=== PATIENT | female | born 1955 | race Caucasian/White ===

== ENCOUNTER → 2017-11-27 | Outpatient (CLI) | payer OTHER ==
[2017-11-17 11:00] VITALS: BP 116/57
[~2017-11-27] MED LIST: AMOX1TAB61 PO; APIX5TAB PO; ASCO500T3 PO; ASPI325T11 PO; ERTA1VIA IJ; FERR325T14 PO; LACT1CAP21 PO; LINE600T PO
--- NOTE | 2017-11-27 13:38 | KCIC ---
Examination: Ultrasound left lower extremity venous duplex HISTORY: History of follow-up greater saphenous vein thrombosis COMPARISON: 11/15/2017 Technique: Grayscale, color Doppler 2-D, spectral waveforms analysis of the left lower extremity venous system were performed. FINDINGS: Echogenicity identified in the greater saphenous vein likely known thrombosis. The thrombosis extends into the common femoral vein. The visualized superficial femoral vein, popliteal vein, calf veins are patent IMPRESSION: Thrombosis of the greater saphenous vein now extends into the common femoral vein which is a deep vein (deep venous thrombosis in the common femoral vein extending from the superficial greater saphenous vein). was informed at time of dictation. Electronically signed by: Jeff Leary MD (11/27/2017 1:34 PM) [id number]
== END | disposition home or self-care (01) ==
LOC: KCIC US 12:34
PROVIDERS: ATTEND Internal Medicine
DX: I82.412 Acute embolism and thrombosis of left femoral vein (principal)
CPT/HCPCS: 93971

== ENCOUNTER → 2017-12-25 | Outpatient (CLI) | payer OTHER ==
[2017-11-29 11:00] VITALS: BP 102/39
--- NOTE | 2017-12-25 12:48 | KCIC ---
Left lower extremity venous duplex study 12/25/2017 Clinical History: Lower extremity pain COMPARISON STUDY: Lower extremity venous duplex ultrasound November 15, 2017. Technique: Using a combination of real time ultrasound imaging and color-flow and pulse Doppler imaging techniques, including spectral analysis, graded compression and augmentation, duplex evaluation of the deep venous system of the left lower extremity was performed. Multiple images were obtained. Findings: There is no sonographic evidence of deep venous thrombosis involving the visualized deep venous structures of the left lower extremity. Previously seen clot in the left great saphenous vein has resolved in the interim. Impression: No evidence of deep venous thrombosis involving the left lower extremity. Electronically signed by: Kyle Vicente MD (12/25/2017 12:45 PM) [id number]
== END | disposition home or self-care (01) ==
LOC: KCIC US 10:52
PROVIDERS: ATTEND Surgery
DX: I82.492 Acute embolism and thrombosis of other specified deep vein of left lower extremity (principal)
CPT/HCPCS: 93971

== ENCOUNTER → 2017-12-28 | Outpatient (CLI) | payer OTHER ==
[2017-11-29 11:00] VITALS: BP 102/39
[~2017-12-28] MED LIST changes: +DOCU-109 PO; +OXYC1TAB7 PO
[2017-12-28 15:13] LABS: BASO % 1 % (0-3); EOS # 0.2 x10^3/uL (0.0-0.7); EOS % 2 % (0-3); HEMOGLOBIN 9.3 g/dL (12.0-15.5); LYMPH # 1.6 x10^3/uL (1.0-4.8); LYMPH % 22 % (24-48); MEAN CORPUSCULAR HEMOGLOBIN 25 pg (25-35); MEAN CORPUSCULAR HGB CONC 32 g/dL (31-37); MEAN CORPUSCULAR VOLUME 78 fL (79-100); MONO # 0.5 x10^3/uL (0.0-1.1); MONO % 7 % (0-9); NEUT # 4.8 x10^3uL (1.8-7.7); NEUT % 68 % (31-73); PLATELET COUNT 328 x10^3/uL (140-400); RED BLOOD COUNT 3.71 x10^6/uL (3.50-5.40)
[2017-12-28 15:23] LABS: PROTHROMBIN TIME PATIENT 14.6 SEC (11.7-14.0)
[2017-12-28 15:48] LABS: ALBUMIN 3.3 g/dL (3.4-5.0); CALCIUM 9.8 mg/dL (8.5-10.1); CREATININE 0.7 mg/dL (0.6-1.0); DIRECT BILIRUBIN 0.1 mg/dL (0.0-0.2); GFR 85.1; POTASSIUM 4.3 mmol/L (3.5-5.1); TOTAL BILIRUBIN 0.3 mg/dL (0.2-1.0); TOTAL PROTEIN 7.5 g/dL (6.4-8.2)
[2017-12-28 16:13] LABS: ANISOCYTOSIS MOD; BURR CELLS OCC; MICROCYTOSIS SLIGHT; POIKILOCYTOSIS SLIGHT
[2017-12-28 16:14] LABS: OVALOCYTES FEW
[2017-12-28 16:15] LABS: PLT ESTIMATE ADEQUATE (ADEQUATE)
== END | disposition home or self-care (01) ==
LOC: SURGPAT 14:27
PROVIDERS: ATTEND Surgery
DX: Z01.818 Encounter for other preprocedural examination (principal); K57.92 Diverticulitis of intestine, part unspecified, without perforation or abscess without bleeding; R94.5 Abnormal results of liver function studies
CPT/HCPCS: 36415; 80048; 80076; 85025; 85610; 85730

== ENCOUNTER 2018-01-04 06:01 | Inpatient (IN) | payer OTHER ==
[2018-01-04] VITALS (9 sets, daily range): BP systolic 93–135; BP diastolic 42–72
[~2018-01-04] VITALS: Ht 167.6 cm; Wt 82.6 kg
[~2018-01-04 06:01] MED LIST changes: -DOCU-109 PO; +IOHEXOL 300 MG/ML 100ML VIAL. ONE; +LIDOCAINE 2% JELLY 6ML IN APPLICATOR. ONE; -OXYC1TAB7 PO
[2018-01-04] MEDS ORDERED: ONDANSETRON PF 4 MG/2 ML VIAL. ONE (06:56)
[2018-01-04] MEDS ORDERED: DEXAMETHASONE SOD PHOS 20 MG/5 ML VIAL. ONE (06:56)
[2018-01-04] MEDS ORDERED: LIDOCAINE 2% PF Vial for OR 5 ML VIAL. ONE (06:56)
[2018-01-04] MEDS ORDERED: PROPOFOL 20 ML IV ONE (06:56)
[2018-01-04] MEDS ORDERED: PHENYLEPHRINE in 0.9% NACL PF 1 MG/10 ML SYRINGE. IV ONE (06:56)
[2018-01-04] MEDS ORDERED: SUCCINYLCHOLINE 200 MG/10 ML VIAL. ONE (06:57)
[2018-01-04] MEDS ORDERED: ROCURONIUM 100 MG/10 ML VIAL. ONE (06:57)
[2018-01-04] MEDS ORDERED: GLYCOPYRROLATE 1 MG/5 ML VIAL. ONE ×2 (06:57)
[2018-01-04] MEDS ORDERED: fentaNYL PF VIAL 100 MCG/2 ML VIAL ONE ×3 (06:58→11:09)
[2018-01-04] MEDS ORDERED: MIDAZOLAM HCL/PF 2 MG/2 ML VIAL. ONE (06:58)
[2018-01-04] MEDS ORDERED: fentaNYL PF VIAL 100 MCG/2 ML VIAL IV PRN (07:00)
[2018-01-04] MEDS ORDERED: MORPHINE SULFATE 2 MG/ML VIAL. IV PRN (07:00)
[2018-01-04] MEDS ORDERED: ONDANSETRON PF 4 MG/2 ML VIAL. IV PRN ×2 (07:00→11:15)
[2018-01-04] MEDS ORDERED: PROCHLORPERAZINE 10 MG/2 ML VIAL. IV PRN (07:00)
[2018-01-04] MEDS ORDERED: IV RINGERS,LACTATED 1000ML 1,000 ML IV SCH (07:00)
[2018-01-04] MEDS ORDERED: HYDROmorphone 2 MG/ML VIAL IV PRN (07:00)
[2018-01-04] MEDS ORDERED: LIDOCAINE 1% PF 2 ML VIAL. ID PRN (07:00)
[2018-01-04] MEDS ORDERED: NEOSTIGMINE METHYLSULFATE 5 MG/5 ML SYRINGE. ONE (07:01)
[2018-01-04] MEDS ORDERED: NEOSTIGMINE 10 MG/10 ML VIAL. ONE (07:01)
[2018-01-04] MEDS ORDERED: ePHEDrine PF IN SALINE 50 MG/5 ML DISP.SYRIN IV ONE (07:58)
--- NOTE | 2018-01-04 08:05 | PDOC4 ---
OPERATIVE NOTE Date: Date: Jan 04, 2018 Pre-Op Diagnosis: diverticulitis Post-Op Diagnosis: diverticulitis, bladder tumor Procedure Performed: cystoscopy, left ureteral catheterization, bladder tumor biopsy / fulguration Surgeon: Abdirashid Coffey MD Anesthesia Type: general Blood Loss: 0 Specimans Obtained: bladder tumor, 3 mm , left trigone. Findings: 3 mm left trigone bladder tumor Complications: none Operative Note: see dictation ABDIRASHID COFFEY MD Jan 04, 2018 08:05
[2018-01-04] MEDS ORDERED: SEVOFLURANE > 120 MINUTES. IH ONE (08:19)
[2018-01-04] MEDS ORDERED: MORPHINE SULFATE 10 MG/ML VIAL. ONE (08:35)
--- NOTE | 2018-01-04 09:31 | OP ---
DATE OF SURGERY: 01/04/2018 SURGEON: Mike Coffey MD HOT BRAIDER: None. PREOPERATIVE DIAGNOSIS: Diverticulitis. POSTOPERATIVE DIAGNOSES: Diverticulitis and bladder tumor. ANESTHESIA TYPE: General. PROCEDURE PERFORMED: Cystoscopy with left ureteral catheterization and bladder tumor biopsy with fulguration. INDICATIONS: This is a 62-year-old female with diverticulitis. We were asked to place the left ureteral stent prior to sigmoid resection. Informed consent was obtained. DESCRIPTION OF PROCEDURE: The patient was taken to the operating room. General anesthesia was induced. She was placed in dorsal lithotomy position and sterilely prepped and draped. Timeout was performed. A rigid cystoscope was advanced through the urethra into the bladder. The left ureteral orifice was cannulated with a guidewire and advanced up into the renal pelvis without difficulty. A ureteral catheter was advanced over the wire to the 25 cm erwin without resistance. The wire was removed. A 3 mm tumor was noted on the left trigone. This was biopsied with a cold cup biopsy device and then fulgurated. The remainder of the bladder appeared unremarkable. A Odell catheter was then placed and the ureteral catheter was secured to the catheter. At this point, I left the room and Dr. Perea performed this portion of the surgery. BLOOD LOSS: None. COMPLICATIONS: None. SPECIMEN: Left trigone bladder tumor. MIKE COFFEY MD DR: CLIFFORD/ru JOB#: [id number] / [id number]
[2018-01-04] MEDS ORDERED: 0.9 % SODIUM CHLORIDE 10 ML DISP.SYRIN. IV PRN (11:15)
[2018-01-04] MEDS: fentaNYL PF VIAL 100 MCG/2 ML VIAL IV PRN ×2 (11:22→11:32)
--- NOTE | 2018-01-04 11:23 | PDOC ---
BRIEF OPERATIVE NOTE Date: Jan 04, 2018 Pre-Op Diagnosis colon mass Post-Op Diagnosis same 2/[address] involvement and liver mets Procedure Performed rigid proctoscopy left colon resection with primary anastomosis mobilization of splenic flexure Surgeon Eliazar Loading Unit Operator Seating Emelina BAILEY Anesthesia Type: General Blood Loss 50cc IV Fluid 2000cc Urine Output [address] descending colon Findings pelvic organs atrophic consistent with age large mass, mid descending colon palpable LNs Complications none COLEEN ALVES MD Jan 04, 2018 11:23
[2018-01-04] MEDS ORDERED: PROCHLORPERAZINE 10 MG/2 ML VIAL. ONE (11:24)
[2018-01-04] MEDS: POTASSIUM CL 20MEQ-0.45% NACL 1,000 ML IV SCH ×2 (12:00→21:08)
--- NOTE | 2018-01-04 12:39 | RAD ---
Portable abdomen, 01/04/2018: HISTORY: Postop evaluation The abdominal gas pattern is unremarkable. The lower pelvis was not completely included on this image. There is no evidence of a retained surgical instrument, needle or radiopaque sponge on this exam. Electronically signed by: Fernando Christianson MD (01/04/2018 12:36 PM) [facility]
[2018-01-04] MEDS: MORPHINE SULFATE/PF 30 ML IV PRN (13:48)
[2018-01-04] MEDS: ENOXAPARIN 40 MG/0.4 ML SYRINGE. SQ SCH (13:50)
[2018-01-05] VITALS (7 sets, daily range): BP systolic 94–124; BP diastolic 36–72
--- NOTE | 2018-01-05 03:58 | CONS ---
DATE OF CONSULTATION: 01/04/2018 REASON FOR CONSULTATION: Medical management. HISTORY OF PRESENT ILLNESS: The patient is a 62-year-old female patient who underwent left colon resection with primary anastomosis and mobilization of the splenic flexure. 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 She underwent also cystoscopy with left ureteral catheterization and bladder tumor biopsy with fulguration and I have seen her for medical management. When I saw her, she just came out from the operation. PAST MEDICAL HISTORY: Significant for varicose veins. She has severe microcytic hypochromic anemia, diverticulitis. However, she has had CT scan that suggested there might be some colonic tumor with liver metastasis and second CT scan showed that the hepatic nodules might have enlarged in size. She has also diverticulitis with pericolonic air bubbles and diverticulitis. She was treated with prolonged course of antibiotics, both IV and orally. She did receive IV Venofer for severe iron deficiency anemia. PAST SURGICAL HISTORY: Unremarkable except for recent colon resection with end-to-end anastomosis and a cystoscopy and left ureteral stent deployment. ALLERGIES: She has no known drug allergies. MEDICATIONS: She is on ferrous sulfate 325 mg p.o. b.i.d., apixaban 5 mg twice a day and Lactobacillus rhamnosus twice a day, ascorbic acid 500 mg twice a day and she had superficial thrombophlebitis as well as deep vein thrombosis. FAMILY HISTORY: She has 1 brother who has nonalcoholic steatohepatitis. One younger brother still alive and seemingly healthy. Her father at the age of 73 because of myocardial infarction and congestive heart failure. Her mother is still alive at age of 87, has thyroid disease and underwent hysterectomy. SOCIAL HISTORY: She is , has 2 daughters. She is an ex-smoker, quit smoking about 2007. She drinks alcohol occasionally. 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 REVIEW OF SYSTEMS: The patient complained of abdominal pain, some nausea, but no vomiting. OBJECTIVE: GENERAL: When I examined her today, she looked pale, but no jaundice, cyanosis or thyromegaly. No jugular venous distention. No limb edema. VITAL SIGNS: Her heart rate was 76, blood pressure 107/48, temperature was 97.8, respiratory rate was 12 and oxygen saturation was 97% on 4 liters of oxygen. HEAD, EYES, NOSE AND THROAT: Showed normocephalic, atraumatic. NECK: Supple. HEART: Showed normal first and second heart sounds with no gallop, rub or murmur. CHEST: Clear to auscultation. No crepitation or rhonchi. ABDOMEN: Distended, soft, nontender. She has diffuse tenderness. Bowel sounds are sluggish. NEUROLOGIC: She is awake, alert, responding appropriately. Cranial nerves intact. EXTREMITIES: She moves extremities without difficulty. She has an indwelling Odell catheter. LABORATORY DATA: Showed a serum sodium 139, potassium 4.3, chloride 102, bicarbonate 28, anion gap of 9, BUN 13, creatinine 0.7, estimated GFR was 85 mL per minute. Her glucose was 92, calcium was 9.8, and magnesium was 2.1. Her total bilirubin 7.5, albumin 3.3. Total bilirubin, AST, ALT, alkaline phosphatase were slightly elevated. Her most recent white cell count was 7000, hemoglobin 9.3, hematocrit 29, MCV 78 and platelet count of 328,000. Her prothrombin time was 14.6, INR 1.2, APTT was 34. IMPRESSION AND PLAN: In summary, this is a 62-year-old female patient who was admitted with chronic diverticulitis and possible colonic tumor and possible liver metastases for which she underwent colonic resection with end-to-end anastomosis. She was found to have a carcinoma with lymph node involvement as well as liver metastases. She underwent a rigid proctoscopy and left colon resection with primary anastomosis and mobilization of the splenic flexure. She underwent cystoscopy with left ureteral catheterization and bladder tumor biopsy and fulguration. She is now n.p.o. on IV fluid. She is currently on D5 normal saline at 100 mm per hour and ondansetron 4 mg for nausea and vomiting. She is on hydromorphone, the patient's controlled analgesia. I will repeat all her lab work and will follow her closely. We will obviously at one point in time once the pathology report becomes available, the Oncology team to assist with her management. SINCERE PANTOJA MD DR: CLYDE/ru JOB#: [id number] / [id number]
[2018-01-05 04:36] LABS: HEMATOCRIT 26.3 % (36.0-47.0); HEMOGLOBIN 8.5 g/dL (12.0-15.5); RED BLOOD COUNT 3.33 x10^6/uL (3.50-5.40); RED CELL DISTRIBUTION WIDTH 29.1 % (11.5-14.5); WHITE BLOOD COUNT 8.8 x10^3/uL (4.0-11.0)
[2018-01-05 05:02] LABS: ALBUMIN 2.5 g/dL (3.4-5.0); ALBUMIN/GLOBULIN RATIO 0.7 (1.0-1.7); CALCIUM 8.4 mg/dL (8.5-10.1); CREATININE 0.7 mg/dL (0.6-1.0); GFR 85.1; POTASSIUM 4.8 mmol/L (3.5-5.1); TOTAL BILIRUBIN 0.3 mg/dL (0.2-1.0); TOTAL PROTEIN 6.3 g/dL (6.4-8.2)
[2018-01-05] MEDS: POTASSIUM CL 20MEQ-0.45% NACL 1,000 ML IV SCH ×2 (08:53→18:04)
--- NOTE | 2018-01-05 10:06 | PDOC ---
JING ENGEL [employer]EM[employer] 01/05/18 1006: SUBJECTIVE Subjective Pt doing well, no CVA/back pain. Surgical abd pain well controlled. Hasn't gotten up and walked yet. Mendes catheter not bothering her. OBJECTIVE Objective Physical Exam: General appearance: Alert and Oriented Head: Normocephalic, without obvious abnormality Eyes: conjunctivae/corneas clear. PERRL, EOM's intact. Fundi benign Back: no CVA pain Lungs: regular respirations, non labored breathing. Abdomen: soft, non-tender. No masses, no organomegaly Pelvic: mendes catheter in place draining clear yellow urine, device in good working order. Extremities: extremities normal, atraumatic, no cyanosis or edema Vital Signs Vital Signs Date Time Temp Pulse Resp B/P (MAP) Pulse Ox O2 Delivery O2 Flow Rate FiO2 01/05/18 07:55 Nasal Cannula 2.0 01/05/18 07:00 97.9 96 18 103/43 (63) 95 Nasal Cannula 3.5 97.9 01/05/18 03:00 97.7 76 18 124/72 (89) 96 Nasal Cannula 3.5 97.7 01/04/18 23:00 97.9 73 18 135/72 (93) 97 Nasal Cannula 3.5 97.9 01/04/18 20:00 Nasal Cannula 2.0 01/04/18 19:00 98.1 62 18 102/46 (64) 97 Nasal Cannula 3.5 98.1 01/04/18 14:30 97.5 68 18 93/51 (65) 98 Nasal Cannula 3.5 97.5 01/04/18 14:30 97 Nasal Cannula 3.0 01/04/18 14:00 97.5 66 18 98/47 (64) 98 Nasal Cannula 3.5 97.5 01/04/18 13:48 14 Nasal Cannula 3.0 01/04/18 13:30 97.5 63 18 100/51 (67) 98 Nasal Cannula 3.5 97.5 01/04/18 13:15 97.5 67 18 99/50 (66) 99 Nasal Cannula 3.5 97.5 01/04/18 13:00 97.5 77 18 96/44 (61) 99 Nasal Cannula 3.5 97.5 01/04/18 13:00 Mask 3.0 01/04/18 12:45 97.5 81 18 100/46 (64) 97 Nasal Cannula 3.5 97.5 01/04/18 12:22 97.5 79 18 98/42 (60) 97 Nasal Cannula 3.5 97.5 01/04/18 12:03 97.8 76 12 107/48 97 Nasal Cannula 4 97.8 01/04/18 11:48 97.8 76 12 104/43 98 Nasal Cannula 4 97.8 01/04/18 11:33 97.8 71 12 105/41 97 Nasal Cannula 4 97.8 01/04/18 11:32 12 97 Room Air 01/04/18 11:22 14 96 Room Air 01/04/18 11:18 97.8 88 12 117/45 96 Nasal Cannula 4 97.8 01/04/18 11:03 88 12 121/49 96 Nasal Cannula 2 01/04/18 10:48 Mask 10 01/04/18 10:48 97.8 88 14 121/48 100 Simple Mask 10 97.8 I & O Intake and Output 01/05/18 07:00 Intake Total 2350 ml Output Total 2175 ml Balance 175 ml Intake Oral 0 ml IV Total 2350 ml Output Urine Total 2125 ml Estimated Blood Loss 50 ml PHYSICAL EXAM Physical Exam General appearance: Alert and Oriented Head: Normocephalic, without obvious abnormality Eyes: conjunctivae/corneas clear. PERRL, EOM's intact. Fundi benign Back: no CVA pain Lungs: regular respirations, non labored breathing. Abdomen: soft, non-tender. No masses, no organomegaly Pelvic: mendes catheter in place draining clear yellow urine, device in good working order. Extremities: extremities normal, atraumatic, no cyanosis or edema ASSESSMENT/PLAN Assessment/Plan Discussed findings with patient-bladder tumor that was fulgrated by Dr. Coffey of [facility]. Pt given a copy of op report. A follow up appointment has been arranged for her to see Dr. Coffey on at 0930 am. Appointment card and new patient paperwork given to patient. All questions answered. Orders entered for nursing: Nursing staff may remove mendes catheter for voiding trial later today after patient has had her first walk and tolerated this well. Please note that indwelling stent will come out with mendes catheter removal. Please let Urology know if it does not. Encourage patient to void every hour and hour and a half thereafter. Bladder scan 4-6 hours after mendes catheter/ stent removal. If PVR greater than 350, please replace mendes catheter. Will follow peripherally over the weekend, but please call with questions or change in patient condition. COMMENT Lab Laboratory Tests Test 01/05/18 04:00 White Blood Count 8.8 x10^3/uL (4.0-11.0) Red Blood Count 3.33 x10^6/uL (3.50-5.40) Hemoglobin 8.5 g/dL (12.0-15.5) Hematocrit 26.3 % (36.0-47.0) Mean Corpuscular Volume 79 fL (79-100) Mean Corpuscular Hemoglobin 26 pg (25-35) Mean Corpuscular Hemoglobin Concent 32 g/dL (31-37) Red Cell Distribution Width 29.1 % (11.5-14.5) Platelet Count 335 x10^3/uL (140-400) Sodium Level 141 mmol/L (136-145) Potassium Level 4.8 mmol/L (3.5-5.1) Chloride Level 105 mmol/L (98-107) Carbon Dioxide Level 25 mmol/L (21-32) Anion Gap 11 (6-14) Blood Urea Nitrogen 10 mg/dL (7-20) Creatinine 0.7 mg/dL (0.6-1.0) Estimated GFR (Cockcroft-Gault) 85.1 BUN/Creatinine Ratio 14 (6-20) Glucose Level 107 mg/dL (70-99) Calcium Level 8.4 mg/dL (8.5-10.1) Total Bilirubin 0.3 mg/dL (0.2-1.0) Aspartate Amino Transf (AST/SGOT) 17 U/L (15-37) Alanine Aminotransferase (ALT/SGPT) 28 U/L (14-59) Alkaline Phosphatase 121 U/L (46-116) Total Protein 6.3 g/dL (6.4-8.2) Albumin 2.5 g/dL (3.4-5.0) Albumin/Globulin Ratio 0.7 (1.0-1.7) ABDIRASHID COFFEY MD 01/07/188: ASSESSMENT/PLAN Assessment/Plan Agree with assessment and plan. TORO,JING Reyes APRN Jan 05, 2018 10:06 ABDIRASHID COFFEY MD Jan 07, 2018 19:38
--- NOTE | 2018-01-05 14:33 | PDOC ---
SURGICAL PROGRESS NOTE Subjective POD 1 colon resection daughter at bedside Vital Signs Vital Signs Date Time Temp Pulse Resp B/P (MAP) Pulse Ox O2 Delivery O2 Flow Rate FiO2 01/05/18 11:05 100/52 (68) 01/05/18 11:00 97.9 80 16 97 Nasal Cannula 3.5 97.9 I&O Intake and Output 01/05/18 07:00 Intake Total 2350 ml Output Total 2175 ml Balance 175 ml Intake Oral 0 ml IV Total 2350 ml Output Urine Total 2125 ml Estimated Blood Loss 50 ml PATIENT HAS A MENDES: Yes General: Alert, Oriented X3, Cooperative, No acute distress Abdomen: Soft, Other (dressing intact) Labs Laboratory Tests Test 01/05/18 04:00 White Blood Count 8.8 x10^3/uL (4.0-11.0) Red Blood Count 3.33 x10^6/uL (3.50-5.40) Hemoglobin 8.5 g/dL (12.0-15.5) Hematocrit 26.3 % (36.0-47.0) Mean Corpuscular Volume 79 fL (79-100) Mean Corpuscular Hemoglobin 26 pg (25-35) Mean Corpuscular Hemoglobin Concent 32 g/dL (31-37) Red Cell Distribution Width 29.1 % (11.5-14.5) Platelet Count 335 x10^3/uL (140-400) Sodium Level 141 mmol/L (136-145) Potassium Level 4.8 mmol/L (3.5-5.1) Chloride Level 105 mmol/L (98-107) Carbon Dioxide Level 25 mmol/L (21-32) Anion Gap 11 (6-14) Blood Urea Nitrogen 10 mg/dL (7-20) Creatinine 0.7 mg/dL (0.6-1.0) Estimated GFR (Cockcroft-Gault) 85.1 BUN/Creatinine Ratio 14 (6-20) Glucose Level 107 mg/dL (70-99) Calcium Level 8.4 mg/dL (8.5-10.1) Total Bilirubin 0.3 mg/dL (0.2-1.0) Aspartate Amino Transf (AST/SGOT) 17 U/L (15-37) Alanine Aminotransferase (ALT/SGPT) 28 U/L (14-59) Alkaline Phosphatase 121 U/L (46-116) Total Protein 6.3 g/dL (6.4-8.2) Albumin 2.5 g/dL (3.4-5.0) Albumin/Globulin Ratio 0.7 (1.0-1.7) Laboratory Tests Test 01/05/18 04:00 White Blood Count 8.8 x10^3/uL (4.0-11.0) Red Blood Count 3.33 x10^6/uL (3.50-5.40) Hemoglobin 8.5 g/dL (12.0-15.5) Hematocrit 26.3 % (36.0-47.0) Mean Corpuscular Volume 79 fL (79-100) Mean Corpuscular Hemoglobin 26 pg (25-35) Mean Corpuscular Hemoglobin Concent 32 g/dL (31-37) Red Cell Distribution Width 29.1 % (11.5-14.5) Platelet Count 335 x10^3/uL (140-400) Sodium Level 141 mmol/L (136-145) Potassium Level 4.8 mmol/L (3.5-5.1) Chloride Level 105 mmol/L (98-107) Carbon Dioxide Level 25 mmol/L (21-32) Anion Gap 11 (6-14) Blood Urea Nitrogen 10 mg/dL (7-20) Creatinine 0.7 mg/dL (0.6-1.0) Estimated GFR (Cockcroft-Gault) 85.1 BUN/Creatinine Ratio 14 (6-20) Glucose Level 107 mg/dL (70-99) Calcium Level 8.4 mg/dL (8.5-10.1) Total Bilirubin 0.3 mg/dL (0.2-1.0) Aspartate Amino Transf (AST/SGOT) 17 U/L (15-37) Alanine Aminotransferase (ALT/SGPT) 28 U/L (14-59) Alkaline Phosphatase 121 U/L (46-116) Total Protein 6.3 g/dL (6.4-8.2) Albumin 2.5 g/dL (3.4-5.0) Albumin/Globulin Ratio 0.7 (1.0-1.7) Assessment/Plan POD 1 colon resection start clears ambulate d/c mendes in AM Dr Fung to follow over the weekend d/w Day and her daughter COLEEN ALVES MD Jan 05, 2018 14:33
--- NOTE | 2018-01-05 18:08 | OP ---
DATE OF SURGERY: 01/04/2018 PREOPERATIVE DIAGNOSIS: Colon mass. 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 PROCEDURE: 1. Rigid proctoscopy. 2. Left colon resection with primary anastomosis. 3. Mobilization of the splenic flexure. SURGEON: Gerald Alves MD PRODUCTION CONTROL PEGBOARD CLERK: LEO Kee. ANESTHESIA: General endotracheal. ESTIMATED BLOOD LOSS: 50 mL. IV FLUID: 2000 mL. URINE OUTPUT: 145 mL. INDICATIONS: The patient is a 62-year-old [employer] employee with a known colon mass here for resection. OPERATIVE FINDINGS: The liver had palpable nodules in bilateral lobes. The stomach was unremarkable with an OG tube in place. Small bowel was run from ligament of Treitz to ileocecal valve without abnormality. The ascending and transverse colon were unremarkable. In the proximal descending colon was a large mass. The sigmoid and rectum were unremarkable. Pelvic organs atrophic consistent with the patient's age. Small bowel run from ligament of Treitz to ileocecal valve without abnormality. DESCRIPTION OF PROCEDURE: The patient brought to the operating suite, given a general endotracheal anesthetic, underwent cystoscopy with bladder biopsy and placement of a left ureteral stent by Dr. Carreon who will dictate. Rigid proctoscopy was then carried out to 22 cm from the anal verge without evidence of pathology. The abdomen was prepped and draped in usual sterile fashion. A midline incision starting above the umbilicus extending inferiorly was made through the skin and subcutaneous tissue, midline opened and extended with cautery taking care to avoid injury to abdominal contents. Abdomen explored with results as noted above. With the Omni self-retaining retractor for exposure, we set about mobilizing the splenic flexure by dividing the gastrocolic omentum and reflecting the splenic flexure down away from the spleen, avoiding injury to the spleen. The bowel distal to the process was similarly mobilized to the midline by taking down the white line of Toldt. We then mobilized the mass off of the lateral peritoneum with careful blunt and cautery dissection until we had mobilized in its entirety. A periaortic lymph node concerning for metastasis was harvested and sent for frozen section. The proximal colon was divided with a FRACISCO stapler and the mesocolon was serially clamped, divided and ligated to a point distal to the process, which was similarly divided allowing removal of the specimen. Intraoperative report from pathology showed metastatic cancer to the periaortic node and as such, I opted to not try and biopsy the liver metastases. An end-to-end anastomosis was created without tension placing a posterior row of interrupted 3-0 Vicryl sutures. Bowel occluded proximally and distally. Staple lines excised. Mucosal anastomosis created with a running locked 3-0 chromic first posteriorly, then anteriorly. Clamps removed. Anastomosis completed with an anterior row of 3-0 Vicryl sutures. There was competency and patency of the anastomosis at completion. Gloves were changed, abdomen irrigated with sterile water and checked for adequate hemostasis. When present and a correct sponge count was obtained, the bowel was occluded proximally to the anastomosis and rigid scope placed and the bowel insufflated while submerged. No evidence of air leak was seen. Bowel decompressed. The scope removed. The incision closed in a single layer using looped 0 PDS in running fashion, tied in the middle. Skin closed with a subcuticular 4-0 Monocryl. Steri-Strips and sterile dressing applied. Postop foreign body film was negative for unexplained foreign body. The patient awakened from her anesthetic and taken to the recovery room in satisfactory condition. GERALD ALVES MD DR: MAGDIEL/ru JOB#: [id number] / [id number] SINCERE Fairchild MD
[2018-01-05] MEDS: MORPHINE SULFATE/PF 30 ML IV PRN (18:16)
--- NOTE | 2018-01-05 22:42 | PN ---
DATE: 01/05/2018 SUBJECTIVE: The patient is resting slightly propped up in bed, no apparent distress, awake, alert. On questioning her, she denied any complaints in particular any nausea or vomiting. Her pain is well controlled, has not had any bowel movement, has not passed any gas. OBJECTIVE: GENERAL: When I examined her, she looked well and was clearly in no apparent respiratory distress. She is slightly pale, but no jaundice, cyanosis, or thyromegaly. No jugular venous distension. No limb edema. VITAL SIGNS: Her heart rate was 96, blood pressure was 103/43, temperature was 97.9, respiratory rate was 18 and oxygen saturation was 95%. She is on 3-1/2 liters of oxygen. HEAD, EYES, EARS, NOSE AND THROAT: Showed normocephalic, atraumatic. NECK: Supple. HEART: Showed normal first and second heart sounds with no gallop, rub or murmur. CHEST: Clear to auscultation. No crepitation or rhonchi. ABDOMEN: Distended, soft. Bowel sounds are sluggish. NEUROLOGIC: She is awake, alert, responding appropriately. Cranial nerves intact. She moves extremities without difficulty. Her intake was 2350, output was 2175. LABORATORY DATA: Her lab work this morning showed a white cell count of 8800, hemoglobin 8.5, hematocrit 26.5, MCV 79 and platelet count of 335,000. Her serum sodium was 141, potassium 4.8, chloride 105, bicarbonate 25, anion gap of 11, BUN 10, creatinine 0.7, estimated GFR was 85 mL per minute. Her glucose 107, calcium was 8.4. Total bilirubin, AST, ALT were normal. Alkaline phosphatase slightly elevated. Total protein was 6.3, albumin 2.5. ASSESSMENT: This is a 62-year-old female patient, who was admitted with chronic diverticulitis and possible colonic tumor, possible liver metastasis for which she underwent colonic resection with end-to-end anastomosis. She was found to have carcinoma with lymph node involvement as well as liver metastases. She underwent rigid proctoscopy and left colon resection with primary anastomosis and mobilization of the splenic flexure. She also underwent cystoscopy with left ureteral catheterization and bladder tumor biopsy and fulguration. PLAN: To continue with IV fluid, continue with pain management and antiemetics. Await the evaluation by the surgeon to see whether she can advance her diet. She also will need an Oncology consult as well as Physical and Occupational Therapy. SINCERE PANTOJA MD DR: CLYDE/ru JOB#: [id number] / [id number]
[2018-01-06] MEDS: POTASSIUM CL 20MEQ-0.45% NACL 1,000 ML IV SCH ×3 (03:20→23:39)
[2018-01-06 03:43] VITALS: BP 147/64
[2018-01-06 07:00] VITALS: BP 110/53
--- NOTE | 2018-01-06 09:18 | PDOC ---
SURGICAL PROGRESS NOTE Subjective Patient doing well complains of pain only when moving no nausea or vomiting Vital Signs Vital Signs Date Time Temp Pulse Resp B/P (MAP) Pulse Ox O2 Delivery O2 Flow Rate FiO2 01/06/18 07:00 99.9 104 18 110/53 (72) 91 Room Air 99.9 01/06/18 03:43 2.0 I&O Intake and Output 01/06/18 07:00 Intake Total 5031 ml Output Total 1400 ml Balance 3631 ml Intake Oral 1080 ml IV Total 3951 ml Output Urine Total 1400 ml PATIENT HAS A YEH: Yes General: Alert, Oriented X3, Cooperative, mild distress Abdomen: Normal bowel sounds, Soft, Other (mild incisional tenderness wound is clean dry and intact) Labs Laboratory Tests Test 01/05/18 04:00 White Blood Count 8.8 x10^3/uL (4.0-11.0) Red Blood Count 3.33 x10^6/uL (3.50-5.40) Hemoglobin 8.5 g/dL (12.0-15.5) Hematocrit 26.3 % (36.0-47.0) Mean Corpuscular Volume 79 fL (79-100) Mean Corpuscular Hemoglobin 26 pg (25-35) Mean Corpuscular Hemoglobin Concent 32 g/dL (31-37) Red Cell Distribution Width 29.1 % (11.5-14.5) Platelet Count 335 x10^3/uL (140-400) Sodium Level 141 mmol/L (136-145) Potassium Level 4.8 mmol/L (3.5-5.1) Chloride Level 105 mmol/L (98-107) Carbon Dioxide Level 25 mmol/L (21-32) Anion Gap 11 (6-14) Blood Urea Nitrogen 10 mg/dL (7-20) Creatinine 0.7 mg/dL (0.6-1.0) Estimated GFR (Cockcroft-Gault) 85.1 BUN/Creatinine Ratio 14 (6-20) Glucose Level 107 mg/dL (70-99) Calcium Level 8.4 mg/dL (8.5-10.1) Total Bilirubin 0.3 mg/dL (0.2-1.0) Aspartate Amino Transf (AST/SGOT) 17 U/L (15-37) Alanine Aminotransferase (ALT/SGPT) 28 U/L (14-59) Alkaline Phosphatase 121 U/L (46-116) Total Protein 6.3 g/dL (6.4-8.2) Albumin 2.5 g/dL (3.4-5.0) Albumin/Globulin Ratio 0.7 (1.0-1.7) Assessment/Plan Status post colon resection postoperative day 2 doing quite well encourage activity Continue on clear liquids continue Awaiting return of bowel function JORDIN YU MD Jan 06, 2018 09:18
[2018-01-06] MEDS: ENOXAPARIN 40 MG/0.4 ML SYRINGE. SQ SCH (10:44)
--- NOTE | 2018-01-06 10:54 | PDOC2 ---
CONSULT Date of Consult Date of Consult DATE: 01/06/18 TIME: 10:44 Reason for consultation: Colon cancer Consult: Hematology oncology, Dr. 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 Regarding the anemia, she tells me it's been chronically ongoing for at least a year, mod-sev with hemoglobin of 8 earlier in June down to 7.2, improved with IV iron, associated with some mild dyspnea, and likely worsened due to colon cancer, final path is not available yet though I believe preliminary report of distant lymph nodes intraoperatively were positive for malignancy. She also has a history of varicose veins, and recent left lower extremity ultrasound was negative for DVT on a December and she is currently on Lovenox. 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[employer], one daughter is Eunice with her today Family history: No cancers, heart disease and nonalcoholic steatohepatitis Review of systems: A little headache recently, hoarse voice after extubation improved with ice chips, weight loss of about 15 pounds, abdominal pain prior to surgical resection, varicose veins with redness and warmth in pain prior to treatment of DVT, otherwise 10 point review of systems is negative Physical exam: Vitals reviewed Gen.: Well-nourished and well-developed in no acute distress HEENT: mucous membranes moist, head normocephalic atraumatic Neck: Supple, no lymphadenopathy Lymph nodes: No palpable lymphadenopathy neck or axilla Lungs: Breathing comfortably on room air, no evidence of respiratory distress Heart: Regular rate and rhythm Abdomen: Soft, TTP, nondistended Extremities: No cyanosis or edema, varicose veins bilat Skin: No obvious rashes or skin breakdown Neuro: Alert and oriented 3 Psych: Pleasant mood and affect Lab reviewed: White count 8.8, hemoglobin 8.5, platelets 335, MCV of 79, creatinine 0.7, alkaline phosphatase 121 otherwise hepatic without elevation Rads reviewed: Left lower extremity ultrasound 25 December 2017 with no DVT Case discussed with: Patient and her daughter, records reviewed in [facility], including labs and radiology, please see note for summary details. Assessment and Plan: She is a 62-year-old female with clinical stage IV colon cancer, final path pending, will be a candidate for chemotherapy, also with recent DVT though no evidence on 25 December 2017 ultrasound which is reassuring. Recent DVT: She is currently on Lovenox prophylaxis Colon cancer clinically stage IV: await final path, will likely get CT chest, she does not want that right at the moment, and order CEA, and will likely need a port prior to beginning palliative chemotherapy Weight loss: Requesting nutrition consultation, we can place this for her Disposition: Per others, we will follow-up after discharge for further recommendations if she is discharged over the weekend, though will see her Monday if still here Thank you kindly for this consultation, and please do not hesitate to call with any further questions. Past Medical History Cardiovascular: Other Pulmonary: No pertinent hx CENTRAL NERVOUS SYSTEM: Other GI: Diverticulosis, GI bleed, Hemorrhoids Heme/Onc: Anemia NOS Hepatobiliary: No pertinent hx Psych: No pertinent hx Musculoskeletal: No pain Rheumatologic: No pertinent hx Infectious disease: No pertinent hx Renal/: No pertinent hx Endocrine: No pertinent hx Past Surgical History Past Surgical History: No pertinent history Family History Family History: Alzheimer's Disease, Heart Disease Social History ALCOHOL: occassional Drugs: None Lives: Alone Current Medications Current Medications Current Medications Ondansetron HCl (Zofran) 4 mg PRN Q6HRS PRN IV NAUSEA/VOMITING; Start at 07:00; Stop 01/04/18 at 23:00; Status DC Fentanyl Citrate (Fentanyl 2ml Vial) 25 mcg PRN Q5MIN PRN IV MILD PAIN; Start 01/04/18 at 07:00; Stop 01/04/18 at 23:00; Status DC Fentanyl Citrate (Fentanyl 2ml Vial) 50 mcg PRN Q5MIN PRN IV MODERATE TO SEVERE PAIN Last administered on 01/04/18at 11:32; Start 01/04/18 at 07:00; Stop 01/04/18 at 23:00; Status DC Morphine Sulfate (Morphine Sulfate) 1 mg PRN Q10MIN PRN IV SEVERE PAIN; Start 01/04/18 at 07:00; Stop 01/04/18 at 23:00; Status DC Ringer's Solution 1,000 ml @ 30 mls/hr Q24H IV Last administered on at 06:55; Start 01/04/18 at 07:00; Stop 01/04/18 at 18:59; Status DC Lidocaine HCl (Xylocaine-Mpf 1% 2ml Vial) 2 ml PRN 1X PRN ID IV START; Start 01/04/18 at 07:00; Stop 01/04/18 at 23:00; Status DC Hydromorphone HCl (Dilaudid) 0.5 mg PRN Q10MIN PRN IV SEV PAIN, Second choice; Start 01/04/18 at 07:00; Stop 01/04/18 at 23:00; Status DC Prochlorperazine Edisylate (Compazine) 5 mg PACU PRN PRN IV NAUSEA, MRX1 Last administered on 01/04/18at 11:33; Start 01/04/18 at 07:00; Stop 01/04/18 at 23 :00; Status DC Cefoxitin Sodium 50 ml @ 100 mls/hr 1X ONCE IV Last administered on at 07:35; Start 01/04/18 at 06:00; Stop 01/04/18 at 06:29; Status DC Propofol 20 ml @ As Directed STK-MED ONCE IV ; Start 01/04/18 at 06:56; Stop 01/04/18 at 06:57; Status DC Dexamethasone Sodium Phosphate (Decadron) 20 mg STK-MED ONCE .ROUTE ; Start at 06:56; Stop 10/18/18 at 06:57; Status DC Ondansetron HCl (Zofran) 4 mg STK-MED ONCE .ROUTE ; Start 01/04/18 at 06:56; Stop 01/04/18 at 06:57; Status DC Lidocaine HCl (Lidocaine Pf 2% Vial) 5 ml STK-MED ONCE .ROUTE ; Start 01/04/18 at 06:56; Stop 01/04/18 at 06:57; Status DC Phenylephrine HCl (PHENYLEPHRINE in 0.9% NACL PF) 1 mg STK-MED ONCE IV ; Start 01/04/18 at 06:56; Stop 01/04/18 at 06:57; Status DC Glycopyrrolate (Robinul) 1 mg STK-MED ONCE .ROUTE ; Start 01/04/18 at 06:57; Stop 01/04/18 at 06:58; Status DC Glycopyrrolate (Robinul) 1 mg STK-MED ONCE .ROUTE ; Start 01/04/18 at 06:57; Stop 01/04/18 at 06:58; Status DC Rocuronium [place] (Zemuron) 100 mg STK-MED ONCE .ROUTE ; Start 01/04/18 at 06: 57; Stop 01/04/18 at 06:58; Status DC Succinylcholine Chloride (Anectine) 200 mg STK-MED ONCE .ROUTE ; Start at 06:57; Stop 01/04/18 at 06:58; Status DC Fentanyl Citrate (Fentanyl 2ml Vial) 100 mcg STK-MED ONCE .ROUTE ; Start at 06:58; Stop 01/04/18 at 06:59; Status DC Midazolam HCl (Versed) 2 mg STK-MED ONCE .ROUTE ; Start 01/04/18 at 06:58; Stop 01/04/18 at 06:59; Status DC Iohexol (Omnipaque 300 Mg/ml) 100 ml STK-MED ONCE .ROUTE ; Start 01/04/18 at 06 :00; Stop 01/04/18 at 07:01; Status DC Lidocaine HCl (Glydo (Lidocaine) Jelly) 6 malorie STK-MED ONCE .ROUTE ; Start 01/04 at 06:00; Stop 01/04/18 at 07:01; Status DC Neostigmine Methylsulfate (Bloxiverz) 10 mg STK-MED ONCE .ROUTE ; Start at 07:01; Stop 01/04/18 at 07:02; Status DC Neostigmine Methylsulfate (Neostigmine Methylsulfate) 5 mg STK-MED ONCE .ROUTE ; Start 01/04/18 at 07:01; Stop 01/04/18 at 07:02; Status DC Fentanyl Citrate (Fentanyl 2ml Vial) 100 mcg STK-MED ONCE .ROUTE ; Start at 07:45; Stop 01/04/18 at 07:46; Status DC Ephedrine Sulfate (ePHEDrine PF IN SALINE SYRINGE) 50 mg STK-MED ONCE IV ; Start 01/04/18 at 07:58; Stop 01/04/18 at 07:59; Status DC Sevoflurane (Ultane) 90 ml STK-MED ONCE IH ; Start 01/04/18 at 08:19; Stop at 08:20; Status DC Morphine Sulfate (Morphine Sulfate) 10 mg STK-MED ONCE .ROUTE ; Start 01/04/18 at 08:35; Stop 01/04/18 at 08:36; Status DC Cefoxitin Sodium 100 ml @ As Directed STK-MED ONCE IV ; Start 01/04/18 at 08: 33; Stop 01/04/18 at 09:34; Status DC Fentanyl Citrate (Fentanyl 2ml Vial) 100 mcg STK-MED ONCE .ROUTE ; Start at 11:09; Stop 01/04/18 at 11:10; Status DC Enoxaparin Sodium (Lovenox 40mg Syringe) 40 mg DAILY SQ Last administered on at 10:44; Start 01/05/18 at 09:00 Sodium Chloride (Normal Saline Flush) 3 ml QSHIFT PRN IV AFTER MEDS AND BLOOD DRAWS; Start 01/04/18 at 11:15 Potassium Chloride/Sodium Chloride 1,000 ml @ 100 mls/hr Q10H IV Last administered on 01/06/18at 03:20; Start 01/04/18 at 12:00 Hydromorphone HCl 30 ml @ 0 mls/hr CONT PRN PRN IV PER PROTOCOL; Start at 11:15; Status UNV Ondansetron HCl (Zofran) 4 mg PRN Q6HRS PRN IV IESHA, 1ST CHOICE; Start 01/04 at 11:15 Prochlorperazine Edisylate (Compazine) 10 mg STK-MED ONCE .ROUTE ; Start at 11:24; Stop 01/04/18 at 11:25; Status DC Morphine Sulfate 30 ml @ 0 mls/hr CONT PRN PRN IV PER PROTOCOL Last administered on 01/05/18at 18:16; Start 01/04/18 at 12:30 Active Scripts Active Ascorbic Acid 500 Mg Tablet 500 Mg PO BID 30 Days Ferrous Sulfate 325 Mg Tablet 1 Tab PO BID 30 Days Reported Eliquis (Apixaban) 5 Mg Tablet 5 Mg PO BID 60 Days Culturelle (Lactobacillus Rhamnosus Gg) 1 Each Capsule 1 Each PO BID Allergies Allergies: Coded Allergies: No Known Drug Allergies (Unverified , 11/14/17) Vitals VITALS Vital Signs Date Time Temp Pulse Resp B/P (MAP) Pulse Ox O2 Delivery O2 Flow Rate FiO2 01/06/18 08:30 Room Air 01/06/18 07:00 99.9 104 18 110/53 (72) 91 99.9 01/06/18 03:43 2.0 Labs Labs Laboratory Tests Test 01/05/18 04:00 White Blood Count 8.8 x10^3/uL (4.0-11.0) Red Blood Count 3.33 x10^6/uL (3.50-5.40) Hemoglobin 8.5 g/dL (12.0-15.5) Hematocrit 26.3 % (36.0-47.0) Mean Corpuscular Volume 79 fL (79-100) Mean Corpuscular Hemoglobin 26 pg (25-35) Mean Corpuscular Hemoglobin Concent 32 g/dL (31-37) Red Cell Distribution Width 29.1 % (11.5-14.5) Platelet Count 335 x10^3/uL (140-400) Sodium Level 141 mmol/L (136-145) Potassium Level 4.8 mmol/L (3.5-5.1) Chloride Level 105 mmol/L (98-107) Carbon Dioxide Level 25 mmol/L (21-32) Anion Gap 11 (6-14) Blood Urea Nitrogen 10 mg/dL (7-20) Creatinine 0.7 mg/dL (0.6-1.0) Estimated GFR (Cockcroft-Gault) 85.1 BUN/Creatinine Ratio 14 (6-20) Glucose Level 107 mg/dL (70-99) Calcium Level 8.4 mg/dL (8.5-10.1) Total Bilirubin 0.3 mg/dL (0.2-1.0) Aspartate Amino Transf (AST/SGOT) 17 U/L (15-37) Alanine Aminotransferase (ALT/SGPT) 28 U/L (14-59) Alkaline Phosphatase 121 U/L (46-116) Total Protein 6.3 g/dL (6.4-8.2) Albumin 2.5 g/dL (3.4-5.0) Albumin/Globulin Ratio 0.7 (1.0-1.7) MAYRA INTERIANO MD Jan 06, 2018 10:54
[2018-01-06 11:00] VITALS: BP 114/55
[2018-01-06 15:00] VITALS: BP 123/52
[2018-01-06] MEDS: PIPERACILLIN/TAZOBACTAM 3.375 GM in IV NORMAL SALINE 50ML 50 ML IV SCH ×2 (16:42→23:39)
[2018-01-06 19:00] VITALS: BP 123/55
[2018-01-06] MEDS: MORPHINE SULFATE/PF 30 ML IV PRN (20:11)
[2018-01-06 23:00] VITALS: BP 127/42
--- NOTE | 2018-01-06 23:03 | PN ---
DATE: SUBJECTIVE: The patient is sitting in her chair comfortably in no apparent distress. Her Odell catheter was removed. Unfortunately, the ureteral stent was attained, supposed to come with a Odell catheter for some reason, the patient denied any nausea or vomiting. She has not had any bowel movement or passed gas, but bowel sounds are active. She has been up and about. Her pain is much better controlled. PHYSICAL EXAMINATION: GENERAL: When I examined her this morning, she looked well and was clearly in no apparent respiratory distress. Slightly pale. No jaundice, cyanosis or thyromegaly. No jugular venous distension. No limb edema. VITAL SIGNS: Her heart rate was 104, blood pressure 110/53, temperature was 99.9, respiratory rate was 18 and oxygen saturation was 91%. HEAD, EYES, EARS, NOSE AND THROAT: Showed normocephalic, atraumatic. NECK: Supple. HEART: Showed normal first and second sounds. No gallop, rub or murmur. CHEST: Clear to auscultation. No crepitation or rhonchi. ABDOMEN: Slightly distended, soft, nontender. No guarding or rigidity. No organomegaly. Hernial orifice intact. Bowel sounds normal. NEUROLOGIC: She is awake, alert, responding appropriately. All cranial nerves intact. She moves extremities without difficulty. She ambulates without assistance or assistive devices. Her intake over the last 24 hours was 2350, output was 2175. LABORATORY DATA: As of yesterday, her white cell count was 8800, hemoglobin 8.5, hematocrit 26, MCV 79, and platelet count 235,000. Her chemistry showed a serum sodium 141, potassium 4.8, chloride 105, bicarbonate 25, anion gap of 11, BUN 10, creatinine 0.7, estimated GFR was 85 mL per minute. Her glucose was 107, calcium was 8.4. Total bilirubin, AST, and ALT are normal. Alkaline phosphatase slightly elevated. Total protein was 6.3, albumin 2.5. ASSESSMENT: Status post colon resection with end-to-end anastomosis. 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 She underwent rigid proctoscopy and left colon resection and mobilization of splenic flexure. She also underwent cystoscopy and left ureteral catheterization and bladder tumor biopsy and fulguration. The plan is to continue the IV fluid, continue with pain management, as well as antiemetics. She continues to have clear liquid. We will obviously continue with physical and occupational therapy and repeat all her labs tomorrow and if she spiked her temperature more than 101, we will david culture her and start her empirically on antibiotics. SINCERE PANTOAJ MD DR: CLYDE/ru JOB#: [id number] / [id number]
[2018-01-07 03:00] VITALS: BP 134/67
[2018-01-07 05:32] LABS: HEMATOCRIT 22.8 % (36.0-47.0); HEMOGLOBIN 7.2 g/dL (12.0-15.5); RED BLOOD COUNT 2.89 x10^6/uL (3.50-5.40); RED CELL DISTRIBUTION WIDTH 28.2 % (11.5-14.5)
[2018-01-07 05:56] LABS: ALBUMIN 2.3 g/dL (3.4-5.0); ALBUMIN/GLOBULIN RATIO 0.7 (1.0-1.7); CALCIUM 8.3 mg/dL (8.5-10.1); CREATININE 0.7 mg/dL (0.6-1.0); GFR 85.1; POTASSIUM 3.9 mmol/L (3.5-5.1); TOTAL BILIRUBIN 0.4 mg/dL (0.2-1.0); TOTAL PROTEIN 5.8 g/dL (6.4-8.2)
[2018-01-07] MEDS: PIPERACILLIN/TAZOBACTAM 3.375 GM in IV NORMAL SALINE 50ML 50 ML IV SCH ×3 (06:39→16:50)
[2018-01-07 07:00] VITALS: BP_SYST 102; BP_SYST 119; BP_DIAS 52; BP_DIAS 60
--- NOTE | 2018-01-07 09:36 | PDOC ---
SURGICAL PROGRESS NOTE Subjective Patient doing well tolerating clear liquids has not had a bowel movement yet. Vital Signs Vital Signs Date Time Temp Pulse Resp B/P (MAP) Pulse Ox O2 Delivery O2 Flow Rate FiO2 01/07/18 07:50 Room Air 01/07/18 07:00 99.6 80 18 102/52 (69) 94 99.6 01/07/18 03:00 2.0 I&O Intake and Output 01/07/18 07:00 Intake Total 800 ml Balance 800 ml Intake Oral 800 ml # Voids 2 PATIENT HAS A YEH: No General: Alert, Oriented X3, Cooperative, mild distress Abdomen: Normal bowel sounds, Soft, Other (mild incisional tenderness) Labs Laboratory Tests Test 01/07/18 04:55 White Blood Count 6.0 x10^3/uL (4.0-11.0) Red Blood Count 2.89 x10^6/uL (3.50-5.40) Hemoglobin 7.2 g/dL (12.0-15.5) Hematocrit 22.8 % (36.0-47.0) Mean Corpuscular Volume 79 fL (79-100) Mean Corpuscular Hemoglobin 25 pg (25-35) Mean Corpuscular Hemoglobin Concent 32 g/dL (31-37) Red Cell Distribution Width 28.2 % (11.5-14.5) Platelet Count 228 x10^3/uL (140-400) Sodium Level 140 mmol/L (136-145) Potassium Level 3.9 mmol/L (3.5-5.1) Chloride Level 105 mmol/L (98-107) Carbon Dioxide Level 25 mmol/L (21-32) Anion Gap 10 (6-14) Blood Urea Nitrogen 7 mg/dL (7-20) Creatinine 0.7 mg/dL (0.6-1.0) Estimated GFR (Cockcroft-Gault) 85.1 BUN/Creatinine Ratio 10 (6-20) Glucose Level 78 mg/dL (70-99) Calcium Level 8.3 mg/dL (8.5-10.1) Total Bilirubin 0.4 mg/dL (0.2-1.0) Aspartate Amino Transf (AST/SGOT) 15 U/L (15-37) Alanine Aminotransferase (ALT/SGPT) 22 U/L (14-59) Alkaline Phosphatase 103 U/L (46-116) Total Protein 5.8 g/dL (6.4-8.2) Albumin 2.3 g/dL (3.4-5.0) Albumin/Globulin Ratio 0.7 (1.0-1.7) Laboratory Tests Test 01/07/18 04:55 White Blood Count 6.0 x10^3/uL (4.0-11.0) Red Blood Count 2.89 x10^6/uL (3.50-5.40) Hemoglobin 7.2 g/dL (12.0-15.5) Hematocrit 22.8 % (36.0-47.0) Mean Corpuscular Volume 79 fL (79-100) Mean Corpuscular Hemoglobin 25 pg (25-35) Mean Corpuscular Hemoglobin Concent 32 g/dL (31-37) Red Cell Distribution Width 28.2 % (11.5-14.5) Platelet Count 228 x10^3/uL (140-400) Sodium Level 140 mmol/L (136-145) Potassium Level 3.9 mmol/L (3.5-5.1) Chloride Level 105 mmol/L (98-107) Carbon Dioxide Level 25 mmol/L (21-32) Anion Gap 10 (6-14) Blood Urea Nitrogen 7 mg/dL (7-20) Creatinine 0.7 mg/dL (0.6-1.0) Estimated GFR (Cockcroft-Gault) 85.1 BUN/Creatinine Ratio 10 (6-20) Glucose Level 78 mg/dL (70-99) Calcium Level 8.3 mg/dL (8.5-10.1) Total Bilirubin 0.4 mg/dL (0.2-1.0) Aspartate Amino Transf (AST/SGOT) 15 U/L (15-37) Alanine Aminotransferase (ALT/SGPT) 22 U/L (14-59) Alkaline Phosphatase 103 U/L (46-116) Total Protein 5.8 g/dL (6.4-8.2) Albumin 2.3 g/dL (3.4-5.0) Albumin/Globulin Ratio 0.7 (1.0-1.7) Assessment/Plan Status post colon resection awaiting bowel function return Ureteral stent still in place urology is been consult for removal Continue supportive care JORDIN YU MD Jan 07, 2018 09:36
[2018-01-07] MEDS: ENOXAPARIN 40 MG/0.4 ML SYRINGE. SQ SCH (09:53)
[2018-01-07] MEDS: POTASSIUM CL 20MEQ-0.45% NACL 1,000 ML IV SCH ×2 (09:54→21:23)
[2018-01-07] MEDS ORDERED: IRON SUCROSE COMPLEX 200 MG in IV NORMAL SALINE 100ML 100 ML IV ONE (10:00)
[2018-01-07 11:00] VITALS: BP 133/68
[2018-01-07 15:00] VITALS: BP 130/64
[2018-01-07 19:00] VITALS: BP 110/43
--- NOTE | 2018-01-07 20:00 | PN ---
DATE: 01/07/2018 SUBJECTIVE: The patient is resting slightly propped up in bed, in no apparent distress, awake, alert, apparently passed some gas, but has not had any bowel movement yet. Her pain is well controlled and stated that she slept very well overnight. PHYSICAL EXAMINATION: GENERAL: When I examined her, she looked pale. No jaundice, cyanosis, or thyromegaly. No jugular venous distension. No limb edema. VITAL SIGNS: Her heart rate was 80, blood pressure was 119/60, temperature was 98.2, respiratory rate was 18 and oxygen saturation was 94%. HEAD, EYES, EARS, NOSE AND THROAT: Showed normocephalic, atraumatic. NECK: Supple. HEART: Showed normal first and second heart sounds. No gallop, rub or murmur. CHEST: Clear to auscultation. No crepitation or rhonchi. ABDOMEN: Distended, soft, nontender. No guarding or rigidity. No organomegaly. NEUROLOGIC: She is awake, alert, responding appropriately. All cranial nerves intact. She moves extremities without difficulty. She ambulates without assistance or assistive devices. Her intake over the last 24 hours was 5000, output was 1400. LABORATORY DATA: This morning showed a serum sodium 140, potassium 3.9, chloride 105, bicarbonate 25, anion gap of 10, BUN 7, creatinine was 0.7, estimated GFR was 85 mL per minute. Her glucose was 78. Calcium was 8.3. Total bilirubin, AST, ALT, alkaline phosphatase were normal. Total protein was 5.8, albumin 2.3. White cell count was 6000, hemoglobin 7.2, hematocrit 22.8, MCV 79 and platelet count 228,000. ASSESSMENT: 1. Status post colon resection with end-to-end anastomosis for colon mass, possible that is malignant metastatic disease to the liver and lymph nodes. The patient underwent rigid sigmoidoscopy and resection, mobilization of splenic flexure. She also underwent cystoscopy and left ureteral catheterization, bladder tumor biopsy and fulguration. The ureteral stent did not come out with the Odell catheter when it was removed. 2. Anemia with hemoglobin and hematocrit that dropped down to 7.2 and 22.8 from 8.5 and 26. Somewhat is probably hemodilution; however, she has microcytic anemia and she is known to have iron deficiency before. PLAN: My plan is to continue to start her on Venofer IV and monitor her labs closely. She apparently was seen by Dr. Interiano and obviously she will require Port-A-Cath for chemotherapy. SINCERE PANTOJA MD DR: CLYDE/ru JOB#: [id number] / [id number]
[2018-01-07] MEDS: LACTOBACILLUS RHAMNOSUS GG 1 CAPSULE. PO SCH (21:22)
[2018-01-07 23:00] VITALS: BP 137/66
[2018-01-08] MEDS: PIPERACILLIN/TAZOBACTAM 3.375 GM in IV NORMAL SALINE 50ML 50 ML IV SCH ×4 (01:07→18:23)
[2018-01-08 03:00] VITALS: BP 108/38
[2018-01-08] MEDS: POTASSIUM CL 20MEQ-0.45% NACL 1,000 ML IV SCH ×2 (05:31→20:21)
[2018-01-08 07:00] VITALS: BP 121/63
[2018-01-08 07:45] LABS: HEMATOCRIT 22.9 % (36.0-47.0); HEMOGLOBIN 7.5 g/dL (12.0-15.5); RED BLOOD COUNT 2.93 x10^6/uL (3.50-5.40); RED CELL DISTRIBUTION WIDTH 27.9 % (11.5-14.5); WHITE BLOOD COUNT 4.7 x10^3/uL (4.0-11.0)
[2018-01-08] MEDS: MORPHINE SULFATE/PF 30 ML IV PRN (08:47)
--- NOTE | 2018-01-08 08:50 | PDOC ---
SUBJECTIVE Subjective S: Feeling better, passing gas, still has not had a bowel movement, on liquids O: Physical exam: Gen.: Well-nourished and well-developed, Getting ready for the morning Lungs: Breathing comfortably with no evidence of respiratory distress Psychiatric: Pleasant mood and affect Labs: CEA pending hemoglobin 7.2 Assessment and Plan: She is a 62-year-old female with clinical stage IV colon cancer, final path pending, will be a candidate for chemotherapy, also with recent DVT though no evidence on 25 December 2017 ultrasound which is reassuring and bladder tumor with stent. Bladder tumor: Path pending, stent in place, urology is following Anemia: 7.2, hemoglobin with MCV of 79, iron deficient anemia, ferritin and iron panel ordered for new baseline, getting IV iron sucrose, can give further IV iron as needed upon discharge Recent DVT: She is currently on Lovenox prophylaxis Colon cancer clinically stage IV: await final path, will likely get CT chest at [facility] after dc, CEA pending, and will need a port, likely at [facility], prior to beginning palliative chemotherapy Weight loss: Requested nutrition consultation on Sat Disposition: Per others, Dr Anthony will follow her from here on out as she has a rapport with him as he took care of her with cancer 4 years ago Thank you kindly for this consultation, and please do not hesitate to call with any further questions. OBJECTIVE Vital Signs Vital Signs Date Time Temp Pulse Resp B/P (MAP) Pulse Ox O2 Delivery O2 Flow Rate FiO2 01/08/18 07:00 98.0 85 18 121/63 (82) 97 Room Air 98.0 01/08/18 03:00 98.2 87 18 108/38 (61) 95 Room Air 98.2 01/07/18 23:00 98.2 86 18 137/66 (89) 95 Room Air 98.2 01/07/18 20:00 Room Air 01/07/18 19:00 98.5 97 18 110/43 (65) 95 Room Air 98.5 01/07/18 15:00 98.2 77 18 130/64 (86) 99 Room Air 98.2 01/07/18 11:00 98.1 76 18 133/68 (89) 97 98.1 I & O Intake and Output 01/08/18 07:00 Intake Total 250 ml Balance 250 ml Intake Oral 250 ml # Voids 7 COMMENT Lab Laboratory Tests Test 01/08/18 06:35 White Blood Count 4.7 x10^3/uL (4.0-11.0) Red Blood Count 2.93 x10^6/uL (3.50-5.40) Hemoglobin 7.5 g/dL (12.0-15.5) Hematocrit 22.9 % (36.0-47.0) Mean Corpuscular Volume 78 fL (79-100) Mean Corpuscular Hemoglobin 26 pg (25-35) Mean Corpuscular Hemoglobin Concent 33 g/dL (31-37) Red Cell Distribution Width 27.9 % (11.5-14.5) Platelet Count 220 x10^3/uL (140-400) MAYRA TORRES MD Jan 08, 2018 08:50
--- NOTE | 2018-01-08 08:57 | PDOC ---
ROGER PATINO FORM PRESS OPERATOR 01/08/18 0857: SURGICAL PROGRESS NOTE Subjective tolerating clears no n/v + flatus pain managed Vital Signs Vital Signs Date Time Temp Pulse Resp B/P (MAP) Pulse Ox O2 Delivery O2 Flow Rate FiO2 01/08/18 08:47 97 Room Air 2.0 01/08/18 07:00 98.0 85 18 121/63 (82) 98.0 I&O Intake and Output 01/08/18 07:00 Intake Total 250 ml Balance 250 ml Intake Oral 250 ml # Voids 7 General: Alert, Oriented X3, Cooperative, No acute distress Abdomen: Soft, Other (incision c/d/i, no erythema ) Labs Laboratory Tests Test 01/07/18 04:55 01/08/18 06:35 White Blood Count 6.0 x10^3/uL (4.0-11.0) 4.7 x10^3/uL (4.0-11.0) Red Blood Count 2.89 x10^6/uL (3.50-5.40) 2.93 x10^6/uL (3.50-5.40) Hemoglobin 7.2 g/dL (12.0-15.5) 7.5 g/dL (12.0-15.5) Hematocrit 22.8 % (36.0-47.0) 22.9 % (36.0-47.0) Mean Corpuscular Volume 79 fL (79-100) 78 fL (79-100) Mean Corpuscular Hemoglobin 25 pg (25-35) 26 pg (25-35) Mean Corpuscular Hemoglobin Concent 32 g/dL (31-37) 33 g/dL (31-37) Red Cell Distribution Width 28.2 % (11.5-14.5) 27.9 % (11.5-14.5) Platelet Count 228 x10^3/uL (140-400) 220 x10^3/uL (140-400) Sodium Level 140 mmol/L (136-145) Potassium Level 3.9 mmol/L (3.5-5.1) Chloride Level 105 mmol/L (98-107) Carbon Dioxide Level 25 mmol/L (21-32) Anion Gap 10 (6-14) Blood Urea Nitrogen 7 mg/dL (7-20) Creatinine 0.7 mg/dL (0.6-1.0) Estimated GFR (Cockcroft-Gault) 85.1 BUN/Creatinine Ratio 10 (6-20) Glucose Level 78 mg/dL (70-99) Calcium Level 8.3 mg/dL (8.5-10.1) Total Bilirubin 0.4 mg/dL (0.2-1.0) Aspartate Amino Transf (AST/SGOT) 15 U/L (15-37) Alanine Aminotransferase (ALT/SGPT) 22 U/L (14-59) Alkaline Phosphatase 103 U/L (46-116) Total Protein 5.8 g/dL (6.4-8.2) Albumin 2.3 g/dL (3.4-5.0) Albumin/Globulin Ratio 0.7 (1.0-1.7) Laboratory Tests Test 01/08/18 06:35 White Blood Count 4.7 x10^3/uL (4.0-11.0) Red Blood Count 2.93 x10^6/uL (3.50-5.40) Hemoglobin 7.5 g/dL (12.0-15.5) Hematocrit 22.9 % (36.0-47.0) Mean Corpuscular Volume 78 fL (79-100) Mean Corpuscular Hemoglobin 26 pg (25-35) Mean Corpuscular Hemoglobin Concent 33 g/dL (31-37) Red Cell Distribution Width 27.9 % (11.5-14.5) Platelet Count 220 x10^3/uL (140-400) Assessment/Plan s/p left colon resection advance diet dc repairer evaporator, decrease fluids ? stent in place--urology fu pending COLEEN ALVES MD 01/08/18 1428: SURGICAL PROGRESS NOTE Assessment/Plan LATE ENTRY PT SEEN THIS AM daughter at bedside Day is taking full liquids, passing gas, incision c/d the left sided ureteral catheter was removed post op in the OR prior to the post op film that confirmed its absence advance diet as tolerated home soon ROGER PATINO APRN Jan 08, 2018 08:57 COLEEN ALVES MD Jan 08, 2018 14:28
--- NOTE | 2018-01-08 09:23 | PDOC ---
JING ENGEL COLLAR TRIMMER 01/08/18 0923: SUBJECTIVE Subjective Pt did well on Monday was finally able to void. No dysuria or problems since Monday afternoon. Ureteral stent did not come out when the mendes was pulled per nursing staff and patient but Dr. Perea relates that he pulled the stent after he finished his portion of the surgery. OBJECTIVE Objective Physical Exam: General appearance: Alert and Oriented Head: Normocephalic, without obvious abnormality Eyes: conjunctivae/corneas clear. PERRL, EOM's intact. Fundi benign Lungs: regular respirations, non labored breathing. Vital Signs Vital Signs Date Time Temp Pulse Resp B/P (MAP) Pulse Ox O2 Delivery O2 Flow Rate FiO2 01/08/18 08:47 97 Room Air 2.0 01/08/18 07:00 98.0 85 18 121/63 (82) 97 Room Air 98.0 01/08/18 03:00 98.2 87 18 108/38 (61) 95 Room Air 98.2 01/07/18 23:00 98.2 86 18 137/66 (89) 95 Room Air 98.2 01/07/18 20:00 Room Air 01/07/18 19:00 98.5 97 18 110/43 (65) 95 Room Air 98.5 01/07/18 15:00 98.2 77 18 130/64 (86) 99 Room Air 98.2 01/07/18 11:00 98.1 76 18 133/68 (89) 97 98.1 I & O Intake and Output 01/08/18 07:00 Intake Total 250 ml Balance 250 ml Intake Oral 250 ml # Voids 7 PHYSICAL EXAM Physical Exam Physical Exam: General appearance: Alert and Oriented Head: Normocephalic, without obvious abnormality Eyes: conjunctivae/corneas clear. PERRL, EOM's intact. Fundi benign Lungs: regular respirations, non labored breathing. 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 Coffey of [facility]. Pt given a copy of op report. A follow up appointment has been arranged for her to see Dr. Coffey on at 1130 am We have to change the time from 0930 to 1130. Appointment card and new patient paperwork given to patient. All questions answered. Dr. Eliazar relates that he had actually removed the stent after he finished his piece of the procedure. Post op KUB shows no stent. Pt was able to finally urinate on Monday and has been voiding well since then. Will follow peripherally until discharge, but please call with questions or change in patient condition. COMMENT Lab Laboratory Tests Test 01/08/18 06:35 White Blood Count 4.7 x10^3/uL (4.0-11.0) Red Blood Count 2.93 x10^6/uL (3.50-5.40) Hemoglobin 7.5 g/dL (12.0-15.5) Hematocrit 22.9 % (36.0-47.0) Mean Corpuscular Volume 78 fL (79-100) Mean Corpuscular Hemoglobin 26 pg (25-35) Mean Corpuscular Hemoglobin Concent 33 g/dL (31-37) Red Cell Distribution Width 27.9 % (11.5-14.5) Platelet Count 220 x10^3/uL (140-400) ABDIRASHID COFFEY MD 01/11/18 1847: ASSESSMENT/PLAN Assessment/Plan Agree with assessment and plan. JING ENGEL APRN Jan 08, 2018 09:23 ABDIRASHID COFFEY MD Jan 11, 2018 18:47
[2018-01-08] MEDS: oxyCODONE/APAP 5/325 1 TAB TABLET PO PRN ×2 (09:52→18:24)
[2018-01-08] MEDS: LACTOBACILLUS RHAMNOSUS GG 1 CAPSULE. PO SCH ×2 (09:52→20:20)
[2018-01-08] MEDS: ENOXAPARIN 40 MG/0.4 ML SYRINGE. SQ SCH (09:53)
[2018-01-08 11:00] VITALS: BP 119/49
--- NOTE | 2018-01-08 13:16 | PN ---
DATE: 01/08/2018 SUBJECTIVE: The patient is sitting in her chair comfortably, in no apparent distress. She denied any nausea or vomiting. Denied any abdominal pain. She has not used her morphine today. She was seen by Dr. Anthony today in consultation. Her lab work this morning showed her hemoglobin was 7.5, hematocrit 22.9 with normal white cell count and platelets. She was seen by the surgical team and her diet was advanced to full liquid diet. PHYSICAL EXAMINATION: GENERAL: When I examined her this morning, she looked pale. No jaundice, cyanosis or thyromegaly. No jugular venous distention. No lower limb edema. VITAL SIGNS: Her heart rate was 85, blood pressure was 121/63, temperature was 98, respiratory rate was 18 and oxygen saturation was 97% on 2 liters of oxygen. HEENT: Examination of the head, eyes, ears, nose and throat showed normocephalic, atraumatic. NECK: Supple. HEART: Showed normal first and second heart sounds, with no gallop, rub or murmur. CHEST: Clear to auscultation. No crepitation or rhonchi. ABDOMEN: Distended, soft and nontender. NEUROLOGIC: She is awake, alert, responding appropriately. All cranial nerves intact. She moves extremities without difficulty. She ambulates without assistance or assistive devices. Her intake was 800, no output was recorded. LABORATORY DATA: Her lab work showed a white cell count 4700, hemoglobin 7.5, hematocrit 22.9, MCV 78 and platelet count of 220,000. Her chemistry showed a BUN of 7, creatinine 0.7. ASSESSMENT AND PLAN: Status post colon resection. Bowel sounds improving. Her diet was advanced to full liquid diet. Ureteral stent still in place, awaiting Urology consult to remove it. PLAN: Continue with the IV fluid, continue with nutritional support, pain management and antiemetic. SINCERE PANTOJA MD DR: CLYDE/ru JOB#: [id number] / [id number]
[2018-01-08 15:00] VITALS: BP 112/60
[2018-01-08 19:00] VITALS: BP 136/81
[2018-01-08 23:00] VITALS: BP 135/66
[2018-01-09] MEDS: PIPERACILLIN/TAZOBACTAM 3.375 GM in IV NORMAL SALINE 50ML 50 ML IV SCH ×3 (00:39→13:08)
[2018-01-09 03:00] VITALS: BP 134/75
[2018-01-09 07:00] VITALS: BP 120/69
[2018-01-09] MEDS ORDERED: IRON SUCROSE COMPLEX 500 MG in IV NORMAL SALINE 250ML 250 ML IV ONE (09:00)
[2018-01-09] MEDS: LACTOBACILLUS RHAMNOSUS GG 1 CAPSULE. PO SCH (09:37)
[2018-01-09] MEDS: ENOXAPARIN 40 MG/0.4 ML SYRINGE. SQ SCH (09:39)
--- NOTE | 2018-01-09 10:13 | PDOC ---
ROGER PATINO Amy DOOR PERSON 01/09/18 1013: SURGICAL PROGRESS NOTE Subjective tolerating diet ambulating pain managed + flatus, no stool Vital Signs Vital Signs Date Time Temp Pulse Resp B/P (MAP) Pulse Ox O2 Delivery O2 Flow Rate FiO2 01/09/18 08:30 Room Air 01/09/18 07:00 99.1 82 18 120/69 (86) 96 99.1 01/08/18 20:00 2.0 I&O Intake and Output 01/09/18 07:00 Intake Total 800 ml Balance 800 ml Intake Oral 800 ml # Voids 8 General: Alert, Oriented X3, Cooperative, No acute distress Abdomen: Soft, Other (ND, incision c/d/i, no erythema ) Labs Laboratory Tests Test 01/08/18 06:35 White Blood Count 4.7 x10^3/uL (4.0-11.0) Red Blood Count 2.93 x10^6/uL (3.50-5.40) Hemoglobin 7.5 g/dL (12.0-15.5) Hematocrit 22.9 % (36.0-47.0) Mean Corpuscular Volume 78 fL (79-100) Mean Corpuscular Hemoglobin 26 pg (25-35) Mean Corpuscular Hemoglobin Concent 33 g/dL (31-37) Red Cell Distribution Width 27.9 % (11.5-14.5) Platelet Count 220 x10^3/uL (140-400) Reticulocyte Count (auto) 2.2 % (0.5-2.5) Iron Level 11 ug/dL (50-170) Total Iron Binding Capacity 161 ug/dL (250-450) Iron Saturation 7 % (15-34) Ferritin 167 ng/mL (8-252) Vitamin B12 Level 852 pg/mL (247-911) Assessment/Plan s/p resection dc home, FU 1 week COLEEN ALVES MD 01/09/18 1454: SURGICAL PROGRESS NOTE Assessment/Plan pt seen a little drowsy after po xanax home today f/u next week CAREYROGER Reyes APRN Jan 09, 2018 10:13 COLEEN ALVES MD Jan 09, 2018 14:54
--- NOTE | 2018-01-09 10:15 | DISCH ---
DISCHARGE INSTRUCTIONS Condition on Discharge Condition on Discharge: Stable Activity After Discharge Activity Instructions for Disc: Activity as tolerated Driving Instructions after Dis: Do not drive today Diet after Discharge Diet after Discharge: Regular Wound Incision Care Wound/Incision Care: May get incision wet, No wound care needed Other wound/incision instructi: ok to shower Contacting the after DC Call your doctor for: Concerns you may have Follow-Up Follow up with: Dr Perea 1 week, call to schedule [phone] ROGER PATINO APRN Jan 09, 2018 10:15
[2018-01-09] MEDS ORDERED: OXYC1TAB7 PO (10:17)
[2018-01-09] MEDS ORDERED: DOCU-109 PO (10:17)
--- NOTE | 2018-01-09 10:21 | PDOC3 ---
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 Brief Hospital Course Allergies Allergies Coded Allergies Type Severity Reaction Last Updated Verified No Known Drug Allergies 11/14/17 No Vital Signs Vital Signs Date Time Temp Pulse Resp B/P (MAP) Pulse Ox O2 Delivery O2 Flow Rate FiO2 01/09/18 08:30 Room Air 01/09/18 07:00 99.1 82 18 120/69 (86) 96 99.1 01/08/18 20:00 2.0 Lab Results Laboratory Tests Test 01/08/18 06:35 White Blood Count 4.7 x10^3/uL (4.0-11.0) Red Blood Count 2.93 x10^6/uL (3.50-5.40) Hemoglobin 7.5 g/dL (12.0-15.5) Hematocrit 22.9 % (36.0-47.0) Mean Corpuscular Volume 78 fL (79-100) Mean Corpuscular Hemoglobin 26 pg (25-35) Mean Corpuscular Hemoglobin Concent 33 g/dL (31-37) Red Cell Distribution Width 27.9 % (11.5-14.5) Platelet Count 220 x10^3/uL (140-400) Reticulocyte Count (auto) 2.2 % (0.5-2.5) Iron Level 11 ug/dL (50-170) Total Iron Binding Capacity 161 ug/dL (250-450) Iron Saturation 7 % (15-34) Ferritin 167 ng/mL (8-252) Vitamin B12 Level 852 pg/mL (247-911) Brief Hospital Course Ms. New is a 62 old female who presented with colon cancer. She underwent 1. Rigid proctoscopy.2. Left colon resection with primary anastomosis.3. Mobilization of the splenic flexure. Postoperatively tolerating diet and bowel function slowly returned. She is urinating well and having some bowel function at discharge Discharge Information Condition at Discharge: Stable Follow Up: Weeks (1) Disposition/Orders: D/C to Home Scheduled Apixaban (Eliquis) 5 Mg Tablet, 5 MG PO BID for 60 Days, #120 (Reported) Entered as Reported by: JEWEL MATIAS on 11/29/17 1227 Last Taken: Unknown Dose on 01/02/18 Last Action: HELD on 01/04/18 1116 by COLEEN ALVES Ascorbic Acid (Ascorbic Acid) 500 Mg Tablet, 500 MG PO BID for 30 Days, #60 Ref 5 Prescribed by: SCARLETT POST on 11/17/17 0942 Last Taken: Unknown Dose on 12/29/17 Last Action: HELD on 01/04/18 1116 by COLEEN ALVES Docusate Sodium (Colace) 100 Mg Capsule, 1 CAP PO BID, #60 Ref 2 Prescribed by: Roger Batista on 01/09/18 1017 Ferrous Sulfate (Ferrous Sulfate) 325 Mg Tablet, 1 TAB PO BID for 30 Days, #60 Ref 5 Prescribed by: SCARLETT POST on 11/17/1742 Last Taken: Unknown Dose on 12/29/17 Last Action: HELD on 01/04/18 1116 by COLEEN ALVES Lactobacillus Rhamnosus Gg (Culturelle) 1 Each Capsule, 1 EACH PO BID, (Reported ) Entered as Reported by: ADRIANA STOCKTON RN on 11/27/17 194 Last Taken: Unknown Dose on 12/29/17 Last Action: HELD on 01/04/18 111 by COLEEN ALVES Scheduled PRN Oxycodone Hcl/Acetaminophen (Oxycodone-Acetaminophen 5-325) 1 Each Tablet, 2 TAB PO PRN Q4HRS PRN for PAIN, #30 Ref 0 Prescribed by: Roger Batista on 01/09/18 Dann7 ROGER BATISTA APRN Jan 09, 2018 10:20
--- NOTE | 2018-01-09 10:43 | PN ---
DATE: 01/09/2018 SUBJECTIVE: The patient is sitting at the edge of the bed, eating her breakfast comfortably, in no apparent distress. She does have some discomfort, but denied any nausea or vomiting. She has fever blisters in her mouth. She apparently has not slept last night and also complained of anxiety and depression. OBJECTIVE: GENERAL: When I examined her this morning, however, she looked well and was clearly in no apparent respiratory distress, pale. No jaundice, cyanosis, or thyromegaly. No jugular venous distension. No lower limb edema. VITAL SIGNS: Her heart rate was 82, blood pressure was 120/69, temperature was 99.1, respiratory rate was 18 and oxygen saturation was 96%. HEAD, EYES, EARS, NOSE AND THROAT: Shows normocephalic, atraumatic. NECK: Supple. HEART: Showed normal first and second sounds. No gallop, rub or murmur. CHEST: Clear to auscultation. No crepitation or rhonchi. ABDOMEN: Distended, soft with midline surgical incisions healing nicely. NEUROLOGIC: She is awake, alert, responding appropriately. All cranial nerves intact. She moves extremities without difficulty. She ambulates without assistance or assistive devices. LABORATORY DATA: Her lab work this morning showed that her serum iron is extremely low at 11, TIBC 161. Serum iron saturation was 7 and serum ferritin was 167. Her carcinoembryonic antigen was only 1.6. Vitamin B12 was 852. Her serum sodium 140, potassium 3.9, chloride 105, bicarbonate 25, anion gap of 10, BUN 7, creatinine 0.7, estimated GFR was 85 mL per minute. Her glucose was 78 and calcium was 8.3. Her white cell count was 4700, hemoglobin 7.5, hematocrit 23, MCV 78 and platelet count . ASSESSMENT AND PLAN: She is status post colon resection. Bowel sounds are normal. She is now back on a regular diet. Apparently, the stent was removed and she also found to have tumor in her bladder that was removed and biopsied. She has an appointment to see Dr. Garcia at [facility]. Given that she has low carcinoembryonic antigen, I encouraged her to pursue the idea of resecting the liver metastases at [facility]. I gave her a prescription for temazepam for insomnia, Ativan for anxiety and Percocet for pain. She obviously can contact me at any time if she needs any refills for all of these. SINCERE PANTOJA MD DR: CLYDE/ru JOB#: [id number] / [id number]
[2018-01-09 11:00] VITALS: BP 105/64
[2018-01-09] MEDS ORDERED: ALPRAZolam 0.5 MG TABLET PO ONE (12:30)
--- NOTE | 2018-01-09 13:23 | CONS ---
DATE OF CONSULTATION: 01/09/2018 REQUESTING PHYSICIAN: Dr. Mann. REASON FOR CONSULTATION: Colon cancer with liver metastasis. Second opinion consult. HISTORY OF PRESENT ILLNESS: The patient is a 62-year-old female who was noted to have anemia, abdominal pain for which she underwent further workup with a CT scan of the abdomen on 11/13/2017. This revealed thickened segment of descending colon with surrounding pericolonic inflammatory change and enlarged lymph nodes in the pericolonic fat. This could represent infectious or inflammatory colitis. Small fluid and gas collection adjacent to the inflamed sigmoid colon was noted. Borderline enlarged retroperitoneal lymph nodes are nonspecific. She was then admitted to [facility] in 11/2017 for management of diverticulitis with microperforation and iron deficiency anemia and DVT of the left lower extremity. She was given IV antibiotics. She underwent a CT scan of the abdomen and pelvis on 11/26/2017 which revealed ongoing wall thickening involving the descending colon, focal colitis or diverticulitis is possible. Multiple mesenteric lymph nodes were noted, 4 small nonspecific low density liver lesions were noted measuring up to 2.1 cm. Another lesion was 1.7 and 2 other lesions were subcentimeter. There were 2 lesions in the left hepatic lobe and 2 in the right hepatic lobe. A followup CT scan of the abdomen and pelvis on 12/17/2017 revealed thickening of the descending colon, multiple pericolonic lymph nodes, retroperitoneal lymph nodes slightly increased. Hepatic steatosis also noted. 1.6 cm hypodensity identified in the right lobe of the liver. 1.9 cm hypodensity identified in the left lobe of the liver, a round hypodensity measuring 1.6 cm in the inferior aspect of the right lobe of the liver. Liver lesions have increased in size compared to the prior exam and hence suspicious for metastasis. PET scan was recommended. She was also diagnosed with left superficial vein thrombosis involving the greater saphenous vein from the popliteal to the distal thigh on 11/15/2017. Followup venous Doppler on 11/27/2017 revealed thrombosis of the greater saphenous vein, now extending into the common femoral vein which is a deep vein. She was started on Lovenox and then switched to Eliquis. Followup venous Doppler on 12/25/2017 reveals complete resolution of the DVT. The superficial vein thrombus in the left great saphenous vein is also resolved. She was evaluated by Dr. Gerald Perea and the patient underwent rigid proctoscopy and left colon resection with primary anastomosis and mobilization of the splenic flexure. Liver had palpable nodules in both the lobes. Large mass was noted in the proximal descending colon. Sigmoid and rectum were unremarkable. Liver lesions were not biopsied. Pathology from the colon surgery is pending. PAST MEDICAL HISTORY: Varicose veins, microcytic hypochromic anemia, diverticulitis, superficial vein thrombosis and DVT of the left lower extremity diagnosed in 11/2017 with resolution in 12/2017. History of arthritis, gout. SOCIAL HISTORY: She quit smoking in 2007. She is and she has 2 daughters. She drinks alcohol occasionally. 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 FAMILY HISTORY: One brother had nonalcoholic steatohepatitis. Father of myocardial infarction and congestive heart failure. Mother has thyroid disease. REVIEW OF SYSTEMS: A 12-point review of system was performed. Pertinent positives are mentioned in the history of present illness. Rest of the system review is negative. PHYSICAL EXAMINATION: GENERAL APPEARANCE: The patient is a 62-year-old female who is in no acute cardiorespiratory distress. VITAL SIGNS: Blood pressure 120/69, temperature 99.1. HEENT: Head atraumatic, normocephalic. Eyes: No icterus. NECK: Supple. CHEST: Bilaterally symmetrical. No crepitations or rhonchi heard. HEART: S1, S2 normal. ABDOMEN: Soft, postoperative dressing in place. EXTREMITIES: No edema. CENTRAL NERVOUS SYSTEM: No focal neurological deficits. LYMPHATICS: No lymphadenopathy. SKIN: No rashes. PSYCHOLOGIC: Mood and affect are appropriate. MUSCULOSKELETAL: No joint effusions. LABORATORY DATA: WBC 4.7, hemoglobin 7.5, MCV 78, platelet count 220. Reticulocyte count 2.2. Creatinine 0.7, calcium 8.3. Iron 11, TIBC 161, iron saturation 7 and ferritin 167 with B12 852 on 01/08/2018. CEA level on 01/06/2018 is 1.6. Review of the prior records indicates that her hemoglobin was as low as 6.9 on 11/16/2017. RADIOLOGICAL STUDIES: As per HPI. IMPRESSION AND PLAN: 1. Stage 4 colon cancer involving the descending colon, status post left colon resection with primary anastomosis on 01/04/[address] Gerald Perea. Multiple liver nodules were noted at the time of surgery. Biopsies were not done. Pathology results are pending. CT scan of the abdomen and pelvis on 12/17/2017 revealed 1.6 cm hypodensity in the right lobe of the liver and 1.9 cm hypodensity in the left lobe of the liver and another round 1.6 cm hypodensity in the right lobe of the liver concerning for metastatic disease. There was evidence of multiple pericolic lymph nodes and retroperitoneal lymph nodes, concerning for metastatic disease. I will await the final pathology results. I explained to the patient that clinically this is consistent with stage 4 malignancy. I would recommend palliative chemotherapy with FOLFOX and Avastin. I would also consult Hepatobiliary Surgery for consideration of resection of the metastatic disease in the liver. However, I will obtain a PET scan for staging in about 2-3 weeks. 2. Deep venous thrombosis of the left lower extremity diagnosed on 11/27/2017 treated with Lovenox, followed by Eliquis with resolution noted on 12/25/2017. I have recommended to continue Eliquis. 3. Bladder tumor fulgurated by Dr. Garcia. I will pathology regarding this. 4. Anemia, microcytic, hypochromic. Iron saturation is only 7%. Plan Venofer 500 mg IV on 01/09/2018. LACHO MONDRAGON MD DR: SEDA/nts JOB#: [id number] / [id number] MTDD
[2018-01-09] MEDS: oxyCODONE/APAP 5/325 1 TAB TABLET PO PRN (16:27)
--- NOTE | 2018-01-10 18:06 | PATHOLOGY ---
[facility] Accession Number: [id number] . 01 Material submitted: . PART A: RUSSELL AORTIC LYMPH NODE - FS PART B: SPLENIC FLEXURE, PROXIMAL DESCENDING COLON - SUTURE PROXIMAL END PART C: BLADDER TUMOR BIOPSY . 01 Clinical history: . Colon cancer . 02 Diagnosis: A. Lymph node, periaortic lymph node excision: - METASTATIC ADENOCARCINOMA. . B. Segment of colon with attached mesocolon and fibromembranous tissue, splenic flexure and proximal descending colon segmental resection: - INVASIVE COLORECTAL ADENOCARCINOMA, MODERATELY TO POORLY DIFFERENTIATED, FORMING A LARGE CIRCUMFERENTIAL OBSTRUCTING AND ULCERATED TUMOR MASS OF THE PROXIMAL DESCENDING COLON MEASURING UP TO 9.0 CM IN GREATEST DIMENSION, WITH TUMOR INVASION THROUGH MUSCULARIS PROPRIA INTO SUBSEROSA AND MESOCOLON, WITH PERICOLIC ABSCESSES AND PERICOLIC SCARRING WITH FOCAL ADHESION TO PARIETAL PERITONEUM AND TO PROXIMAL SPLENIC FLEXURE. - METASTATIC ADENOCARCINOMA INVOLVING 10 OF 10 MESOCOLIC LYMPH NODES. - TUMOR IMPLANTS OF MESOCOLON. - LYMPHOVASCULAR TUMOR INVASION AND FOCAL LARGE VESSEL TUMOR INVASION OF MESOCOLON. - FOCAL PERINEURAL TUMOR INVASION IDENTIFIED. - Proximal and distal margins of resection negative for tumor. . C. Bladder tumor biopsy: - NONINVASIVE, PAPILLARY UROTHELIAL CARCINOMA, LOW GRADE (JPM:skyler; 01/08/2018) . CAP PROTOCOL FOR COLON AND RECTUM RESECTION . Procedure ___ Other: Splenic flexure and proximal descending colon resection . Tumor Site ___ Left (descending) colon . Tumor Size Greatest dimension: 9.0 cm . Macroscopic Tumor Perforation ___ Not identified . Histologic Type ___ Adenocarcinoma . Histologic Grade ___ Other: Moderately to focally poorly differentiated . Tumor Extension ___ Tumor invades through the muscularis propria into pericolorectal tissue . Margins ___ All margins are uninvolved by invasive carcinoma, high-grade dysplasia, intramucosal adenocarcinoma, and adenoma Margins examined: Proximal, distal, radial or mesenteric + Specify closest margin: Mesenteric . Distal Margin ___ Uninvolved by invasive carcinoma + Distance of tumor from margin: 6 cm . Treatment Effect ___ No known presurgical therapy . Lymphovascular Invasion ___ Present + ___ Small vessel lymphovascular invasion + ___ Large vessel (venous) invasion + ___ Extramural . Perineural Invasion ___ Present . Type of Polyp in Which Invasive Carcinoma Arose + ___ None identified . Tumor Deposits ___ Present . Regional Lymph Nodes Number of Lymph Nodes Involved: 10 Number of Lymph Nodes Examined: 10 . . Pathologic Stage Classification (pTNM, AJCC 8th Edition) . Primary Tumor (pT) ___ pT3: Tumor invades through the muscularis propria into pericolorectal tissues . Regional Lymph Nodes (pN) ___ pN2b: Seven or more regional lymph nodes are positive . Distant Metastasis (pM) ___ pM1b: Metastasis to two or more sites or organs is identified without peritoneal metastasis . + Additional Pathologic Findings + ___ None identified (JPM/db; 01/10/2018) QMS/01/10/2018 . 02 Comment: Specimens A and C are also examined by Dr. Castanon and Dr. Schulz, who concur with the diagnoses. (JPM:skyler; 01/09/2018) . 02 Electronically signed: . Miquel Mendez MD, Pathologist NPI- [id number] . 01 Gross description: . A. The specimen is received fresh for intraoperative consultation and is designated "periaortic lymph node". This consists of a nodule of slightly firm zamarripa tissue measuring up to 2.1 x 1.6 x 1.3 cm. Sectioning reveals a zamarripa cut surface with focal pale chalky areas of apparent necrosis. A airline security representative portion of the lymph node is submitted for frozen section as FSA1. The tissue remaining from frozen section is submitted for permanent sections as A1. The remainder of the node is submitted for microscopy as A2 and A3. . B. The specimen is received fresh and is designated, "splenic flexure proximal descending colon - suture proximal end". This consists of a curved, U-shaped segment of colon with attached mesocolon. The segment measures approximately 34 cm in length. The segment is stapled closed at both ends. There is a suture attached to one of the stapled ends. This denotes the proximal end. There is a huge palpable mass within the distal segment of the colon. There is an irregular segment of focally roughened membranous tissue densely adherent to the anterior aspect of the mass which measures up to 7.5 x 4.3 cm. This area is inked with blue ink. The posterior surface of the mass is puckered and indurated. This is inked with black ink. The serosal surface is reddish brown and erythematous. The segment is opened along the antimesocolic aspect. Arising approximately 6.0 cm from the distal margin of resection, there is an irregular, circumferential, obstructing and centrally ulcerated pink-zamarripa tumor mass. The mass measures approximately 9.0 cm in length. The distal 2.5 cm of the mass appears to undermine the mucosa. The tumor grossly invades the subserosa and mesocolon. (JPM:skyler; 01/05/2018) . After adequate fixation in formalin admixed with a lymph node enhancement solution, sectioning reveals the mass to grossly extend through the muscularis propria into the underlying soft tissue, displaying a maximum depth of invasion of 3.1 cm, which grossly abuts the black inked puckered area, is 0.3 cm from the blue inked membranous tissue, and grossly abuts the serosal surface (inked red). Further sectioning reveals necrosis present within the underlying soft tissue, which is adjacent to the opposite (proximal) aspect of colon. The remainder of the colonic mucosa is pale zamarripa with normal to edematous-appearing mucosal folds. No additional nodules or lesions are noted grossly. Dissection and palpation of the attached pericolic fat reveals 13 readily identifiable lymph nodes ranging in size from 0.4 to 0.9 cm. The specimen is submitted representatively as follows: . B1 proximal margin, en face B2 distal margin, en face B3 airline security representative section of gross extension of the mass to show relationship with puckered area (black ink) B4 airline security representative section of mass to show relationship with membranous tissue (blue ink) B5 airline security representative section of mass to show relationship with serosal surface (red ink) B6-B9 additional airline security representative sections of mass B10 airline security representative section of necrosis within the underlying soft tissue with adjacent (proximal aspect) colon B11 airline security representative sections of uninvolved mucosa B12-B13 intact lymph nodes B14-B16 one bisected lymph node in each cassette B17-B18 one trisected lymph node in each cassette B19-B20 one quadrisected lymph node. (CAA; 01/05/2018) . C. The specimen is received in formalin, labeled "Day New, bladder tumor biopsy", is an irregular fragment of nolasco tissue measuring 0.4 x 0.1 x 0.1 cm, entirely submitted in C1. (SWS; 01/04/2018) . . INTRAOPERATIVE CONSULTATION WITH FROZEN SECTION (Miquel Mendez M.D.) . FSA1. Periaortic lymph node: - Metastatic adenocarcinoma. . The results are reported to Dr. Perea in the operating room. . . INTRAOPERATIVE CONSULTATION WITH GROSS IMPRESSION (Miquel Mendez M.D.) . B. Splenic flexure and proximal descending colon with attached mesocolon, resection: - Large circumferential obstructing ulcerated carcinoma of colon with tumor invasion through muscular wall into subserosa and mesocolon. - Proximal and distal margins of resection negative for tumor. . . Frozen section and gross impression performed at [facility], [address] [place] [id number]. [facility] . 02 Pathologist provided ICD-10: C77.2, C19, N32.89 . 02 CPT . 659360, 035793, 902981, [id number], [id number] Specimen Comment: A courtesy copy of this report has been sent to Specimen Comment: [phone], , . Specimen Comment: Report sent to ,DR COFFEY / DR LEBRON Specimen Comment: A duplicate report has been generated due to demographic updates. Performed at: [facility] [address], [place], [place] [id number] MD Ignacio Heck MD Phone: [phone] Performed at: [address] [id number] MD Miquel Mendez MD Phone: [phone]
== END 2018-01-09 16:33 | disposition home or self-care (01) | DRG 330 ==
LOC: OPSVCIP 06:01 → 4 NORTH 11:55
PROVIDERS: ADMIT Surgery; ATTEND Surgery
PROC: 0T5B8ZZ Destruction of Bladder, Via Natural or Artificial Opening Endoscopic (ICD-10-PCS; principal; 2018-01-04 07:30)
PROC: 0TBB8ZX Excision of Bladder, Via Natural or Artificial Opening Endoscopic, Diagnostic (ICD-10-PCS; 2018-01-04 07:30)
PROC: 0DJD8ZZ Inspection of Lower Intestinal Tract, Via Natural or Artificial Opening Endoscopic (ICD-10-PCS; 2018-01-05)
PROC: 0DTG0ZZ Resection of Left Large Intestine, Open Approach (ICD-10-PCS; 2018-01-05)
PROC: 07BD0ZX Excision of Aortic Lymphatic, Open Approach, Diagnostic (ICD-10-PCS; 2018-01-05)
PROC: 0T778DZ Dilation of Left Ureter with Intraluminal Device, Via Natural or Artificial Opening Endoscopic (ICD-10-PCS; 2018-01-05)
DX: C18.9 Malignant neoplasm of colon, unspecified (principal); K57.92 Diverticulitis of intestine, part unspecified, without perforation or abscess without bleeding; C78.7 Secondary malignant neoplasm of liver and intrahepatic bile duct; C77.9 Secondary and unspecified malignant neoplasm of lymph node, unspecified; K57.90 Diverticulosis of intestine, part unspecified, without perforation or abscess without bleeding; M10.9 Gout, unspecified; M19.90 Unspecified osteoarthritis, unspecified site; B00.1 Herpesviral vesicular dermatitis; D50.9 Iron deficiency anemia, unspecified; K76.0 Fatty (change of) liver, not elsewhere classified; D49.4 Neoplasm of unspecified behavior of bladder; F41.9 Anxiety disorder, unspecified; G47.00 Insomnia, unspecified; Z82.0 Family history of epilepsy and other diseases of the nervous system; Z79.01 Long term (current) use of anticoagulants; Z82.49 Family history of ischemic heart disease and other diseases of the circulatory system; Z86.718 Personal history of other venous thrombosis and embolism; Z86.72 Personal history of thrombophlebitis; Z79.899 Other long term (current) drug therapy; Z85.038 Personal history of other malignant neoplasm of large intestine; Z87.891 Personal history of nicotine dependence; Z90.710 Acquired absence of both cervix and uterus; Z84.89 Family history of other specified conditions
CPT/HCPCS: 36415; 74018; 80053; 82378; 82607; 82728; 83540; 83550; 85027; 85045; 86850; 86900; 86901; 87040; 88305; 88309; 88331; C1769; J0330; J0694; J0780; J1100; J1650; J1756; J2001; J2250; J2270; J2370; J2405; J2543; J2704; J2710; J3010; J3490; J7050; J7120; Q9967; A4461; J7030

== ENCOUNTER → 2018-01-18 | Outpatient (CLI) | payer OTHER ==
[2018-01-09 11:00] VITALS: BP 105/64
[~2018-01-18] MED LIST changes: +DOCU-109 PO; -IOHEXOL 300 MG/ML 100ML VIAL. ONE; -LIDOCAINE 2% JELLY 6ML IN APPLICATOR. ONE; +OXYC1TAB7 PO
--- NOTE | 2018-01-18 14:49 | RAD ---
FDG tumor localization scan, PET/CT, 01/18/2018: History: Staging colon cancer Following IV injection of 14.6 mCi of 18 F-FDG, imaging was performed from the skull base to the proximal thighs. The noncontrast CT component was performed for attenuation correction and anatomic localization purposes rather than for primary diagnosis. The patient's blood glucose level at the time of injection was 102 MG/DL. Physiologic activity is seen in the neck. No hypermetabolic neck mass is evident. Single small bilateral axillary lymph nodes demonstrate only low-level FDG uptake. No abnormal pulmonary FDG uptake is seen. There is borderline increased activity in both roselia. There is a 15 mm hypermetabolic nodule along the right side of the distal esophagus near the diaphragmatic hiatus. Just inferior to this level there is a 13 mm hypermetabolic right retrocrural lymph node. Smaller hypermetabolic left retrocrural nodes are seen with extension into the left lower thoracic perivertebral fat posteriorly. There are at least 5 hypermetabolic lesions in the liver. These are not clearly defined on the noncontrast CT component. One of the larger lesions lies inferiorly in the right middle lobe and demonstrates a maximum SUV of 25. There is hypermetabolic periaortic, mesenteric, celiac and portacaval adenopathy. These include a 2.3 cm left para-aortic lymph node, a perigastric left node of similar size and a 2.0 x 1.4 cm portacaval lymph node. The maximum SUV in these nodes is approximately 30. Normal GI tract and urinary tract activity is seen. There is mild increased activity related to a surgical wound at the midline compatible with postoperative inflammation. No hypermetabolic bony lesion is identified. IMPRESSION: 1. Extensive hypermetabolic abdominal adenopathy and liver lesions as described above, compatible with metastatic disease. 2. Mild hypermetabolic retrocrural and posterior mediastinal adenopathy.
== END | disposition home or self-care (01) ==
LOC: PETSC 11:56
PROVIDERS: ATTEND Internal Medicine Hematology & Oncology
DX: C18.9 Malignant neoplasm of colon, unspecified (principal); K76.89 Other specified diseases of liver; R59.0 Localized enlarged lymph nodes
CPT/HCPCS: 78815; A9552

== ENCOUNTER 2018-02-23 06:52 | Outpatient (CLI) | payer OTHER ==
[2018-02-23] VITALS (7 sets, daily range): BP systolic 91–119; BP diastolic 47–60
[~2018-02-23] VITALS: Ht 165.1 cm; Wt 77.1 kg
[2018-02-23 07:32] LABS: BASO % 0 % (0-3); EOS # 0.2 x10^3/uL (0.0-0.7); EOS % 3 % (0-3); HEMATOCRIT 37.7 % (36.0-47.0); HEMOGLOBIN 12.5 g/dL (12.0-15.5); LYMPH # 1.1 x10^3/uL (1.0-4.8); LYMPH % 20 % (24-48); MEAN CORPUSCULAR HEMOGLOBIN 28 pg (25-35); MEAN CORPUSCULAR HGB CONC 33 g/dL (31-37); MEAN CORPUSCULAR VOLUME 84 fL (79-100); MONO # 0.3 x10^3/uL (0.0-1.1); MONO % 6 % (0-9); NEUT # 3.8 x10^3uL (1.8-7.7); NEUT % 70 % (31-73); PLATELET COUNT 257 x10^3/uL (140-400); RED BLOOD COUNT 4.47 x10^6/uL (3.50-5.40); RED CELL DISTRIBUTION WIDTH 18.1 % (11.5-14.5); WHITE BLOOD COUNT 5.4 x10^3/uL (4.0-11.0)
[2018-02-23 07:44] LABS: PROTHROMBIN TIME PATIENT 13.5 SEC (11.7-14.0)
[2018-02-23] MEDS ORDERED: ACYC400T PO (07:45)
[2018-02-23] MEDS ORDERED: LACT1CAP21 PO (07:45)
[2018-02-23] MEDS ORDERED: TEMA15CA PO (07:45)
[2018-02-23] MEDS ORDERED: ESCITALOPRAM OX10 MG PO (07:45)
[2018-02-23] MEDS ORDERED: fentaNYL PF VIAL 100 MCG/2 ML VIAL ONE (08:21)
[2018-02-23] MEDS ORDERED: MIDAZOLAM HCL/PF 2 MG/2 ML VIAL. ONE ×2 (08:21→09:00)
[2018-02-23] MEDS ORDERED: LIDOCAINE 1%/EPI 1:100,000 20 ML VIAL. ONE (08:44)
[2018-02-23 09:30] LABS: ALBUMIN 3.1 g/dL (3.4-5.0); ALBUMIN/GLOBULIN RATIO 0.8 (1.0-1.7); CALCIUM 8.9 mg/dL (8.5-10.1); CREATININE 0.7 mg/dL (0.6-1.0); GFR 85.1; POTASSIUM 3.8 mmol/L (3.5-5.1); TOTAL BILIRUBIN 0.2 mg/dL (0.2-1.0); TOTAL PROTEIN 7.1 g/dL (6.4-8.2)
[2018-02-23] MEDS ORDERED: LIDOCAINE 2%/EPI 1:100,000 20 ML VIAL. IJ ONE (09:30)
[2018-02-23] MEDS ORDERED: fentaNYL PF VIAL 100 MCG/2 ML VIAL IV ONE (09:30)
[2018-02-23] MEDS ORDERED: LIDOCAINE 1%/EPI 1:100,000 20 ML VIAL. IJ ONE (09:30)
[2018-02-23] MEDS ORDERED: MIDAZOLAM HCL/PF 2 MG/2 ML VIAL. IV ONE (09:30)
--- NOTE | 2018-02-23 09:49 | RAD ---
Procedure: Ultrasound and fluoroscopically guided placement of right internal jugular power port.. 02/23/2018 9:44 AM Clinical Indication: CANCER TREATMENT Sedation: Conscious sedation was administered for 30 minutes. The patient was monitored by a qualified independent observer throughout the time of sedation. Please refer to the medical record for exact doses of medications utilized to achieve moderate sedation. Fluoroscopy time: 2.5 minutes Dose area product: 4 Gycm2 Consent: The procedure was explained in its entirety to the patient or the patients designated artist representative by a member of the treatment team, including a discussion of the risks, benefits and commonly accepted alternatives to the procedure, as well as the expected consequences of no therapy whatsoever. Discussion of the risks included, but was not limited to, those that are most frequent and those that are rare but possibly severe or life-threatening, as well as the possibility of unforeseen complications. Technique and Findings: All elements of maximal sterile barrier technique including the use of a cap, mask, sterile gown, sterile gloves, large sterile sheet, appropriate hand hygiene, and 2% chlorhexidine for cutaneous antisepsis (or acceptable alternative antiseptic per current guidelines) were followed for this procedure. Following informed consent, and a timeout procedure, the patient was prepped and draped in the usual sterile fashion. Ultrasound interrogation of the right neck revealed patency and compressibility of the right internal jugular vein. A 21-gauge micropuncture was then used to gain access to this vein under ultrasound guidance. A hard copy ultrasound image was recorded. The needle was exchanged over a wire for a sheath. A 1 inch incision was made several centimeters inferior to the venotomy site. A catheter was tunneled from this site dermatotomy site in the neck. Catheter was advanced through peel-away sheath such that its tip was in the proximal right atrium with the patient supine. The catheter was trimmed to length and connected to the port reservoir. The port was found to flush and aspirate normally. The wound was closed in layers using 4-0 Vicryl suture. Sterile dressings were applied. Impression: Successful ultrasound and fluoroscopically guided placement of a right internal jugular PowerPort
== END 2018-02-23 11:00 | disposition home or self-care (01) ==
LOC: INTRAD 06:52
DX: C18.9 Malignant neoplasm of colon, unspecified (principal); C78.7 Secondary malignant neoplasm of liver and intrahepatic bile duct; F41.9 Anxiety disorder, unspecified; Z79.01 Long term (current) use of anticoagulants; Z79.899 Other long term (current) drug therapy; Z87.891 Personal history of nicotine dependence; D50.9 Iron deficiency anemia, unspecified; Z86.718 Personal history of other venous thrombosis and embolism
CPT/HCPCS: 36415; 36561; 76937; 77001; 80053; 85025; 85610; 99152; 99153; C1788; C1892; J0690; J2250; J3010; J3490; C1751

== ENCOUNTER → 2018-03-21 | Outpatient (CLI) | payer OTHER ==
[2018-03-19 13:27] VITALS: BP 117/61
[~2018-03-21] MED LIST changes: +ACYC400T PO; +ESCITALOPRAM OX10 MG PO; +HEPARIN PF 500 UNIT/5 ML DISP.SYRIN. IV ONE; +OXYC5CAP PO; +TEMA15CA PO
== END | disposition home or self-care (01) ==
LOC: OPS 15:45
DX: Z45.2 Encounter for adjustment and management of vascular access device (principal); I48.0 Paroxysmal atrial fibrillation; I51.7 Cardiomegaly; M10.9 Gout, unspecified; M19.90 Unspecified osteoarthritis, unspecified site; F41.9 Anxiety disorder, unspecified; E44.0 Moderate protein-calorie malnutrition; Z79.01 Long term (current) use of anticoagulants; Z87.891 Personal history of nicotine dependence; Z85.05 Personal history of malignant neoplasm of liver; Z86.718 Personal history of other venous thrombosis and embolism; Z85.038 Personal history of other malignant neoplasm of large intestine; Z90.710 Acquired absence of both cervix and uterus; Z86.72 Personal history of thrombophlebitis; Z68.30 Body mass index [BMI] 30.0-30.9, adult
CPT/HCPCS: 96523

== ENCOUNTER 2018-12-22 06:05 | Inpatient (IN) | payer OTHER ==
[~2018-12-22] VITALS: Ht 167.6 cm; Wt 65.8 kg
[~2018-12-22 06:05] MED LIST changes: +ALPH600C5 PO; +GABA300C18 PO; -HEPARIN PF 500 UNIT/5 ML DISP.SYRIN. IV ONE; -LINE600T PO; +LINE600T12 PO; +LOPE-101 PO; +ZOLP5TAB PO
[2018-12-22] MEDS: IV NORMAL SALINE 1000ML BAG 1,000 ML IV SCH ×3 (09:55→23:55)
[2018-12-22] MEDS ORDERED: MORPHINE SULFATE 10 MG/ML VIAL. IV ONE (10:00)
[2018-12-22] MEDS ORDERED: NALOXONE 0.4 MG/ML VIAL. IV PRN (10:00)
[2018-12-22 10:13] LABS: PROTHROMBIN TIME PATIENT 17.3 SEC (11.7-14.0)
--- NOTE | 2018-12-22 11:09 | PDOC1 ---
History and Physical Date of Admission Date of Admission DATE: 12/22/18 TIME: 11:07 Identification/Chief Complaint Chief Complaint DIRECT ADMIT FROM [facility] WITH SUSPECTED acute cholecystitis, surgery consulted, ct's reviewed, NPO Past Medical History Past Medical History PAST MEDICAL HISTORY: Metastatic colon cancer, currently undergoing chemotherapy. diverticulitis.anemia. PAST SURGICAL HISTORY: colon resection with primary 01/04/2018. Port-A-Cath . ALLERGIES: No known drug allergies. CURRENT MEDICATIONS: reviewed. FAMILY HISTORY: Brother // nonalcoholic hepatitis. Father myocardial infarction and CHF. Mother //alive at the age 87. 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 Quit tobacco in 2007. no etoh Cardiovascular: Other Pulmonary: Pneumonia CENTRAL NERVOUS SYSTEM: Periperal neuropathy GI: GERD, Other Heme/Onc: Anemia NOS, Cancer, Other Hepatobiliary: No pertinent hx Psych: Anxiety Musculoskeletal: Osteoarthritis Rheumatologic: No pertinent hx Infectious disease: No pertinent hx Renal/: No pertinent hx Endocrine: No pertinent hx Past Surgical History Past Surgical History: Colon Resection, Other Family History Family History: Heart Disease Social History Smoke: No ALCOHOL: occassional Drugs: None Current Medications Current Medications Current Medications Morphine Sulfate (Morphine Sulfate) 5 mg 1X ONCE IV Last administered on 12/22/18at 10:00; Start 12/22/18 at 10:00; Stop 12/22/18 at 10:03; Status DC Naloxone HCl (Narcan) 0.4 mg PRN Q2MIN PRN IV SEE INSTRUCTIONS; Start 12/22/18 at 10:00 Sodium Chloride 1,000 ml @ 25 mls/hr Q24H IV ; Start 12/22/18 at 09:55 Hydromorphone HCl 30 ml @ 0 mls/hr CONT PRN PRN IV PER PROTOCOL; Start 12/22/18 at 10:00 Active Scripts Active Ascorbic Acid 500 Mg Tablet 500 Mg PO BID 30 Days Ferrous Sulfate 325 Mg Tablet 1 Tab PO BID 30 Days Reported Imodium A-D (Loperamide HCl) 2 Mg Capsule 2 Mg PO PRN Q4HRS PRN Alpha Lipoic Acid 600 Mg Capsule 600 Mg PO BID Ambien (Zolpidem Tartrate) 5 Mg Tablet 5 Mg PO PRN QHS PRN Gabapentin (Gabapentin) 300 Mg Capsule 300 Mg PO BID Escitalopram Oxalate 10 Mg Tablet 1 Tab PO DAILY Acyclovir 400 Mg Tablet 1 Tab PO BID Temazepam 15 Mg Capsule 1 Cap PO QHS Eliquis (Apixaban) 5 Mg Tablet 5 Mg PO BID 60 Days Culturelle (Lactobacillus Rhamnosus Gg) 1 Each Capsule 1 Each PO BID Allergies Allergies: Coded Allergies: No Known Drug Allergies (Unverified , 10/15/18) ROS Review of System 14 pt ros otherwise neg General: YES: Fatigue PSYCHOLOGICAL ROS: No: Anxiety, Behavioral Disorder, Concentration difficultie, Decreased libido, Depression, Disorientation, Hallucinations, Hostility, Irritablity, Memory difficulties, Mood Swings, Obsessive thoughts, Physical abuse, Sexual abuse, Sleep disturbances, Suicidal ideation, Other ALLERGY AND IMMUNOLOGY: No: Hives, Insect Bite Sensitivity, Itchy/Watery Eyes, Nasal Congestion, Post Nasal Drip, Seasonal Allergies, Other Hematological and Lymphatic: No: Bleeding Problems, Blood Clots, Blood Transfusions, Brusing, Night Sweats, Pallor, Swollen Lymph Nodes, Other ENDOCRINE: No: Breast Changes, Galactorrhea, Hair Pattern Changes, Hot Flashes, Malaise/lethargy, Mood Swings, Palpitations, Polydipsia/polyuria, Skin Changes, Temperature Intolerance, Unexpected Weight Changes, Other Cardiovascular: No Chest Pain, No Palpitations, No Orthopnea, No Paroxysmal Noc. Dyspnea, No Edema, No Lt Headedness, No Other Gastrointestinal: Yes Abdominal Pain Musculoskeletal: Yes Joint Stiffness Neurological: No Behavorial Changes, No Bowel/Bladder ControlChng, No Confusi on, No Dizziness, No Gait Disturbance, No Headaches, No Impaired Coord/balance, No Memory Loss, No Numbness/Tingling, No Seizures, No Speech Problems, No Tremors, No Visual Changes, No Weakness, No Other Physical Exam Physical Exam HEENT: Pupils equal, Oral cavity clear - NECK: Supple, LUNGS: Clear anteriorly, HEART: S1, S2 regular. ABDOMEN: OBESE : Odell in place EXTREMITIES: No edema, cyanosis. SKIN: Warm to touch NEUROLOGIC: Alert, Port-a -cath clean General: Alert, Oriented X3, Cooperative, mild distress HEENT: Atraumatic, EOMI Breasts: Not examined Abdomen: Normal bowel sounds Rectal Exam: not examined PELVIC: Examination not indicated Extremities: No cyanosis Neuro: Normal speech, Sensation intact, Cranial nerves 3-12 NL Psych/Mental Status: Mental status NL Vitals Vitals Vital Signs Date Time Temp Pulse Resp B/P (MAP) Pulse Ox O2 Delivery O2 Flow Rate FiO2 12/22/18 10:00 20 Room Air Labs Labs Laboratory Tests Test 12/22/18 09:50 Prothrombin Time 17.3 SEC (11.7-14.0) Prothromb Time International Ratio 1.4 (0.8-1.1) Laboratory Tests Test 12/22/18 09:50 Prothrombin Time 17.3 SEC (11.7-14.0) Prothromb Time International Ratio 1.4 (0.8-1.1) VTE Prophylaxis Ordered VTE Prophylaxis Devices: Yes VTE Pharmacological Prophylaxi: Yes Assessment/Plan Assessment/Plan impression acute cholecystitis INTRACTABLE PAIN hx respiratory failure, multifactorial. recent Abnormal CT scan of the chest and chest x-ray revealing bilateral pulmonary infiltrate, pneumonia. immunocompromised Metastatic colon cancer. Severe protein-calorie malnutrition. Marked debility Interval increased hepatic metastatic involvement since previous PET/CT exam of 01/18/2018. Left adrenal gland is enlarged interval with metastatic involvement of concern. Upper abdominal lymphadenopathy L4-5 pars interarticularis fractures with grade 1 anterolisthesis of L5 over S1. plan surgery consult gi consult NPO TRANSFER FROM [facility], DIRECT ADMIT IV FLUID SUPPORT IV PAIN CONTROL, CONTRACT SPECIALIST oncology consult dvt prophylaxis cbc, comp now MRCP; ID CONSULT 77 min pt exam, chart review, > 50% of time spent with exam, chart review, pt care coordination JORDIN POWELL MD Dec 22, 2018 11:09
[2018-12-22] MEDS ORDERED: 0.9 % SODIUM CHLORIDE 10 ML DISP.SYRIN. IV PRN (11:30)
[2018-12-22] MEDS ORDERED: cloNIDine HCL 0.1 MG TABLET PO PRN (11:30)
[2018-12-22] MEDS ORDERED: ACETAMINOPHEN 650 MG SUPP.RECT. PR PRN (11:30)
--- NOTE | 2018-12-22 11:38 | PDOC2 ---
GI CONSULT Reason For Consult: Abdominal pain/jaundice/elevated LFT's HPI: HPI: 63 y/o female known to me. Has h/o widely metastatic colon cancer of the splenic flexure; metastatic disease at time of diagnosis. Did undergo resection and on palliative chemoRX. I saw her at [facility] after her admission for atypical pneumonia and at that time having epigastric/LUQ discomfort. Imaging then not suggestive of biliary problems. Did partially respond to empiric PPI therapy. Ultimately went home where pain pattern became more epigastric to RUQ and increasing. became noticeably jaundiced. Briefly hospitalized at [facility] before transfer here. Had increased AP to 963 (baseline elevated due to mets), modestly increased transaminases, but bilirubin of 9.6 (previously normal). Sonogram at [facility] with distended GB w/o stones (sludge mentioned), but dilated CBD and intrahepatic radicals. Had some nausea w/o emesis. Has not been febrile. Plans to consider percutaneous cholecystostomy noted. No typical heartburn or dysphagia in the past. No PUD, primary liver or pancreatic history. No tobacco. Occasional alcohol use. Post-resection had loose stools. With escalating narcotic use, more constipated now. No overt bleeding. Has not had prior endoscopy. PMH: PMH: DVT, OA, chemo-related peripheral neuropathy, COPD. S/P colectomy, portacath. FH: Family History: Other Social History: Smoke: No ALCOHOL: occassional Drugs: None ROS: GEN: Denies fevers, chills, sweats HEENT: Denies blurred vision, sore throat CV: Denies chest pain RESP: Denies shortness of air, cough GI: Per HPI : Denies hematuria, dysuria ENDO: Denies weight changes NEURO: Denies confusion, dizziness MSK: Denies weakness, joint pain/swelling SKIN: Denies pruritus Vitals: Vitals: Vital Signs Date Time Temp Pulse Resp B/P (MAP) Pulse Ox O2 Delivery O2 Flow Rate FiO2 12/22/18 10:00 20 Room Air Labs: Labs: Laboratory Tests Test 12/22/18 09:50 Prothrombin Time 17.3 SEC (11.7-14.0) Prothromb Time International Ratio 1.4 (0.8-1.1) Consistent with obstructive jaundice at [facility]. Allergies: Coded Allergies: No Known Drug Allergies (Unverified , 7/29/19) Medications: Current Medications Medications (Trade) Dose Ordered Sig/Chrissy Route PRN Reason Start Time Stop Time Status Last Admin Dose Admin Morphine Sulfate (Morphine Sulfate) 5 mg 1X ONCE IV 12/22/18 10:00 12/22/18 10:03 DC 12/22/18 10:00 PE: GEN: NAD, uncomfortable HEENT: Atraumatic, PERRLA LUNGS: CTAB, Port-a-cath right infraclavicular area HEART: RRR, no murmurs ABD: NABS, S/ND/tender near RUQ, no masses EXTREMITY: No edema SKIN: No rashes, Jaundiced. NEURO/PSYCH: A & O 3 A/P: A/P: IMP: Obstructive jaundice. Never stones on imaging, so unlikely calculous disease. Imaging at [facility] not diagnostic, but suggestive. Portal adenopathy/compression possible. Intraductal tumor embolus? Metastatic colon cancer, on palliative chemoRx. REC: Will order MRCP; if has cholecystostomy and can visualize biliary tree at that, can cancel. Continue other as now. ZABRINA PERLA MD Dec 22, 2018 11:38
[2018-12-22] MEDS: IPRATRPIUM/ALBUTEROL 0.5/2.5MG 3 ML NEBU. NEB SCH ×4 (11:55→23:46)
[2018-12-22] MEDS ORDERED: HYDROmorphone STANDARD PCA 12 MG/30 ML SYRINGE. IV ONE (12:00)
[2018-12-22 12:11] LABS: BASO % 0 % (0-3); EOS % 0 % (0-3); HEMATOCRIT 34.3 % (36.0-47.0); HEMOGLOBIN 11.5 g/dL (12.0-15.5); LYMPH # 0.5 x10^3/uL (1.0-4.8); LYMPH % 9 % (24-48); MEAN CORPUSCULAR HEMOGLOBIN 32 pg (25-35); MEAN CORPUSCULAR HGB CONC 34 g/dL (31-37); MEAN CORPUSCULAR VOLUME 96 fL (79-100); MONO # 0.4 x10^3/uL (0.0-1.1); MONO % 7 % (0-9); NEUT # 5.1 x10^3/uL (1.8-7.7); NEUT % 84 % (31-73); PLATELET COUNT 215 x10^3/uL (140-400); RED BLOOD COUNT 3.56 x10^6/uL (3.50-5.40); RED CELL DISTRIBUTION WIDTH 17.3 % (11.5-14.5); WHITE BLOOD COUNT 6.1 x10^3/uL (4.0-11.0)
--- NOTE | 2018-12-22 12:19 | PDOC2 ---
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 Last fall she had a left colon resection for locally advanced carcinoma. She has liver and adrenal mets. She has been receiving chemoRx. The RUQ pain is fairly recent. Past Medical History Cardiovascular: Other Pulmonary: Pneumonia CENTRAL NERVOUS SYSTEM: Periperal neuropathy GI: GERD, Other Heme/Onc: Anemia NOS, Cancer, Other Hepatobiliary: No pertinent hx Psych: Anxiety Musculoskeletal: Osteoarthritis Rheumatologic: No pertinent hx Infectious disease: No pertinent hx Renal/: No pertinent hx Endocrine: No pertinent hx Past Surgical History Past Surgical History: Colon Resection, Other Family History Family History: Heart Disease Social History No ALCOHOL: occassional Drugs: None Lives: with Family Current Medications Current Medications Current Medications Morphine Sulfate (Morphine Sulfate) 5 mg 1X ONCE IV Last administered on 12/22/18at 10:00; Start 12/22/18 at 10:00; Stop 12/22/18 at 10:03; Status DC Naloxone HCl (Narcan) 0.4 mg PRN Q2MIN PRN IV SEE INSTRUCTIONS; Start 12/22/18 at 10:00 Sodium Chloride 1,000 ml @ 25 mls/hr Q24H IV ; Start 12/22/18 at 09:55 Hydromorphone HCl 30 ml @ 0 mls/hr CONT PRN PRN IV PER PROTOCOL; Start 12/22/18 at 10:00 Sodium Chloride (Normal Saline Flush) 3 ml QSHIFT PRN IV AFTER MEDS AND BLOOD D RAWS; Start 12/22/18 at 11:30 Sodium Chloride 1,000 ml @ 100 mls/hr Q10H IV ; Start 12/22/18 at 13:00 Ondansetron HCl (Zofran) 4 mg PRN Q4HRS PRN IVP NAUSEA/VOMITING; Start 12/22/18 at 11:30 Acetaminophen (Tylenol Supp) 650 mg PRN Q4HRS PRN [place] TEMP OVER 100.4F OR MILD PAIN; Start 12/22/18 at 11:30 Clonidine HCl (Catapres) 0.1 mg PRN Q6HRS PRN PO SBP>160 OR DBP>90; Start 12/22/18 at 11:30 Albuterol/ Ipratropium (Duoneb) 3 ml Q4H NEB Last administered on 12/22/18at 11:55; Start 12/22/18 at 12:00 Lorazepam (Ativan) 0.5 mg PRN Q4HRS PRN PO ANXIETY / AGITATION; Start 12/22/18 at 11:30 Enoxaparin Sodium (Lovenox 40mg Syringe) 40 mg DAILY SQ ; Start 12/23/18 at 09:00 Piperacillin Sod/ Tazobactam Sod 3.375 gm/Sodium Chloride 50 ml @ 100 mls/hr Q6HRS IV ; Start 12/22/18 at 12:00 Ascorbic Acid (Vitamin C) 500 mg BID PO ; Start 12/22/18 at 21:00 Ferrous Sulfate (Feosol) 325 mg BIDWMEALS PO ; Start 12/22/18 at 17:00 Gabapentin (Neurontin) 300 mg BID PO ; Start 12/22/18 at 21:00 Acyclovir (Zovirax) 400 mg BID PO ; Start 12/22/18 at 21:00 Non-Formulary Medication (Alpha Lipoic Acid ) 600 mg BID PO ; Start 12/22/18 at 21:00; Status UNV Citalopram Hydrobromide (CeleXA) 20 mg DAILY PO ; Start 12/23/18 at 09:00 Non-Formulary Medication (Lactobacillus Rhamnosus Gg (Culturelle)) 1 each BID PO ; Start 12/22/18 at 21:00; Status UNV Active Scripts Active Ascorbic Acid 500 Mg Tablet 500 Mg PO BID 30 Days Ferrous Sulfate 325 Mg Tablet 1 Tab PO BID 30 Days Reported Imodium A-D (Loperamide HCl) 2 Mg Capsule 2 Mg PO PRN Q4HRS PRN Alpha Lipoic Acid 600 Mg Capsule 600 Mg PO BID Ambien (Zolpidem Tartrate) 5 Mg Tablet 5 Mg PO PRN QHS PRN Gabapentin (Gabapentin) 300 Mg Capsule 300 Mg PO BID Escitalopram Oxalate 10 Mg Tablet 1 Tab PO DAILY Acyclovir 400 Mg Tablet 1 Tab PO BID Temazepam 15 Mg Capsule 1 Cap PO QHS Eliquis (Apixaban) 5 Mg Tablet 5 Mg PO BID 60 Days Culturelle (Lactobacillus Rhamnosus Gg) 1 Each Capsule 1 Each PO BID Allergies Allergies: Coded Allergies: No Known Drug Allergies (Unverified , 10/15/18) ROS Gastrointestinal: Yes Abdominal Pain Skin: Yes Other (jaundice) Physical Exam General: Alert, Cooperative, mild distress (2/2 abdominal pain) HEENT: Atraumatic Lungs: Normal air movement Heart: Regular rate Abdomen: Soft, Other (TTP RUQ) Extremities: No clubbing Skin: Other (warm, dry) Psych/Mental Status: Mood NL Vitals VITALS Vital Signs Date Time Temp Pulse Resp B/P (MAP) Pulse Ox O2 Delivery O2 Flow Rate FiO2 12/22/18 11:55 94 Room Air 12/22/18 10:00 20 Labs Labs Laboratory Tests Test 12/22/18 09:50 Prothrombin Time 17.3 SEC (11.7-14.0) Prothromb Time International Ratio 1.4 (0.8-1.1) Laboratory Tests Test 12/22/18 09:50 Prothrombin Time 17.3 SEC (11.7-14.0) Prothromb Time International Ratio 1.4 (0.8-1.1) Images Images recent US and CT scans are reviewed RUQ pain cholecystitis liver metastases chemoRx MRCP ordered by GI d/w IR await MRCP findings no acute surgical recs will follow with you rosaura/w Day and her daughter who is at the bedside COLEEN ALVES MD Dec 22, 2018 12:19
[2018-12-22 12:23] LABS: ALBUMIN/GLOBULIN RATIO 0.7 (1.0-1.7); CALCIUM 8.6 mg/dL (8.5-10.1); CREATININE 0.4 mg/dL (0.6-1.0); GFR 161.7; POTASSIUM 3.4 mmol/L (3.5-5.1)
[2018-12-22] MEDS: HYDROmorphone 12mg/30ml PCA 30 ML IV PRN (13:15)
[2018-12-22] MEDS: PIPERACILLIN/TAZOBACTAM 3.375 GM in IV NORMAL SALINE 50ML 50 ML IV SCH ×3 (13:25→23:52)
--- NOTE | 2018-12-22 14:59 | RAD ---
MRI of the abdomen to include a MRCP without contrast 12/22/2018 CLINICAL HISTORY: Metastatic colon cancer with obstructive jaundice. TECHNIQUE: Unenhanced T2-weighted and fat saturated T2-weighted axial and coronal, in and out of phase T1-weighted axial and diffusion-weighted axial images of the abdomen were obtained. Fat-saturated thin section T2-weighted coronal images of the abdomen were obtained. Multiplanar 3-D MIP reconstructed images of the biliary system were obtained for an MRCP. FINDINGS: Comparison is made to the patient's CT scan of the abdomen dated 12/14/2018. Additional comparison is made to patient's ultrasound of the right upper quadrant abdomen dated 12/21/2018. Multiple mass lesions are seen throughout the liver consistent with metastasis. These measure 2.6 to 8.3 cm in size. The spleen, right adrenal gland and kidneys are within normal limits. A 3.9 cm mass is seen involving the left adrenal gland consistent with a metastasis. The main pancreatic duct is dilated. This finding is unchanged. No focal abnormality of the pancreas is seen. The abdominal aorta tapers normally. A very amount of ascites is seen within the abdomen. MRCP images demonstrate the gallbladder to be distended with sludge. Intrahepatic biliary ductal dilatation is seen. The distal common hepatic duct and common bile duct are [id number] and appear to be extrinsically compressed by the enlarged lymph nodes within the allen hepatis which are better visualized on the patient's recent CT scan. No filling defect is definitely seen. Multiple focal strictures are seen scattered throughout the visualized intra and extrahepatic bile ducts suggestive of a cholangitis. IMPRESSION: 1. Multiple hepatic metastasis. 2. Sludge-filled gallbladder. 3. Multiple focal strictures are seen throughout the visualized intra and extrahepatic ducts suggest of a cholangitis. 4. The distal common hepatic duct and common bile duct are not well-visualized and appear to be extrinsically compressed by the enlarged lymph nodes within the allen hepatis. Electronically signed by: Lex Alicea MD (12/22/2018 2:56 PM) [facility]
[2018-12-22] MEDS: FERROUS SULFATE 325 MG TABLET. PO SCH (17:00)
--- NOTE | 2018-12-22 18:06 | PDOC ---
Provider Note Provider Note SURG spent time at the bedside with Day and her two daughters answered questions discussed options these are limited given the extent of liver mets and portal LN considering ERCP with stent (if possible) I d/w Dr Tanner (GI) and Dr Hill (IR) earlier today I explained to Day I don't know cholecystectomy would improve her sx continue W[employer] for pain control no new surg recs COLEEN ALVES MD Dec 22, 2018 18:06
[2018-12-22 19:15] VITALS: BP 114/58
[2018-12-22] MEDS: ONDANSETRON PF 4 MG/2 ML VIAL. IVP PRN (19:32)
[2018-12-22] MEDS: ASCORBIC ACID 500 MG TABLET PO SCH (21:00)
[2018-12-22] MEDS ORDERED: LACTOBACILLUS RHAMNOSUS GG PO SCH (21:00)
[2018-12-22] MEDS ORDERED: NON FORMULARY ITEM (Alpha Lipoic Acid 600 MG) PO SCH (21:00)
[2018-12-22] MEDS: ACYCLOVIR 200 MG CAPSULE. PO SCH (21:00)
[2018-12-22] MEDS: GABAPENTIN 300 MG CAPSULE. PO SCH (21:00)
[2018-12-22 23:05] VITALS: BP 105/52
[2018-12-23 03:21] VITALS: BP 133/60
[2018-12-23] MEDS: ONDANSETRON PF 4 MG/2 ML VIAL. IVP PRN (03:36)
[2018-12-23] MEDS: IPRATRPIUM/ALBUTEROL 0.5/2.5MG 3 ML NEBU. NEB SCH ×6 (04:00→23:36)
[2018-12-23] MEDS: PIPERACILLIN/TAZOBACTAM 3.375 GM in IV NORMAL SALINE 50ML 50 ML IV SCH ×3 (05:00→17:15)
[2018-12-23 05:42] LABS: ALBUMIN 1.8 g/dL (3.4-5.0); CALCIUM 8.6 mg/dL (8.5-10.1); CREATININE 0.4 mg/dL (0.6-1.0); DIRECT BILIRUBIN 9.2 mg/dL (0.0-0.2); GFR 161.7; TOTAL BILIRUBIN 10.5 mg/dL (0.2-1.0); TOTAL PROTEIN 5.2 g/dL (6.4-8.2)
[2018-12-23 05:47] LABS: POTASSIUM 2.8 mmol/L (3.5-5.1)
[2018-12-23 05:49] LABS: BASO % 0 % (0-3); EOS % 0 % (0-3); HEMATOCRIT 31.6 % (36.0-47.0); HEMOGLOBIN 10.9 g/dL (12.0-15.5); LYMPH # 0.6 x10^3/uL (1.0-4.8); LYMPH % 11 % (24-48); MEAN CORPUSCULAR HEMOGLOBIN 33 pg (25-35); MEAN CORPUSCULAR HGB CONC 34 g/dL (31-37); MEAN CORPUSCULAR VOLUME 96 fL (79-100); MONO # 0.4 x10^3/uL (0.0-1.1); MONO % 8 % (0-9); NEUT # 4.6 x10^3/uL (1.8-7.7); NEUT % 81 % (31-73); PLATELET COUNT 214 x10^3/uL (140-400); RED BLOOD COUNT 3.31 x10^6/uL (3.50-5.40); RED CELL DISTRIBUTION WIDTH 17.5 % (11.5-14.5); WHITE BLOOD COUNT 5.7 x10^3/uL (4.0-11.0)
[2018-12-23 05:51] LABS: PROTHROMBIN TIME PATIENT 16.2 SEC (11.7-14.0)
[2018-12-23] MEDS: POTASSIUM CHLORIDE 10MEQ 100 ML IV SCH ×3 (06:31→08:15)
[2018-12-23 07:00] VITALS: BP 131/60
[2018-12-23] MEDS: IV NORMAL SALINE 1000ML BAG 1,000 ML IV SCH ×3 (09:00→15:55)
[2018-12-23] MEDS: CITALOPRAM 20 MG TABLET. PO SCH (09:00)
[2018-12-23] MEDS ORDERED: ENOXAPARIN 40 MG/0.4 ML SYRINGE. SQ SCH (09:00)
--- NOTE | 2018-12-23 09:16 | PDOC ---
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 H/o Pneumocystis jiroveci pneumonia. H/o Clostridium difficile. Obstructive jaundice secondary to biliary compression by metastatic lymphadenopathy - npo after midnight for ERCP/stent with GI on 12/24/18 History of Present Illness History of Present Illness Ms New is a 63-year-old female with metastatic colon cancer, currently on palliative chemotherapy admitted from [facility] Emergency Department with severe abdominal pain, nausea and elevated liver function tests. She was recently at [facility] after pneumocystis jiroveci and at that time having epigastric/LUQ discomfort. Imaging then not suggestive of biliary problems. Did partially respond to empiric PPI therapy. Ultimately went home where pain pattern became more epigastric to RUQ and increasing. became noticeably jaundiced. Briefly hospitalized at [facility] before transfer here. Had increased AP to 963 (baseline elevated due to mets), modestly increased transaminases, but bilirubin of 9.6 (previously normal). Sonogram at [facility] with distended GB w/o stones (sludge mentioned), but dilated CBD and intrahepatic radicals. Had some nausea w/o emesis. Has not been febrile. Abdominal ultrasound showed sludge-filled gallbladder and gallbladder wall thickening. She underwent a MRCP revealing multiple focal strictures throughout the visualized intra- and extrahepatic ducts suggestive of a cholangitis; and distal common hepatic duct and common bile duct not well visualized and appeared to be extrinsically compressed by enlarged lymph nodes within the allen hepatis; and multiple hepatic metastasis. Seen by general surgery and GI. No plans for surgery. She is planning on ERCP likely 12/24/18. On Zosyn for ascending cholangitis. She has not had a BM for 4 days. Has some pain. Family bedside. Denies cough, shortness of air or chest discomfort. Vitals Vitals Vital Signs Date Time Temp Pulse Resp B/P (MAP) Pulse Ox O2 Delivery O2 Flow Rate FiO2 12/23/18 08:13 Room Air 12/23/18 07:23 94 1.0 12/23/18 07:00 98.6 94 18 131/60 (83) 98.6 Physical Exam General: Alert, Cooperative, mild distress (2/2 abdominal pain) Heart: Regular rate Lungs: Clear, Other Abdomen: Soft, Other (TTP RUQ) Extremities: No clubbing Skin: Other (warm, dry) Labs LABS Laboratory Tests Test 12/22/18 09:50 12/23/18 05:20 White Blood Count 6.1 x10^3/uL (4.0-11.0) 5.7 x10^3/uL (4.0-11.0) Red Blood Count 3.56 x10^6/uL (3.50-5.40) 3.31 x10^6/uL (3.50-5.40) Hemoglobin 11.5 g/dL (12.0-15.5) 10.9 g/dL (12.0-15.5) Hematocrit 34.3 % (36.0-47.0) 31.6 % (36.0-47.0) Mean Corpuscular Volume 96 fL (79-100) 96 fL (79-100) Mean Corpuscular Hemoglobin 32 pg (25-35) 33 pg (25-35) Mean Corpuscular Hemoglobin Concent 34 g/dL (31-37) 34 g/dL (31-37) Red Cell Distribution Width 17.3 % (11.5-14.5) 17.5 % (11.5-14.5) Platelet Count 215 x10^3/uL (140-400) 214 x10^3/uL (140-400) Neutrophils (%) (Auto) 84 % (31-73) 81 % (31-73) Lymphocytes (%) (Auto) 9 % (24-48) 11 % (24-48) Monocytes (%) (Auto) 7 % (0-9) 8 % (0-9) Eosinophils (%) (Auto) 0 % (0-3) 0 % (0-3) Basophils (%) (Auto) 0 % (0-3) 0 % (0-3) Neutrophils # (Auto) 5.1 x10^3/uL (1.8-7.7) 4.6 x10^3/uL (1.8-7.7) Lymphocytes # (Auto) 0.5 x10^3/uL (1.0-4.8) 0.6 x10^3/uL (1.0-4.8) Monocytes # (Auto) 0.4 x10^3/uL (0.0-1.1) 0.4 x10^3/uL (0.0-1.1) Eosinophils # (Auto) 0.0 x10^3/uL (0.0-0.7) 0.0 x10^3/uL (0.0-0.7) Basophils # (Auto) 0.0 x10^3/uL (0.0-0.2) 0.0 x10^3/uL (0.0-0.2) Prothrombin Time 17.3 SEC (11.7-14.0) 16.2 SEC (11.7-14.0) Prothromb Time International Ratio 1.4 (0.8-1.1) 1.3 (0.8-1.1) Sodium Level 137 mmol/L (136-145) 139 mmol/L (136-145) Potassium Level 3.4 mmol/L (3.5-5.1) 2.8 mmol/L (3.5-5.1) Chloride Level 99 mmol/L (98-107) 102 mmol/L (98-107) Carbon Dioxide Level 29 mmol/L (21-32) 29 mmol/L (21-32) Anion Gap 9 (6-14) 8 (6-14) Blood Urea Nitrogen 4 mg/dL (7-20) 4 mg/dL (7-20) Creatinine 0.4 mg/dL (0.6-1.0) 0.4 mg/dL (0.6-1.0) Estimated GFR (Cockcroft-Gault) 161.7 161.7 BUN/Creatinine Ratio 10 (6-20) Glucose Level 107 mg/dL (70-99) 84 mg/dL (70-99) Calcium Level 8.6 mg/dL (8.5-10.1) 8.6 mg/dL (8.5-10.1) Total Bilirubin 10.0 mg/dL (0.2-1.0) 10.5 mg/dL (0.2-1.0) Aspartate Amino Transf (AST/SGOT) 141 U/L (15-37) 135 U/L (15-37) Alanine Aminotransferase (ALT/SGPT) 206 U/L (14-59) 181 U/L (14-59) Alkaline Phosphatase 1033 U/L (46-116) 919 U/L (46-116) Total Protein 5.0 g/dL (6.4-8.2) 5.2 g/dL (6.4-8.2) Albumin 2.0 g/dL (3.4-5.0) 1.8 g/dL (3.4-5.0) Albumin/Globulin Ratio 0.7 (1.0-1.7) Direct Bilirubin 9.2 mg/dL (0.0-0.2) Comment Review of Relevant I have reviewed the following items erwin (where applicable) has been applied. Labs Laboratory Tests Test 12/22/18 09:50 12/23/18 05:20 White Blood Count 6.1 x10^3/uL (4.0-11.0) 5.7 x10^3/uL (4.0-11.0) Red Blood Count 3.56 x10^6/uL (3.50-5.40) 3.31 x10^6/uL (3.50-5.40) Hemoglobin 11.5 g/dL (12.0-15.5) 10.9 g/dL (12.0-15.5) Hematocrit 34.3 % (36.0-47.0) 31.6 % (36.0-47.0) Mean Corpuscular Volume 96 fL (79-100) 96 fL (79-100) Mean Corpuscular Hemoglobin 32 pg (25-35) 33 pg (25-35) Mean Corpuscular Hemoglobin Concent 34 g/dL (31-37) 34 g/dL (31-37) Red Cell Distribution Width 17.3 % (11.5-14.5) 17.5 % (11.5-14.5) Platelet Count 215 x10^3/uL (140-400) 214 x10^3/uL (140-400) Neutrophils (%) (Auto) 84 % (31-73) 81 % (31-73) Lymphocytes (%) (Auto) 9 % (24-48) 11 % (24-48) Monocytes (%) (Auto) 7 % (0-9) 8 % (0-9) Eosinophils (%) (Auto) 0 % (0-3) 0 % (0-3) Basophils (%) (Auto) 0 % (0-3) 0 % (0-3) Neutrophils # (Auto) 5.1 x10^3/uL (1.8-7.7) 4.6 x10^3/uL (1.8-7.7) Lymphocytes # (Auto) 0.5 x10^3/uL (1.0-4.8) 0.6 x10^3/uL (1.0-4.8) Monocytes # (Auto) 0.4 x10^3/uL (0.0-1.1) 0.4 x10^3/uL (0.0-1.1) Eosinophils # (Auto) 0.0 x10^3/uL (0.0-0.7) 0.0 x10^3/uL (0.0-0.7) Basophils # (Auto) 0.0 x10^3/uL (0.0-0.2) 0.0 x10^3/uL (0.0-0.2) Prothrombin Time 17.3 SEC (11.7-14.0) 16.2 SEC (11.7-14.0) Prothromb Time International Ratio 1.4 (0.8-1.1) 1.3 (0.8-1.1) Sodium Level 137 mmol/L (136-145) 139 mmol/L (136-145) Potassium Level 3.4 mmol/L (3.5-5.1) 2.8 mmol/L (3.5-5.1) Chloride Level 99 mmol/L (98-107) 102 mmol/L (98-107) Carbon Dioxide Level 29 mmol/L (21-32) 29 mmol/L (21-32) Anion Gap 9 (6-14) 8 (6-14) Blood Urea Nitrogen 4 mg/dL (7-20) 4 mg/dL (7-20) Creatinine 0.4 mg/dL (0.6-1.0) 0.4 mg/dL (0.6-1.0) Estimated GFR (Cockcroft-Gault) 161.7 161.7 BUN/Creatinine Ratio 10 (6-20) Glucose Level 107 mg/dL (70-99) 84 mg/dL (70-99) Calcium Level 8.6 mg/dL (8.5-10.1) 8.6 mg/dL (8.5-10.1) Total Bilirubin 10.0 mg/dL (0.2-1.0) 10.5 mg/dL (0.2-1.0) Aspartate Amino Transf (AST/SGOT) 141 U/L (15-37) 135 U/L (15-37) Alanine Aminotransferase (ALT/SGPT) 206 U/L (14-59) 181 U/L (14-59) Alkaline Phosphatase 1033 U/L (46-116) 919 U/L (46-116) Total Protein 5.0 g/dL (6.4-8.2) 5.2 g/dL (6.4-8.2) Albumin 2.0 g/dL (3.4-5.0) 1.8 g/dL (3.4-5.0) Albumin/Globulin Ratio 0.7 (1.0-1.7) Direct Bilirubin 9.2 mg/dL (0.0-0.2) Laboratory Tests Test 12/22/18 09:50 12/23/18 05:20 White Blood Count 6.1 x10^3/uL (4.0-11.0) 5.7 x10^3/uL (4.0-11.0) Red Blood Count 3.56 x10^6/uL (3.50-5.40) 3.31 x10^6/uL (3.50-5.40) Hemoglobin 11.5 g/dL (12.0-15.5) 10.9 g/dL (12.0-15.5) Hematocrit 34.3 % (36.0-47.0) 31.6 % (36.0-47.0) Mean Corpuscular Volume 96 fL (79-100) 96 fL (79-100) Mean Corpuscular Hemoglobin 32 pg (25-35) 33 pg (25-35) Mean Corpuscular Hemoglobin Concent 34 g/dL (31-37) 34 g/dL (31-37) Red Cell Distribution Width 17.3 % (11.5-14.5) 17.5 % (11.5-14.5) Platelet Count 215 x10^3/uL (140-400) 214 x10^3/uL (140-400) Neutrophils (%) (Auto) 84 % (31-73) 81 % (31-73) Lymphocytes (%) (Auto) 9 % (24-48) 11 % (24-48) Monocytes (%) (Auto) 7 % (0-9) 8 % (0-9) Eosinophils (%) (Auto) 0 % (0-3) 0 % (0-3) Basophils (%) (Auto) 0 % (0-3) 0 % (0-3) Neutrophils # (Auto) 5.1 x10^3/uL (1.8-7.7) 4.6 x10^3/uL (1.8-7.7) Lymphocytes # (Auto) 0.5 x10^3/uL (1.0-4.8) 0.6 x10^3/uL (1.0-4.8) Monocytes # (Auto) 0.4 x10^3/uL (0.0-1.1) 0.4 x10^3/uL (0.0-1.1) Eosinophils # (Auto) 0.0 x10^3/uL (0.0-0.7) 0.0 x10^3/uL (0.0-0.7) Basophils # (Auto) 0.0 x10^3/uL (0.0-0.2) 0.0 x10^3/uL (0.0-0.2) Prothrombin Time 17.3 SEC (11.7-14.0) 16.2 SEC (11.7-14.0) Prothromb Time International Ratio 1.4 (0.8-1.1) 1.3 (0.8-1.1) Sodium Level 137 mmol/L (136-145) 139 mmol/L (136-145) Potassium Level 3.4 mmol/L (3.5-5.1) 2.8 mmol/L (3.5-5.1) Chloride Level 99 mmol/L (98-107) 102 mmol/L (98-107) Carbon Dioxide Level 29 mmol/L (21-32) 29 mmol/L (21-32) Anion Gap 9 (6-14) 8 (6-14) Blood Urea Nitrogen 4 mg/dL (7-20) 4 mg/dL (7-20) Creatinine 0.4 mg/dL (0.6-1.0) 0.4 mg/dL (0.6-1.0) Estimated GFR (Cockcroft-Gault) 161.7 161.7 BUN/Creatinine Ratio 10 (6-20) Glucose Level 107 mg/dL (70-99) 84 mg/dL (70-99) Calcium Level 8.6 mg/dL (8.5-10.1) 8.6 mg/dL (8.5-10.1) Total Bilirubin 10.0 mg/dL (0.2-1.0) 10.5 mg/dL (0.2-1.0) Aspartate Amino Transf (AST/SGOT) 141 U/L (15-37) 135 U/L (15-37) Alanine Aminotransferase (ALT/SGPT) 206 U/L (14-59) 181 U/L (14-59) Alkaline Phosphatase 1033 U/L (46-116) 919 U/L (46-116) Total Protein 5.0 g/dL (6.4-8.2) 5.2 g/dL (6.4-8.2) Albumin 2.0 g/dL (3.4-5.0) 1.8 g/dL (3.4-5.0) Albumin/Globulin Ratio 0.7 (1.0-1.7) Direct Bilirubin 9.2 mg/dL (0.0-0.2) Medications Current Medications Morphine Sulfate (Morphine Sulfate) 5 mg 1X ONCE IV Last administered on 12/22/18at 10:00; Start 12/22/18 at 10:00; Stop 12/22/18 at 10:03; Status DC Naloxone HCl (Narcan) 0.4 mg PRN Q2MIN PRN IV SEE INSTRUCTIONS; Start 12/22/18 at 10:00 Sodium Chloride 1,000 ml @ 25 mls/hr Q24H IV Last administered on 12/22/18at 09:55; Start 12/22/18 at 09:55 Hydromorphone HCl 30 ml @ 0 mls/hr CONT PRN PRN IV PER PROTOCOL Last adm inistered on 12/22/18at 13:15; Start 12/22/18 at 10:00 Sodium Chloride (Normal Saline Flush) 3 ml QSHIFT PRN IV AFTER MEDS AND BLOOD DRAWS; Start 12/22/18 at 11:30 Sodium Chloride 1,000 ml @ 100 mls/hr Q10H IV Last administered on 12/22/18at 23:55; Start 12/22/18 at 13:00 Ondansetron HCl (Zofran) 4 mg PRN Q4HRS PRN IVP NAUSEA/VOMITING Last administered on 12/23/18at 03:36; Start 12/22/18 at 11:30 Acetaminophen (Tylenol Supp) 650 mg PRN Q4HRS PRN [place] TEMP OVER 100.4F OR MILD PAIN Last administered on 12/23/18at 03:47; Start 12/22/18 at 11:30 Clonidine HCl (Catapres) 0.1 mg PRN Q6HRS PRN PO SBP>160 OR DBP>90; Start 12/22/18 at 11:30 Albuterol/ Ipratropium (Duoneb) 3 ml Q4H NEB Last administered on 12/23/18at 07:22; Start 12/22/18 at 12:00 Lorazepam (Ativan) 0.5 mg PRN Q4HRS PRN PO ANXIETY / AGITATION; Start 12/22/18 at 11:30 Enoxaparin Sodium (Lovenox 40mg Syringe) 40 mg DAILY SQ ; Start 12/23/18 at 09:00; Stop 12/22/18 at 16:29; Status DC Piperacillin Sod/ Tazobactam Sod 3.375 gm/Sodium Chloride 50 ml @ 100 mls/hr Q6HRS IV Last administered on 12/23/18at 05:00; Start 12/22/18 at 12:00 Ascorbic Acid (Vitamin C) 500 mg BID PO ; Start 12/22/18 at 21:00 Ferrous Sulfate (Feosol) 325 mg BIDWMEALS PO ; Start 12/22/18 at 17:00 Gabapentin (Neurontin) 300 mg BID PO ; Start 12/22/18 at 21:00 Acyclovir (Zovirax) 400 mg BID PO ; Start 12/22/18 at 21:00 Non-Formulary Medication (Alpha Lipoic Acid ) 600 mg BID PO ; Start 12/22/18 at 21:00; Status UNV Citalopram Hydrobromide (CeleXA) 20 mg DAILY PO ; Start 12/23/18 at 09:00 Non-Formulary Medication (Lactobacillus Rhamnosus Gg (Culturelle)) 1 each BID PO ; Start 12/22/18 at 21:00; Status UNV Potassium Chloride/Water 100 ml @ 100 mls/hr Q1H IV Last administered on 12/23/18at 07:47; Start 12/23/18 at 06:15; Stop 12/23/18 at 09:14; Status DC Active Scripts Active Ascorbic Acid 500 Mg Tablet 500 Mg PO BID 30 Days Ferrous Sulfate 325 Mg Tablet 1 Tab PO BID 30 Days Reported Imodium A-D (Loperamide HCl) 2 Mg Capsule 2 Mg PO PRN Q4HRS PRN Alpha Lipoic Acid 600 Mg Capsule 600 Mg PO BID Ambien (Zolpidem Tartrate) 5 Mg Tablet 5 Mg PO PRN QHS PRN Gabapentin (Gabapentin) 300 Mg Capsule 300 Mg PO BID Escitalopram Oxalate 10 Mg Tablet 1 Tab PO DAILY Acyclovir 400 Mg Tablet 1 Tab PO BID Temazepam 15 Mg Capsule 1 Cap PO QHS Eliquis (Apixaban) 5 Mg Tablet 5 Mg PO BID 60 Days Culturelle (Lactobacillus Rhamnosus Gg) 1 Each Capsule 1 Each PO BID Vitals/I & O Vital Sign - Last 24 Hours 12/22/18 12/22/18 12/22/18 12/22/18 10:00 10:30 11:55 13:15 Resp 20 20 20 Pulse Ox 94 O2 Delivery Room Air Room Air Room Air Room Air 12/22/18 12/22/18 12/22/18 12/22/18 13:45 14:33 15:48 19:15 Temp 99.4 99.4 Pulse 98 Resp 20 B/P (MAP) 114/58 (76) Pulse Ox 94 92 O2 Delivery Room Air Room Air Room Air Room Air 12/22/18 12/22/18 12/22/18 12/22/18 19:49 20:00 23:05 23:48 Temp 99.4 99.4 Pulse 103 Resp 18 B/P (MAP) 105/52 (69) Pulse Ox 94 91 94 O2 Delivery Room Air Room Air Room Air Room Air 12/23/18 12/23/18 12/23/18 12/23/18 03:21 04:08 07:00 07:23 Temp 98.8 98.6 98.8 98.6 Pulse 103 94 Resp 18 18 B/P (MAP) 133/60 (84) 131/60 (83) Pulse Ox 92 94 93 94 O2 Delivery Nasal Cannula Nasal Cannula Nasal Cannula Nasal Cannula O2 Flow Rate 1.0 1.0 1.0 1.0 12/23/18 08:13 O2 Delivery Room Air RADHA WILSON MD Dec 23, 2018 09:16
--- NOTE | 2018-12-23 10:25 | PDOC ---
Infectious Disease Note Vital Sign Vital Signs Vital Signs Date Time Temp Pulse Resp B/P (MAP) Pulse Ox O2 Delivery O2 Flow Rate FiO2 12/23/18 08:13 Room Air 12/23/18 07:23 94 1.0 12/23/18 07:00 98.6 94 18 131/60 (83) 98.6 Labs Lab Laboratory Tests Test 12/23/18 05:20 White Blood Count 5.7 x10^3/uL (4.0-11.0) Red Blood Count 3.31 x10^6/uL (3.50-5.40) Hemoglobin 10.9 g/dL (12.0-15.5) Hematocrit 31.6 % (36.0-47.0) Mean Corpuscular Volume 96 fL (79-100) Mean Corpuscular Hemoglobin 33 pg (25-35) Mean Corpuscular Hemoglobin Concent 34 g/dL (31-37) Red Cell Distribution Width 17.5 % (11.5-14.5) Platelet Count 214 x10^3/uL (140-400) Neutrophils (%) (Auto) 81 % (31-73) Lymphocytes (%) (Auto) 11 % (24-48) Monocytes (%) (Auto) 8 % (0-9) Eosinophils (%) (Auto) 0 % (0-3) Basophils (%) (Auto) 0 % (0-3) Neutrophils # (Auto) 4.6 x10^3/uL (1.8-7.7) Lymphocytes # (Auto) 0.6 x10^3/uL (1.0-4.8) Monocytes # (Auto) 0.4 x10^3/uL (0.0-1.1) Eosinophils # (Auto) 0.0 x10^3/uL (0.0-0.7) Basophils # (Auto) 0.0 x10^3/uL (0.0-0.2) Prothrombin Time 16.2 SEC (11.7-14.0) Prothromb Time International Ratio 1.3 (0.8-1.1) Sodium Level 139 mmol/L (136-145) Potassium Level 2.8 mmol/L (3.5-5.1) Chloride Level 102 mmol/L (98-107) Carbon Dioxide Level 29 mmol/L (21-32) Anion Gap 8 (6-14) Blood Urea Nitrogen 4 mg/dL (7-20) Creatinine 0.4 mg/dL (0.6-1.0) Estimated GFR (Cockcroft-Gault) 161.7 Glucose Level 84 mg/dL (70-99) Calcium Level 8.6 mg/dL (8.5-10.1) Total Bilirubin 10.5 mg/dL (0.2-1.0) Direct Bilirubin 9.2 mg/dL (0.0-0.2) Aspartate Amino Transf (AST/SGOT) 135 U/L (15-37) Alanine Aminotransferase (ALT/SGPT) 181 U/L (14-59) Alkaline Phosphatase 919 U/L (46-116) Total Protein 5.2 g/dL (6.4-8.2) Albumin 1.8 g/dL (3.4-5.0) Objective Assessment Ascending cholangitis Obstructive jaundice Immunosuppression d/t chemotherapy Colon cancer with metastasis Recently h/o treated for PJP, off Bactrim h/o C. diff Plan Plan of Care ERCP under consideration D/w Dr. Perea, no surgical plans Continue Zosyn Monitor labs Pain management per primary Hoping to continue chemo Awaiting oncology input Poor prognosis Thank you [id number] D/w daughters Declined consult with Dr. Raj Amato stent Attending Co-Sign Attending Co-Sign The patient was seen and interviewed as well as examined at the bedside. The chart was reviewed. The case was discussed. Agree with the plan of care. NOY LÓPEZ APRN Dec 23, 2018 10:25 DEMI DUKE MD Dec 23, 2018 14:46
--- NOTE | 2018-12-23 10:52 | CONS ---
DATE OF CONSULTATION: 12/23/2018 REQUESTING PHYSICIAN: Estevan Real MD REASON FOR CONSULTATION: Possible acute ascending cholangitis. HISTORY OF PRESENT ILLNESS: This patient is a 63-year-old female with metastatic colon cancer, currently on palliative chemotherapy. She presented to Emergency Department with severe abdominal pain, nausea and elevated liver function tests. Abdominal ultrasound showed sludge-filled gallbladder and gallbladder wall thickening. She underwent a MRCP revealing multiple focal strictures throughout the visualized intra- and extrahepatic ducts suggestive of a cholangitis; and distal common hepatic duct and common bile duct not well visualized and appeared to be extrinsically compressed by enlarged lymph nodes within the allen hepatis; and multiple hepatic metastasis. She was evaluated by Dr. Perea with no surgical plans recommended. The ERCP with stent placement is under consideration. She is currently on Zosyn. The patient states she is not feeling well. She says her pain initially started a couple of weeks ago and has gradually gotten worse. She has been nauseous without vomiting. She thought maybe she was constipated and had taken several laxatives including magnesium citrate without relief. She denies fevers, chills, sweats or body aches. She has noticed her skin looking yellow and her urine orange in color. She has not had any bowel movement within the last few days. She primarily is wanting her pain to be controlled. She is getting some relief with Dilaudid IMPORT SPECIALIST and a heating pad to abdomen. She was hospitalized in October for acute respiratory failure and pneumonia, possibly PJP for which she completed a treatment with Bactrim. She spent time at [facility] before returning home. Denies cough, shortness of air or chest discomfort. PAST MEDICAL HISTORY: Metastatic colon cancer, on palliative chemotherapy; history of Clostridium difficile; history of acute respiratory failure and pneumonia, possibly PJP, treated with Bactrim; peripheral neuropathy; history of DVT; anemia; osteoarthritis. PAST SURGICAL HISTORY: Port-A-Cath placement, ureter stent placement, colon resection in 2018. SOCIAL HISTORY: The patient lives at home. Nonsmoker. FAMILY HISTORY: Nonalcoholic hepatitis, myocardial infarction and heart disease. ALLERGIES: No known drug allergies. MEDICATIONS: Zosyn, acyclovir, Dilaudid IMPORT SPECIALIST, potassium, Tylenol, vitamin C, citalopram, clonidine, Lovenox, ferrous sulfate, gabapentin, DuoNeb, lorazepam, ondansetron. Previously on vancomycin at [facility]. REVIEW OF SYSTEMS: Per HPI, otherwise all other review of systems are negative. PHYSICAL EXAMINATION: VITAL SIGNS: Temperature is 98.6, blood pressure 131/60, heart rate 94, respiratory rate 18, pulse oximetry 94% on 1 liter oxygen. GENERAL: The patient is slightly propped up in bed and somewhat drowsy, in no apparent distress. HEENT: Pupils equally round and reactive. Sclerae icterus. Oropharynx pink and moist. NECK: Supple. LUNGS: Diminished aeration. Nonlabored. HEART: S1, S2. ABDOMEN: Mildly distended, soft and tender mostly RUQ and epigastric area. EXTREMITIES: No gross edema or cyanosis. SKIN: Warm to touch, jaundice. NEUROLOGIC: Drowsy, but answering questions appropriately and following commands. Right-sided Port-A-Cath without signs of any complications. LABORATORY DATA: Today's WBC 5.7, hemoglobin 10.9, platelets 214,000. Sodium 139, potassium 2.8. Creatinine 0.4, BUN 4, total bilirubin 10.5, AST 135, ALT 181, albumin 1.8. Blood cultures from 12/22 pending. IMAGING: Per HPI. IMPRESSION: 1. Ascending cholangitis. 2. Obstructive jaundice. 3. 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 4. Colon cancer with metastasis. 5. Recently treated for Pneumocystis jiroveci pneumonia. 6. History of Clostridium difficile. PLAN: GI, Dr. Barreto is following. ERCP is under consideration. I discussed with Dr. Perea. There are no surgical plans. I continued the Zosyn. Monitor laboratory values. Pain management per primary. The patient is hoping to continue chemotherapy. Awaiting Oncology input. Supportive care. Prognosis is poor. Thank you, Dr. Real, for asking us to participate in this patient's care. Should you have further questions or concerns, please call. DEMI DUKE MD DR: GREGG/ru JOB#: [id number] / [id number]
[2018-12-23 11:00] VITALS: BP 127/66
[2018-12-23] MEDS: ACYCLOVIR 200 MG CAPSULE. PO SCH ×2 (11:25→21:54)
[2018-12-23] MEDS: FERROUS SULFATE 325 MG TABLET. PO SCH ×2 (11:25→17:15)
[2018-12-23] MEDS: ASCORBIC ACID 500 MG TABLET PO SCH ×2 (11:25→21:54)
[2018-12-23] MEDS: GABAPENTIN 300 MG CAPSULE. PO SCH ×2 (11:26→21:54)
[2018-12-23] MEDS ORDERED: HYDROmorphone STANDARD PCA 12 MG/30 ML SYRINGE. IV ONE (12:20)
--- NOTE | 2018-12-23 12:30 | PDOC ---
SURGICAL PROGRESS NOTE Subjective Saw Day and her daughter earlier this AM she is still considering possible ERCP with attempted stent Vital Signs Vital Signs Date Time Temp Pulse Resp B/P (MAP) Pulse Ox O2 Delivery O2 Flow Rate FiO2 12/23/18 11:37 95 Room Air 12/23/18 11:00 98.6 90 18 127/66 (86) 1.0 98.6 PATIENT HAS A YEH: No General: Alert Psych/Mental Status: Other (tearful at times) Labs Laboratory Tests Test 12/22/18 09:50 12/23/18 05:20 White Blood Count 6.1 x10^3/uL (4.0-11.0) 5.7 x10^3/uL (4.0-11.0) Red Blood Count 3.56 x10^6/uL (3.50-5.40) 3.31 x10^6/uL (3.50-5.40) Hemoglobin 11.5 g/dL (12.0-15.5) 10.9 g/dL (12.0-15.5) Hematocrit 34.3 % (36.0-47.0) 31.6 % (36.0-47.0) Mean Corpuscular Volume 96 fL (79-100) 96 fL (79-100) Mean Corpuscular Hemoglobin 32 pg (25-35) 33 pg (25-35) Mean Corpuscular Hemoglobin Concent 34 g/dL (31-37) 34 g/dL (31-37) Red Cell Distribution Width 17.3 % (11.5-14.5) 17.5 % (11.5-14.5) Platelet Count 215 x10^3/uL (140-400) 214 x10^3/uL (140-400) Neutrophils (%) (Auto) 84 % (31-73) 81 % (31-73) Lymphocytes (%) (Auto) 9 % (24-48) 11 % (24-48) Monocytes (%) (Auto) 7 % (0-9) 8 % (0-9) Eosinophils (%) (Auto) 0 % (0-3) 0 % (0-3) Basophils (%) (Auto) 0 % (0-3) 0 % (0-3) Neutrophils # (Auto) 5.1 x10^3/uL (1.8-7.7) 4.6 x10^3/uL (1.8-7.7) Lymphocytes # (Auto) 0.5 x10^3/uL (1.0-4.8) 0.6 x10^3/uL (1.0-4.8) Monocytes # (Auto) 0.4 x10^3/uL (0.0-1.1) 0.4 x10^3/uL (0.0-1.1) Eosinophils # (Auto) 0.0 x10^3/uL (0.0-0.7) 0.0 x10^3/uL (0.0-0.7) Basophils # (Auto) 0.0 x10^3/uL (0.0-0.2) 0.0 x10^3/uL (0.0-0.2) Prothrombin Time 17.3 SEC (11.7-14.0) 16.2 SEC (11.7-14.0) Prothromb Time International Ratio 1.4 (0.8-1.1) 1.3 (0.8-1.1) Sodium Level 137 mmol/L (136-145) 139 mmol/L (136-145) Potassium Level 3.4 mmol/L (3.5-5.1) 2.8 mmol/L (3.5-5.1) Chloride Level 99 mmol/L (98-107) 102 mmol/L (98-107) Carbon Dioxide Level 29 mmol/L (21-32) 29 mmol/L (21-32) Anion Gap 9 (6-14) 8 (6-14) Blood Urea Nitrogen 4 mg/dL (7-20) 4 mg/dL (7-20) Creatinine 0.4 mg/dL (0.6-1.0) 0.4 mg/dL (0.6-1.0) Estimated GFR (Cockcroft-Gault) 161.7 161.7 BUN/Creatinine Ratio 10 (6-20) Glucose Level 107 mg/dL (70-99) 84 mg/dL (70-99) Calcium Level 8.6 mg/dL (8.5-10.1) 8.6 mg/dL (8.5-10.1) Total Bilirubin 10.0 mg/dL (0.2-1.0) 10.5 mg/dL (0.2-1.0) Aspartate Amino Transf (AST/SGOT) 141 U/L (15-37) 135 U/L (15-37) Alanine Aminotransferase (ALT/SGPT) 206 U/L (14-59) 181 U/L (14-59) Alkaline Phosphatase 1033 U/L (46-116) 919 U/L (46-116) Total Protein 5.0 g/dL (6.4-8.2) 5.2 g/dL (6.4-8.2) Albumin 2.0 g/dL (3.4-5.0) 1.8 g/dL (3.4-5.0) Albumin/Globulin Ratio 0.7 (1.0-1.7) Direct Bilirubin 9.2 mg/dL (0.0-0.2) Laboratory Tests Test 12/23/18 05:20 White Blood Count 5.7 x10^3/uL (4.0-11.0) Red Blood Count 3.31 x10^6/uL (3.50-5.40) Hemoglobin 10.9 g/dL (12.0-15.5) Hematocrit 31.6 % (36.0-47.0) Mean Corpuscular Volume 96 fL (79-100) Mean Corpuscular Hemoglobin 33 pg (25-35) Mean Corpuscular Hemoglobin Concent 34 g/dL (31-37) Red Cell Distribution Width 17.5 % (11.5-14.5) Platelet Count 214 x10^3/uL (140-400) Neutrophils (%) (Auto) 81 % (31-73) Lymphocytes (%) (Auto) 11 % (24-48) Monocytes (%) (Auto) 8 % (0-9) Eosinophils (%) (Auto) 0 % (0-3) Basophils (%) (Auto) 0 % (0-3) Neutrophils # (Auto) 4.6 x10^3/uL (1.8-7.7) Lymphocytes # (Auto) 0.6 x10^3/uL (1.0-4.8) Monocytes # (Auto) 0.4 x10^3/uL (0.0-1.1) Eosinophils # (Auto) 0.0 x10^3/uL (0.0-0.7) Basophils # (Auto) 0.0 x10^3/uL (0.0-0.2) Prothrombin Time 16.2 SEC (11.7-14.0) Prothromb Time International Ratio 1.3 (0.8-1.1) Sodium Level 139 mmol/L (136-145) Potassium Level 2.8 mmol/L (3.5-5.1) Chloride Level 102 mmol/L (98-107) Carbon Dioxide Level 29 mmol/L (21-32) Anion Gap 8 (6-14) Blood Urea Nitrogen 4 mg/dL (7-20) Creatinine 0.4 mg/dL (0.6-1.0) Estimated GFR (Cockcroft-Gault) 161.7 Glucose Level 84 mg/dL (70-99) Calcium Level 8.6 mg/dL (8.5-10.1) Total Bilirubin 10.5 mg/dL (0.2-1.0) Direct Bilirubin 9.2 mg/dL (0.0-0.2) Aspartate Amino Transf (AST/SGOT) 135 U/L (15-37) Alanine Aminotransferase (ALT/SGPT) 181 U/L (14-59) Alkaline Phosphatase 919 U/L (46-116) Total Protein 5.2 g/dL (6.4-8.2) Albumin 1.8 g/dL (3.4-5.0) low K+ Problem List metastatic colon cancer with extensive liver involvement portal LNs biliary obstruction 2/2 to above recent pneumonia with two week stay at LT[facility] await decision of ERCP questions answered no surg recs at present continue supportive care COLEEN ALVES MD Dec 23, 2018 12:30
--- NOTE | 2018-12-23 14:01 | PDOC ---
G I PROGRESS NOTE Subjective About the same. No new complaints. Objective Others' notes reviewed. Physical Exam Jaundiced. Lungs clear. RRR Abdomen tender epig/ruq Review of Relevant I have reviewed the following items erwin (where applicable) has been applied. Labs Laboratory Tests Test 12/22/18 09:50 12/23/18 05:20 White Blood Count 6.1 x10^3/uL (4.0-11.0) 5.7 x10^3/uL (4.0-11.0) Red Blood Count 3.56 x10^6/uL (3.50-5.40) 3.31 x10^6/uL (3.50-5.40) Hemoglobin 11.5 g/dL (12.0-15.5) 10.9 g/dL (12.0-15.5) Hematocrit 34.3 % (36.0-47.0) 31.6 % (36.0-47.0) Mean Corpuscular Volume 96 fL (79-100) 96 fL (79-100) Mean Corpuscular Hemoglobin 32 pg (25-35) 33 pg (25-35) Mean Corpuscular Hemoglobin Concent 34 g/dL (31-37) 34 g/dL (31-37) Red Cell Distribution Width 17.3 % (11.5-14.5) 17.5 % (11.5-14.5) Platelet Count 215 x10^3/uL (140-400) 214 x10^3/uL (140-400) Neutrophils (%) (Auto) 84 % (31-73) 81 % (31-73) Lymphocytes (%) (Auto) 9 % (24-48) 11 % (24-48) Monocytes (%) (Auto) 7 % (0-9) 8 % (0-9) Eosinophils (%) (Auto) 0 % (0-3) 0 % (0-3) Basophils (%) (Auto) 0 % (0-3) 0 % (0-3) Neutrophils # (Auto) 5.1 x10^3/uL (1.8-7.7) 4.6 x10^3/uL (1.8-7.7) Lymphocytes # (Auto) 0.5 x10^3/uL (1.0-4.8) 0.6 x10^3/uL (1.0-4.8) Monocytes # (Auto) 0.4 x10^3/uL (0.0-1.1) 0.4 x10^3/uL (0.0-1.1) Eosinophils # (Auto) 0.0 x10^3/uL (0.0-0.7) 0.0 x10^3/uL (0.0-0.7) Basophils # (Auto) 0.0 x10^3/uL (0.0-0.2) 0.0 x10^3/uL (0.0-0.2) Prothrombin Time 17.3 SEC (11.7-14.0) 16.2 SEC (11.7-14.0) Prothromb Time International Ratio 1.4 (0.8-1.1) 1.3 (0.8-1.1) Sodium Level 137 mmol/L (136-145) 139 mmol/L (136-145) Potassium Level 3.4 mmol/L (3.5-5.1) 2.8 mmol/L (3.5-5.1) Chloride Level 99 mmol/L (98-107) 102 mmol/L (98-107) Carbon Dioxide Level 29 mmol/L (21-32) 29 mmol/L (21-32) Anion Gap 9 (6-14) 8 (6-14) Blood Urea Nitrogen 4 mg/dL (7-20) 4 mg/dL (7-20) Creatinine 0.4 mg/dL (0.6-1.0) 0.4 mg/dL (0.6-1.0) Estimated GFR (Cockcroft-Gault) 161.7 161.7 BUN/Creatinine Ratio 10 (6-20) Glucose Level 107 mg/dL (70-99) 84 mg/dL (70-99) Calcium Level 8.6 mg/dL (8.5-10.1) 8.6 mg/dL (8.5-10.1) Total Bilirubin 10.0 mg/dL (0.2-1.0) 10.5 mg/dL (0.2-1.0) Aspartate Amino Transf (AST/SGOT) 141 U/L (15-37) 135 U/L (15-37) Alanine Aminotransferase (ALT/SGPT) 206 U/L (14-59) 181 U/L (14-59) Alkaline Phosphatase 1033 U/L (46-116) 919 U/L (46-116) Total Protein 5.0 g/dL (6.4-8.2) 5.2 g/dL (6.4-8.2) Albumin 2.0 g/dL (3.4-5.0) 1.8 g/dL (3.4-5.0) Albumin/Globulin Ratio 0.7 (1.0-1.7) Direct Bilirubin 9.2 mg/dL (0.0-0.2) Laboratory Tests Test 12/23/18 05:20 White Blood Count 5.7 x10^3/uL (4.0-11.0) Red Blood Count 3.31 x10^6/uL (3.50-5.40) Hemoglobin 10.9 g/dL (12.0-15.5) Hematocrit 31.6 % (36.0-47.0) Mean Corpuscular Volume 96 fL (79-100) Mean Corpuscular Hemoglobin 33 pg (25-35) Mean Corpuscular Hemoglobin Concent 34 g/dL (31-37) Red Cell Distribution Width 17.5 % (11.5-14.5) Platelet Count 214 x10^3/uL (140-400) Neutrophils (%) (Auto) 81 % (31-73) Lymphocytes (%) (Auto) 11 % (24-48) Monocytes (%) (Auto) 8 % (0-9) Eosinophils (%) (Auto) 0 % (0-3) Basophils (%) (Auto) 0 % (0-3) Neutrophils # (Auto) 4.6 x10^3/uL (1.8-7.7) Lymphocytes # (Auto) 0.6 x10^3/uL (1.0-4.8) Monocytes # (Auto) 0.4 x10^3/uL (0.0-1.1) Eosinophils # (Auto) 0.0 x10^3/uL (0.0-0.7) Basophils # (Auto) 0.0 x10^3/uL (0.0-0.2) Prothrombin Time 16.2 SEC (11.7-14.0) Prothromb Time International Ratio 1.3 (0.8-1.1) Sodium Level 139 mmol/L (136-145) Potassium Level 2.8 mmol/L (3.5-5.1) Chloride Level 102 mmol/L (98-107) Carbon Dioxide Level 29 mmol/L (21-32) Anion Gap 8 (6-14) Blood Urea Nitrogen 4 mg/dL (7-20) Creatinine 0.4 mg/dL (0.6-1.0) Estimated GFR (Cockcroft-Gault) 161.7 Glucose Level 84 mg/dL (70-99) Calcium Level 8.6 mg/dL (8.5-10.1) Total Bilirubin 10.5 mg/dL (0.2-1.0) Direct Bilirubin 9.2 mg/dL (0.0-0.2) Aspartate Amino Transf (AST/SGOT) 135 U/L (15-37) Alanine Aminotransferase (ALT/SGPT) 181 U/L (14-59) Alkaline Phosphatase 919 U/L (46-116) Total Protein 5.2 g/dL (6.4-8.2) Albumin 1.8 g/dL (3.4-5.0) No real change. Vitals/I & O Vital Sign - Last 24 Hours 12/22/18 12/22/18 12/22/18 12/22/18 14:33 15:48 19:15 19:49 Temp 99.4 99.4 Pulse 98 B/P (MAP) 114/58 (76) Pulse Ox 94 92 94 O2 Delivery Room Air Room Air Room Air Room Air 12/22/18 12/22/18 12/22/18 12/23/18 20:00 23:05 23:48 03:21 Temp 99.4 98.8 99.4 98.8 Pulse 103 103 Resp 18 18 B/P (MAP) 105/52 (69) 133/60 (84) Pulse Ox 91 94 92 O2 Delivery Room Air Room Air Room Air Nasal Cannula O2 Flow Rate 1.0 12/23/18 12/23/18 12/23/18 12/23/18 04:08 07:00 07:23 08:13 Temp 98.6 98.6 Pulse 94 Resp 18 B/P (MAP) 131/60 (83) Pulse Ox 94 93 94 O2 Delivery Nasal Cannula Nasal Cannula Nasal Cannula Room Air O2 Flow Rate 1.0 1.0 1.0 12/23/18 12/23/18 11:00 11:37 Temp 98.6 98.6 Pulse 90 Resp 18 B/P (MAP) 127/66 (86) Pulse Ox 93 95 O2 Delivery Nasal Cannula Room Air O2 Flow Rate 1.0 Assessment Obstructive jaundice secondary to biliary compression by metastatic lymphadenopathy. Patient has decided to go ahead with attempted ERCP/stent. Plan of Care Note Will schedule for tomorrow. Either I or Dr. Escobedo will do as both consulted and both have seen. ZABRINA PERLA MD Dec 23, 2018 14:01
[2018-12-23] MEDS: DOCUSATE 100 MG/10 ML SOLUTION. PO SCH ×2 (14:45→21:00)
[2018-12-23] MEDS: POLYETHYLENE GLYCOL 3350 17 GM PACKET. PO SCH (14:45)
[2018-12-23] MEDS ORDERED: BISACODYL 10 MG SUPP.RECT. PR PRN (14:45)
[2018-12-23 14:48] VITALS: BP 129/69
[2018-12-23] MEDS: HYDROmorphone 12mg/30ml PCA 30 ML IV PRN (15:54)
[2018-12-23 19:15] VITALS: BP 109/64
[2018-12-23 23:44] VITALS: BP 129/76
[2018-12-24] VITALS (12 sets, daily range): BP systolic 122–151; BP diastolic 53–77
--- NOTE | 2018-12-24 | NUR ---
Patient's pain not controlled by CONTRACT ADMINISTRATION SPECIALIST at this time, per patient request rescue IV bolus of Dilaudid administered. Patient resting with family at bedside, will continue to monitor.
[2018-12-24] MEDS: PIPERACILLIN/TAZOBACTAM 3.375 GM in IV NORMAL SALINE 50ML 50 ML IV SCH ×4 (00:16→18:44)
[2018-12-24] MEDS: IV NORMAL SALINE 1000ML BAG 1,000 ML IV SCH ×3 (03:03→15:09)
[2018-12-24] MEDS: IPRATRPIUM/ALBUTEROL 0.5/2.5MG 3 ML NEBU. NEB SCH ×6 (03:53→23:41)
[2018-12-24] MEDS: DOCUSATE 100 MG/10 ML SOLUTION. PO SCH ×2 (07:50→20:45)
[2018-12-24] MEDS: FERROUS SULFATE 325 MG TABLET. PO SCH ×2 (07:50→17:00)
[2018-12-24] MEDS: POLYETHYLENE GLYCOL 3350 17 GM PACKET. PO SCH (07:50)
[2018-12-24] MEDS: ASCORBIC ACID 500 MG TABLET PO SCH ×2 (07:50→20:44)
[2018-12-24] MEDS: ACYCLOVIR 200 MG CAPSULE. PO SCH ×2 (08:25→20:44)
[2018-12-24] MEDS: CITALOPRAM 20 MG TABLET. PO SCH (08:25)
[2018-12-24] MEDS: GABAPENTIN 300 MG CAPSULE. PO SCH ×2 (08:25→20:44)
[2018-12-24] MEDS: ONDANSETRON PF 4 MG/2 ML VIAL. IVP PRN ×2 (08:27→16:05)
[2018-12-24] MEDS ORDERED: ACETAMINOPHEN 500 MG TABLET PO PRN (09:00)
--- NOTE | 2018-12-24 09:05 | PDOC ---
ROGER PATINO MOLDING FITTER 12/24/18 0905: SURGICAL PROGRESS NOTE Subjective resting pain more at night some nausea Vital Signs Vital Signs Date Time Temp Pulse Resp B/P (MAP) Pulse Ox O2 Delivery O2 Flow Rate FiO2 12/24/18 07:48 95 Room Air 12/24/18 07:00 98.9 106 18 124/70 (88) 98.9 12/23/18 11:00 1.0 I&O Intake and Output 12/24/18 07:00 # Voids 3 General: Cooperative Abdomen: Soft Skin: Other (jaundice) Labs Laboratory Tests Test 12/22/18 09:50 12/23/18 05:20 White Blood Count 6.1 x10^3/uL (4.0-11.0) 5.7 x10^3/uL (4.0-11.0) Red Blood Count 3.56 x10^6/uL (3.50-5.40) 3.31 x10^6/uL (3.50-5.40) Hemoglobin 11.5 g/dL (12.0-15.5) 10.9 g/dL (12.0-15.5) Hematocrit 34.3 % (36.0-47.0) 31.6 % (36.0-47.0) Mean Corpuscular Volume 96 fL (79-100) 96 fL (79-100) Mean Corpuscular Hemoglobin 32 pg (25-35) 33 pg (25-35) Mean Corpuscular Hemoglobin Concent 34 g/dL (31-37) 34 g/dL (31-37) Red Cell Distribution Width 17.3 % (11.5-14.5) 17.5 % (11.5-14.5) Platelet Count 215 x10^3/uL (140-400) 214 x10^3/uL (140-400) Neutrophils (%) (Auto) 84 % (31-73) 81 % (31-73) Lymphocytes (%) (Auto) 9 % (24-48) 11 % (24-48) Monocytes (%) (Auto) 7 % (0-9) 8 % (0-9) Eosinophils (%) (Auto) 0 % (0-3) 0 % (0-3) Basophils (%) (Auto) 0 % (0-3) 0 % (0-3) Neutrophils # (Auto) 5.1 x10^3/uL (1.8-7.7) 4.6 x10^3/uL (1.8-7.7) Lymphocytes # (Auto) 0.5 x10^3/uL (1.0-4.8) 0.6 x10^3/uL (1.0-4.8) Monocytes # (Auto) 0.4 x10^3/uL (0.0-1.1) 0.4 x10^3/uL (0.0-1.1) Eosinophils # (Auto) 0.0 x10^3/uL (0.0-0.7) 0.0 x10^3/uL (0.0-0.7) Basophils # (Auto) 0.0 x10^3/uL (0.0-0.2) 0.0 x10^3/uL (0.0-0.2) Prothrombin Time 17.3 SEC (11.7-14.0) 16.2 SEC (11.7-14.0) Prothromb Time International Ratio 1.4 (0.8-1.1) 1.3 (0.8-1.1) Sodium Level 137 mmol/L (136-145) 139 mmol/L (136-145) Potassium Level 3.4 mmol/L (3.5-5.1) 2.8 mmol/L (3.5-5.1) Chloride Level 99 mmol/L (98-107) 102 mmol/L (98-107) Carbon Dioxide Level 29 mmol/L (21-32) 29 mmol/L (21-32) Anion Gap 9 (6-14) 8 (6-14) Blood Urea Nitrogen 4 mg/dL (7-20) 4 mg/dL (7-20) Creatinine 0.4 mg/dL (0.6-1.0) 0.4 mg/dL (0.6-1.0) Estimated GFR (Cockcroft-Gault) 161.7 161.7 BUN/Creatinine Ratio 10 (6-20) Glucose Level 107 mg/dL (70-99) 84 mg/dL (70-99) Calcium Level 8.6 mg/dL (8.5-10.1) 8.6 mg/dL (8.5-10.1) Total Bilirubin 10.0 mg/dL (0.2-1.0) 10.5 mg/dL (0.2-1.0) Aspartate Amino Transf (AST/SGOT) 141 U/L (15-37) 135 U/L (15-37) Alanine Aminotransferase (ALT/SGPT) 206 U/L (14-59) 181 U/L (14-59) Alkaline Phosphatase 1033 U/L (46-116) 919 U/L (46-116) Total Protein 5.0 g/dL (6.4-8.2) 5.2 g/dL (6.4-8.2) Albumin 2.0 g/dL (3.4-5.0) 1.8 g/dL (3.4-5.0) Albumin/Globulin Ratio 0.7 (1.0-1.7) Direct Bilirubin 9.2 mg/dL (0.0-0.2) Problem List plans for ERCP today COLEEN ALVES MD 12/24/18 0944: SURGICAL PROGRESS NOTE Assessment/Plan pt seen seems more comfortable two of her daughters present plan ERCP today ROGER PAITNO MOLDING FITTER Dec 24, 2018 09:05 COLEEN ALVES MD Dec 24, 2018 09:44
--- NOTE | 2018-12-24 09:10 | PDOC2 ---
CONSULT Date of Consult Date of Consult DATE: 12/24/18 TIME: 08:58 Reason for consultation: Pain, recent palliative chemotherapy Consult: Hematology oncology, Dr. Mayra Interiano History of present illness: She is a 63-year-old female who has been on FOLFOXIRI with Avastin, (oxaliplatin held recently due to neuropathy), palliative chemotherapy for aggressive colon cancer, unfortunately she was admitted with pneumonia Nov 2018 and treated for PJP pneumonia which was suspected but not confirmed, and has had a declining functional status since that respiratory failure episode. Unfortunately she has had abdominal pain in the right upper quadrant, radiating to the back and also left abdomen, chronic, acutely worse recently, severe, better w/ LABORER, associated with nausea, worsened due to underlying cancer and imaging has shown cholangitis and external compression with elevated bilirubin up to 10, pending potential ERCP today. Past medical history: Metastatic colon cancer History of C. difficile History of PJP pneumonia Peripheral neuropathy DVT Iron deficient anemia Osteoarthritis Left lower extremity superficial venous phlebitis Gout Hearing loss Herpes History of diverticulitis Noninvasive bladder cancer Past surgical history: Port placement Ureteral stent and bladder biopsy Colon resection Allergies: No known drug allergies Medications: See attached list Social history: , 2 daughters, no tobacco since 2007, no alcohol Family history: Heart disease, no cancer Review of systems: Weight loss, fatigue, abdominal pain, nausea, constipation, peripheral neuropathy, depression with disease, dyspnea, otherwise 10 point review of systems negative Physical exam: Vitals reviewed Gen.: Thin jaundiced woman with flares of abdominal pain, resting in bed HEENT: mucous membranes moist, head normocephalic atraumatic Neck: Supple, no lymphadenopathy Lymph nodes: No palpable lymphadenopathy neck or axilla Lungs: Breathing comfortably w/o respiratory distress Heart: Regular rate and rhythm Abdomen: Soft, tender to palpation epigastric and RUQ, nondistended Extremities: No cyanosis or signif edema Skin: No obvious rashes or skin breakdown Neuro: Alert and oriented 3 Psych: pleasant mood and sad affect Lab reviewed: White count 5.7, hemoglobin 10.9, platelets 214 INR 1.3 T bili 10.5 AST 135 ALT 181 Alkaline phosphatase 919 Albumin 1.8 Creatinine 0.4 12/22 blood cultures no growth to date Rads reviewed: MRCP with multiple hepatic metastases, sludge filled gallbladder, multiple focal structures suggestive of cholangitis throughout intra-and extrahepatic ducts, distal common hepatic duct/common bile duct extrinsically compressed due to lymphadenopathy Case discussed with: She and her daughter and her nurse and Ms Guillermina, records reviewed in [facility], including labs and radiology, please see note for summary details. Assessment and Plan: Ms New is a 63-year-old female with aggressive metastatic colon cancer who had unfortunate suspected PJP pneumonia for which she was treated in November and has had declining functional status and progressive disease while being off chemotherapy admitted with worsening of abdominal pain and suggestion of cholangitis on MRCP with extrinsic compression of bile ducts as well with hyperbilirubinemia. Hyperbilirubinemia: We'll see what progress can be made with ERCP with stenting today? Metastatic colon cancer: Chemotherapy on hold with elevated bili and declining functional status however based on improvement may be a candidate for restarting chemotherapy, hospice is an option but she is not ready for that at the moment, appreciate Ms Guillermina helping with pain control and palliative care options at home Hypokalemia: Deferred to primary History of DVT: Would add Lovenox prophylaxis after procedures complete Thank you kindly for this consultation, and please do not hesitate to call with any further questions. Past Medical History Cardiovascular: Other Pulmonary: Pneumonia CENTRAL NERVOUS SYSTEM: Periperal neuropathy GI: GERD, Other Heme/Onc: Anemia NOS, Cancer, Other Hepatobiliary: No pertinent hx Psych: Anxiety Musculoskeletal: Osteoarthritis Rheumatologic: No pertinent hx Infectious disease: No pertinent hx Renal/: No pertinent hx Endocrine: No pertinent hx Past Surgical History Past Surgical History: Colon Resection, Other Family History Family History: Heart Disease Social History No ALCOHOL: occassional Drugs: None Lives: with Family Current Medications Current Medications Current Medications Morphine Sulfate (Morphine Sulfate) 5 mg 1X ONCE IV Last administered on 12/22/18at 10:00; Start 12/22/18 at 10:00; Stop 12/22/18 at 10:03; Status DC Naloxone HCl (Narcan) 0.4 mg PRN Q2MIN PRN IV SEE INSTRUCTIONS; Start 12/22/18 at 10:00 Sodium Chloride 1,000 ml @ 25 mls/hr Q24H IV Last administered on 12/22/18at 09:55; Start 12/22/18 at 09:55 Hydromorphone HCl 30 ml @ 0 mls/hr CONT PRN PRN IV PER PROTOCOL Last administered on 12/23/18at 15:54; Start 12/22/18 at 10:00 Sodium Chloride (Normal Saline Flush) 3 ml QSHIFT PRN IV AFTER MEDS AND BLOOD DRAWS; Start 12/22/18 at 11:30 Sodium Chloride 1,000 ml @ 100 mls/hr Q10H IV Last administered on 12/24/18 03:03; Start 12/22/18 at 13:00 Ondansetron HCl (Zofran) 4 mg PRN Q4HRS PRN IVP NAUSEA/VOMITING Last administered on 12/24/18 08:27; Start 12/22/18 at 11:30 Acetaminophen (Tylenol Supp) 650 mg PRN Q4HRS PRN [place] TEMP OVER 100.4F OR MILD PAIN Last administered on 12/23/18 03:47; Start 12/22/18 at 11:30 Clonidine HCl (Catapres) 0.1 mg PRN Q6HRS PRN PO SBP>160 OR DBP>90; Start 12/22/18 at 11:30 Albuterol/ Ipratropium (Duoneb) 3 ml Q4H NEB Last administered on 12/24/18 07:47; Start 12/22/18 at 12:00 Lorazepam (Ativan) 0.5 mg PRN Q4HRS PRN PO ANXIETY / AGITATION; Start 12/22/18 at 11:30 Enoxaparin Sodium (Lovenox 40mg Syringe) 40 mg DAILY SQ ; Start 12/23/18 at 09:00; Stop 12/22/18 at 16:29; Status DC Piperacillin Sod/ Tazobactam Sod 3.375 gm/Sodium Chloride 50 ml @ 100 mls/hr Q6HRS IV Last administered on 12/24/18 05:51; Start 12/22/18 at 12:00 Ascorbic Acid (Vitamin C) 500 mg BID PO Last administered on 12/23/18 21:54; Start 12/22/18 at 21:00 Ferrous Sulfate (Feosol) 325 mg BIDWMEALS PO Last administered on 12/23/18 17:15; Start 12/22/18 at 17:00 Gabapentin (Neurontin) 300 mg BID PO Last administered on 12/24/18 08:25; Start 12/22/18 at 21:00 Acyclovir (Zovirax) 400 mg BID PO Last administered on 12/24/18at 08:25; Start 12/22/18 at 21:00 Non-Formulary Medication (Alpha Lipoic Acid ) 600 mg BID PO ; Start 12/22/18 at 21:00; Status UNV Citalopram Hydrobromide (CeleXA) 20 mg DAILY PO Last administered on 12/24/18at 08:25; Start 12/23/18 at 09:00 Non-Formulary Medication (Lactobacillus Rhamnosus Gg (Culturelle)) 1 each BID PO ; Start 12/22/18 at 21:00; Status UNV Potassium Chloride/Water 100 ml @ 100 mls/hr Q1H IV Last administered on 12/23/18at 08:15; Start 12/23/18 at 06:15; Stop 12/23/18 at 09:14; Status DC Polyethylene Glycol (miraLAX PACKET) 17 gm DAILY PO ; Start 12/23/18 at 14:45 Docusate Sodium (Colace Solution) 100 mg BID PO ; Start 12/23/18 at 14:45 Bisacodyl (Dulcolax Supp) 10 mg PRN DAILY PRN [place] CONSTIPATION; Start 12/23/18 at 14:45 Active Scripts Active Ascorbic Acid 500 Mg Tablet 500 Mg PO BID 30 Days Ferrous Sulfate 325 Mg Tablet 1 Tab PO BID 30 Days Reported Imodium A-D (Loperamide HCl) 2 Mg Capsule 2 Mg PO PRN Q4HRS PRN Alpha Lipoic Acid 600 Mg Capsule 600 Mg PO BID Ambien (Zolpidem Tartrate) 5 Mg Tablet 5 Mg PO PRN QHS PRN Gabapentin (Gabapentin) 300 Mg Capsule 300 Mg PO BID Escitalopram Oxalate 10 Mg Tablet 1 Tab PO DAILY Acyclovir 400 Mg Tablet 1 Tab PO BID Temazepam 15 Mg Capsule 1 Cap PO QHS Eliquis (Apixaban) 5 Mg Tablet 5 Mg PO BID 60 Days Culturelle (Lactobacillus Rhamnosus Gg) 1 Each Capsule 1 Each PO BID Allergies Allergies: Coded Allergies: No Known Drug Allergies (Unverified , 10/15/18) Vitals VITALS Vital Signs Date Time Temp Pulse Resp B/P (MAP) Pulse Ox O2 Delivery O2 Flow Rate FiO2 12/24/18 07:48 95 Room Air 12/24/18 07:00 98.9 106 18 124/70 (88) 98.9 12/23/18 11:00 1.0 Labs Labs Laboratory Tests Test 12/22/18 09:50 12/23/18 05:20 White Blood Count 6.1 x10^3/uL (4.0-11.0) 5.7 x10^3/uL (4.0-11.0) Red Blood Count 3.56 x10^6/uL (3.50-5.40) 3.31 x10^6/uL (3.50-5.40) Hemoglobin 11.5 g/dL (12.0-15.5) 10.9 g/dL (12.0-15.5) Hematocrit 34.3 % (36.0-47.0) 31.6 % (36.0-47.0) Mean Corpuscular Volume 96 fL (79-100) 96 fL (79-100) Mean Corpuscular Hemoglobin 32 pg (25-35) 33 pg (25-35) Mean Corpuscular Hemoglobin Concent 34 g/dL (31-37) 34 g/dL (31-37) Red Cell Distribution Width 17.3 % (11.5-14.5) 17.5 % (11.5-14.5) Platelet Count 215 x10^3/uL (140-400) 214 x10^3/uL (140-400) Neutrophils (%) (Auto) 84 % (31-73) 81 % (31-73) Lymphocytes (%) (Auto) 9 % (24-48) 11 % (24-48) Monocytes (%) (Auto) 7 % (0-9) 8 % (0-9) Eosinophils (%) (Auto) 0 % (0-3) 0 % (0-3) Basophils (%) (Auto) 0 % (0-3) 0 % (0-3) Neutrophils # (Auto) 5.1 x10^3/uL (1.8-7.7) 4.6 x10^3/uL (1.8-7.7) Lymphocytes # (Auto) 0.5 x10^3/uL (1.0-4.8) 0.6 x10^3/uL (1.0-4.8) Monocytes # (Auto) 0.4 x10^3/uL (0.0-1.1) 0.4 x10^3/uL (0.0-1.1) Eosinophils # (Auto) 0.0 x10^3/uL (0.0-0.7) 0.0 x10^3/uL (0.0-0.7) Basophils # (Auto) 0.0 x10^3/uL (0.0-0.2) 0.0 x10^3/uL (0.0-0.2) Prothrombin Time 17.3 SEC (11.7-14.0) 16.2 SEC (11.7-14.0) Prothromb Time International Ratio 1.4 (0.8-1.1) 1.3 (0.8-1.1) Sodium Level 137 mmol/L (136-145) 139 mmol/L (136-145) Potassium Level 3.4 mmol/L (3.5-5.1) 2.8 mmol/L (3.5-5.1) Chloride Level 99 mmol/L (98-107) 102 mmol/L (98-107) Carbon Dioxide Level 29 mmol/L (21-32) 29 mmol/L (21-32) Anion Gap 9 (6-14) 8 (6-14) Blood Urea Nitrogen 4 mg/dL (7-20) 4 mg/dL (7-20) Creatinine 0.4 mg/dL (0.6-1.0) 0.4 mg/dL (0.6-1.0) Estimated GFR (Cockcroft-Gault) 161.7 161.7 BUN/Creatinine Ratio 10 (6-20) Glucose Level 107 mg/dL (70-99) 84 mg/dL (70-99) Calcium Level 8.6 mg/dL (8.5-10.1) 8.6 mg/dL (8.5-10.1) Total Bilirubin 10.0 mg/dL (0.2-1.0) 10.5 mg/dL (0.2-1.0) Aspartate Amino Transf (AST/SGOT) 141 U/L (15-37) 135 U/L (15-37) Alanine Aminotransferase (ALT/SGPT) 206 U/L (14-59) 181 U/L (14-59) Alkaline Phosphatase 1033 U/L (46-116) 919 U/L (46-116) Total Protein 5.0 g/dL (6.4-8.2) 5.2 g/dL (6.4-8.2) Albumin 2.0 g/dL (3.4-5.0) 1.8 g/dL (3.4-5.0) Albumin/Globulin Ratio 0.7 (1.0-1.7) Direct Bilirubin 9.2 mg/dL (0.0-0.2) MAYRA INTERIANO MD Dec 24, 2018 09:10
--- NOTE | 2018-12-24 09:17 | NUR ---
IP: Pt has a hx of + mrsa screen at [facility] on 11/01/18. Current screen is pending. Pt to be in contact precautions until there are 2 negative screens 7 days apart.
[2018-12-24] MEDS ORDERED: PROPOFOL 20 ML IV ONE ×2 (09:38→09:52)
[2018-12-24] MEDS ORDERED: SUCCINYLCHOLINE 200 MG/10 ML VIAL. ONE (09:38)
[2018-12-24] MEDS ORDERED: LIDOCAINE 2% PF 5 ML VIAL. ONE ×2 (09:38→09:52)
[2018-12-24] MEDS ORDERED: ONDANSETRON PF 4 MG/2 ML VIAL. ONE (09:39)
[2018-12-24] MEDS ORDERED: GLYCOPYRROLATE 1 MG/5 ML VIAL. ONE (09:39)
[2018-12-24] MEDS ORDERED: ROCURONIUM 50 MG/5 ML VIAL. ONE (09:49)
[2018-12-24 10:22] LABS: CALCIUM 8.4 mg/dL (8.5-10.1); CREATININE 0.4 mg/dL (0.6-1.0); GFR 161.7; POTASSIUM 3.3 mmol/L (3.5-5.1)
--- NOTE | 2018-12-24 10:30 | RAD ---
Chest radiograph 12/24/2018 10:19 AM INDICATION: Pneumonia COMPARISON: 11/15/2018 TECHNIQUE: Frontal and lateral views of the chest are provided. FINDINGS: The cardiomediastinal silhouette is within normal limits. Coarse interstitial changes are identified perihilar distribution, progressed since prior examination. Superimposed interstitial pneumonitis is a differential consideration. No pleural effusions, pulmonary vascular congestion or pneumothorax. Right chest wall infusion port catheter is in similar position. IMPRESSION: Increase in coarse interstitial bilateral perihilar opacities, left greater than right. Interstitial pneumonitis is a primary consideration. Recommend follow-up to resolution. Electronically signed by: Karin Dawn MD (12/24/2018 10:27 AM) [facility]
[2018-12-24] MEDS ORDERED: LIDOCAINE 1% PF 2 ML VIAL. ID PRN (10:45)
[2018-12-24] MEDS ORDERED: fentaNYL PF VIAL 100 MCG/2 ML VIAL IV PRN ×2 (10:45)
[2018-12-24] MEDS ORDERED: MIDAZOLAM HCL/PF 2 MG/2 ML VIAL. IV PRN (10:45)
--- NOTE | 2018-12-24 11:27 | PDOC ---
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 H/o Pneumocystis jiroveci pneumonia. H/o Clostridium difficile. Obstructive jaundice secondary to biliary compression by metastatic lymphadenopathy - npo after midnight for ERCP/stent with GI on 12/24/18 History of Present Illness History of Present Illness SHE IS FOR ERCP today 11 am jaundice per other note PLAn: ERCP today CBC and Lfts tmr Dw dtr in room IVF while NPO Vitals Vitals Vital Signs Date Time Temp Pulse Resp B/P (MAP) Pulse Ox O2 Delivery O2 Flow Rate FiO2 12/24/18 07:48 95 Room Air 12/24/18 07:00 98.9 106 18 124/70 (88) 98.9 12/23/18 11:00 1.0 Physical Exam General: Cooperative Heart: Regular rate Lungs: Clear, Other Abdomen: Soft Extremities: No clubbing Skin: Other (jaundice) Labs LABS Laboratory Tests Test 12/24/18 10:00 Sodium Level 138 mmol/L (136-145) Potassium Level 3.3 mmol/L (3.5-5.1) Chloride Level 100 mmol/L (98-107) Carbon Dioxide Level 30 mmol/L (21-32) Anion Gap 8 (6-14) Blood Urea Nitrogen 2 mg/dL (7-20) Creatinine 0.4 mg/dL (0.6-1.0) Estimated GFR (Cockcroft-Gault) 161.7 Glucose Level 61 mg/dL (70-99) Calcium Level 8.4 mg/dL (8.5-10.1) Review of Systems Review of Systems out having ercp Comment Review of Relevant I have reviewed the following items erwin (where applicable) has been applied. Labs Laboratory Tests Test 12/23/18 05:20 12/24/18 10:00 White Blood Count 5.7 x10^3/uL (4.0-11.0) Red Blood Count 3.31 x10^6/uL (3.50-5.40) Hemoglobin 10.9 g/dL (12.0-15.5) Hematocrit 31.6 % (36.0-47.0) Mean Corpuscular Volume 96 fL (79-100) Mean Corpuscular Hemoglobin 33 pg (25-35) Mean Corpuscular Hemoglobin Concent 34 g/dL (31-37) Red Cell Distribution Width 17.5 % (11.5-14.5) Platelet Count 214 x10^3/uL (140-400) Neutrophils (%) (Auto) 81 % (31-73) Lymphocytes (%) (Auto) 11 % (24-48) Monocytes (%) (Auto) 8 % (0-9) Eosinophils (%) (Auto) 0 % (0-3) Basophils (%) (Auto) 0 % (0-3) Neutrophils # (Auto) 4.6 x10^3/uL (1.8-7.7) Lymphocytes # (Auto) 0.6 x10^3/uL (1.0-4.8) Monocytes # (Auto) 0.4 x10^3/uL (0.0-1.1) Eosinophils # (Auto) 0.0 x10^3/uL (0.0-0.7) Basophils # (Auto) 0.0 x10^3/uL (0.0-0.2) Prothrombin Time 16.2 SEC (11.7-14.0) Prothromb Time International Ratio 1.3 (0.8-1.1) Sodium Level 139 mmol/L (136-145) 138 mmol/L (136-145) Potassium Level 2.8 mmol/L (3.5-5.1) 3.3 mmol/L (3.5-5.1) Chloride Level 102 mmol/L (98-107) 100 mmol/L (98-107) Carbon Dioxide Level 29 mmol/L (21-32) 30 mmol/L (21-32) Anion Gap 8 (6-14) 8 (6-14) Blood Urea Nitrogen 4 mg/dL (7-20) 2 mg/dL (7-20) Creatinine 0.4 mg/dL (0.6-1.0) 0.4 mg/dL (0.6-1.0) Estimated GFR (Cockcroft-Gault) 161.7 161.7 Glucose Level 84 mg/dL (70-99) 61 mg/dL (70-99) Calcium Level 8.6 mg/dL (8.5-10.1) 8.4 mg/dL (8.5-10.1) Total Bilirubin 10.5 mg/dL (0.2-1.0) Direct Bilirubin 9.2 mg/dL (0.0-0.2) Aspartate Amino Transf (AST/SGOT) 135 U/L (15-37) Alanine Aminotransferase (ALT/SGPT) 181 U/L (14-59) Alkaline Phosphatase 919 U/L (46-116) Total Protein 5.2 g/dL (6.4-8.2) Albumin 1.8 g/dL (3.4-5.0) Laboratory Tests Test 12/24/18 10:00 Sodium Level 138 mmol/L (136-145) Potassium Level 3.3 mmol/L (3.5-5.1) Chloride Level 100 mmol/L (98-107) Carbon Dioxide Level 30 mmol/L (21-32) Anion Gap 8 (6-14) Blood Urea Nitrogen 2 mg/dL (7-20) Creatinine 0.4 mg/dL (0.6-1.0) Estimated GFR (Cockcroft-Gault) 161.7 Glucose Level 61 mg/dL (70-99) Calcium Level 8.4 mg/dL (8.5-10.1) Microbiology 12/22/18 Blood Culture - Preliminary, Resulted NO GROWTH AFTER 1 DAY Medications Current Medications Morphine Sulfate (Morphine Sulfate) 5 mg 1X ONCE IV Last administered on 12/22/18at 10:00; Start 12/22/18 at 10:00; Stop 12/22/18 at 10:03; Status DC Naloxone HCl (Narcan) 0.4 mg PRN Q2MIN PRN IV SEE INSTRUCTIONS; Start 12/22/18 at 10:00 Sodium Chloride 1,000 ml @ 25 mls/hr Q24H IV Last administered on 12/22/18at 09:55; Start 12/22/18 at 09:55 Hydromorphone HCl 30 ml @ 0 mls/hr CONT PRN PRN IV PER PROTOCOL Last administered on 12/23/18at 15:54; Start 12/22/18 at 10:00 Sodium Chloride (Normal Saline Flush) 3 ml QSHIFT PRN IV AFTER MEDS AND BLOOD DRAWS; Start 12/22/18 at 11:30 Sodium Chloride 1,000 ml @ 100 mls/hr Q10H IV Last administered on 12/24/18at 03:03; Start 12/22/18 at 13:00 Ondansetron HCl (Zofran) 4 mg PRN Q4HRS PRN IVP NAUSEA/VOMITING Last administered on 12/24/18 08:27; Start 12/22/18 at 11:30 Acetaminophen (Tylenol Supp) 650 mg PRN Q4HRS PRN [place] TEMP OVER 100.4F OR MILD PAIN Last administered on 12/23/18 03:47; Start 12/22/18 at 11:30 Clonidine HCl (Catapres) 0.1 mg PRN Q6HRS PRN PO SBP>160 OR DBP>90; Start 12/22/18 at 11:30 Albuterol/ Ipratropium (Duoneb) 3 ml Q4H NEB Last administered on 12/24/18 07:47; Start 12/22/18 at 12:00 Lorazepam (Ativan) 0.5 mg PRN Q4HRS PRN PO ANXIETY / AGITATION; Start 12/22/18 at 11:30 Enoxaparin Sodium (Lovenox 40mg Syringe) 40 mg DAILY SQ ; Start 12/23/18 at 09:00; Stop 12/22/18 at 16:29; Status DC Piperacillin Sod/ Tazobactam Sod 3.375 gm/Sodium Chloride 50 ml @ 100 mls/hr Q6HRS IV Last administered on 12/24/18 05:51; Start 12/22/18 at 12:00 Ascorbic Acid (Vitamin C) 500 mg BID PO Last administered on 12/23/18 21:54; Start 12/22/18 at 21:00 Ferrous Sulfate (Feosol) 325 mg BIDWMEALS PO Last administered on 12/23/18 17:15; Start 12/22/18 at 17:00 Gabapentin (Neurontin) 300 mg BID PO Last administered on 12/24/18 08:25; Start 12/22/18 at 21:00 Acyclovir (Zovirax) 400 mg BID PO Last administered on 12/24/18 08:25; Start 12/22/18 at 21:00 Non-Formulary Medication (Alpha Lipoic Acid ) 600 mg BID PO ; Start 12/22/18 at 21:00; Status UNV Citalopram Hydrobromide (CeleXA) 20 mg DAILY PO Last administered on 12/24/18 08:25; Start 12/23/18 at 09:00 Non-Formulary Medication (Lactobacillus Rhamnosus Gg (Culturelle)) 1 each BID PO ; Start 12/22/18 at 21:00; Status UNV Potassium Chloride/Water 100 ml @ 100 mls/hr Q1H IV Last administered on 12/23/18at 08:15; Start 12/23/18 at 06:15; Stop 12/23/18 at 09:14; Status DC Polyethylene Glycol (miraLAX PACKET) 17 gm DAILY PO ; Start 12/23/18 at 14:45 Docusate Sodium (Colace Solution) 100 mg BID PO ; Start 12/23/18 at 14:45 Bisacodyl (Dulcolax Supp) 10 mg PRN DAILY PRN [place] CONSTIPATION; Start 12/23/18 at 14:45 Acetaminophen (Tylenol) 500 mg PRN Q6HRS PRN PO MILD PAIN / TEMP; Start 12/24/18 at 09:00 Oxycodone/ Acetaminophen (Percocet 5/325) 1 tab PRN Q4HRS PRN PO MODERATE PAIN; Start 12/24/18 at 09:00 Lidocaine HCl (Lidocaine Pf 2% Vial) 5 ml STK-MED ONCE .ROUTE ; Start 12/24/18 at 09:38; Stop 12/24/18 at 09:39; Status DC Propofol 20 ml @ As Directed STK-MED ONCE IV ; Start 12/24/18 at 09:38; Stop 12/24/18 at 09:39; Status DC Succinylcholine Chloride (Anectine) 200 mg STK-MED ONCE .ROUTE ; Start 12/24/18 at 09:38; Stop 12/24/18 at 09:39; Status DC Ondansetron HCl (Zofran) 4 mg STK-MED ONCE .ROUTE ; Start 12/24/18 at 09:39; Stop 12/24/18 at 09:39; Status DC Glycopyrrolate (Robinul) 1 mg STK-MED ONCE .ROUTE ; Start 12/24/18 at 09:39; Stop 12/24/18 at 09:39; Status DC Rocuronium [place] (Zemuron) 50 mg STK-MED ONCE .ROUTE ; Start 12/24/18 at 09:49; Stop 12/24/18 at 09:50; Status DC Propofol 20 ml @ As Directed STK-MED ONCE IV ; Start 12/24/18 at 09:52; Stop 12/24/18 at 09:52; Status DC Lidocaine HCl (Lidocaine Pf 2% Vial) 5 ml STK-MED ONCE .ROUTE ; Start 12/24/18 at 09:52; Stop 12/24/18 at 09:52; Status DC Hydromorphone HCl (Dilaudid Standard FLOOR REFINISHER) 12 mg STK-MED ONCE IV ; Start 12/22/18 at 12:00; Stop 12/24/18 at 10:33; Status DC Hydromorphone HCl (Dilaudid Standard FLOOR REFINISHER) 12 mg STK-MED ONCE IV ; Start 12/23/18 at 12:20; Stop 12/24/18 at 10:34; Status DC Midazolam HCl (Versed) 2 mg PRN 1X PRN IV PRIOR TO PROCEDURE; Start 12/24/18 at 10:45; Stop 12/25/18 at 10:44 Fentanyl Citrate (Fentanyl 2ml Vial) 25 mcg PRN Q5MIN PRN IV X 2 DOSES FOR PA IN; Start 12/24/18 at 10:45; Stop 12/25/18 at 10:44 Fentanyl Citrate (Fentanyl 2ml Vial) 50 mcg PRN Q5MIN PRN IV X 2 DOSES FOR PAIN; Start 12/24/18 at 10:45; Stop 12/25/18 at 10:44 Ringer's Solution 1,000 ml @ 125 mls/hr Q8H IV ; Start 12/24/18 at 10:38; Stop 12/24/18 at 22:37 Lidocaine HCl (Xylocaine-Mpf 1% 2ml Vial) 2 ml 1X PRN PRN ID IV START; Start 12/24/18 at 10:45; Stop 12/25/18 at 10:44 Active Scripts Active Ascorbic Acid 500 Mg Tablet 500 Mg PO BID 30 Days Ferrous Sulfate 325 Mg Tablet 1 Tab PO BID 30 Days Reported Imodium A-D (Loperamide HCl) 2 Mg Capsule 2 Mg PO PRN Q4HRS PRN Alpha Lipoic Acid 600 Mg Capsule 600 Mg PO BID Ambien (Zolpidem Tartrate) 5 Mg Tablet 5 Mg PO PRN QHS PRN Gabapentin (Gabapentin) 300 Mg Capsule 300 Mg PO BID Escitalopram Oxalate 10 Mg Tablet 1 Tab PO DAILY Acyclovir 400 Mg Tablet 1 Tab PO BID Temazepam 15 Mg Capsule 1 Cap PO QHS Eliquis (Apixaban) 5 Mg Tablet 5 Mg PO BID 60 Days Culturelle (Lactobacillus Rhamnosus Gg) 1 Each Capsule 1 Each PO BID Vitals/I & O Vital Sign - Last 24 Hours 12/23/18 12/23/18 12/23/18 12/23/18 11:37 14:48 15:16 15:54 Temp 98.5 98.5 Pulse 90 Resp 18 20 B/P (MAP) 129/69 (89) Pulse Ox 95 93 95 O2 Delivery Room Air Room Air Room Air Room Air 12/23/18 12/23/18 12/23/18 12/23/18 16:24 19:15 19:22 20:20 Temp 98.6 98.6 Pulse 109 Resp 20 18 B/P (MAP) 109/64 (79) Pulse Ox 91 95 O2 Delivery Room Air Room Air Room Air Room Air 12/23/18 12/23/18 12/24/18 12/24/18 23:39 23:44 03:31 03:53 Temp 98.6 98.9 98.6 98.9 Pulse 97 104 Resp 18 18 B/P (MAP) 129/76 (93) 124/63 (83) Pulse Ox 95 97 89 95 O2 Delivery Room Air Room Air Room Air Room Air 12/24/18 12/24/18 07:00 07:48 Temp 98.9 98.9 Pulse 106 Resp 18 B/P (MAP) 124/70 (88) Pulse Ox 91 95 O2 Delivery Room Air Room Air RUSS BETANCOURT MD Dec 24, 2018 11:27
[2018-12-24] MEDS: IV RINGERS,LACTATED 1000ML 1,000 ML IV SCH ×2 (11:46→18:38)
[2018-12-24] MEDS ORDERED: IOHEXOL 300 MG/ML 100ML VIAL. ONE (12:04)
--- NOTE | 2018-12-24 12:20 | NUR ---
SS following for discharge planning. Pt is from home and transferred from [facility] [place]. Pt is currently on room air. Pt was recently in [facility] in November of 2018 for LTAC stay. Palliative Care Consulted. SS will continue to follow for discharge planning.
--- NOTE | 2018-12-24 13:00 | PDOC4 ---
Operative Note Operative Note ERCP with stent placement Meds propofol per anesthesia Pre-op dx jaundice/abnl MRCP post-op dx hilar obstruction with extrinsic compression S/p 10 Fr 12 cm stent placement Plan am labs adjuvant therapy with oncology if possible once jaundice resolves with above. CHASIDY FULLER MD Dec 24, 2018 13:00
--- NOTE | 2018-12-24 14:54 | PDOC2 ---
PALLIATIVE CARE Palliative Care Note Palliative Care Consult requested by Dr. Interiano to address plan of care. Medical Assessment per medical record; abdominal pain; suggestion of cholangitis on MRCP with extrinsic compression of bile ducts as well with hyperbilirubinemia. Hyperbilirubinemia: We'll see what progress can be made with ERCP with stenting today? Metastatic colon cancer: Chemotherapy on hold with elevated bili and declining functional status however based on improvement may be a candidate for restarting chemotherapy, hospice is an option but she is not ready for that at the moment Hypokalemia: Deferred to primary History of DVT: Would add Lovenox prophylaxis after procedures complete Patient seen post ERCP with stent placement. Continue pain management. Spoke with daughters Maril and Eunice. They are able to verbalize medical condition and options. Plan is to observe bili and if drops will consider chemotherapy. Pain Management. 1630 Abdominal pain rated by pt. 5. PHP CONSULTANT continued. Nausea per patient. Zofran given. Family at bedside. CARLA ABARCA Dec 24, 2018 14:54
--- NOTE | 2018-12-24 16:32 | RAD ---
ERCP fluoroscopy 12/24/2018 12:19 PM INDICATION: Jaundice with possible obstruction COMPARISON: MRCP 12/22/2018 TECHNIQUE: 6 fluoroscopic spot views are provided. Fluoroscopy time: 4 minute 6 seconds FINDINGS: Fluoroscopy is provided for intraoperative use. Dilated pancreatic duct with multiple sidebranches. IMPRESSION: 1. ERCP performed utilizing fluoroscopy. 2. Please refer to the separate operative report for further details. Electronically signed by: Karin Dawn MD (12/24/2018 4:29 PM) [facility]
--- NOTE | 2018-12-24 20:52 | NUR ---
Patient insists that not all current home medications have been restarted since her admission, specifically a nasal spray which per patient, "helps stop sores". This nurse asked patient if she had a list of current meds and patient stated, "My daughter has it in her purse, I don't remember the name of my nose spray". Patient in bed, will continue to monitor.
--- NOTE | 2018-12-24 22:50 | NUR ---
Patient's pain not controlled by LINE O SCRIBE OPERATOR at this time, per patient request rescue IV bolus of Dilaudid administered. Patient resting with family at bedside, will continue to monitor.
[2018-12-24] MEDS ORDERED: HYDROmorphone STANDARD PCA 12 MG/30 ML SYRINGE. IV ONE (22:58)
[2018-12-24] MEDS: HYDROmorphone 12mg/30ml PCA 30 ML IV PRN (23:19)
[2018-12-25] MEDS: PIPERACILLIN/TAZOBACTAM 3.375 GM in IV NORMAL SALINE 50ML 50 ML IV SCH ×5 (00:10→23:47)
[2018-12-25] MEDS: IV NORMAL SALINE 1000ML BAG 1,000 ML IV SCH ×4 (00:13→20:30)
--- NOTE | 2018-12-25 02:20 | NUR ---
Patient's pain not controlled by DEPUTY CHIEF COUNSEL at this time, per patient request rescue IV bolus of Dilaudid administered. Patient resting with family at bedside, will continue to monitor.
[2018-12-25 03:00] VITALS: BP 136/80
[2018-12-25] MEDS: IPRATRPIUM/ALBUTEROL 0.5/2.5MG 3 ML NEBU. NEB SCH ×5 (03:24→20:03)
--- NOTE | 2018-12-25 03:59 | NUR ---
Patient's pain not controlled by RN PSYCH at this time, per patient request rescue IV bolus of Dilaudid administered as pain is rated at 7/10. Patient resting with family at bedside, will continue to monitor.
[2018-12-25 07:00] VITALS: BP 143/71
[2018-12-25 07:19] LABS: ALBUMIN 1.8 g/dL (3.4-5.0); ALBUMIN/GLOBULIN RATIO 0.5 (1.0-1.7); CALCIUM 8.3 mg/dL (8.5-10.1); CREATININE 0.4 mg/dL (0.6-1.0); GFR 161.7; POTASSIUM 3.1 mmol/L (3.5-5.1); TOTAL BILIRUBIN 6.5 mg/dL (0.2-1.0); TOTAL PROTEIN 5.3 g/dL (6.4-8.2)
[2018-12-25 07:23] LABS: BASO % 0 % (0-3); EOS # 0.1 x10^3/uL (0.0-0.7); EOS % 1 % (0-3); HEMATOCRIT 33.2 % (36.0-47.0); HEMOGLOBIN 11.1 g/dL (12.0-15.5); LYMPH # 0.9 x10^3/uL (1.0-4.8); LYMPH % 11 % (24-48); MEAN CORPUSCULAR HEMOGLOBIN 32 pg (25-35); MEAN CORPUSCULAR HGB CONC 34 g/dL (31-37); MEAN CORPUSCULAR VOLUME 96 fL (79-100); MONO # 0.4 x10^3/uL (0.0-1.1); MONO % 5 % (0-9); NEUT # 6.3 x10^3/uL (1.8-7.7); NEUT % 82 % (31-73); PLATELET COUNT 257 x10^3/uL (140-400); RED BLOOD COUNT 3.44 x10^6/uL (3.50-5.40); RED CELL DISTRIBUTION WIDTH 17.4 % (11.5-14.5); WHITE BLOOD COUNT 7.7 x10^3/uL (4.0-11.0)
[2018-12-25] MEDS: DOCUSATE 100 MG/10 ML SOLUTION. PO SCH ×2 (07:56→20:28)
[2018-12-25] MEDS: FERROUS SULFATE 325 MG TABLET. PO SCH ×2 (07:57→17:26)
[2018-12-25] MEDS: CITALOPRAM 20 MG TABLET. PO SCH (07:57)
[2018-12-25] MEDS: ACYCLOVIR 200 MG CAPSULE. PO SCH ×2 (07:57→20:28)
[2018-12-25] MEDS: ASCORBIC ACID 500 MG TABLET PO SCH ×2 (07:57→20:28)
[2018-12-25] MEDS: GABAPENTIN 300 MG CAPSULE. PO SCH ×2 (07:57→20:28)
[2018-12-25] MEDS: POLYETHYLENE GLYCOL 3350 17 GM PACKET. PO SCH (07:57)
[2018-12-25] MEDS ORDERED: CALCIUM CARBONATE 500 MG TAB.CHEW PO PRN (08:45)
[2018-12-25] MEDS ORDERED: ZOLPIDEM 5 MG TABLET. PO PRN (08:45)
[2018-12-25] MEDS ORDERED: FLU VAX QS 2019-20 (36MOS+)/PF 0.5 ML SYRINGE. VAX IM ONE (09:00)
--- NOTE | 2018-12-25 09:13 | PDOC ---
SUBJECTIVE Subjective S: Bilirubin down, still having pain, not eating much O: Physical exam: Gen.: Thin 60s female, resting in bed Lungs: Breathing comfortably with 2 L nasal cannula Skin: Still slightly jaundiced Psychiatric: Pleasant mood and affect Labs: Hemoglobin 11.1, normal white blood cell and platelet count, INR 1.3, creatinine 0.4, T bili 6.5, albumin 1.8 Rads: ERCP with stent completed 24 December Chest x-ray with coarse interstitial bilateral opacities left greater than right Assessment and Plan: Ms New is a 63-year-old female with aggressive metastatic colon cancer who had unfortunate suspected PJP pneumonia for which she was treated in November and has had declining functional status and progressive disease while being off chemotherapy admitted with worsening of abdominal pain and suggestion of cholangitis on MRCP with extrinsic compression of bile ducts as well with hyperbilirubinemia. Bilirubin has improved post-ERCP stenting on 24 December. Hyperbilirubinemia: improving post stent, rec following qday Metastatic colon cancer: Chemotherapy on hold with elevated bili however based on improvement may be a candidate for restarting chemotherapy, appreciate Ms Guillermina helping with pain control and palliative care options at home Hypokalemia: Deferred to primary, ok to add PPN while here History of DVT: Will add Lovenox prophylaxis since stent completed Thank you kindly and please do not hesitate to call with questions. OBJECTIVE Vital Signs Vital Signs Date Time Temp Pulse Resp B/P (MAP) Pulse Ox O2 Delivery O2 Flow Rate FiO2 12/25/18 07:27 88 Room Air 12/25/18 07:00 98.7 100 18 143/71 (95) 93 Nasal Cannula 1.0 98.7 12/25/18 03:00 99.2 104 18 136/80 (98) 93 Nasal Cannula 1.0 99.2 12/25/18 00:13 16 91 Room Air 1.0 12/24/18 23:41 91 Room Air 12/24/18 23:19 16 Room Air 12/24/18 23:00 99.4 108 18 138/77 (97) 90 Room Air 99.4 12/24/18 20:16 89 Room Air 12/24/18 19:45 Room Air 12/24/18 18:00 94 18 122/53 (76) 94 Nasal Cannula 1.0 12/24/18 17:00 98 18 122/69 (86) 93 Nasal Cannula 1.0 12/24/18 16:00 98 18 132/66 (88) 93 Nasal Cannula 12/24/18 15:34 92 Nasal Cannula 1.0 12/24/18 15:30 95 18 135/55 (81) 92 Nasal Cannula 12/24/18 15:00 96 18 151/68 (95) 91 Nasal Cannula 1.0 12/24/18 14:45 90 18 142/67 (92) 99 Nasal Cannula 1.0 12/24/18 14:30 95 18 150/68 (95) 93 Nasal Cannula 1.0 12/24/18 14:15 95 18 147/74 (98) 95 Nasal Cannula 1.0 12/24/18 13:47 105 18 126/56 92 Nasal Cannula 2 12/24/18 13:34 101 16 136/62 90 Room Air 12/24/18 13:17 97.9 101 16 143/65 94 Nasal Cannula 3 97.9 12/24/18 13:02 99 16 133/61 98 Simple Mask 6 12/24/18 11:42 98.5 106 18 93 98.5 12/24/18 11:40 Room Air 1.0 12/24/18 11:00 98.5 105 18 128/66 (86) 95 Room Air 98.5 I & O Intake and Output 12/25/18 06:59 Intake Total 1078 ml Balance 1078 ml Intake Oral 300 ml IV Total 778 ml # Voids 3 COMMENT Lab Laboratory Tests Test 12/24/18 10:00 12/25/18 06:00 Sodium Level 138 mmol/L (136-145) 137 mmol/L (136-145) Potassium Level 3.3 mmol/L (3.5-5.1) 3.1 mmol/L (3.5-5.1) Chloride Level 100 mmol/L (98-107) 99 mmol/L (98-107) Carbon Dioxide Level 30 mmol/L (21-32) 27 mmol/L (21-32) Anion Gap 8 (6-14) 11 (6-14) Blood Urea Nitrogen 2 mg/dL (7-20) 3 mg/dL (7-20) Creatinine 0.4 mg/dL (0.6-1.0) 0.4 mg/dL (0.6-1.0) Estimated GFR (Cockcroft-Gault) 161.7 161.7 Glucose Level 61 mg/dL (70-99) 65 mg/dL (70-99) Calcium Level 8.4 mg/dL (8.5-10.1) 8.3 mg/dL (8.5-10.1) White Blood Count 7.7 x10^3/uL (4.0-11.0) Red Blood Count 3.44 x10^6/uL (3.50-5.40) Hemoglobin 11.1 g/dL (12.0-15.5) Hematocrit 33.2 % (36.0-47.0) Mean Corpuscular Volume 96 fL (79-100) Mean Corpuscular Hemoglobin 32 pg (25-35) Mean Corpuscular Hemoglobin Concent 34 g/dL (31-37) Red Cell Distribution Width 17.4 % (11.5-14.5) Platelet Count 257 x10^3/uL (140-400) Neutrophils (%) (Auto) 82 % (31-73) Lymphocytes (%) (Auto) 11 % (24-48) Monocytes (%) (Auto) 5 % (0-9) Eosinophils (%) (Auto) 1 % (0-3) Basophils (%) (Auto) 0 % (0-3) Neutrophils # (Auto) 6.3 x10^3/uL (1.8-7.7) Lymphocytes # (Auto) 0.9 x10^3/uL (1.0-4.8) Monocytes # (Auto) 0.4 x10^3/uL (0.0-1.1) Eosinophils # (Auto) 0.1 x10^3/uL (0.0-0.7) Basophils # (Auto) 0.0 x10^3/uL (0.0-0.2) BUN/Creatinine Ratio 8 (6-20) Total Bilirubin 6.5 mg/dL (0.2-1.0) Aspartate Amino Transf (AST/SGOT) 117 U/L (15-37) Alanine Aminotransferase (ALT/SGPT) 143 U/L (14-59) Alkaline Phosphatase 912 U/L (46-116) Total Protein 5.3 g/dL (6.4-8.2) Albumin 1.8 g/dL (3.4-5.0) Albumin/Globulin Ratio 0.5 (1.0-1.7) Amylase Level 14 U/L (25-115) Lipase 107 U/L (73-393) MAYRA TORRES MD Dec 25, 2018 09:13
--- NOTE | 2018-12-25 09:35 | PDOC ---
Subjective: Subjective: Pain recurred overnight - epigastrium/RUQ - same pain as before. Objective: Vital Signs: Vital Signs Date Time Temp Pulse Resp B/P (MAP) Pulse Ox O2 Delivery O2 Flow Rate FiO2 12/25/18 07:27 88 Room Air 12/25/18 07:00 98.7 100 18 143/71 (95) 1.0 98.7 Labs: Laboratory Tests Test 12/24/18 10:00 12/25/18 06:00 Sodium Level 138 mmol/L 137 mmol/L Potassium Level 3.3 mmol/L 3.1 mmol/L Chloride Level 100 mmol/L 99 mmol/L Carbon Dioxide Level 30 mmol/L 27 mmol/L Anion Gap 8 11 Blood Urea Nitrogen 2 mg/dL 3 mg/dL Creatinine 0.4 mg/dL 0.4 mg/dL Estimated GFR (Cockcroft-Gault) 161.7 161.7 Glucose Level 61 mg/dL 65 mg/dL Calcium Level 8.4 mg/dL 8.3 mg/dL White Blood Count 7.7 x10^3/uL Red Blood Count 3.44 x10^6/uL Hemoglobin 11.1 g/dL Hematocrit 33.2 % Mean Corpuscular Volume 96 fL Mean Corpuscular Hemoglobin 32 pg Mean Corpuscular Hemoglobin Concent 34 g/dL Red Cell Distribution Width 17.4 % Platelet Count 257 x10^3/uL Neutrophils (%) (Auto) 82 % Lymphocytes (%) (Auto) 11 % Monocytes (%) (Auto) 5 % Eosinophils (%) (Auto) 1 % Basophils (%) (Auto) 0 % Neutrophils # (Auto) 6.3 x10^3/uL Lymphocytes # (Auto) 0.9 x10^3/uL Monocytes # (Auto) 0.4 x10^3/uL Eosinophils # (Auto) 0.1 x10^3/uL Basophils # (Auto) 0.0 x10^3/uL BUN/Creatinine Ratio 8 Total Bilirubin 6.5 mg/dL Aspartate Amino Transf (AST/SGOT) 117 U/L Alanine Aminotransferase (ALT/SGPT) 143 U/L Alkaline Phosphatase 912 U/L Total Protein 5.3 g/dL Albumin 1.8 g/dL Albumin/Globulin Ratio 0.5 Amylase Level 14 U/L Lipase 107 U/L Imaging: ERCP 12/25 hilar obstruction with extrinsic compression S/p 10 Fr 12 cm stent placement PE: GEN: NAD - daughter and Dr. Interiano present LUNGS: room air ABD: BS+, soft, RUQ tenderness SKIN: +jaundice NEURO/PSYCH: A & O 3 A/P: Metastatic colon cancer Obstructive jaundice - ERCP as above - s/p stent - bili improved -- Continue support, continue per oncology. Okay to ADAT per GI. RAFFI TYLER Dec 25, 2018 09:35
[2018-12-25] MEDS: POTASSIUM CHLORIDE 20 MEQ TABLET.ER. PO SCH ×2 (09:38→17:26)
[2018-12-25] MEDS: ENOXAPARIN 40 MG/0.4 ML SYRINGE. SQ SCH (09:40)
--- NOTE | 2018-12-25 09:45 | PDOC ---
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 H/o Pneumocystis jiroveci pneumonia./chronic cough H/o Clostridium difficile. Obstructive jaundice secondary to biliary compression by metastatic lymphadenopathy - History of Present Illness History of Present Illness post ERCP Proceduarl note i have reviewed Jaundice is less per dtr at bedside On dilaudid marketing systems manager post # 1 and is pressing it On some soft jello or liq diet LFts coming down, though she says it's chronically elevated PLAN: CPM Trend Lfts Cont MATERIALS AND CORROSION ENGINEER Cont current diet Follow GI recs FUll code Known pt of DR Lorenza nguyen, planned for possible chemo again as OP Pt not reado for hospice - palliative note also reviewed Vitals Vitals Vital Signs Date Time Temp Pulse Resp B/P (MAP) Pulse Ox O2 Delivery O2 Flow Rate FiO2 12/25/18 07:27 88 Room Air 12/25/18 07:00 98.7 100 18 143/71 (95) 1.0 98.7 Physical Exam General: Cooperative Heart: Regular rate Lungs: Clear, Other Abdomen: Soft Extremities: No clubbing Skin: Other (jaundice) Labs LABS Laboratory Tests Test 12/24/18 10:00 12/25/18 06:00 Sodium Level 138 mmol/L (136-145) 137 mmol/L (136-145) Potassium Level 3.3 mmol/L (3.5-5.1) 3.1 mmol/L (3.5-5.1) Chloride Level 100 mmol/L (98-107) 99 mmol/L (98-107) Carbon Dioxide Level 30 mmol/L (21-32) 27 mmol/L (21-32) Anion Gap 8 (6-14) 11 (6-14) Blood Urea Nitrogen 2 mg/dL (7-20) 3 mg/dL (7-20) Creatinine 0.4 mg/dL (0.6-1.0) 0.4 mg/dL (0.6-1.0) Estimated GFR (Cockcroft-Gault) 161.7 161.7 Glucose Level 61 mg/dL (70-99) 65 mg/dL (70-99) Calcium Level 8.4 mg/dL (8.5-10.1) 8.3 mg/dL (8.5-10.1) White Blood Count 7.7 x10^3/uL (4.0-11.0) Red Blood Count 3.44 x10^6/uL (3.50-5.40) Hemoglobin 11.1 g/dL (12.0-15.5) Hematocrit 33.2 % (36.0-47.0) Mean Corpuscular Volume 96 fL (79-100) Mean Corpuscular Hemoglobin 32 pg (25-35) Mean Corpuscular Hemoglobin Concent 34 g/dL (31-37) Red Cell Distribution Width 17.4 % (11.5-14.5) Platelet Count 257 x10^3/uL (140-400) Neutrophils (%) (Auto) 82 % (31-73) Lymphocytes (%) (Auto) 11 % (24-48) Monocytes (%) (Auto) 5 % (0-9) Eosinophils (%) (Auto) 1 % (0-3) Basophils (%) (Auto) 0 % (0-3) Neutrophils # (Auto) 6.3 x10^3/uL (1.8-7.7) Lymphocytes # (Auto) 0.9 x10^3/uL (1.0-4.8) Monocytes # (Auto) 0.4 x10^3/uL (0.0-1.1) Eosinophils # (Auto) 0.1 x10^3/uL (0.0-0.7) Basophils # (Auto) 0.0 x10^3/uL (0.0-0.2) BUN/Creatinine Ratio 8 (6-20) Total Bilirubin 6.5 mg/dL (0.2-1.0) Aspartate Amino Transf (AST/SGOT) 117 U/L (15-37) Alanine Aminotransferase (ALT/SGPT) 143 U/L (14-59) Alkaline Phosphatase 912 U/L (46-116) Total Protein 5.3 g/dL (6.4-8.2) Albumin 1.8 g/dL (3.4-5.0) Albumin/Globulin Ratio 0.5 (1.0-1.7) Amylase Level 14 U/L (25-115) Lipase 107 U/L (73-393) Review of Systems Review of Systems weak, no signif pain, no fevers, no chest pain, rest of 14 pt neg, chronic cough (hx PCP) on zosyn Comment Review of Relevant I have reviewed the following items erwin (where applicable) has been applied. Labs Laboratory Tests Test 12/23/18 14:00 12/24/18 10:00 12/25/18 06:00 Nasal Screen MRSA (PCR) Negative (Negative) Sodium Level 138 mmol/L (136-145) 137 mmol/L (136-145) Potassium Level 3.3 mmol/L (3.5-5.1) 3.1 mmol/L (3.5-5.1) Chloride Level 100 mmol/L (98-107) 99 mmol/L (98-107) Carbon Dioxide Level 30 mmol/L (21-32) 27 mmol/L (21-32) Anion Gap 8 (6-14) 11 (6-14) Blood Urea Nitrogen 2 mg/dL (7-20) 3 mg/dL (7-20) Creatinine 0.4 mg/dL (0.6-1.0) 0.4 mg/dL (0.6-1.0) Estimated GFR (Cockcroft-Gault) 161.7 161.7 Glucose Level 61 mg/dL (70-99) 65 mg/dL (70-99) Calcium Level 8.4 mg/dL (8.5-10.1) 8.3 mg/dL (8.5-10.1) White Blood Count 7.7 x10^3/uL (4.0-11.0) Red Blood Count 3.44 x10^6/uL (3.50-5.40) Hemoglobin 11.1 g/dL (12.0-15.5) Hematocrit 33.2 % (36.0-47.0) Mean Corpuscular Volume 96 fL (79-100) Mean Corpuscular Hemoglobin 32 pg (25-35) Mean Corpuscular Hemoglobin Concent 34 g/dL (31-37) Red Cell Distribution Width 17.4 % (11.5-14.5) Platelet Count 257 x10^3/uL (140-400) Neutrophils (%) (Auto) 82 % (31-73) Lymphocytes (%) (Auto) 11 % (24-48) Monocytes (%) (Auto) 5 % (0-9) Eosinophils (%) (Auto) 1 % (0-3) Basophils (%) (Auto) 0 % (0-3) Neutrophils # (Auto) 6.3 x10^3/uL (1.8-7.7) Lymphocytes # (Auto) 0.9 x10^3/uL (1.0-4.8) Monocytes # (Auto) 0.4 x10^3/uL (0.0-1.1) Eosinophils # (Auto) 0.1 x10^3/uL (0.0-0.7) Basophils # (Auto) 0.0 x10^3/uL (0.0-0.2) BUN/Creatinine Ratio 8 (6-20) Total Bilirubin 6.5 mg/dL (0.2-1.0) Aspartate Amino Transf (AST/SGOT) 117 U/L (15-37) Alanine Aminotransferase (ALT/SGPT) 143 U/L (14-59) Alkaline Phosphatase 912 U/L (46-116) Total Protein 5.3 g/dL (6.4-8.2) Albumin 1.8 g/dL (3.4-5.0) Albumin/Globulin Ratio 0.5 (1.0-1.7) Amylase Level 14 U/L (25-115) Lipase 107 U/L (73-393) Laboratory Tests Test 12/24/18 10:00 12/25/18 06:00 Sodium Level 138 mmol/L (136-145) 137 mmol/L (136-145) Potassium Level 3.3 mmol/L (3.5-5.1) 3.1 mmol/L (3.5-5.1) Chloride Level 100 mmol/L (98-107) 99 mmol/L (98-107) Carbon Dioxide Level 30 mmol/L (21-32) 27 mmol/L (21-32) Anion Gap 8 (6-14) 11 (6-14) Blood Urea Nitrogen 2 mg/dL (7-20) 3 mg/dL (7-20) Creatinine 0.4 mg/dL (0.6-1.0) 0.4 mg/dL (0.6-1.0) Estimated GFR (Cockcroft-Gault) 161.7 161.7 Glucose Level 61 mg/dL (70-99) 65 mg/dL (70-99) Calcium Level 8.4 mg/dL (8.5-10.1) 8.3 mg/dL (8.5-10.1) White Blood Count 7.7 x10^3/uL (4.0-11.0) Red Blood Count 3.44 x10^6/uL (3.50-5.40) Hemoglobin 11.1 g/dL (12.0-15.5) Hematocrit 33.2 % (36.0-47.0) Mean Corpuscular Volume 96 fL (79-100) Mean Corpuscular Hemoglobin 32 pg (25-35) Mean Corpuscular Hemoglobin Concent 34 g/dL (31-37) Red Cell Distribution Width 17.4 % (11.5-14.5) Platelet Count 257 x10^3/uL (140-400) Neutrophils (%) (Auto) 82 % (31-73) Lymphocytes (%) (Auto) 11 % (24-48) Monocytes (%) (Auto) 5 % (0-9) Eosinophils (%) (Auto) 1 % (0-3) Basophils (%) (Auto) 0 % (0-3) Neutrophils # (Auto) 6.3 x10^3/uL (1.8-7.7) Lymphocytes # (Auto) 0.9 x10^3/uL (1.0-4.8) Monocytes # (Auto) 0.4 x10^3/uL (0.0-1.1) Eosinophils # (Auto) 0.1 x10^3/uL (0.0-0.7) Basophils # (Auto) 0.0 x10^3/uL (0.0-0.2) BUN/Creatinine Ratio 8 (6-20) Total Bilirubin 6.5 mg/dL (0.2-1.0) Aspartate Amino Transf (AST/SGOT) 117 U/L (15-37) Alanine Aminotransferase (ALT/SGPT) 143 U/L (14-59) Alkaline Phosphatase 912 U/L (46-116) Total Protein 5.3 g/dL (6.4-8.2) Albumin 1.8 g/dL (3.4-5.0) Albumin/Globulin Ratio 0.5 (1.0-1.7) Amylase Level 14 U/L (25-115) Lipase 107 U/L (73-393) Microbiology 12/22/18 Blood Culture - Preliminary, Resulted NO GROWTH AFTER 2 DAYS Medications Current Medications Morphine Sulfate (Morphine Sulfate) 5 mg 1X ONCE IV Last administered on 12/22/18at 10:00; Start 12/22/18 at 10:00; Stop 12/22/18 at 10:03; Status DC Naloxone HCl (Narcan) 0.4 mg PRN Q2MIN PRN IV SEE INSTRUCTIONS; Start 12/22/18 at 10:00 Sodium Chloride 1,000 ml @ 25 mls/hr Q24H IV Last administered on 12/22/18at 09:55; Start 12/22/18 at 09:55 Hydromorphone HCl 30 ml @ 0 mls/hr CONT PRN PRN IV PER PROTOCOL Last administered on 12/24/18at 23:19; Start 12/22/18 at 10:00 Sodium Chloride (Normal Saline Flush) 3 ml QSHIFT PRN IV AFTER MEDS AND BLOOD DRAWS; Start 12/22/18 at 11:30 Sodium Chloride 1,000 ml @ 100 mls/hr Q10H IV Last administered on 12/25/18at 00:13; Start 12/22/18 at 13:00 Ondansetron HCl (Zofran) 4 mg PRN Q4HRS PRN IVP NAUSEA/VOMITING Last administered on 12/24/18at 16:05; Start 12/22/18 at 11:30 Acetaminophen (Tylenol Supp) 650 mg PRN Q4HRS PRN [place] TEMP OVER 100.4F OR MILD PAIN Last administered on 12/23/18at 03:47; Start 12/22/18 at 11:30 Clonidine HCl (Catapres) 0.1 mg PRN Q6HRS PRN PO SBP>160 OR DBP>90; Start 12/22/18 at 11:30 Albuterol/ Ipratropium (Duoneb) 3 ml Q4H NEB Last administered on 12/25/18at 07:23; Start 12/22/18 at 12:00 Lorazepam (Ativan) 0.5 mg PRN Q4HRS PRN PO ANXIETY / AGITATION; Start 12/22/18 at 11:30 Enoxaparin Sodium (Lovenox 40mg Syringe) 40 mg DAILY SQ ; Start 12/23/18 at 09:00; Stop 12/22/18 at 16:29; Status DC Piperacillin Sod/ Tazobactam Sod 3.375 gm/Sodium Chloride 50 ml @ 100 mls/hr Q6HRS IV Last administered on 12/25/18 05:41; Start 12/22/18 at 12:00 Ascorbic Acid (Vitamin C) 500 mg BID PO Last administered on 12/25/18 07:57; Start 12/22/18 at 21:00 Ferrous Sulfate (Feosol) 325 mg BIDWMEALS PO Last administered on 12/25/18 07:57; Start 12/22/18 at 17:00 Gabapentin (Neurontin) 300 mg BID PO Last administered on 12/25/18 07:57; Start 12/22/18 at 21:00 Acyclovir (Zovirax) 400 mg BID PO Last administered on 12/25/18 07:57; Start 12/22/18 at 21:00 Non-Formulary Medication (Alpha Lipoic Acid ) 600 mg BID PO ; Start 12/22/18 at 21:00; Status UNV Citalopram Hydrobromide (CeleXA) 20 mg DAILY PO Last administered on 12/25/18 07:57; Start 12/23/18 at 09:00 Non-Formulary Medication (Lactobacillus Rhamnosus Gg (Culturelle)) 1 each BID PO ; Start 12/22/18 at 21:00; Status UNV Potassium Chloride/Water 100 ml @ 100 mls/hr Q1H IV Last administered on 12/23/18 08:15; Start 12/23/18 at 06:15; Stop 12/23/18 at 09:14; Status DC Polyethylene Glycol (miraLAX PACKET) 17 gm DAILY PO Last administered on 12/25/18 07:57; Start 12/23/18 at 14:45 Docusate Sodium (Colace Solution) 100 mg BID PO Last administered on 12/25/18 07:56; Start 12/23/18 at 14:45 Bisacodyl (Dulcolax Supp) 10 mg PRN DAILY PRN [place] CONSTIPATION; Start 12/23/18 at 14:45 Acetaminophen (Tylenol) 500 mg PRN Q6HRS PRN PO MILD PAIN / TEMP; Start 12/24/18 at 09:00 Oxycodone/ Acetaminophen (Percocet 5/325) 1 tab PRN Q4HRS PRN PO MODERATE PAIN; Start 12/24/18 at 09:00 Lidocaine HCl (Lidocaine Pf 2% Vial) 5 ml STK-MED ONCE .ROUTE ; Start 12/24/18 at 09:38; Stop 12/24/18 at 09:39; Status DC Propofol 20 ml @ As Directed STK-MED ONCE IV ; Start 12/24/18 at 09:38; Stop 12/24/18 at 09:39; Status DC Succinylcholine Chloride (Anectine) 200 mg STK-MED ONCE .ROUTE ; Start 12/24/18 at 09:38; Stop 12/24/18 at 09:39; Status DC Ondansetron HCl (Zofran) 4 mg STK-MED ONCE .ROUTE ; Start 12/24/18 at 09:39; Stop 12/24/18 at 09:39; Status DC Glycopyrrolate (Robinul) 1 mg STK-MED ONCE .ROUTE ; Start 12/24/18 at 09:39; Stop 12/24/18 at 09:39; Status DC Rocuronium [place] (Zemuron) 50 mg STK-MED ONCE .ROUTE ; Start 12/24/18 at 09:49; Stop 12/24/18 at 09:50; Status DC Propofol 20 ml @ As Directed STK-MED ONCE IV ; Start 12/24/18 at 09:52; Stop 12/24/18 at 09:52; Status DC Lidocaine HCl (Lidocaine Pf 2% Vial) 5 ml STK-MED ONCE .ROUTE ; Start 12/24/18 at 09:52; Stop 12/24/18 at 09:52; Status DC Hydromorphone HCl (Dilaudid Standard MATERIALS AND CORROSION ENGINEER) 12 mg STK-MED ONCE IV ; Start 12/22/18 at 12:00; Stop 12/24/18 at 10:33; Status DC Hydromorphone HCl (Dilaudid Standard MATERIALS AND CORROSION ENGINEER) 12 mg STK-MED ONCE IV ; Start 12/23/18 at 12:20; Stop 12/24/18 at 10:34; Status DC Midazolam HCl (Versed) 2 mg PRN 1X PRN IV PRIOR TO PROCEDURE; Start 12/24/18 at 10:45; Stop 12/25/18 at 10:44 Fentanyl Citrate (Fentanyl 2ml Vial) 25 mcg PRN Q5MIN PRN IV X 2 DOSES FOR PAIN; Start 12/24/18 at 10:45; Stop 12/25/18 at 10:44 Fentanyl Citrate (Fentanyl 2ml Vial) 50 mcg PRN Q5MIN PRN IV X 2 DOSES FOR PAIN; Start 12/24/18 at 10:45; Stop 12/25/18 at 10:44 Ringer's Solution 1,000 ml @ 125 mls/hr Q8H IV Last administered on 12/24/18at 11:46; Start 12/24/18 at 10:38; Stop 12/24/18 at 22:37; Status DC Lidocaine HCl (Xylocaine-Mpf 1% 2ml Vial) 2 ml 1X PRN PRN ID IV START; Start 12/24/18 at 10:45; Stop 12/25/18 at 10:44 Iohexol (Omnipaque 300 Mg/ml) 100 ml STK-MED ONCE .ROUTE ; Start 12/24/18 at 12:04; Stop 12/24/18 at 12:04; Status DC Influenza Virus Vaccine Quadrival (Afluria Quad 2019-20 (3yr Up) Syringe) 0.5 ml ONCE ONCE VAX IM ; Start 12/25/18 at 09:00; Stop 12/25/18 at 09:01; Status DC Potassium Chloride (Klor-Con) 40 meq BIDWMEALS PO ; Start 12/25/18 at 08:45 Zolpidem Tartrate (Ambien) 5 mg PRN QHS PRN PO INSOMNIA; Start 12/25/18 at 08:45 Calcium Carbonate/ Glycine (Tums) 500 mg PRN AFTMEALHC PRN PO INDIGESTION; Start 12/25/18 at 08:45 Enoxaparin Sodium (Lovenox 40mg Syringe) 40 mg Q24H SQ ; Start 12/25/18 at 10:00 Active Scripts Active Ascorbic Acid 500 Mg Tablet 500 Mg PO BID 30 Days Ferrous Sulfate 325 Mg Tablet 1 Tab PO BID 30 Days Reported Imodium A-D (Loperamide HCl) 2 Mg Capsule 2 Mg PO PRN Q4HRS PRN Alpha Lipoic Acid 600 Mg Capsule 600 Mg PO BID Ambien (Zolpidem Tartrate) 5 Mg Tablet 5 Mg PO PRN QHS PRN Gabapentin (Gabapentin) 300 Mg Capsule 300 Mg PO BID Escitalopram Oxalate 10 Mg Tablet 1 Tab PO DAILY Acyclovir 400 Mg Tablet 1 Tab PO BID Temazepam 15 Mg Capsule 1 Cap PO QHS Eliquis (Apixaban) 5 Mg Tablet 5 Mg PO BID 60 Days Culturelle (Lactobacillus Rhamnosus Gg) 1 Each Capsule 1 Each PO BID Vitals/I & O Vital Sign - Last 24 Hours 12/24/18 12/24/18 12/24/18 12/24/18 11:00 11:40 11:42 13:02 Temp 98.5 98.5 98.5 98.5 Pulse 105 106 99 Resp 18 18 16 B/P (MAP) 128/66 (86) 133/61 Pulse Ox 95 93 98 O2 Delivery Room Air Room Air Simple Mask O2 Flow Rate 1.0 6 12/24/18 12/24/18 12/24/18 12/24/18 13:17 13:34 13:47 14:15 Temp 97.9 97.9 Pulse 101 101 105 95 Resp 16 16 18 18 B/P (MAP) 143/65 136/62 126/56 147/74 (98) Pulse Ox 94 90 92 95 O2 Delivery Nasal Cannula Room Air Nasal Cannula Nasal Cannula O2 Flow Rate 3 2 1.0 12/24/18 12/24/18 12/24/18 12/24/18 14:30 14:45 15:00 15:30 Pulse 95 90 96 95 Resp 18 18 18 18 B/P (MAP) 150/68 (95) 142/67 (92) 151/68 (95) 135/55 (81) Pulse Ox 93 99 91 92 O2 Delivery Nasal Cannula Nasal Cannula Nasal Cannula Nasal Cannula O2 Flow Rate 1.0 1.0 1.0 12/24/18 12/24/18 12/24/18 12/24/18 15:34 16:00 17:00 18:00 Pulse 98 98 94 Resp 18 18 18 B/P (MAP) 132/66 (88) 122/69 (86) 122/53 (76) Pulse Ox 92 93 93 94 O2 Delivery Nasal Cannula Nasal Cannula Nasal Cannula Nasal Cannula O2 Flow Rate 1.0 1.0 1.0 12/24/18 12/24/18 12/24/18 12/24/18 19:45 20:16 23:00 23:19 Temp 99.4 99.4 Pulse 108 Resp 18 16 B/P (MAP) 138/77 (97) Pulse Ox 89 90 O2 Delivery Room Air Room Air Room Air Room Air 12/24/18 12/25/18 12/25/18 12/25/18 23:41 00:13 03:00 07:00 Temp 99.2 98.7 99.2 98.7 Pulse 104 100 Resp 16 18 18 B/P (MAP) 136/80 (98) 143/71 (95) Pulse Ox 91 91 93 93 O2 Delivery Room Air Room Air Nasal Cannula Nasal Cannula O2 Flow Rate 1.0 1.0 1.0 12/25/18 07:27 Pulse Ox 88 O2 Delivery Room Air Intake and Output 12/24/18 12/24/18 12/25/18 14:59 22:59 06:59 Intake Total 750 ml 150 ml 178 ml Balance 750 ml 150 ml 178 ml RUSS BETANCOURT MD Dec 25, 2018 09:45
--- NOTE | 2018-12-25 10:08 | PDOC ---
Infectious Disease Note Subjective Subjective Doing ok. has some mild productive cough and throat is dry No F/C/S/n/V ROS ROS o/w neg Vital Sign Vital Signs Vital Signs Date Time Temp Pulse Resp B/P (MAP) Pulse Ox O2 Delivery O2 Flow Rate FiO2 12/25/18 08:00 Nasal Cannula 1.0 12/25/18 07:27 88 12/25/18 07:00 98.7 100 18 143/71 (95) 98.7 Physical Exam PHYSICAL EXAM GENERAL: The patient is slightly propped up in bed and looks well in no apparent distress. HEENT: Pupils equally round and reactive. Sclerae icterus. Oropharynx pink and moist. No ulcers. LLE lip lesion ? from procedure - not typical of viral NECK: Supple. LUNGS: Diminished aeration. Nonlabored. HEART: S1, S2. ABDOMEN: Mildly distended, soft and tender mostly RUQ and epigastric area. EXTREMITIES: No gross edema or cyanosis. SKIN: Warm to touch, jaundice. NEUROLOGIC: Drowsy, but answering questions appropriately and following commands. Right-sided Port-A-Cath without signs of any complications. Labs Lab Laboratory Tests Test 12/25/18 06:00 White Blood Count 7.7 x10^3/uL (4.0-11.0) Red Blood Count 3.44 x10^6/uL (3.50-5.40) Hemoglobin 11.1 g/dL (12.0-15.5) Hematocrit 33.2 % (36.0-47.0) Mean Corpuscular Volume 96 fL (79-100) Mean Corpuscular Hemoglobin 32 pg (25-35) Mean Corpuscular Hemoglobin Concent 34 g/dL (31-37) Red Cell Distribution Width 17.4 % (11.5-14.5) Platelet Count 257 x10^3/uL (140-400) Neutrophils (%) (Auto) 82 % (31-73) Lymphocytes (%) (Auto) 11 % (24-48) Monocytes (%) (Auto) 5 % (0-9) Eosinophils (%) (Auto) 1 % (0-3) Basophils (%) (Auto) 0 % (0-3) Neutrophils # (Auto) 6.3 x10^3/uL (1.8-7.7) Lymphocytes # (Auto) 0.9 x10^3/uL (1.0-4.8) Monocytes # (Auto) 0.4 x10^3/uL (0.0-1.1) Eosinophils # (Auto) 0.1 x10^3/uL (0.0-0.7) Basophils # (Auto) 0.0 x10^3/uL (0.0-0.2) Sodium Level 137 mmol/L (136-145) Potassium Level 3.1 mmol/L (3.5-5.1) Chloride Level 99 mmol/L (98-107) Carbon Dioxide Level 27 mmol/L (21-32) Anion Gap 11 (6-14) Blood Urea Nitrogen 3 mg/dL (7-20) Creatinine 0.4 mg/dL (0.6-1.0) Estimated GFR (Cockcroft-Gault) 161.7 BUN/Creatinine Ratio 8 (6-20) Glucose Level 65 mg/dL (70-99) Calcium Level 8.3 mg/dL (8.5-10.1) Total Bilirubin 6.5 mg/dL (0.2-1.0) Aspartate Amino Transf (AST/SGOT) 117 U/L (15-37) Alanine Aminotransferase (ALT/SGPT) 143 U/L (14-59) Alkaline Phosphatase 912 U/L (46-116) Total Protein 5.3 g/dL (6.4-8.2) Albumin 1.8 g/dL (3.4-5.0) Albumin/Globulin Ratio 0.5 (1.0-1.7) Amylase Level 14 U/L (25-115) Lipase 107 U/L (73-393) Micro CXR 12/24 Increase in coarse interstitial bilateral perihilar opacities, left greater than right. Interstitial pneumonitis is a primary consideration. Recommend follow-up to resolution. Microbiology 12/22/18 Blood Culture - Preliminary, Resulted NO GROWTH AFTER 2 DAYS Objective Assessment Ascending cholangitis Obstructive jaundice s/p ERCP 12/24 Immunosuppression d/t chemotherapy Colon cancer with metastasis Recently h/o treated for PJP, off Bactrim h/o C. diff CXR reviewed but clinically better Plan Plan of Care D/w Dr. Perea, no surgical plans Continue Zosyn and f/u on clinical improvement Monitor labs Pain management per primary Hoping to continue chemo DEMI DUKE MD Dec 25, 2018 10:08
--- NOTE | 2018-12-25 10:58 | PDOC ---
ROGER PATINO WOOD CARVER HAND 12/25/18 1058: SURGICAL PROGRESS NOTE Subjective overall feeling better Vital Signs Vital Signs Date Time Temp Pulse Resp B/P (MAP) Pulse Ox O2 Delivery O2 Flow Rate FiO2 12/25/18 08:00 Nasal Cannula 1.0 12/25/18 07:27 88 12/25/18 07:00 98.7 100 18 143/71 (95) 98.7 I&O Intake and Output 12/25/18 06:59 Intake Total 1078 ml Balance 1078 ml Intake Oral 300 ml IV Total 778 ml # Voids 3 General: Cooperative, No acute distress Abdomen: Soft, No tenderness Labs Laboratory Tests Test 12/23/18 14:00 12/24/18 10:00 12/25/18 06:00 Nasal Screen MRSA (PCR) Negative (Negative) Sodium Level 138 mmol/L (136-145) 137 mmol/L (136-145) Potassium Level 3.3 mmol/L (3.5-5.1) 3.1 mmol/L (3.5-5.1) Chloride Level 100 mmol/L (98-107) 99 mmol/L (98-107) Carbon Dioxide Level 30 mmol/L (21-32) 27 mmol/L (21-32) Anion Gap 8 (6-14) 11 (6-14) Blood Urea Nitrogen 2 mg/dL (7-20) 3 mg/dL (7-20) Creatinine 0.4 mg/dL (0.6-1.0) 0.4 mg/dL (0.6-1.0) Estimated GFR (Cockcroft-Gault) 161.7 161.7 Glucose Level 61 mg/dL (70-99) 65 mg/dL (70-99) Calcium Level 8.4 mg/dL (8.5-10.1) 8.3 mg/dL (8.5-10.1) White Blood Count 7.7 x10^3/uL (4.0-11.0) Red Blood Count 3.44 x10^6/uL (3.50-5.40) Hemoglobin 11.1 g/dL (12.0-15.5) Hematocrit 33.2 % (36.0-47.0) Mean Corpuscular Volume 96 fL (79-100) Mean Corpuscular Hemoglobin 32 pg (25-35) Mean Corpuscular Hemoglobin Concent 34 g/dL (31-37) Red Cell Distribution Width 17.4 % (11.5-14.5) Platelet Count 257 x10^3/uL (140-400) Neutrophils (%) (Auto) 82 % (31-73) Lymphocytes (%) (Auto) 11 % (24-48) Monocytes (%) (Auto) 5 % (0-9) Eosinophils (%) (Auto) 1 % (0-3) Basophils (%) (Auto) 0 % (0-3) Neutrophils # (Auto) 6.3 x10^3/uL (1.8-7.7) Lymphocytes # (Auto) 0.9 x10^3/uL (1.0-4.8) Monocytes # (Auto) 0.4 x10^3/uL (0.0-1.1) Eosinophils # (Auto) 0.1 x10^3/uL (0.0-0.7) Basophils # (Auto) 0.0 x10^3/uL (0.0-0.2) BUN/Creatinine Ratio 8 (6-20) Total Bilirubin 6.5 mg/dL (0.2-1.0) Aspartate Amino Transf (AST/SGOT) 117 U/L (15-37) Alanine Aminotransferase (ALT/SGPT) 143 U/L (14-59) Alkaline Phosphatase 912 U/L (46-116) Total Protein 5.3 g/dL (6.4-8.2) Albumin 1.8 g/dL (3.4-5.0) Albumin/Globulin Ratio 0.5 (1.0-1.7) Amylase Level 14 U/L (25-115) Lipase 107 U/L (73-393) Laboratory Tests Test 12/25/18 06:00 White Blood Count 7.7 x10^3/uL (4.0-11.0) Red Blood Count 3.44 x10^6/uL (3.50-5.40) Hemoglobin 11.1 g/dL (12.0-15.5) Hematocrit 33.2 % (36.0-47.0) Mean Corpuscular Volume 96 fL (79-100) Mean Corpuscular Hemoglobin 32 pg (25-35) Mean Corpuscular Hemoglobin Concent 34 g/dL (31-37) Red Cell Distribution Width 17.4 % (11.5-14.5) Platelet Count 257 x10^3/uL (140-400) Neutrophils (%) (Auto) 82 % (31-73) Lymphocytes (%) (Auto) 11 % (24-48) Monocytes (%) (Auto) 5 % (0-9) Eosinophils (%) (Auto) 1 % (0-3) Basophils (%) (Auto) 0 % (0-3) Neutrophils # (Auto) 6.3 x10^3/uL (1.8-7.7) Lymphocytes # (Auto) 0.9 x10^3/uL (1.0-4.8) Monocytes # (Auto) 0.4 x10^3/uL (0.0-1.1) Eosinophils # (Auto) 0.1 x10^3/uL (0.0-0.7) Basophils # (Auto) 0.0 x10^3/uL (0.0-0.2) Sodium Level 137 mmol/L (136-145) Potassium Level 3.1 mmol/L (3.5-5.1) Chloride Level 99 mmol/L (98-107) Carbon Dioxide Level 27 mmol/L (21-32) Anion Gap 11 (6-14) Blood Urea Nitrogen 3 mg/dL (7-20) Creatinine 0.4 mg/dL (0.6-1.0) Estimated GFR (Cockcroft-Gault) 161.7 BUN/Creatinine Ratio 8 (6-20) Glucose Level 65 mg/dL (70-99) Calcium Level 8.3 mg/dL (8.5-10.1) Total Bilirubin 6.5 mg/dL (0.2-1.0) Aspartate Amino Transf (AST/SGOT) 117 U/L (15-37) Alanine Aminotransferase (ALT/SGPT) 143 U/L (14-59) Alkaline Phosphatase 912 U/L (46-116) Total Protein 5.3 g/dL (6.4-8.2) Albumin 1.8 g/dL (3.4-5.0) Albumin/Globulin Ratio 0.5 (1.0-1.7) Amylase Level 14 U/L (25-115) Lipase 107 U/L (73-393) Assessment/Plan lfts improved supportive care COLEEN ALVES MD 12/25/18 1312: SURGICAL PROGRESS NOTE Assessment/Plan pt seen lots of family present no new surg recs ROGER PATINO WOOD CARVER HAND Dec 25, 2018 10:58 COLEEN ALVES MD Dec 25, 2018 13:12
[2018-12-25 11:00] VITALS: BP 121/68
[2018-12-25 15:00] VITALS: BP 132/60
--- NOTE | 2018-12-25 16:23 | PDOC2 ---
PALLIATIVE CARE Palliative Care Note Palliative Care Patient seen along with Dr. Interiano this am 1545; Patient started on clear liquids. Tolerating well. Laxative given. No BM x 6 days. Continuing Dilaudid CORRECTIVE THERAPY AIDE. Complains of abdominal pain with pain radiating around to back. 7-8 at worst; 1 at best. TBili 10.5 down to 6.5 Oxygen sat decreased to 78% when up walking. Will continue to monitor pain and attempt to change to long acting with breakthrough med. Discussed PPN. Patient tolerating clear liquids well. Daughters at bedside and updated. CARLA ABARCA Dec 25, 2018 16:23
[2018-12-25 19:00] VITALS: BP 122/71
--- NOTE | 2018-12-25 22:10 | NUR ---
Patient's pain not controlled by PRINTED CIRCUIT BOARD PREASSEMBLER at this time, per patient request rescue IV bolus of Dilaudid administered as pain is 7/10. Patient resting with family at bedside, will continue to monitor.
[2018-12-25 23:00] VITALS: BP 133/72
[2018-12-26] MEDS: IPRATRPIUM/ALBUTEROL 0.5/2.5MG 3 ML NEBU. NEB SCH ×7 (00:30→23:44)
[2018-12-26 03:00] VITALS: BP 121/65
--- NOTE | 2018-12-26 03:55 | NUR ---
Patient's pain not controlled by PUBLIC HEALTH SANITARIAN TECHNICIAN at this time, per patient request rescue IV bolus of Dilaudid administered as pain is 7/10. Patient resting, will continue to monitor.
[2018-12-26 04:54] LABS: BASO % 0 % (0-3); EOS # 0.1 x10^3/uL (0.0-0.7); EOS % 1 % (0-3); HEMATOCRIT 31.3 % (36.0-47.0); HEMOGLOBIN 10.4 g/dL (12.0-15.5); LYMPH # 0.8 x10^3/uL (1.0-4.8); LYMPH % 13 % (24-48); MEAN CORPUSCULAR HEMOGLOBIN 32 pg (25-35); MEAN CORPUSCULAR HGB CONC 33 g/dL (31-37); MEAN CORPUSCULAR VOLUME 96 fL (79-100); MONO # 0.4 x10^3/uL (0.0-1.1); MONO % 6 % (0-9); NEUT % 80 % (31-73); PLATELET COUNT 217 x10^3/uL (140-400); RED BLOOD COUNT 3.27 x10^6/uL (3.50-5.40); RED CELL DISTRIBUTION WIDTH 17.8 % (11.5-14.5); WHITE BLOOD COUNT 6.3 x10^3/uL (4.0-11.0)
[2018-12-26 05:13] LABS: ALBUMIN 1.7 g/dL (3.4-5.0); ALBUMIN/GLOBULIN RATIO 0.5 (1.0-1.7); CALCIUM 8.2 mg/dL (8.5-10.1); CREATININE 0.4 mg/dL (0.6-1.0); GFR 161.7; POTASSIUM 3.5 mmol/L (3.5-5.1); TOTAL BILIRUBIN 5.7 mg/dL (0.2-1.0)
[2018-12-26] MEDS: IV NORMAL SALINE 1000ML BAG 1,000 ML IV SCH ×2 (05:39→07:59)
[2018-12-26] MEDS: PIPERACILLIN/TAZOBACTAM 3.375 GM in IV NORMAL SALINE 50ML 50 ML IV SCH ×3 (05:39→16:42)
[2018-12-26 07:00] VITALS: BP 114/58
[2018-12-26] MEDS ORDERED: HYDROmorphone STANDARD PCA 12 MG/30 ML SYRINGE. IV ONE (07:59)
[2018-12-26] MEDS: HYDROmorphone 12mg/30ml PCA 30 ML IV PRN (08:12)
[2018-12-26] MEDS: AMINO AC 3%/ELECTROLYTE/GLYCER 1,000 ML IV SCH ×2 (08:44→20:35)
[2018-12-26] MEDS: POLYETHYLENE GLYCOL 3350 17 GM PACKET. PO SCH (08:45)
[2018-12-26] MEDS: FERROUS SULFATE 325 MG TABLET. PO SCH ×2 (08:46→16:41)
[2018-12-26] MEDS: CITALOPRAM 20 MG TABLET. PO SCH (08:46)
[2018-12-26] MEDS: DOCUSATE 100 MG/10 ML SOLUTION. PO SCH ×2 (08:46→20:35)
[2018-12-26] MEDS: GABAPENTIN 300 MG CAPSULE. PO SCH ×2 (08:46→20:35)
[2018-12-26] MEDS: ASCORBIC ACID 500 MG TABLET PO SCH ×2 (08:46→20:35)
[2018-12-26] MEDS: POTASSIUM CHLORIDE 20 MEQ TABLET.ER. PO SCH ×2 (08:46→16:41)
[2018-12-26] MEDS: ACYCLOVIR 200 MG CAPSULE. PO SCH ×2 (08:46→20:35)
[2018-12-26] MEDS: ENOXAPARIN 40 MG/0.4 ML SYRINGE. SQ SCH (08:47)
--- NOTE | 2018-12-26 09:10 | PDOC ---
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 H/o Pneumocystis jiroveci pneumonia./chronic cough H/o Clostridium difficile. Obstructive jaundice secondary to biliary compression by metastatic lymphadenopathy - Narc tolerant NArc induced constipation History of Present Illness History of Present Illness COnstipated Dtr at bedside She takes Morphine tabs at home before this dilaudid GANG MOWER OPERATOR Needed extra bolus dilaudid from GANG MOWER OPERATOR last night Eating liq tray, maybe half Interested in pursuing chemo with DR Rosemary Interiano LFTs trending down, labs look great post ERCP Procedure note i have reviewed Jaundice is less per dtr at bedside PLAN Ailint procalamoscar, olivia current IVF LFts coming down Interested in chemo as OP once recovers Current diet per GI Non toxic appearing, IV abx with ID on board MOM prn, supp prn - she is not too excited about BM - but she is way behind MIght even need relistor if no resolve I plan to start tapering dough catcher tmr, if she does not need extra boluses anymore dw dtr and Ms herminia PT recs home with family I did encourage ambulation Vitals Vitals Vital Signs Date Time Temp Pulse Resp B/P (MAP) Pulse Ox O2 Delivery O2 Flow Rate FiO2 12/26/18 08:52 90 Room Air 12/26/18 08:12 2.0 12/26/18 07:00 98.2 114 18 114/58 (76) 98.2 Physical Exam Physical Exam GENERAL: The patient is slightly propped up in bed and looks well in no apparent distress. HEENT: Pupils equally round and reactive. Sclerae icterus. Oropharynx pink and moist. No ulcers. LLE lip lesion ? from procedure - not typical of viral NECK: Supple. LUNGS: Diminished aeration. Nonlabored. HEART: S1, S2. ABDOMEN: Mildly distended, soft and tender mostly RUQ and epigastric area. EXTREMITIES: No gross edema or cyanosis. SKIN: Warm to touch, jaundice. NEUROLOGIC: Drowsy, but answering questions appropriately and following commands. Right-sided Port-A-Cath without signs of any complications. General: Cooperative, No acute distress Heart: Regular rate Lungs: Clear, Other Abdomen: Soft, No tenderness Extremities: No clubbing Skin: Other (jaundice) Labs LABS Laboratory Tests Test 12/26/18 04:00 White Blood Count 6.3 x10^3/uL (4.0-11.0) Red Blood Count 3.27 x10^6/uL (3.50-5.40) Hemoglobin 10.4 g/dL (12.0-15.5) Hematocrit 31.3 % (36.0-47.0) Mean Corpuscular Volume 96 fL (79-100) Mean Corpuscular Hemoglobin 32 pg (25-35) Mean Corpuscular Hemoglobin Concent 33 g/dL (31-37) Red Cell Distribution Width 17.8 % (11.5-14.5) Platelet Count 217 x10^3/uL (140-400) Neutrophils (%) (Auto) 80 % (31-73) Lymphocytes (%) (Auto) 13 % (24-48) Monocytes (%) (Auto) 6 % (0-9) Eosinophils (%) (Auto) 1 % (0-3) Basophils (%) (Auto) 0 % (0-3) Neutrophils # (Auto) 5.0 x10^3/uL (1.8-7.7) Lymphocytes # (Auto) 0.8 x10^3/uL (1.0-4.8) Monocytes # (Auto) 0.4 x10^3/uL (0.0-1.1) Eosinophils # (Auto) 0.1 x10^3/uL (0.0-0.7) Basophils # (Auto) 0.0 x10^3/uL (0.0-0.2) Sodium Level 137 mmol/L (136-145) Potassium Level 3.5 mmol/L (3.5-5.1) Chloride Level 101 mmol/L (98-107) Carbon Dioxide Level 29 mmol/L (21-32) Anion Gap 7 (6-14) Blood Urea Nitrogen 2 mg/dL (7-20) Creatinine 0.4 mg/dL (0.6-1.0) Estimated GFR (Cockcroft-Gault) 161.7 BUN/Creatinine Ratio 5 (6-20) Glucose Level 76 mg/dL (70-99) Calcium Level 8.2 mg/dL (8.5-10.1) Total Bilirubin 5.7 mg/dL (0.2-1.0) Aspartate Amino Transf (AST/SGOT) 103 U/L (15-37) Alanine Aminotransferase (ALT/SGPT) 117 U/L (14-59) Alkaline Phosphatase 839 U/L (46-116) Total Protein 5.0 g/dL (6.4-8.2) Albumin 1.7 g/dL (3.4-5.0) Albumin/Globulin Ratio 0.5 (1.0-1.7) Review of Systems Review of Systems constipated, weak but better, rest of 14 pt neg Comment Review of Relevant I have reviewed the following items erwin (where applicable) has been applied. Labs Laboratory Tests Test 12/24/18 10:00 12/25/18 06:00 12/26/18 04:00 Sodium Level 138 mmol/L (136-145) 137 mmol/L (136-145) 137 mmol/L (136-145) Potassium Level 3.3 mmol/L (3.5-5.1) 3.1 mmol/L (3.5-5.1) 3.5 mmol/L (3.5-5.1) Chloride Level 100 mmol/L (98-107) 99 mmol/L (98-107) 101 mmol/L (98-107) Carbon Dioxide Level 30 mmol/L (21-32) 27 mmol/L (21-32) 29 mmol/L (21-32) Anion Gap 8 (6-14) 11 (6-14) 7 (6-14) Blood Urea Nitrogen 2 mg/dL (7-20) 3 mg/dL (7-20) 2 mg/dL (7-20) Creatinine 0.4 mg/dL (0.6-1.0) 0.4 mg/dL (0.6-1.0) 0.4 mg/dL (0.6-1.0) Estimated GFR (Cockcroft-Gault) 161.7 161.7 161.7 Glucose Level 61 mg/dL (70-99) 65 mg/dL (70-99) 76 mg/dL (70-99) Calcium Level 8.4 mg/dL (8.5-10.1) 8.3 mg/dL (8.5-10.1) 8.2 mg/dL (8.5-10.1) White Blood Count 7.7 x10^3/uL (4.0-11.0) 6.3 x10^3/uL (4.0-11.0) Red Blood Count 3.44 x10^6/uL (3.50-5.40) 3.27 x10^6/uL (3.50-5.40) Hemoglobin 11.1 g/dL (12.0-15.5) 10.4 g/dL (12.0-15.5) Hematocrit 33.2 % (36.0-47.0) 31.3 % (36.0-47.0) Mean Corpuscular Volume 96 fL (79-100) 96 fL (79-100) Mean Corpuscular Hemoglobin 32 pg (25-35) 32 pg (25-35) Mean Corpuscular Hemoglobin Concent 34 g/dL (31-37) 33 g/dL (31-37) Red Cell Distribution Width 17.4 % (11.5-14.5) 17.8 % (11.5-14.5) Platelet Count 257 x10^3/uL (140-400) 217 x10^3/uL (140-400) Neutrophils (%) (Auto) 82 % (31-73) 80 % (31-73) Lymphocytes (%) (Auto) 11 % (24-48) 13 % (24-48) Monocytes (%) (Auto) 5 % (0-9) 6 % (0-9) Eosinophils (%) (Auto) 1 % (0-3) 1 % (0-3) Basophils (%) (Auto) 0 % (0-3) 0 % (0-3) Neutrophils # (Auto) 6.3 x10^3/uL (1.8-7.7) 5.0 x10^3/uL (1.8-7.7) Lymphocytes # (Auto) 0.9 x10^3/uL (1.0-4.8) 0.8 x10^3/uL (1.0-4.8) Monocytes # (Auto) 0.4 x10^3/uL (0.0-1.1) 0.4 x10^3/uL (0.0-1.1) Eosinophils # (Auto) 0.1 x10^3/uL (0.0-0.7) 0.1 x10^3/uL (0.0-0.7) Basophils # (Auto) 0.0 x10^3/uL (0.0-0.2) 0.0 x10^3/uL (0.0-0.2) BUN/Creatinine Ratio 8 (6-20) 5 (6-20) Total Bilirubin 6.5 mg/dL (0.2-1.0) 5.7 mg/dL (0.2-1.0) Aspartate Amino Transf (AST/SGOT) 117 U/L (15-37) 103 U/L (15-37) Alanine Aminotransferase (ALT/SGPT) 143 U/L (14-59) 117 U/L (14-59) Alkaline Phosphatase 912 U/L (46-116) 839 U/L (46-116) Total Protein 5.3 g/dL (6.4-8.2) 5.0 g/dL (6.4-8.2) Albumin 1.8 g/dL (3.4-5.0) 1.7 g/dL (3.4-5.0) Albumin/Globulin Ratio 0.5 (1.0-1.7) 0.5 (1.0-1.7) Amylase Level 14 U/L (25-115) Lipase 107 U/L (73-393) Laboratory Tests Test 12/26/18 04:00 White Blood Count 6.3 x10^3/uL (4.0-11.0) Red Blood Count 3.27 x10^6/uL (3.50-5.40) Hemoglobin 10.4 g/dL (12.0-15.5) Hematocrit 31.3 % (36.0-47.0) Mean Corpuscular Volume 96 fL (79-100) Mean Corpuscular Hemoglobin 32 pg (25-35) Mean Corpuscular Hemoglobin Concent 33 g/dL (31-37) Red Cell Distribution Width 17.8 % (11.5-14.5) Platelet Count 217 x10^3/uL (140-400) Neutrophils (%) (Auto) 80 % (31-73) Lymphocytes (%) (Auto) 13 % (24-48) Monocytes (%) (Auto) 6 % (0-9) Eosinophils (%) (Auto) 1 % (0-3) Basophils (%) (Auto) 0 % (0-3) Neutrophils # (Auto) 5.0 x10^3/uL (1.8-7.7) Lymphocytes # (Auto) 0.8 x10^3/uL (1.0-4.8) Monocytes # (Auto) 0.4 x10^3/uL (0.0-1.1) Eosinophils # (Auto) 0.1 x10^3/uL (0.0-0.7) Basophils # (Auto) 0.0 x10^3/uL (0.0-0.2) Sodium Level 137 mmol/L (136-145) Potassium Level 3.5 mmol/L (3.5-5.1) Chloride Level 101 mmol/L (98-107) Carbon Dioxide Level 29 mmol/L (21-32) Anion Gap 7 (6-14) Blood Urea Nitrogen 2 mg/dL (7-20) Creatinine 0.4 mg/dL (0.6-1.0) Estimated GFR (Cockcroft-Gault) 161.7 BUN/Creatinine Ratio 5 (6-20) Glucose Level 76 mg/dL (70-99) Calcium Level 8.2 mg/dL (8.5-10.1) Total Bilirubin 5.7 mg/dL (0.2-1.0) Aspartate Amino Transf (AST/SGOT) 103 U/L (15-37) Alanine Aminotransferase (ALT/SGPT) 117 U/L (14-59) Alkaline Phosphatase 839 U/L (46-116) Total Protein 5.0 g/dL (6.4-8.2) Albumin 1.7 g/dL (3.4-5.0) Albumin/Globulin Ratio 0.5 (1.0-1.7) Microbiology 12/22/18 Blood Culture - Preliminary, Resulted NO GROWTH AFTER 3 DAYS Medications Current Medications Morphine Sulfate (Morphine Sulfate) 5 mg 1X ONCE IV Last administered on 12/22/18at 10:00; Start 12/22/18 at 10:00; Stop 12/22/18 at 10:03; Status DC Naloxone HCl (Narcan) 0.4 mg PRN Q2MIN PRN IV SEE INSTRUCTIONS; Start 12/22/18 at 10:00 Sodium Chloride 1,000 ml @ 25 mls/hr Q24H IV Last administered on 12/22/18at 09:55; Start 12/22/18 at 09:55 Hydromorphone HCl 30 ml @ 0 mls/hr CONT PRN PRN IV PER PROTOCOL Last administered on 12/26/18at 08:12; Start 12/22/18 at 10:00 Sodium Chloride (Normal Saline Flush) 3 ml QSHIFT PRN IV AFTER MEDS AND BLOOD DRAWS; Start 12/22/18 at 11:30 Sodium Chloride 1,000 ml @ 100 mls/hr Q10H IV Last administered on 12/26/18 05:39; Start 12/22/18 at 13:00; Stop 12/26/18 at 08:16; Status DC Ondansetron HCl (Zofran) 4 mg PRN Q4HRS PRN IVP NAUSEA/VOMITING Last administered on 12/24/18at 16:05; Start 12/22/18 at 11:30 Acetaminophen (Tylenol Supp) 650 mg PRN Q4HRS PRN NM TEMP OVER 100.4F OR MILD PAIN Last administered on 12/23/18at 03:47; Start 12/22/18 at 11:30 Clonidine HCl (Catapres) 0.1 mg PRN Q6HRS PRN PO SBP>160 OR DBP>90; Start 12/22/18 at 11:30 Albuterol/ Ipratropium (Duoneb) 3 ml Q4H NEB Last administered on 12/26/18at 07:51; Start 12/22/18 at 12:00 Lorazepam (Ativan) 0.5 mg PRN Q4HRS PRN PO ANXIETY / AGITATION; Start 12/22/18 at 11:30 Enoxaparin Sodium (Lovenox 40mg Syringe) 40 mg DAILY SQ ; Start 12/23/18 at 09:0 0; Stop 12/22/18 at 16:29; Status DC Piperacillin Sod/ Tazobactam Sod 3.375 gm/Sodium Chloride 50 ml @ 100 mls/hr Q6HRS IV Last administered on 12/26/18 05:39; Start 12/22/18 at 12:00 Ascorbic Acid (Vitamin C) 500 mg BID PO Last administered on 12/26/18 08:46; Start 12/22/18 at 21:00 Ferrous Sulfate (Feosol) 325 mg BIDWMEALS PO Last administered on 12/26/18 08:46; Start 12/22/18 at 17:00 Gabapentin (Neurontin) 300 mg BID PO Last administered on 12/26/18 08:46; Start 12/22/18 at 21:00 Acyclovir (Zovirax) 400 mg BID PO Last administered on 12/26/18 08:46; Start 12/22/18 at 21:00 Non-Formulary Medication (Alpha Lipoic Acid ) 600 mg BID PO ; Start 12/22/18 at 21:00; Status UNV Citalopram Hydrobromide (CeleXA) 20 mg DAILY PO Last administered on 12/26/18 08:46; Start 12/23/18 at 09:00 Non-Formulary Medication (Lactobacillus Rhamnosus Gg (Culturelle)) 1 each BID PO ; Start 12/22/18 at 21:00; Status UNV Potassium Chloride/Water 100 ml @ 100 mls/hr Q1H IV Last administered on 12/23/18at 08:15; Start 12/23/18 at 06:15; Stop 12/23/18 at 09:14; Status DC Polyethylene Glycol (miraLAX PACKET) 17 gm DAILY PO Last administered on 12/26/18at 08:45; Start 12/23/18 at 14:45 Docusate Sodium (Colace Solution) 100 mg BID PO Last administered on 12/26/18 08:46; Start 12/23/18 at 14:45 Bisacodyl (Dulcolax Supp) 10 mg PRN DAILY PRN NM CONSTIPATION; Start 12/23/18 at 14:45 Acetaminophen (Tylenol) 500 mg PRN Q6HRS PRN PO MILD PAIN / TEMP; Start 12/24/18 at 09:00 Oxycodone/ Acetaminophen (Percocet 5/325) 1 tab PRN Q4HRS PRN PO MODERATE PAIN; Start 12/24/18 at 09:00 Lidocaine HCl (Lidocaine Pf 2% Vial) 5 ml STK-MED ONCE .ROUTE ; Start 12/24/18 at 09:38; Stop 12/24/18 at 09:39; Status DC Propofol 20 ml @ As Directed STK-MED ONCE IV ; Start 12/24/18 at 09:38; Stop at 09:39; Status DC Succinylcholine Chloride (Anectine) 200 mg STK-MED ONCE .ROUTE ; Start 12/24/18 at 09:38; Stop 12/24/18 at 09:39; Status DC Ondansetron HCl (Zofran) 4 mg STK-MED ONCE .ROUTE ; Start 12/24/18 at 09:39; Stop 12/24/18 at 09:39; Status DC Glycopyrrolate (Robinul) 1 mg STK-MED ONCE .ROUTE ; Start 12/24/18 at 09:39; Stop 12/24/18 at 09:39; Status DC Rocuronium [place] (Zemuron) 50 mg STK-MED ONCE .ROUTE ; Start 12/24/18 at 09:49; Stop 12/24/18 at 09:50; Status DC Propofol 20 ml @ As Directed STK-MED ONCE IV ; Start 12/24/18 at 09:52; Stop 12/24/18 at 09:52; Status DC Lidocaine HCl (Lidocaine Pf 2% Vial) 5 ml STK-MED ONCE .ROUTE ; Start 12/24/18 at 09:52; Stop 12/24/18 at 09:52; Status DC Hydromorphone HCl (Dilaudid Standard GANG MOWER OPERATOR) 12 mg STK-MED ONCE IV ; Start 12/22/18 at 12:00; Stop 12/24/18 at 10:33; Status DC Hydromorphone HCl (Dilaudid Standard GANG MOWER OPERATOR) 12 mg STK-MED ONCE IV ; Start 12/23/18 at 12:20; Stop 12/24/18 at 10:34; Status DC Midazolam HCl (Versed) 2 mg PRN 1X PRN IV PRIOR TO PROCEDURE; Start 12/24/18 at 10:45; Stop 12/25/18 at 10:44; Status DC Fentanyl Citrate (Fentanyl 2ml Vial) 25 mcg PRN Q5MIN PRN IV X 2 DOSES FOR PAIN; Start 12/24/18 at 10:45; Stop 12/25/18 at 10:44; Status DC Fentanyl Citrate (Fentanyl 2ml Vial) 50 mcg PRN Q5MIN PRN IV X 2 DOSES FOR PAIN; Start 12/24/18 at 10:45; Stop 12/25/18 at 10:44; Status DC Ringer's Solution 1,000 ml @ 125 mls/hr Q8H IV Last administered on 12/24/18at 11:46; Start 12/24/18 at 10:38; Stop 12/24/18 at 22:37; Status DC Lidocaine HCl (Xylocaine-Mpf 1% 2ml Vial) 2 ml 1X PRN PRN ID IV START; Start 12/24/18 at 10:45; Stop 12/25/18 at 10:44; Status DC Iohexol (Omnipaque 300 Mg/ml) 100 ml STK-MED ONCE .ROUTE ; Start 12/24/18 at 12:04; Stop 12/24/18 at 12:04; Status DC Influenza Virus Vaccine Quadrival (Afluria Quad 2019-20 (3yr Up) Syringe) 0.5 ml ONCE ONCE VAX IM Last administered on 12/25/18at 09:42; Start 12/25/18 at 09:00; Stop 12/25/18 at 09:01; Status DC Potassium Chloride (Klor-Con) 40 meq BIDWMEALS PO Last administered on 12/26/18at 08:46; Start 12/25/18 at 08:45 Zolpidem Tartrate (Ambien) 5 mg PRN QHS PRN PO INSOMNIA; Start 12/25/18 at 08:45 Calcium Carbonate/ Glycine (Tums) 500 mg PRN AFTMEALHC PRN PO INDIGESTION; Start 12/25/18 at 08:45 Enoxaparin Sodium (Lovenox 40mg Syringe) 40 mg Q24H SQ Last administered on 12/26/18at 08:47; Start 12/25/18 at 10:00 Hydromorphone HCl (Dilaudid Standard [employer]) 12 mg STK-MED ONCE IV ; Start 12/24/18 at 22:58; Stop 12/25/18 at 11:34; Status DC Amino Acids/ Glycerin/ Electrolytes 1,000 ml @ 80 mls/hr [id number] IV Last administered on 12/26/18at 08:44; Start 12/26/18 at 08:15 Active Scripts Active Ascorbic Acid 500 Mg Tablet 500 Mg PO BID 30 Days Ferrous Sulfate 325 Mg Tablet 1 Tab PO BID 30 Days Reported Imodium A-D (Loperamide HCl) 2 Mg Capsule 2 Mg PO PRN Q4HRS PRN Alpha Lipoic Acid 600 Mg Capsule 600 Mg PO BID Ambien (Zolpidem Tartrate) 5 Mg Tablet 5 Mg PO PRN QHS PRN Gabapentin (Gabapentin) 300 Mg Capsule 300 Mg PO BID Escitalopram Oxalate 10 Mg Tablet 1 Tab PO DAILY Acyclovir 400 Mg Tablet 1 Tab PO BID Temazepam 15 Mg Capsule 1 Cap PO QHS Eliquis (Apixaban) 5 Mg Tablet 5 Mg PO BID 60 Days Culturelle (Lactobacillus Rhamnosus Gg) 1 Each Capsule 1 Each PO BID Vitals/I & O Vital Sign - Last 24 Hours 12/25/18 12/25/18 12/25/18 12/25/18 11:00 11:25 15:00 15:32 Temp 97.5 98.7 97.5 98.7 Pulse 97 102 Resp 18 18 B/P (MAP) 121/68 (85) 132/60 (84) Pulse Ox 94 92 O2 Delivery Nasal Cannula Room Air Nasal Cannula Room Air O2 Flow Rate 1.0 1.0 12/25/18 12/25/18 12/25/18 12/25/18 19:00 19:45 20:04 23:00 Temp 98.1 98.5 98.1 98.5 Pulse 95 101 Resp 16 16 B/P (MAP) 122/71 (88) 133/72 (92) Pulse Ox 91 93 92 O2 Delivery Room Air Room Air 12/26/18 12/26/18 12/26/18 12/26/18 00:26 03:00 03:53 07:00 Temp 98.9 98.2 98.9 98.2 Pulse 104 114 Resp 16 18 B/P (MAP) 121/65 (83) 114/58 (76) Pulse Ox 93 90 O2 Delivery Nasal Cannula Nasal Cannula Nasal Cannula O2 Flow Rate 2.0 2.0 1.0 12/26/18 12/26/18 12/26/18 12/26/18 07:34 07:51 08:12 08:52 Pulse Ox 90 O2 Delivery Room Air Nasal Cannula Nasal Cannula Room Air O2 Flow Rate 2.0 2.0 Intake and Output 12/25/18 12/25/18 12/26/18 14:59 22:59 06:59 Intake Total 360 ml 2400 ml 590 ml Balance 360 ml 2400 ml 590 ml RUSS BETANCOURT MD Dec 26, 2018 09:10
[2018-12-26] MEDS ORDERED: BISACODYL 10 MG SUPP.RECT. PR PRN (09:15)
--- NOTE | 2018-12-26 09:53 | PDOC ---
SUBJECTIVE Subjective S: Bilirubin down, no BM in 7 days, in pain O: Physical exam: Gen.: Thin 60s female, resting in bed Lungs: Breathing with nasal cannula O2 Skin: Still slightly jaundiced Psychiatric: Pleasant mood and affect Labs: T bili 5.7, Hb 10.4, Cr 0.4 Rads: ERCP with stent completed 24 December Chest x-ray with coarse interstitial bilateral opacities left greater than right Assessment and Plan: Ms New is a 63-year-old female with aggressive metastatic colon cancer who had unfortunate suspected PJP pneumonia for which she was treated in November and has had declining functional status and progressive disease while being off chemotherapy admitted with worsening of abdominal pain and suggestion of cholangitis on MRCP with extrinsic compression of bile ducts as well with hyperbilirubinemia. Bilirubin has improved post-ERCP stenting on 24 December. Hyperbilirubinemia: improving post stent, rec following qday, can restart chemo based on functional status once bili <3 Metastatic colon cancer: Chemotherapy on hold with elevated bili however based on improvement may be a candidate for restarting chemotherapy, appreciate Ms Sarmiento helping with pain control and palliative care options at home, transition pain meds to home regimen as able (she'd like to have a BM first), apprec Ms Sarmiento's assistance Hypokalemia: Deferred to primary, on PPN while here History of DVT: Lovenox prophylaxis since stent completed Constipation: prn's, may add Cscope prep 1 c at a time prn? she doesn't want now and doesn't like mag citrate, will add lubiprostone bid, dosed for child rizo B hypoxia: may need O2 for home? Thank you kindly and please do not hesitate to call with questions, I will return on Monday but am avail for ?s in the interim. OBJECTIVE Vital Signs Vital Signs Date Time Temp Pulse Resp B/P (MAP) Pulse Ox O2 Delivery O2 Flow Rate FiO2 12/26/18 08:52 90 Room Air 12/26/18 08:12 Nasal Cannula 2.0 12/26/18 07:51 Nasal Cannula 2.0 12/26/18 07:34 Room Air 12/26/18 07:00 98.2 114 18 114/58 (76) 90 Nasal Cannula 1.0 98.2 12/26/18 03:53 Nasal Cannula 2.0 12/26/18 03:00 98.9 104 16 121/65 (83) 93 98.9 12/26/18 00:26 Nasal Cannula 2.0 12/25/18 23:00 98.5 101 16 133/72 (92) 92 98.5 12/25/18 20:04 93 Room Air 12/25/18 19:45 Room Air 12/25/18 19:00 98.1 95 16 122/71 (88) 91 98.1 12/25/18 15:32 Room Air 12/25/18 15:00 98.7 102 18 132/60 (84) 92 Nasal Cannula 1.0 98.7 12/25/18 11:25 Room Air 12/25/18 11:00 97.5 97 18 121/68 (85) 94 Nasal Cannula 1.0 97.5 I & O Intake and Output 12/26/18 07:00 Intake Total 3350 ml Balance 3350 ml Intake Oral 1100 ml IV Total 2250 ml # Voids 4 COMMENT Lab Laboratory Tests Test 12/26/18 04:00 White Blood Count 6.3 x10^3/uL (4.0-11.0) Red Blood Count 3.27 x10^6/uL (3.50-5.40) Hemoglobin 10.4 g/dL (12.0-15.5) Hematocrit 31.3 % (36.0-47.0) Mean Corpuscular Volume 96 fL (79-100) Mean Corpuscular Hemoglobin 32 pg (25-35) Mean Corpuscular Hemoglobin Concent 33 g/dL (31-37) Red Cell Distribution Width 17.8 % (11.5-14.5) Platelet Count 217 x10^3/uL (140-400) Neutrophils (%) (Auto) 80 % (31-73) Lymphocytes (%) (Auto) 13 % (24-48) Monocytes (%) (Auto) 6 % (0-9) Eosinophils (%) (Auto) 1 % (0-3) Basophils (%) (Auto) 0 % (0-3) Neutrophils # (Auto) 5.0 x10^3/uL (1.8-7.7) Lymphocytes # (Auto) 0.8 x10^3/uL (1.0-4.8) Monocytes # (Auto) 0.4 x10^3/uL (0.0-1.1) Eosinophils # (Auto) 0.1 x10^3/uL (0.0-0.7) Basophils # (Auto) 0.0 x10^3/uL (0.0-0.2) Sodium Level 137 mmol/L (136-145) Potassium Level 3.5 mmol/L (3.5-5.1) Chloride Level 101 mmol/L (98-107) Carbon Dioxide Level 29 mmol/L (21-32) Anion Gap 7 (6-14) Blood Urea Nitrogen 2 mg/dL (7-20) Creatinine 0.4 mg/dL (0.6-1.0) Estimated GFR (Cockcroft-Gault) 161.7 BUN/Creatinine Ratio 5 (6-20) Glucose Level 76 mg/dL (70-99) Calcium Level 8.2 mg/dL (8.5-10.1) Total Bilirubin 5.7 mg/dL (0.2-1.0) Aspartate Amino Transf (AST/SGOT) 103 U/L (15-37) Alanine Aminotransferase (ALT/SGPT) 117 U/L (14-59) Alkaline Phosphatase 839 U/L (46-116) Total Protein 5.0 g/dL (6.4-8.2) Albumin 1.7 g/dL (3.4-5.0) Albumin/Globulin Ratio 0.5 (1.0-1.7) MAYRA TORRES MD Dec 26, 2018 09:53
[2018-12-26] MEDS: LUBIPROSTONE 8 MCG CAPSULE PO SCH ×2 (10:10→16:41)
--- NOTE | 2018-12-26 10:33 | NUR ---
Patients daughter observed fentanyl 12mcg patch on patients right arm, no initials or date on patch. Low Heel Builder investigated EMAR and no patch has been applied during this visit, verified with pharmacy. Wasted patch in medication room sharps container with SOFY Caldwell. [facility] medication waste documented.
[2018-12-26 11:00] VITALS: BP 104/49
--- NOTE | 2018-12-26 11:32 | PDOC ---
Infectious Disease Note Subjective Subjective Doing ok. desats some with ambulation and throat is dry but ok No F/C/S/n/V + Constipation pain ok ROS ROS o/w neg Vital Sign Vital Signs Vital Signs Date Time Temp Pulse Resp B/P (MAP) Pulse Ox O2 Delivery O2 Flow Rate FiO2 12/26/18 11:00 98.2 104 18 104/49 (67) 90 Nasal Cannula 1.0 98.2 Physical Exam PHYSICAL EXAM GENERAL: The patient is slightly propped up in bed and looks well in no apparent distress. HEENT: Pupils equally round and reactive. Sclerae icterus. Oropharynx pink and moist. No ulcers. LLE lip lesion ? from procedure - resolved NECK: Supple. LUNGS: Diminished aeration. Nonlabored. HEART: S1, S2. ABDOMEN: Not distended, soft + BS EXTREMITIES: No gross edema or cyanosis. SKIN: Warm to touch, jaundice. NEUROLOGIC: Drowsy, but answering questions appropriately and following commands. Right-sided Port-A-Cath without signs of any complications. Labs Lab Laboratory Tests Test 12/26/18 04:00 White Blood Count 6.3 x10^3/uL (4.0-11.0) Red Blood Count 3.27 x10^6/uL (3.50-5.40) Hemoglobin 10.4 g/dL (12.0-15.5) Hematocrit 31.3 % (36.0-47.0) Mean Corpuscular Volume 96 fL (79-100) Mean Corpuscular Hemoglobin 32 pg (25-35) Mean Corpuscular Hemoglobin Concent 33 g/dL (31-37) Red Cell Distribution Width 17.8 % (11.5-14.5) Platelet Count 217 x10^3/uL (140-400) Neutrophils (%) (Auto) 80 % (31-73) Lymphocytes (%) (Auto) 13 % (24-48) Monocytes (%) (Auto) 6 % (0-9) Eosinophils (%) (Auto) 1 % (0-3) Basophils (%) (Auto) 0 % (0-3) Neutrophils # (Auto) 5.0 x10^3/uL (1.8-7.7) Lymphocytes # (Auto) 0.8 x10^3/uL (1.0-4.8) Monocytes # (Auto) 0.4 x10^3/uL (0.0-1.1) Eosinophils # (Auto) 0.1 x10^3/uL (0.0-0.7) Basophils # (Auto) 0.0 x10^3/uL (0.0-0.2) Sodium Level 137 mmol/L (136-145) Potassium Level 3.5 mmol/L (3.5-5.1) Chloride Level 101 mmol/L (98-107) Carbon Dioxide Level 29 mmol/L (21-32) Anion Gap 7 (6-14) Blood Urea Nitrogen 2 mg/dL (7-20) Creatinine 0.4 mg/dL (0.6-1.0) Estimated GFR (Cockcroft-Gault) 161.7 BUN/Creatinine Ratio 5 (6-20) Glucose Level 76 mg/dL (70-99) Calcium Level 8.2 mg/dL (8.5-10.1) Total Bilirubin 5.7 mg/dL (0.2-1.0) Aspartate Amino Transf (AST/SGOT) 103 U/L (15-37) Alanine Aminotransferase (ALT/SGPT) 117 U/L (14-59) Alkaline Phosphatase 839 U/L (46-116) Total Protein 5.0 g/dL (6.4-8.2) Albumin 1.7 g/dL (3.4-5.0) Albumin/Globulin Ratio 0.5 (1.0-1.7) Micro CXR 12/24 Increase in coarse interstitial bilateral perihilar opacities, left greater than right. Interstitial pneumonitis is a primary consideration. Recommend follow-up to resolution. Microbiology 12/22/18 Blood Culture - Preliminary, Resulted NO GROWTH AFTER 2 DAYS Objective Assessment Ascending cholangitis Obstructive jaundice s/p ERCP 12/24 Immunosuppression d/t chemotherapy Colon cancer with metastasis Recently h/o treated for PJP, off Bactrim h/o C. diff CXR reviewed but clinically better Plan Plan of Care D/w Dr. Perea, no surgical plans Continue Zosyn and f/u on clinical improvement Incentive spirometry Constipation relief Monitor labs Pain management per primary Hoping to continue chemo DEMI DUKE MD Dec 26, 2018 11:32
[2018-12-26] MEDS ORDERED: POLYETHYLENE GLYCOL 3350 17 GM PACKET. PO PRN (12:45)
--- NOTE | 2018-12-26 12:45 | PDOC ---
Subjective: Subjective: Trying to eat yogurt - no appetite. Abd pain is the same. Hasn't stooled for awhile. Objective: Vital Signs: Vital Signs Date Time Temp Pulse Resp B/P (MAP) Pulse Ox O2 Delivery O2 Flow Rate FiO2 12/26/18 11:51 Nasal Cannula 2.0 12/26/18 11:00 98.2 104 18 104/49 (67) 90 98.2 Labs: Laboratory Tests Test 12/26/18 04:00 White Blood Count 6.3 x10^3/uL Red Blood Count 3.27 x10^6/uL Hemoglobin 10.4 g/dL Hematocrit 31.3 % Mean Corpuscular Volume 96 fL Mean Corpuscular Hemoglobin 32 pg Mean Corpuscular Hemoglobin Concent 33 g/dL Red Cell Distribution Width 17.8 % Platelet Count 217 x10^3/uL Neutrophils (%) (Auto) 80 % Lymphocytes (%) (Auto) 13 % Monocytes (%) (Auto) 6 % Eosinophils (%) (Auto) 1 % Basophils (%) (Auto) 0 % Neutrophils # (Auto) 5.0 x10^3/uL Lymphocytes # (Auto) 0.8 x10^3/uL Monocytes # (Auto) 0.4 x10^3/uL Eosinophils # (Auto) 0.1 x10^3/uL Basophils # (Auto) 0.0 x10^3/uL Sodium Level 137 mmol/L Potassium Level 3.5 mmol/L Chloride Level 101 mmol/L Carbon Dioxide Level 29 mmol/L Anion Gap 7 Blood Urea Nitrogen 2 mg/dL Creatinine 0.4 mg/dL Estimated GFR (Cockcroft-Gault) 161.7 BUN/Creatinine Ratio 5 Glucose Level 76 mg/dL Calcium Level 8.2 mg/dL Total Bilirubin 5.7 mg/dL Aspartate Amino Transf (AST/SGOT) 103 U/L Alanine Aminotransferase (ALT/SGPT) 117 U/L Alkaline Phosphatase 839 U/L Total Protein 5.0 g/dL Albumin 1.7 g/dL Albumin/Globulin Ratio 0.5 BLOOD CULTURE Preliminary NO GROWTH AFTER 3 DAYS PE: GEN: NAD LUNGS: NC HEART: RR ABD: heating pad NEURO/PSYCH: A & O 3 A/P: Metastatic colon cancer Obstructive jaundice - bili improved s/p ERCP/stent Anorexia, constipation -- Has many options for constipation - can adjust as needed - add Miralax, consider Relistor. RAFFI TYLER Dec 26, 2018 12:45
--- NOTE | 2018-12-26 13:05 | PDOC ---
SURGICAL PROGRESS NOTE Subjective about the same still has pain Vital Signs Vital Signs Date Time Temp Pulse Resp B/P (MAP) Pulse Ox O2 Delivery O2 Flow Rate FiO2 12/26/18 11:51 Nasal Cannula 2.0 12/26/18 11:00 98.2 104 18 104/49 (67) 90 98.2 I&O Intake and Output 12/26/18 07:00 Intake Total 3350 ml Balance 3350 ml Intake Oral 1100 ml IV Total 2250 ml # Voids 4 PATIENT HAS A YEH: No Skin: Other (a little less jaundiced) Labs Laboratory Tests Test 12/25/18 06:00 12/26/18 04:00 White Blood Count 7.7 x10^3/uL (4.0-11.0) 6.3 x10^3/uL (4.0-11.0) Red Blood Count 3.44 x10^6/uL (3.50-5.40) 3.27 x10^6/uL (3.50-5.40) Hemoglobin 11.1 g/dL (12.0-15.5) 10.4 g/dL (12.0-15.5) Hematocrit 33.2 % (36.0-47.0) 31.3 % (36.0-47.0) Mean Corpuscular Volume 96 fL (79-100) 96 fL (79-100) Mean Corpuscular Hemoglobin 32 pg (25-35) 32 pg (25-35) Mean Corpuscular Hemoglobin Concent 34 g/dL (31-37) 33 g/dL (31-37) Red Cell Distribution Width 17.4 % (11.5-14.5) 17.8 % (11.5-14.5) Platelet Count 257 x10^3/uL (140-400) 217 x10^3/uL (140-400) Neutrophils (%) (Auto) 82 % (31-73) 80 % (31-73) Lymphocytes (%) (Auto) 11 % (24-48) 13 % (24-48) Monocytes (%) (Auto) 5 % (0-9) 6 % (0-9) Eosinophils (%) (Auto) 1 % (0-3) 1 % (0-3) Basophils (%) (Auto) 0 % (0-3) 0 % (0-3) Neutrophils # (Auto) 6.3 x10^3/uL (1.8-7.7) 5.0 x10^3/uL (1.8-7.7) Lymphocytes # (Auto) 0.9 x10^3/uL (1.0-4.8) 0.8 x10^3/uL (1.0-4.8) Monocytes # (Auto) 0.4 x10^3/uL (0.0-1.1) 0.4 x10^3/uL (0.0-1.1) Eosinophils # (Auto) 0.1 x10^3/uL (0.0-0.7) 0.1 x10^3/uL (0.0-0.7) Basophils # (Auto) 0.0 x10^3/uL (0.0-0.2) 0.0 x10^3/uL (0.0-0.2) Sodium Level 137 mmol/L (136-145) 137 mmol/L (136-145) Potassium Level 3.1 mmol/L (3.5-5.1) 3.5 mmol/L (3.5-5.1) Chloride Level 99 mmol/L (98-107) 101 mmol/L (98-107) Carbon Dioxide Level 27 mmol/L (21-32) 29 mmol/L (21-32) Anion Gap 11 (6-14) 7 (6-14) Blood Urea Nitrogen 3 mg/dL (7-20) 2 mg/dL (7-20) Creatinine 0.4 mg/dL (0.6-1.0) 0.4 mg/dL (0.6-1.0) Estimated GFR (Cockcroft-Gault) 161.7 161.7 BUN/Creatinine Ratio 8 (6-20) 5 (6-20) Glucose Level 65 mg/dL (70-99) 76 mg/dL (70-99) Calcium Level 8.3 mg/dL (8.5-10.1) 8.2 mg/dL (8.5-10.1) Total Bilirubin 6.5 mg/dL (0.2-1.0) 5.7 mg/dL (0.2-1.0) Aspartate Amino Transf (AST/SGOT) 117 U/L (15-37) 103 U/L (15-37) Alanine Aminotransferase (ALT/SGPT) 143 U/L (14-59) 117 U/L (14-59) Alkaline Phosphatase 912 U/L (46-116) 839 U/L (46-116) Total Protein 5.3 g/dL (6.4-8.2) 5.0 g/dL (6.4-8.2) Albumin 1.8 g/dL (3.4-5.0) 1.7 g/dL (3.4-5.0) Albumin/Globulin Ratio 0.5 (1.0-1.7) 0.5 (1.0-1.7) Amylase Level 14 U/L (25-115) Lipase 107 U/L (73-393) Laboratory Tests Test 12/26/18 04:00 White Blood Count 6.3 x10^3/uL (4.0-11.0) Red Blood Count 3.27 x10^6/uL (3.50-5.40) Hemoglobin 10.4 g/dL (12.0-15.5) Hematocrit 31.3 % (36.0-47.0) Mean Corpuscular Volume 96 fL (79-100) Mean Corpuscular Hemoglobin 32 pg (25-35) Mean Corpuscular Hemoglobin Concent 33 g/dL (31-37) Red Cell Distribution Width 17.8 % (11.5-14.5) Platelet Count 217 x10^3/uL (140-400) Neutrophils (%) (Auto) 80 % (31-73) Lymphocytes (%) (Auto) 13 % (24-48) Monocytes (%) (Auto) 6 % (0-9) Eosinophils (%) (Auto) 1 % (0-3) Basophils (%) (Auto) 0 % (0-3) Neutrophils # (Auto) 5.0 x10^3/uL (1.8-7.7) Lymphocytes # (Auto) 0.8 x10^3/uL (1.0-4.8) Monocytes # (Auto) 0.4 x10^3/uL (0.0-1.1) Eosinophils # (Auto) 0.1 x10^3/uL (0.0-0.7) Basophils # (Auto) 0.0 x10^3/uL (0.0-0.2) Sodium Level 137 mmol/L (136-145) Potassium Level 3.5 mmol/L (3.5-5.1) Chloride Level 101 mmol/L (98-107) Carbon Dioxide Level 29 mmol/L (21-32) Anion Gap 7 (6-14) Blood Urea Nitrogen 2 mg/dL (7-20) Creatinine 0.4 mg/dL (0.6-1.0) Estimated GFR (Cockcroft-Gault) 161.7 BUN/Creatinine Ratio 5 (6-20) Glucose Level 76 mg/dL (70-99) Calcium Level 8.2 mg/dL (8.5-10.1) Total Bilirubin 5.7 mg/dL (0.2-1.0) Aspartate Amino Transf (AST/SGOT) 103 U/L (15-37) Alanine Aminotransferase (ALT/SGPT) 117 U/L (14-59) Alkaline Phosphatase 839 U/L (46-116) Total Protein 5.0 g/dL (6.4-8.2) Albumin 1.7 g/dL (3.4-5.0) Albumin/Globulin Ratio 0.5 (1.0-1.7) Assessment/Plan metastatic colon cancer biliary obstruction continue supportive care no new surg recs COLEEN ALVES MD Dec 26, 2018 13:05
--- NOTE | 2018-12-26 13:11 | NUR ---
SS following up with discharge planning. PT/OT recommended home with assistance. SS will continue to follow for discharge planning.
[2018-12-26 15:00] VITALS: BP 124/67
[2018-12-26] MEDS: LORazepam 0.5 MG TABLET PO PRN ×2 (15:49→20:36)
[2018-12-26] MEDS: MAGNESIUM HYDROXIDE 2,400 MG/30 ML ORAL.SUSP. PO PRN (16:41)
[2018-12-26 19:00] VITALS: BP 125/67
[2018-12-26 23:00] VITALS: BP 133/69
[2018-12-27] MEDS: PIPERACILLIN/TAZOBACTAM 3.375 GM in IV NORMAL SALINE 50ML 50 ML IV SCH ×4 (00:43→16:12)
[2018-12-27 03:00] VITALS: BP 120/67
[2018-12-27] MEDS: IPRATRPIUM/ALBUTEROL 0.5/2.5MG 3 ML NEBU. NEB SCH ×5 (03:31→19:51)
[2018-12-27] MEDS: IV NORMAL SALINE 1000ML BAG 1,000 ML IV SCH ×2 (06:57→10:03)
[2018-12-27 07:00] VITALS: BP 118/52
[2018-12-27] MEDS: POLYETHYLENE GLYCOL 3350 17 GM PACKET. PO SCH (07:38)
[2018-12-27] MEDS: POTASSIUM CHLORIDE 20 MEQ TABLET.ER. PO SCH ×2 (07:39→16:12)
[2018-12-27] MEDS: ASCORBIC ACID 500 MG TABLET PO SCH ×2 (07:39→20:28)
[2018-12-27] MEDS: DOCUSATE 100 MG/10 ML SOLUTION. PO SCH ×2 (07:39→20:28)
[2018-12-27] MEDS: LUBIPROSTONE 8 MCG CAPSULE PO SCH ×2 (07:39→16:11)
[2018-12-27] MEDS: GABAPENTIN 300 MG CAPSULE. PO SCH ×2 (07:39→20:29)
[2018-12-27] MEDS: FERROUS SULFATE 325 MG TABLET. PO SCH ×2 (07:40→16:11)
[2018-12-27] MEDS: CITALOPRAM 20 MG TABLET. PO SCH (07:40)
[2018-12-27] MEDS: ENOXAPARIN 40 MG/0.4 ML SYRINGE. SQ SCH (07:40)
[2018-12-27] MEDS: ACYCLOVIR 200 MG CAPSULE. PO SCH ×2 (07:40→20:29)
[2018-12-27] MEDS: AMINO AC 3%/ELECTROLYTE/GLYCER 1,000 ML IV SCH ×2 (07:41→20:27)
[2018-12-27] MEDS ORDERED: HYDROmorphone 2 MG/ML VIAL IVP PRN (08:30)
--- NOTE | 2018-12-27 08:40 | PDOC ---
ROGER PATINO [employer]IS[employer] 12/27/18 0840: SURGICAL PROGRESS NOTE Subjective up to chair having breakfast Vital Signs Vital Signs Date Time Temp Pulse Resp B/P (MAP) Pulse Ox O2 Delivery O2 Flow Rate FiO2 12/27/18 07:29 90 Room Air 12/27/18 07:00 97.5 116 18 118/52 (74) 97.5 12/27/18 03:00 2.0 I&O Intake and Output 12/27/18 07:00 Intake Total 0 ml Balance 0 ml Intake Oral 0 ml # Voids 6 General: Cooperative, Other (jaundice improved) Abdomen: Soft Labs Laboratory Tests Test 12/26/18 04:00 White Blood Count 6.3 x10^3/uL (4.0-11.0) Red Blood Count 3.27 x10^6/uL (3.50-5.40) Hemoglobin 10.4 g/dL (12.0-15.5) Hematocrit 31.3 % (36.0-47.0) Mean Corpuscular Volume 96 fL (79-100) Mean Corpuscular Hemoglobin 32 pg (25-35) Mean Corpuscular Hemoglobin Concent 33 g/dL (31-37) Red Cell Distribution Width 17.8 % (11.5-14.5) Platelet Count 217 x10^3/uL (140-400) Neutrophils (%) (Auto) 80 % (31-73) Lymphocytes (%) (Auto) 13 % (24-48) Monocytes (%) (Auto) 6 % (0-9) Eosinophils (%) (Auto) 1 % (0-3) Basophils (%) (Auto) 0 % (0-3) Neutrophils # (Auto) 5.0 x10^3/uL (1.8-7.7) Lymphocytes # (Auto) 0.8 x10^3/uL (1.0-4.8) Monocytes # (Auto) 0.4 x10^3/uL (0.0-1.1) Eosinophils # (Auto) 0.1 x10^3/uL (0.0-0.7) Basophils # (Auto) 0.0 x10^3/uL (0.0-0.2) Sodium Level 137 mmol/L (136-145) Potassium Level 3.5 mmol/L (3.5-5.1) Chloride Level 101 mmol/L (98-107) Carbon Dioxide Level 29 mmol/L (21-32) Anion Gap 7 (6-14) Blood Urea Nitrogen 2 mg/dL (7-20) Creatinine 0.4 mg/dL (0.6-1.0) Estimated GFR (Cockcroft-Gault) 161.7 BUN/Creatinine Ratio 5 (6-20) Glucose Level 76 mg/dL (70-99) Calcium Level 8.2 mg/dL (8.5-10.1) Total Bilirubin 5.7 mg/dL (0.2-1.0) Aspartate Amino Transf (AST/SGOT) 103 U/L (15-37) Alanine Aminotransferase (ALT/SGPT) 117 U/L (14-59) Alkaline Phosphatase 839 U/L (46-116) Total Protein 5.0 g/dL (6.4-8.2) Albumin 1.7 g/dL (3.4-5.0) Albumin/Globulin Ratio 0.5 (1.0-1.7) Assessment/Plan stable no surgical plans COLEEN ALVES MD 12/27/18 1124: SURGICAL PROGRESS NOTE Assessment/Plan pt seen daughter at bedside d/w Dr Escobedo will sign off please call if needed ROGER PATINO APRN Dec 27, 2018 08:40 COLEEN ALVES MD Dec 27, 2018 11:24
[2018-12-27] MEDS ORDERED: POLYETHYLENE GLYCOL 3350 17 GM PACKET. PO SCH (09:00)
[2018-12-27] MEDS: MORPHINE ER 15 MG TABLET.ER PO SCH ×2 (09:20→20:28)
--- NOTE | 2018-12-27 09:21 | PDOC ---
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 H/o Pneumocystis jiroveci pneumonia./chronic cough H/o Clostridium difficile. Obstructive jaundice secondary to biliary compression by metastatic lymphadenopathy - Narc tolerant NArc induced constipation - resolved History of Present Illness History of Present Illness COnstipated Dtr at bedside She takes Morphine tabs at home before this dilaudid CHILD NUTRITION DIRECTOR SHe has moved BM! She is willing to stop dilaudid CHILD NUTRITION DIRECTOR today She does not know name of her home pain med - dtr yesterday mentioned morphine NO MS contin or oxycontin NOT on her home med list PT recommends home with family NOt eating as per staff pLAN: Dc CHILD NUTRITION DIRECTOR STart MS contin 15 BID kEep bowel regimen Diet, I defer to GI - still on liq and avila eating anything - TPN since she has a allen cath? FULL CODENOt ready for hospice HOpeful to start chemo again as OP Vitals Vitals Vital Signs Date Time Temp Pulse Resp B/P (MAP) Pulse Ox O2 Delivery O2 Flow Rate FiO2 12/27/18 07:29 90 Room Air 12/27/18 07:00 97.5 116 18 118/52 (74) 97.5 12/27/18 03:00 2.0 Physical Exam Physical Exam GENERAL: The patient is slightly propped up in bed and looks well in no apparent distress. HEENT: Pupils equally round and reactive. Sclerae icterus. Oropharynx pink and moist. No ulcers. LLE lip lesion ? from procedure - resolved NECK: Supple. LUNGS: Diminished aeration. Nonlabored. HEART: S1, S2. ABDOMEN: Not distended, soft + BS EXTREMITIES: No gross edema or cyanosis. SKIN: Warm to touch, jaundice. NEUROLOGIC: Drowsy, but answering questions appropriately and following commands. Right-sided Port-A-Cath without signs of any complications. General: Cooperative, Other (jaundice improved) Heart: Regular rate Lungs: Clear, Other Abdomen: Soft Extremities: No clubbing Skin: Other (a little less jaundiced) Review of Systems Review of Systems weak, pain controlled, she denies rest of 14 pt Comment Review of Relevant I have reviewed the following items erwin (where applicable) has been applied. Labs Laboratory Tests Test 12/26/18 04:00 White Blood Count 6.3 x10^3/uL (4.0-11.0) Red Blood Count 3.27 x10^6/uL (3.50-5.40) Hemoglobin 10.4 g/dL (12.0-15.5) Hematocrit 31.3 % (36.0-47.0) Mean Corpuscular Volume 96 fL (79-100) Mean Corpuscular Hemoglobin 32 pg (25-35) Mean Corpuscular Hemoglobin Concent 33 g/dL (31-37) Red Cell Distribution Width 17.8 % (11.5-14.5) Platelet Count 217 x10^3/uL (140-400) Neutrophils (%) (Auto) 80 % (31-73) Lymphocytes (%) (Auto) 13 % (24-48) Monocytes (%) (Auto) 6 % (0-9) Eosinophils (%) (Auto) 1 % (0-3) Basophils (%) (Auto) 0 % (0-3) Neutrophils # (Auto) 5.0 x10^3/uL (1.8-7.7) Lymphocytes # (Auto) 0.8 x10^3/uL (1.0-4.8) Monocytes # (Auto) 0.4 x10^3/uL (0.0-1.1) Eosinophils # (Auto) 0.1 x10^3/uL (0.0-0.7) Basophils # (Auto) 0.0 x10^3/uL (0.0-0.2) Sodium Level 137 mmol/L (136-145) Potassium Level 3.5 mmol/L (3.5-5.1) Chloride Level 101 mmol/L (98-107) Carbon Dioxide Level 29 mmol/L (21-32) Anion Gap 7 (6-14) Blood Urea Nitrogen 2 mg/dL (7-20) Creatinine 0.4 mg/dL (0.6-1.0) Estimated GFR (Cockcroft-Gault) 161.7 BUN/Creatinine Ratio 5 (6-20) Glucose Level 76 mg/dL (70-99) Calcium Level 8.2 mg/dL (8.5-10.1) Total Bilirubin 5.7 mg/dL (0.2-1.0) Aspartate Amino Transf (AST/SGOT) 103 U/L (15-37) Alanine Aminotransferase (ALT/SGPT) 117 U/L (14-59) Alkaline Phosphatase 839 U/L (46-116) Total Protein 5.0 g/dL (6.4-8.2) Albumin 1.7 g/dL (3.4-5.0) Albumin/Globulin Ratio 0.5 (1.0-1.7) Microbiology 12/22/18 Blood Culture - Preliminary, Resulted NO GROWTH AFTER 4 DAYS Medications Current Medications Morphine Sulfate (Morphine Sulfate) 5 mg 1X ONCE IV Last administered on 12/22/18at 10:00; Start 12/22/18 at 10:00; Stop 12/22/18 at 10:03; Status DC Naloxone HCl (Narcan) 0.4 mg PRN Q2MIN PRN IV SEE INSTRUCTIONS; Start 12/22/18 at 10:00 Sodium Chloride 1,000 ml @ 25 mls/hr Q24H IV Last administered on 12/22/18at 09:55; Start 12/22/18 at 09:55 Hydromorphone HCl 30 ml @ 0 mls/hr CONT PRN PRN IV PER PROTOCOL Last administered on 12/26/18at 08:12; Start 12/22/18 at 10:00; Stop 12/27/18 at 08:24; Status DC Sodium Chloride (Normal Saline Flush) 3 ml QSHIFT PRN IV AFTER MEDS AND BLOOD DRAWS; Start 12/22/18 at 11:30 Sodium Chloride 1,000 ml @ 100 mls/hr Q10H IV Last administered on 12/26/18at 05:39; Start 12/22/18 at 13:00; Stop 12/26/18 at 08:16; Status DC Ondansetron HCl (Zofran) 4 mg PRN Q4HRS PRN IVP NAUSEA/VOMITING Last administered on 12/24/18at 16:05; Start 12/22/18 at 11:30 Acetaminophen (Tylenol Supp) 650 mg PRN Q4HRS PRN TX TEMP OVER 100.4F OR MILD PAIN Last administered on 12/23/18at 03:47; Start 12/22/18 at 11:30 Clonidine HCl (Catapres) 0.1 mg PRN Q6HRS PRN PO SBP>160 OR DBP>90; Start 12/22/18 at 11:30 Albuterol/ Ipratropium (Duoneb) 3 ml Q4H NEB Last administered on 12/27/18 07:25; Start 12/22/18 at 12:00 Lorazepam (Ativan) 0.5 mg PRN Q4HRS PRN PO ANXIETY / AGITATION Last administered on 12/26/18 20:36; Start 12/22/18 at 11:30 Enoxaparin Sodium (Lovenox 40mg Syringe) 40 mg DAILY SQ ; Start 12/23/18 at 09:00; Stop 12/22/18 at 16:29; Status DC Piperacillin Sod/ Tazobactam Sod 3.375 gm/Sodium Chloride 50 ml @ 100 mls/hr Q6HRS IV Last administered on 12/27/18 06:30; Start 12/22/18 at 12:00 Ascorbic Acid (Vitamin C) 500 mg BID PO Last administered on 12/27/18 07:39; Start 12/22/18 at 21:00 Ferrous Sulfate (Feosol) 325 mg BIDWMEALS PO Last administered on 12/27/18 07:40; Start 12/22/18 at 17:00 Gabapentin (Neurontin) 300 mg BID PO Last administered on 12/27/18 07:39; Start 12/22/18 at 21:00 Acyclovir (Zovirax) 400 mg BID PO Last administered on 12/27/18 07:40; Start 12/22/18 at 21:00 Non-Formulary Medication (Alpha Lipoic Acid ) 600 mg BID PO ; Start 12/22/18 at 21:00; Status UNV Citalopram Hydrobromide (CeleXA) 20 mg DAILY PO Last administered on 12/27/18 07:40; Start 12/23/18 at 09:00 Non-Formulary Medication (Lactobacillus Rhamnosus Gg (Culturelle)) 1 each BID PO ; Start 12/22/18 at 21:00; Status UNV Potassium Chloride/Water 100 ml @ 100 mls/hr Q1H IV Last administered on 12/23/18 08:15; Start 12/23/18 at 06:15; Stop 12/23/18 at 09:14; Status DC Polyethylene Glycol (miraLAX PACKET) 17 gm DAILY PO Last administered on 07:38; Start 12/23/18 at 14:45 Docusate Sodium (Colace Solution) 100 mg BID PO Last administered on 12/27/18at 07:39; Start 12/23/18 at 14:45 Bisacodyl (Dulcolax Supp) 10 mg PRN DAILY PRN [place] CONSTIPATION; Start 12/23/18 at 14:45; Stop 12/26/18 at 12:49; Status DC Acetaminophen (Tylenol) 500 mg PRN Q6HRS PRN PO MILD PAIN / TEMP; Start 12/24/18 at 09:00 Oxycodone/ Acetaminophen (Percocet 5/325) 1 tab PRN Q4HRS PRN PO MODERATE PAIN; Start 12/24/18 at 09:00 Lidocaine HCl (Lidocaine Pf 2% Vial) 5 ml STK-MED ONCE .ROUTE ; Start 12/24/18 at 09:38; Stop 12/24/18 at 09:39; Status DC Propofol 20 ml @ As Directed STK-MED ONCE IV ; Start 12/24/18 at 09:38; Stop 12/24/18 at 09:39; Status DC Succinylcholine Chloride (Anectine) 200 mg STK-MED ONCE .ROUTE ; Start 12/24/18 at 09:38; Stop 12/24/18 at 09:39; Status DC Ondansetron HCl (Zofran) 4 mg STK-MED ONCE .ROUTE ; Start 12/24/18 at 09:39; Stop 12/24/18 at 09:39; Status DC Glycopyrrolate (Robinul) 1 mg STK-MED ONCE .ROUTE ; Start 12/24/18 at 09:39; Stop 12/24/18 at 09:39; Status DC Rocuronium [place] (Zemuron) 50 mg STK-MED ONCE .ROUTE ; Start 12/24/18 at 09:49; Stop 12/24/18 at 09:50; Status DC Propofol 20 ml @ As Directed STK-MED ONCE IV ; Start 12/24/18 at 09:52; Stop 12/24/18 at 09:52; Status DC Lidocaine HCl (Lidocaine Pf 2% Vial) 5 ml STK-MED ONCE .ROUTE ; Start 12/24/18 at 09:52; Stop 12/24/18 at 09:52; Status DC Hydromorphone HCl (Dilaudid Standard CHILD NUTRITION DIRECTOR) 12 mg STK-MED ONCE IV ; Start 12/22/18 at 12:00; Stop 12/24/18 at 10:33; Status DC Hydromorphone HCl (Dilaudid Standard CHILD NUTRITION DIRECTOR) 12 mg STK-MED ONCE IV ; Start 12/23/18 at 12:20; Stop 12/24/18 at 10:34; Status DC Midazolam HCl (Versed) 2 mg PRN 1X PRN IV PRIOR TO PROCEDURE; Start 12/24/18 at 10:45; Stop 12/25/18 at 10:44; Status DC Fentanyl Citrate (Fentanyl 2ml Vial) 25 mcg PRN Q5MIN PRN IV X 2 DOSES FOR PAIN; Start 12/24/18 at 10:45; Stop 12/25/18 at 10:44; Status DC Fentanyl Citrate (Fentanyl 2ml Vial) 50 mcg PRN Q5MIN PRN IV X 2 DOSES FOR PAIN; Start 12/24/18 at 10:45; Stop 12/25/18 at 10:44; Status DC Ringer's Solution 1,000 ml @ 125 mls/hr Q8H IV Last administered on 12/24/18at 11:46; Start 12/24/18 at 10:38; Stop 12/24/18 at 22:37; Status DC Lidocaine HCl (Xylocaine-Mpf 1% 2ml Vial) 2 ml 1X PRN PRN ID IV START; Start 12/24/18 at 10:45; Stop 12/25/18 at 10:44; Status DC Iohexol (Omnipaque 300 Mg/ml) 100 ml STK-MED ONCE .ROUTE ; Start 12/24/18 at 12:04; Stop 12/24/18 at 12:04; Status DC Influenza Virus Vaccine Quadrival (Afluria Quad 2019-20 (3yr Up) Syringe) 0.5 ml ONCE ONCE VAX IM Last administered on 12/25/18at 09:42; Start 12/25/18 at 09:00; Stop 12/25/18 at 09:01; Status DC Potassium Chloride (Klor-Con) 40 meq BIDWMEALS PO Last administered on 12/27/18at 07:39; Start 12/25/18 at 08:45 Zolpidem Tartrate (Ambien) 5 mg PRN QHS PRN PO INSOMNIA; Start 12/25/18 at 08:45 Calcium Carbonate/ Glycine (Tums) 500 mg PRN AFTMEALHC PRN PO INDIGESTION; Start 12/25/18 at 08:45 Enoxaparin Sodium (Lovenox 40mg Syringe) 40 mg Q24H SQ Last administered on 12/27/18at 07:40; Start 12/25/18 at 10:00 Hydromorphone HCl (Dilaudid Standard CHILD NUTRITION DIRECTOR) 12 mg STK-MED ONCE IV ; Start 12/24/18 at 22:58; Stop 12/25/18 at 11:34; Status DC Amino Acids/ Glycerin/ Electrolytes 1,000 ml @ 80 mls/hr [id number] IV Last administered on 12/27/18at 07:41; Start 12/26/18 at 08:15 Magnesium Hydroxide (Milk Of Magnesia) 2,400 mg PRN DAILY PRN PO CONSTIPATION Last administered on 12/26/18at 16:41; Start 12/26/18 at 09:15 Bisacodyl (Dulcolax Supp) 10 mg PRN DAILY PRN [place] CONSTIPATION Last administered on 12/27/18at 07:39; Start 12/26/18 at 09:15 Lubiprostone (Amitiza) 8 mcg BIDWMEALS PO Last administered on 12/27/18at 07:39; Start 12/26/18 at 10:00 Polyethylene Glycol (miraLAX PACKET) 17 gm DAILY PO ; Start 12/27/18 at 09:00; Stop 12/26/18 at 15:42; Status DC Polyethylene Glycol (miraLAX PACKET) 17 gm PRN DAILY PRN PO CONSTIPATION; Start 12/26/18 at 12:45 Morphine Sulfate (Ms Contin) 15 mg BID PO ; Start 12/27/18 at 09:00 Hydromorphone HCl (Dilaudid) 0.4 mg PRN Q4HRS PRN IVP MODERATE TO SEVERE PAIN; Start 12/27/18 at 08:30 Active Scripts Active Ascorbic Acid 500 Mg Tablet 500 Mg PO BID 30 Days Ferrous Sulfate 325 Mg Tablet 1 Tab PO BID 30 Days Reported Imodium A-D (Loperamide HCl) 2 Mg Capsule 2 Mg PO PRN Q4HRS PRN Alpha Lipoic Acid 600 Mg Capsule 600 Mg PO BID Ambien (Zolpidem Tartrate) 5 Mg Tablet 5 Mg PO PRN QHS PRN Gabapentin (Gabapentin) 300 Mg Capsule 300 Mg PO BID Escitalopram Oxalate 10 Mg Tablet 1 Tab PO DAILY Acyclovir 400 Mg Tablet 1 Tab PO BID Temazepam 15 Mg Capsule 1 Cap PO QHS Eliquis (Apixaban) 5 Mg Tablet 5 Mg PO BID 60 Days Culturelle (Lactobacillus Rhamnosus Gg) 1 Each Capsule 1 Each PO BID Vitals/I & O Vital Sign - Last 24 Hours 12/26/18 12/26/18 12/26/18 12/26/18 11:00 11:51 15:00 15:49 Temp 98.2 98.1 98.2 98.1 Pulse 104 100 Resp 18 18 B/P (MAP) 104/49 (67) 124/67 (86) Pulse Ox 90 94 93 O2 Delivery Nasal Cannula Nasal Cannula Nasal Cannula Nasal Cannula O2 Flow Rate 1.0 2.0 2.0 1.0 12/26/18 12/26/18 12/26/18 12/26/18 19:00 19:43 20:00 23:00 Temp 98.1 99.0 98.1 99.0 Pulse 109 107 Resp 18 18 B/P (MAP) 125/67 (86) 133/69 (90) Pulse Ox 94 93 93 O2 Delivery Nasal Cannula Nasal Cannula Room Air Nasal Cannula O2 Flow Rate 2.0 1.0 2.0 12/26/18 12/27/18 12/27/18 12/27/18 23:44 03:00 03:32 07:00 Temp 98.9 97.5 98.9 97.5 Pulse 113 116 Resp 18 18 B/P (MAP) 120/67 (84) 118/52 (74) Pulse Ox 90 90 O2 Delivery Nasal Cannula Nasal Cannula Room Air Nasal Cannula O2 Flow Rate 1.0 2.0 12/27/18 12/27/18 12/27/18 07:11 07:25 07:29 Pulse Ox 90 90 O2 Delivery Room Air Room Air Room Air Intake and Output 12/26/18 12/26/18 12/27/18 15:00 23:00 07:00 Intake Total 0 ml Balance 0 ml RUSS BETANCOURT MD Dec 27, 2018 09:21
--- NOTE | 2018-12-27 10:46 | PDOC ---
Infectious Disease Note Subjective Subjective Doing ok. + BM No F/C/S/n/V pain ok ROS ROS o/w neg Vital Sign Vital Signs Vital Signs Date Time Temp Pulse Resp B/P (MAP) Pulse Ox O2 Delivery O2 Flow Rate FiO2 12/27/18 09:20 90 Room Air 2.0 12/27/18 07:00 97.5 116 18 118/52 (74) 97.5 Physical Exam PHYSICAL EXAM GENERAL: The patient is slightly propped up in bed and looks comfortable- in no apparent distress. HEENT: Pupils equally round and reactive. Sclerae icterus. Oropharynx pink and moist. No ulcers. LLE lip lesion ? from procedure - resolved NECK: Supple. LUNGS: Diminished aeration. Nonlabored. on 1.5 L HEART: S1, S2. ABDOMEN: Not distended, soft + BS EXTREMITIES: No gross edema or cyanosis. SKIN: Warm to touch, jaundice. NEUROLOGIC: Drowsy, but answering questions appropriately and following commands. Right-sided Port-A-Cath without signs of any complications. Labs Micro CXR 12/24 Increase in coarse interstitial bilateral perihilar opacities, left greater than right. Interstitial pneumonitis is a primary consideration. Recommend follow-up to resolution. Microbiology 12/22/18 Blood Culture - Preliminary, Resulted NO GROWTH AFTER 2 DAYS Objective Assessment Ascending cholangitis Obstructive jaundice s/p ERCP 12/24 Immunosuppression d/t chemotherapy Colon cancer with metastasis Recently h/o treated for PJP, off Bactrim h/o C. diff CXR reviewed but clinically better Plan Plan of Care D/w Dr. Perea, no surgical plans Continue Zosyn and f/u on clinical improvement Incentive spirometry Bubble 02 Monitor labs Pain management per primary Hoping to continue chemo D/w daughter and nursing DEMI DUKE MD Dec 27, 2018 10:46
[2018-12-27 11:00] VITALS: BP 123/59
--- NOTE | 2018-12-27 11:14 | PDOC ---
G I PROGRESS NOTE Reason for Follow-up Obstructive jaundice Subjective Inreased dyspnea-wt increased 4 kg from admission Physical Exam Lungs decreased BS CV S1 S2 ABD +BS, soft, nontender Review of Relevant I have reviewed the following items erwin (where applicable) has been applied. Labs Laboratory Tests Test 12/26/18 04:00 White Blood Count 6.3 x10^3/uL (4.0-11.0) Red Blood Count 3.27 x10^6/uL (3.50-5.40) Hemoglobin 10.4 g/dL (12.0-15.5) Hematocrit 31.3 % (36.0-47.0) Mean Corpuscular Volume 96 fL (79-100) Mean Corpuscular Hemoglobin 32 pg (25-35) Mean Corpuscular Hemoglobin Concent 33 g/dL (31-37) Red Cell Distribution Width 17.8 % (11.5-14.5) Platelet Count 217 x10^3/uL (140-400) Neutrophils (%) (Auto) 80 % (31-73) Lymphocytes (%) (Auto) 13 % (24-48) Monocytes (%) (Auto) 6 % (0-9) Eosinophils (%) (Auto) 1 % (0-3) Basophils (%) (Auto) 0 % (0-3) Neutrophils # (Auto) 5.0 x10^3/uL (1.8-7.7) Lymphocytes # (Auto) 0.8 x10^3/uL (1.0-4.8) Monocytes # (Auto) 0.4 x10^3/uL (0.0-1.1) Eosinophils # (Auto) 0.1 x10^3/uL (0.0-0.7) Basophils # (Auto) 0.0 x10^3/uL (0.0-0.2) Sodium Level 137 mmol/L (136-145) Potassium Level 3.5 mmol/L (3.5-5.1) Chloride Level 101 mmol/L (98-107) Carbon Dioxide Level 29 mmol/L (21-32) Anion Gap 7 (6-14) Blood Urea Nitrogen 2 mg/dL (7-20) Creatinine 0.4 mg/dL (0.6-1.0) Estimated GFR (Cockcroft-Gault) 161.7 BUN/Creatinine Ratio 5 (6-20) Glucose Level 76 mg/dL (70-99) Calcium Level 8.2 mg/dL (8.5-10.1) Total Bilirubin 5.7 mg/dL (0.2-1.0) Aspartate Amino Transf (AST/SGOT) 103 U/L (15-37) Alanine Aminotransferase (ALT/SGPT) 117 U/L (14-59) Alkaline Phosphatase 839 U/L (46-116) Total Protein 5.0 g/dL (6.4-8.2) Albumin 1.7 g/dL (3.4-5.0) Albumin/Globulin Ratio 0.5 (1.0-1.7) Microbiology 12/22/18 Blood Culture - Preliminary, Resulted NO GROWTH AFTER 4 DAYS Medications Current Medications Morphine Sulfate (Morphine Sulfate) 5 mg 1X ONCE IV Last administered on 12/22/18at 10:00; Start 12/22/18 at 10:00; Stop 12/22/18 at 10:03; Status DC Naloxone HCl (Narcan) 0.4 mg PRN Q2MIN PRN IV SEE INSTRUCTIONS; Start 12/22/18 at 10:00 Sodium Chloride 1,000 ml @ 25 mls/hr Q24H IV Last administered on 12/22/18at 09:55; Start 12/22/18 at 09:55 Hydromorphone HCl 30 ml @ 0 mls/hr CONT PRN PRN IV PER PROTOCOL Last administered on 12/26/18at 08:12; Start 12/22/18 at 10:00; Stop 12/27/18 at 08:24; Status DC Sodium Chloride (Normal Saline Flush) 3 ml QSHIFT PRN IV AFTER MEDS AND BLOOD DRAWS; Start 12/22/18 at 11:30 Sodium Chloride 1,000 ml @ 100 mls/hr Q10H IV Last administered on 12/26/18at 05:39; Start 12/22/18 at 13:00; Stop 12/26/18 at 08:16; Status DC Ondansetron HCl (Zofran) 4 mg PRN Q4HRS PRN IVP NAUSEA/VOMITING Last administered on 12/24/18at 16:05; Start 12/22/18 at 11:30 Acetaminophen (Tylenol Supp) 650 mg PRN Q4HRS PRN WI TEMP OVER 100.4F OR MILD PAIN Last administered on 12/23/18 03:47; Start 12/22/18 at 11:30 Clonidine HCl (Catapres) 0.1 mg PRN Q6HRS PRN PO SBP>160 OR DBP>90; Start 12/22/18 at 11:30 Albuterol/ Ipratropium (Duoneb) 3 ml Q4H NEB Last administered on 12/27/18 07:25; Start 12/22/18 at 12:00 Lorazepam (Ativan) 0.5 mg PRN Q4HRS PRN PO ANXIETY / AGITATION Last administered on 12/26/18 20:36; Start 12/22/18 at 11:30 Enoxaparin Sodium (Lovenox 40mg Syringe) 40 mg DAILY SQ ; Start 12/23/18 at 09:00; Stop 12/22/18 at 16:29; Status DC Piperacillin Sod/ Tazobactam Sod 3.375 gm/Sodium Chloride 50 ml @ 100 mls/hr Q6HRS IV Last administered on 12/27/18 06:30; Start 12/22/18 at 12:00 Ascorbic Acid (Vitamin C) 500 mg BID PO Last administered on 12/27/18 07:39; Start 12/22/18 at 21:00 Ferrous Sulfate (Feosol) 325 mg BIDWMEALS PO Last administered on 12/27/18 07:40; Start 12/22/18 at 17:00 Gabapentin (Neurontin) 300 mg BID PO Last administered on 12/27/18 07:39; Start 12/22/18 at 21:00 Acyclovir (Zovirax) 400 mg BID PO Last administered on 12/27/18 07:40; Start 12/22/18 at 21:00 Non-Formulary Medication (Alpha Lipoic Acid ) 600 mg BID PO ; Start 12/22/18 at 21:00; Status UNV Citalopram Hydrobromide (CeleXA) 20 mg DAILY PO Last administered on 12/27/18 07:40; Start 12/23/18 at 09:00 Non-Formulary Medication (Lactobacillus Rhamnosus Gg (Culturelle)) 1 each BID PO ; Start 12/22/18 at 21:00; Status UNV Potassium Chloride/Water 100 ml @ 100 mls/hr Q1H IV Last administered on 12/23/18at 08:15; Start 12/23/18 at 06:15; Stop 12/23/18 at 09:14; Status DC Polyethylene Glycol (miraLAX PACKET) 17 gm DAILY PO Last administered on 12/27/18at 07:38; Start 12/23/18 at 14:45 Docusate Sodium (Colace Solution) 100 mg BID PO Last administered on 12/27/18at 07:39; Start 12/23/18 at 14:45 Bisacodyl (Dulcolax Supp) 10 mg PRN DAILY PRN WI CONSTIPATION; Start 12/23/18 at 14:45; Stop 12/26/18 at 12:49; Status DC Acetaminophen (Tylenol) 500 mg PRN Q6HRS PRN PO MILD PAIN / TEMP; Start 12/24/18 at 09:00 Oxycodone/ Acetaminophen (Percocet 5/325) 1 tab PRN Q4HRS PRN PO MODERATE PAIN; Start 12/24/18 at 09:00 Lidocaine HCl (Lidocaine Pf 2% Vial) 5 ml STK-MED ONCE .ROUTE ; Start 12/24/18 at 09:38; Stop 12/24/18 at 09:39; Status DC Propofol 20 ml @ As Directed STK-MED ONCE IV ; Start 12/24/18 at 09:38; Stop 12/24/18 at 09:39; Status DC Succinylcholine Chloride (Anectine) 200 mg STK-MED ONCE .ROUTE ; Start 12/24/18 at 09:38; Stop 12/24/18 at 09:39; Status DC Ondansetron HCl (Zofran) 4 mg STK-MED ONCE .ROUTE ; Start 12/24/18 at 09:39; Stop 12/24/18 at 09:39; Status DC Glycopyrrolate (Robinul) 1 mg STK-MED ONCE .ROUTE ; Start 12/24/18 at 09:39; Stop 12/24/18 at 09:39; Status DC Rocuronium [place] (Zemuron) 50 mg STK-MED ONCE .ROUTE ; Start 12/24/18 at 09:49; Stop 12/24/18 at 09:50; Status DC Propofol 20 ml @ As Directed STK-MED ONCE IV ; Start 12/24/18 at 09:52; Stop 12/24/18 at 09:52; Status DC Lidocaine HCl (Lidocaine Pf 2% Vial) 5 ml STK-MED ONCE .ROUTE ; Start 12/24/18 at 09:52; Stop 12/24/18 at 09:52; Status DC Hydromorphone HCl (Dilaudid Standard INSTRUCTIONAL AIDE) 12 mg STK-MED ONCE IV ; Start 12/22/18 at 12:00; Stop 12/24/18 at 10:33; Status DC Hydromorphone HCl (Dilaudid Standard INSTRUCTIONAL AIDE) 12 mg STK-MED ONCE IV ; Start 12/23/18 at 12:20; Stop 12/24/18 at 10:34; Status DC Midazolam HCl (Versed) 2 mg PRN 1X PRN IV PRIOR TO PROCEDURE; Start 12/24/18 at 10:45; Stop 12/25/18 at 10:44; Status DC Fentanyl Citrate (Fentanyl 2ml Vial) 25 mcg PRN Q5MIN PRN IV X 2 DOSES FOR PAIN; Start 12/24/18 at 10:45; Stop 12/25/18 at 10:44; Status DC Fentanyl Citrate (Fentanyl 2ml Vial) 50 mcg PRN Q5MIN PRN IV X 2 DOSES FOR PAIN; Start 12/24/18 at 10:45; Stop 12/25/18 at 10:44; Status DC Ringer's Solution 1,000 ml @ 125 mls/hr Q8H IV Last administered on 12/24/18at 11:46; Start 12/24/18 at 10:38; Stop 12/24/18 at 22:37; Status DC Lidocaine HCl (Xylocaine-Mpf 1% 2ml Vial) 2 ml 1X PRN PRN ID IV START; Start 12/24/18 at 10:45; Stop 12/25/18 at 10:44; Status DC Iohexol (Omnipaque 300 Mg/ml) 100 ml STK-MED ONCE .ROUTE ; Start 12/24/18 at 12:04; Stop 12/24/18 at 12:04; Status DC Influenza Virus Vaccine Quadrival (Afluria Quad 2019-20 (3yr Up) Syringe) 0.5 ml ONCE ONCE VAX IM Last administered on 12/25/18at 09:42; Start 12/25/18 at 09:00; Stop 12/25/18 at 09:01; Status DC Potassium Chloride (Klor-Con) 40 meq BIDWMEALS PO Last administered on 12/27/18 07:39; Start 12/25/18 at 08:45 Zolpidem Tartrate (Ambien) 5 mg PRN QHS PRN PO INSOMNIA; Start 12/25/18 at 08:45 Calcium Carbonate/ Glycine (Tums) 500 mg PRN AFTMEALHC PRN PO INDIGESTION; Start 12/25/18 at 08:45 Enoxaparin Sodium (Lovenox 40mg Syringe) 40 mg Q24H SQ Last administered on 12/27/18 07:40; Start 12/25/18 at 10:00 Hydromorphone HCl (Dilaudid Standard INSTRUCTIONAL AIDE) 12 mg STK-MED ONCE IV ; Start 12/24/18 at 22:58; Stop 12/25/18 at 11:34; Status DC Amino Acids/ Glycerin/ Electrolytes 1,000 ml @ 80 mls/hr [id number] IV Last administered on 12/27/18 07:41; Start 12/26/18 at 08:15 Magnesium Hydroxide (Milk Of Magnesia) 2,400 mg PRN DAILY PRN PO CONSTIPATION Last administered on 12/26/18at 16:41; Start 12/26/18 at 09:15 Bisacodyl (Dulcolax Supp) 10 mg PRN DAILY PRN [place] CONSTIPATION Last administered on 12/27/18at 07:39; Start 12/26/18 at 09:15 Lubiprostone (Amitiza) 8 mcg BIDWMEALS PO Last administered on 12/27/18at 07:39; Start 12/26/18 at 10:00 Polyethylene Glycol (miraLAX PACKET) 17 gm DAILY PO ; Start 12/27/18 at 09:00; Stop 12/26/18 at 15:42; Status DC Polyethylene Glycol (miraLAX PACKET) 17 gm PRN DAILY PRN PO CONSTIPATION; Start 12/26/18 at 12:45 Morphine Sulfate (Ms Contin) 15 mg BID PO Last administered on 12/27/18at 09:20; Start 12/27/18 at 09:00 Hydromorphone HCl (Dilaudid) 0.4 mg PRN Q4HRS PRN IVP MODERATE TO SEVERE PAIN; Start 12/27/18 at 08:30; Stop 12/27/18 at 09:19; Status DC Hydromorphone HCl (Dilaudid) 0.2 mg PRN Q4HRS PRN IVP MODERATE TO SEVERE PAIN; Start 12/27/18 at 09:30 Active Scripts Active Ascorbic Acid 500 Mg Tablet 500 Mg PO BID 30 Days Ferrous Sulfate 325 Mg Tablet 1 Tab PO BID 30 Days Reported Imodium A-D (Loperamide HCl) 2 Mg Capsule 2 Mg PO PRN Q4HRS PRN Alpha Lipoic Acid 600 Mg Capsule 600 Mg PO BID Ambien (Zolpidem Tartrate) 5 Mg Tablet 5 Mg PO PRN QHS PRN Gabapentin (Gabapentin) 300 Mg Capsule 300 Mg PO BID Escitalopram Oxalate 10 Mg Tablet 1 Tab PO DAILY Acyclovir 400 Mg Tablet 1 Tab PO BID Temazepam 15 Mg Capsule 1 Cap PO QHS Eliquis (Apixaban) 5 Mg Tablet 5 Mg PO BID 60 Days Culturelle (Lactobacillus Rhamnosus Gg) 1 Each Capsule 1 Each PO BID Vitals/I & O Vital Sign - Last 24 Hours 12/26/18 12/26/18 12/26/18 12/26/18 11:51 15:00 15:49 19:00 Temp 98.1 98.1 98.1 98.1 Pulse 100 109 Resp 18 18 B/P (MAP) 124/67 (86) 125/67 (86) Pulse Ox 94 93 94 O2 Delivery Nasal Cannula Nasal Cannula Nasal Cannula Nasal Cannula O2 Flow Rate 2.0 2.0 1.0 2.0 12/26/18 12/26/18 12/26/18 12/26/18 19:43 20:00 23:00 23:44 Temp 99.0 99.0 Pulse 107 Resp 18 B/P (MAP) 133/69 (90) Pulse Ox 93 93 O2 Delivery Nasal Cannula Room Air Nasal Cannula Nasal Cannula O2 Flow Rate 1.0 2.0 1.0 12/27/18 12/27/18 12/27/18 12/27/18 03:00 03:32 07:00 07:11 Temp 98.9 97.5 98.9 97.5 Pulse 113 116 Resp 18 18 B/P (MAP) 120/67 (84) 118/52 (74) Pulse Ox 90 90 O2 Delivery Nasal Cannula Room Air Nasal Cannula Room Air O2 Flow Rate 2.0 12/27/18 12/27/18 12/27/18 07:25 07:29 09:20 Pulse Ox 90 90 90 O2 Delivery Room Air Room Air Room Air O2 Flow Rate 2.0 Intake and Output 12/26/18 12/26/18 12/27/18 14:59 22:59 06:59 Intake Total 0 ml Balance 0 ml Problem List Obstructiv jaundice- s/p ste3nt , T alonzo decreasing, repeat labs in am, will start lasix 30 mg daily for pedal edema and CHF on CXr CHASIDY FULLER MD Dec 27, 2018 11:14
[2018-12-27] MEDS: FUROSEMIDE 20 MG TABLET PO SCH (11:17)
[2018-12-27] MEDS: oxyCODONE/APAP 5/325 1 TAB TABLET PO PRN ×2 (11:22→16:12)
[2018-12-27] MEDS: HYDROmorphone 2 MG/ML VIAL IVP PRN ×2 (12:17→17:48)
[2018-12-27] MEDS: LORazepam 0.5 MG TABLET PO PRN ×2 (12:17→17:47)
--- NOTE | 2018-12-27 12:29 | PDOC2 ---
PALLIATIVE CARE Palliative Care Note Palliative [facility] Patient seen at 0800. No BM. Patient given Ducolax suppository as ordered with good results. Patient states she did get some rest earlier in night after bolus of Dilaudid and Ativan . Rates abdominal pain 5-6 now. 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 Will start Morphine 15mg ER BID with Dilaudid and Percocet for breakthrough pain per Dr. Castillo Consider discharge tomorrow. 1215 Patient rates abdominal pain at 8. Daughter at bedside. Percocet given 40 minutes ago with no relief at this time. 1800 patient resting with pain improved to 4-5 after Dilaudid and Percocet. Plan: Continue to monitor pain CARLA ABARCA Dec 27, 2018 12:29
[2018-12-27 15:00] VITALS: BP 134/64
--- NOTE | 2018-12-27 16:04 | NUR ---
SS following up with discharge planning. Referrals for home TPN phoned and faxed to [facility], ; fax [phone], and [facility] [phone]; fax [phone]. SS will await benefit check for home TPN and will proceed accordingly with discharge planning.
[2018-12-27] MEDS: ONDANSETRON PF 4 MG/2 ML VIAL. IVP PRN (16:20)
[2018-12-27 19:20] VITALS: BP 120/68
[2018-12-27 23:31] VITALS: BP 130/66
[2018-12-28] MEDS: PIPERACILLIN/TAZOBACTAM 3.375 GM in IV NORMAL SALINE 50ML 50 ML IV SCH ×5 (00:12→23:44)
[2018-12-28] MEDS: IPRATRPIUM/ALBUTEROL 0.5/2.5MG 3 ML NEBU. NEB SCH ×6 (00:19→21:27)
[2018-12-28] MEDS: oxyCODONE/APAP 5/325 1 TAB TABLET PO PRN (02:10)
[2018-12-28 03:37] VITALS: BP 138/76
[2018-12-28 07:00] VITALS: BP 128/75
[2018-12-28] MEDS: AMINO AC 3%/ELECTROLYTE/GLYCER 1,000 ML IV SCH (07:35)
[2018-12-28] MEDS: ENOXAPARIN 40 MG/0.4 ML SYRINGE. SQ SCH (07:55)
[2018-12-28] MEDS: POLYETHYLENE GLYCOL 3350 17 GM PACKET. PO SCH (07:57)
[2018-12-28] MEDS: FERROUS SULFATE 325 MG TABLET. PO SCH ×2 (07:58→16:52)
[2018-12-28] MEDS: ASCORBIC ACID 500 MG TABLET PO SCH ×2 (07:58→21:08)
[2018-12-28] MEDS: ACYCLOVIR 200 MG CAPSULE. PO SCH (07:58)
[2018-12-28] MEDS: DOCUSATE 100 MG/10 ML SOLUTION. PO SCH ×2 (07:58→21:07)
[2018-12-28] MEDS: MORPHINE ER 15 MG TABLET.ER PO SCH (07:58)
[2018-12-28] MEDS: FUROSEMIDE 20 MG TABLET PO SCH (07:58)
[2018-12-28] MEDS: GABAPENTIN 300 MG CAPSULE. PO SCH ×2 (07:58→21:07)
[2018-12-28] MEDS: CITALOPRAM 20 MG TABLET. PO SCH (07:58)
[2018-12-28] MEDS: LUBIPROSTONE 8 MCG CAPSULE PO SCH ×2 (07:58→16:52)
[2018-12-28] MEDS: POTASSIUM CHLORIDE 20 MEQ TABLET.ER. PO SCH (07:59)
[2018-12-28] MEDS ORDERED: FUROSEMIDE 20 MG/2 ML VIAL. IVP ONE (08:30)
[2018-12-28] MEDS ORDERED: POTASSIUM CHLORIDE 20 MEQ TABLET.ER. PO ONE (08:30)
[2018-12-28] MEDS: MORPHINE ER 30 MG TABLET.ER PO SCH ×2 (08:37→21:08)
--- NOTE | 2018-12-28 08:37 | NUR ---
Did not administer new order for Morphine ER 30mg, repairer typewriter already administered original order for Morphine ER 15mg, will administer another dose of Morphine ER 15mg to patient.
[2018-12-28] MEDS ORDERED: MORPHINE ER 15 MG TABLET.ER PO SCH (08:45)
[2018-12-28 08:52] LABS: BASO % 0 % (0-3); EOS % 0 % (0-3); HEMATOCRIT 32.7 % (36.0-47.0); HEMOGLOBIN 11.1 g/dL (12.0-15.5); LYMPH # 0.7 x10^3/uL (1.0-4.8); LYMPH % 8 % (24-48); MEAN CORPUSCULAR HEMOGLOBIN 32 pg (25-35); MEAN CORPUSCULAR HGB CONC 34 g/dL (31-37); MEAN CORPUSCULAR VOLUME 95 fL (79-100); MONO # 0.5 x10^3/uL (0.0-1.1); MONO % 6 % (0-9); NEUT # 7.4 x10^3/uL (1.8-7.7); NEUT % 85 % (31-73); PLATELET COUNT 234 x10^3/uL (140-400); RED BLOOD COUNT 3.44 x10^6/uL (3.50-5.40); WHITE BLOOD COUNT 8.7 x10^3/uL (4.0-11.0)
[2018-12-28 08:53] LABS: ALBUMIN 1.8 g/dL (3.4-5.0); ALBUMIN/GLOBULIN RATIO 0.5 (1.0-1.7); CALCIUM 8.3 mg/dL (8.5-10.1); CREATININE 0.4 mg/dL (0.6-1.0); GFR 161.7; TOTAL BILIRUBIN 5.2 mg/dL (0.2-1.0); TOTAL PROTEIN 5.7 g/dL (6.4-8.2)
[2018-12-28] MEDS ORDERED: MORPHINE ER 15 MG TABLET.ER PO ONE (09:15)
--- NOTE | 2018-12-28 09:20 | PDOC ---
SUBJECTIVE Subjective S: bowels moving now, she's tired and weak today, taking pills O: Physical exam: Gen.: Thin 60s female, resting hunched over in bed too weak to talk much, taking her pills Skin: Still slightly jaundiced Psychiatric: tired mood and affect Labs: T bili 5.7, Hb 10.4 at last check Rads: ERCP with stent completed 24 December Chest x-ray with coarse interstitial bilateral opacities left greater than right Assessment and Plan: Ms New is a 63-year-old female with aggressive metastatic colon cancer who had unfortunate suspected PJP pneumonia for which she was treated in November and has had declining functional status and progressive disease while being off chemotherapy admitted with worsening of abdominal pain and suggestion of cholangitis on MRCP with extrinsic compression of bile ducts as well with hyperbilirubinemia. Bilirubin has improved post-ERCP stenting on 24 December. Hyperbilirubinemia: improving post stent, rec following qday, (today's pending) can restart chemo (based on functional status) if she desires once bili <3 Metastatic colon cancer: Chemotherapy on hold with elevated bili however based on improvement ??? may be a candidate for restarting chemotherapy (very weak today), appreciate Ms Guillermina helping with pain control and palliative care options at home, would like pall care at home set up prior to dc, primary is transitioning pain meds to home regimen Hypokalemia: Deferred to primary, on PPN while here, plans to start TPN? don't know that I'd recommend this in a pt w/ met advanced ca, will text Ms Rizo in GI and see what they think of establing tube w/ TFs? History of DVT: Lovenox prophylaxis Constipation: prn's, and lubiprostone helping disposition: may need O2 for home? would want pall care set up at home, ? of tube feeds? pain control? Thank you kindly and please do not hesitate to call with questions. OBJECTIVE Vital Signs Vital Signs Date Time Temp Pulse Resp B/P (MAP) Pulse Ox O2 Delivery O2 Flow Rate FiO2 12/28/18 08:37 91 Room Air 2.0 12/28/18 07:58 91 Nasal Cannula 2.0 12/28/18 07:26 91 Nasal Cannula 2.0 12/28/18 07:13 Room Air 12/28/18 07:00 98.1 109 18 128/75 (92) 95 Nasal Cannula 2.0 98.1 12/28/18 03:37 98.7 106 18 138/76 (96) 90 Room Air 98.7 12/28/18 02:10 20 90 Nasal Cannula 2.0 12/28/18 00:28 20 90 Nasal Cannula 2.0 12/27/18 23:40 Nasal Cannula 2.0 12/27/18 23:31 97.6 102 20 130/66 (87) 90 Room Air 97.6 12/27/18 20:28 18 93 Room Air 12/27/18 20:00 Room Air 12/27/18 19:51 93 Nasal Cannula 2.0 12/27/18 19:20 98.3 101 20 120/68 (85) 96 Nasal Cannula 2.0 98.3 12/27/18 18:28 92 Nasal Cannula 2.0 12/27/18 17:48 92 Nasal Cannula 2.0 12/27/18 17:00 92 Nasal Cannula 2.0 12/27/18 16:12 92 Nasal Cannula 2.0 12/27/18 15:30 92 Nasal Cannula 1.0 12/27/18 15:00 97.2 93 16 134/64 (87) 90 Room Air 97.2 12/27/18 13:09 Nasal Cannula 2.0 12/27/18 12:46 Nasal Cannula 2.0 12/27/18 12:17 90 Nasal Cannula 2.0 12/27/18 12:15 90 Nasal Cannula 2.0 12/27/18 11:22 90 Nasal Cannula 2.0 12/27/18 11:00 97.6 100 18 123/59 (80) 94 Nasal Cannula 2.0 97.6 12/27/18 09:20 90 Room Air 2.0 I & O Intake and Output 12/28/18 07:00 Intake Total 1045 ml Balance 1045 ml Intake Oral 365 ml IV Total 680 ml # Voids 2 COMMENT Lab Laboratory Tests Test 12/28/18 08:15 White Blood Count 8.7 x10^3/uL (4.0-11.0) Red Blood Count 3.44 x10^6/uL (3.50-5.40) Hemoglobin 11.1 g/dL (12.0-15.5) Hematocrit 32.7 % (36.0-47.0) Mean Corpuscular Volume 95 fL (79-100) Mean Corpuscular Hemoglobin 32 pg (25-35) Mean Corpuscular Hemoglobin Concent 34 g/dL (31-37) Red Cell Distribution Width 18.0 % (11.5-14.5) Platelet Count 234 x10^3/uL (140-400) Neutrophils (%) (Auto) 85 % (31-73) Lymphocytes (%) (Auto) 8 % (24-48) Monocytes (%) (Auto) 6 % (0-9) Eosinophils (%) (Auto) 0 % (0-3) Basophils (%) (Auto) 0 % (0-3) Neutrophils # (Auto) 7.4 x10^3/uL (1.8-7.7) Lymphocytes # (Auto) 0.7 x10^3/uL (1.0-4.8) Monocytes # (Auto) 0.5 x10^3/uL (0.0-1.1) Eosinophils # (Auto) 0.0 x10^3/uL (0.0-0.7) Basophils # (Auto) 0.0 x10^3/uL (0.0-0.2) Sodium Level 131 mmol/L (136-145) Potassium Level 4.0 mmol/L (3.5-5.1) Chloride Level 95 mmol/L (98-107) Carbon Dioxide Level 28 mmol/L (21-32) Anion Gap 8 (6-14) Blood Urea Nitrogen 4 mg/dL (7-20) Creatinine 0.4 mg/dL (0.6-1.0) Estimated GFR (Cockcroft-Gault) 161.7 BUN/Creatinine Ratio 10 (6-20) Glucose Level 108 mg/dL (70-99) Calcium Level 8.3 mg/dL (8.5-10.1) Total Bilirubin 5.2 mg/dL (0.2-1.0) Aspartate Amino Transf (AST/SGOT) 105 U/L (15-37) Alanine Aminotransferase (ALT/SGPT) 102 U/L (14-59) Alkaline Phosphatase 884 U/L (46-116) Total Protein 5.7 g/dL (6.4-8.2) Albumin 1.8 g/dL (3.4-5.0) Albumin/Globulin Ratio 0.5 (1.0-1.7) MAYRA TORRES MD Dec 28, 2018 09:20
--- NOTE | 2018-12-28 09:46 | PDOC ---
Infectious Disease Note Subjective Subjective Doing ok. + BM No F/C/S/n/V pain ok Vital Sign Vital Signs Vital Signs Date Time Temp Pulse Resp B/P (MAP) Pulse Ox O2 Delivery O2 Flow Rate FiO2 12/28/18 09:16 91 Nasal Cannula 2.0 12/28/18 07:00 98.1 109 18 128/75 (92) 98.1 Physical Exam PHYSICAL EXAM GENERAL: The patient is slightly propped up in bed and looks comfortable- in no apparent distress. HEENT: Pupils equally round and reactive. Sclerae icterus. Oropharynx pink and moist. No ulcers. LLE lip lesion ? from procedure - resolved NECK: Supple. LUNGS: Diminished aeration. Nonlabored. on 1.5 L HEART: S1, S2. ABDOMEN: Not distended, soft + BS EXTREMITIES: No gross edema or cyanosis. SKIN: Warm to touch, jaundice. NEUROLOGIC: Drowsy, but answering questions appropriately and following commands. Right-sided Port-A-Cath without signs of any complications. Labs Lab Laboratory Tests Test 12/28/18 08:15 White Blood Count 8.7 x10^3/uL (4.0-11.0) Red Blood Count 3.44 x10^6/uL (3.50-5.40) Hemoglobin 11.1 g/dL (12.0-15.5) Hematocrit 32.7 % (36.0-47.0) Mean Corpuscular Volume 95 fL (79-100) Mean Corpuscular Hemoglobin 32 pg (25-35) Mean Corpuscular Hemoglobin Concent 34 g/dL (31-37) Red Cell Distribution Width 18.0 % (11.5-14.5) Platelet Count 234 x10^3/uL (140-400) Neutrophils (%) (Auto) 85 % (31-73) Lymphocytes (%) (Auto) 8 % (24-48) Monocytes (%) (Auto) 6 % (0-9) Eosinophils (%) (Auto) 0 % (0-3) Basophils (%) (Auto) 0 % (0-3) Neutrophils # (Auto) 7.4 x10^3/uL (1.8-7.7) Lymphocytes # (Auto) 0.7 x10^3/uL (1.0-4.8) Monocytes # (Auto) 0.5 x10^3/uL (0.0-1.1) Eosinophils # (Auto) 0.0 x10^3/uL (0.0-0.7) Basophils # (Auto) 0.0 x10^3/uL (0.0-0.2) Sodium Level 131 mmol/L (136-145) Potassium Level 4.0 mmol/L (3.5-5.1) Chloride Level 95 mmol/L (98-107) Carbon Dioxide Level 28 mmol/L (21-32) Anion Gap 8 (6-14) Blood Urea Nitrogen 4 mg/dL (7-20) Creatinine 0.4 mg/dL (0.6-1.0) Estimated GFR (Cockcroft-Gault) 161.7 BUN/Creatinine Ratio 10 (6-20) Glucose Level 108 mg/dL (70-99) Calcium Level 8.3 mg/dL (8.5-10.1) Total Bilirubin 5.2 mg/dL (0.2-1.0) Aspartate Amino Transf (AST/SGOT) 105 U/L (15-37) Alanine Aminotransferase (ALT/SGPT) 102 U/L (14-59) Alkaline Phosphatase 884 U/L (46-116) Total Protein 5.7 g/dL (6.4-8.2) Albumin 1.8 g/dL (3.4-5.0) Albumin/Globulin Ratio 0.5 (1.0-1.7) Micro CXR 12/24 Increase in coarse interstitial bilateral perihilar opacities, left greater than right. Interstitial pneumonitis is a primary consideration. Recommend follow-up to resolution. Microbiology 12/22/18 Blood Culture - Preliminary, Resulted NO GROWTH AFTER 2 DAYS Objective Assessment Ascending cholangitis Obstructive jaundice s/p ERCP 12/24 Immunosuppression d/t chemotherapy Colon cancer with metastasis Recently h/o treated for PJP, off Bactrim h/o C. diff CXR reviewed but clinically better Plan Plan of Care D/w Dr. Perea, no surgical plans Continue Zosyn and f/u on clinical improvement Incentive spirometry Bubble 02 Monitor labs Pain management per primary Hoping to continue chemo D/w daughter and nursing DEMI DUKE MD Dec 28, 2018 09:46
--- NOTE | 2018-12-28 09:48 | PDOC ---
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 H/o Pneumocystis jiroveci pneumonia./chronic cough H/o Clostridium difficile. Obstructive jaundice secondary to biliary compression by metastatic lymphadenopathy - Narc tolerant NArc induced constipation - resolved History of Present Illness History of Present Illness NOt doing so well PAin, not eating, weak GI note reviewed, gained 4 kg weight (PPN etc) SHe has a allen cath - was prev on chemo NO fevers, on IV abx per ID PLAn: STart TPN Dw SW - she has a co pay if TPN continued at home with HH SHe might be too weak for HH now, will be here ocer the weekend Inc MS contin to 30 BID Keep stool regimen - she moved BM this week, a good one Heme onc has mentioned pEG - she is aware of it FULL CODE - not ready for hospice, that might change pending course Check CXR 2 views LAsix 20 IVP x 1 now K 3,.5, ectra Kcl pO now then daily since lasix dw RN Roxana and pt and DR Montes Vitals Vitals Vital Signs Date Time Temp Pulse Resp B/P (MAP) Pulse Ox O2 Delivery O2 Flow Rate FiO2 12/28/18 09:16 91 Nasal Cannula 2.0 12/28/18 07:00 98.1 109 18 128/75 (92) 98.1 Physical Exam Physical Exam GENERAL: The patient is slightly propped up in bed and looks comfortable- in no apparent distress. HEENT: Pupils equally round and reactive. Sclerae icterus. Oropharynx pink and moist. No ulcers. LLE lip lesion ? from procedure - resolved NECK: Supple. LUNGS: Diminished aeration. Nonlabored. on 1.5 L HEART: S1, S2. ABDOMEN: Not distended, soft + BS EXTREMITIES: No gross edema or cyanosis. SKIN: Warm to touch, jaundice. NEUROLOGIC: Drowsy, but answering questions appropriately and following commands. Right-sided Port-A-Cath without signs of any complications. General: Cooperative, Other (jaundice improved) Heart: Regular rate Lungs: Clear, Other Abdomen: Soft Extremities: No clubbing Skin: Other (a little less jaundiced) Labs LABS Laboratory Tests Test 12/28/18 08:15 White Blood Count 8.7 x10^3/uL (4.0-11.0) Red Blood Count 3.44 x10^6/uL (3.50-5.40) Hemoglobin 11.1 g/dL (12.0-15.5) Hematocrit 32.7 % (36.0-47.0) Mean Corpuscular Volume 95 fL (79-100) Mean Corpuscular Hemoglobin 32 pg (25-35) Mean Corpuscular Hemoglobin Concent 34 g/dL (31-37) Red Cell Distribution Width 18.0 % (11.5-14.5) Platelet Count 234 x10^3/uL (140-400) Neutrophils (%) (Auto) 85 % (31-73) Lymphocytes (%) (Auto) 8 % (24-48) Monocytes (%) (Auto) 6 % (0-9) Eosinophils (%) (Auto) 0 % (0-3) Basophils (%) (Auto) 0 % (0-3) Neutrophils # (Auto) 7.4 x10^3/uL (1.8-7.7) Lymphocytes # (Auto) 0.7 x10^3/uL (1.0-4.8) Monocytes # (Auto) 0.5 x10^3/uL (0.0-1.1) Eosinophils # (Auto) 0.0 x10^3/uL (0.0-0.7) Basophils # (Auto) 0.0 x10^3/uL (0.0-0.2) Sodium Level 131 mmol/L (136-145) Potassium Level 4.0 mmol/L (3.5-5.1) Chloride Level 95 mmol/L (98-107) Carbon Dioxide Level 28 mmol/L (21-32) Anion Gap 8 (6-14) Blood Urea Nitrogen 4 mg/dL (7-20) Creatinine 0.4 mg/dL (0.6-1.0) Estimated GFR (Cockcroft-Gault) 161.7 BUN/Creatinine Ratio 10 (6-20) Glucose Level 108 mg/dL (70-99) Calcium Level 8.3 mg/dL (8.5-10.1) Total Bilirubin 5.2 mg/dL (0.2-1.0) Aspartate Amino Transf (AST/SGOT) 105 U/L (15-37) Alanine Aminotransferase (ALT/SGPT) 102 U/L (14-59) Alkaline Phosphatase 884 U/L (46-116) Total Protein 5.7 g/dL (6.4-8.2) Albumin 1.8 g/dL (3.4-5.0) Albumin/Globulin Ratio 0.5 (1.0-1.7) Review of Systems Review of Systems weak, pain, etc rest is limited she is too weak Comment Review of Relevant I have reviewed the following items erwin (where applicable) has been applied. Labs Laboratory Tests Test 12/28/18 08:15 White Blood Count 8.7 x10^3/uL (4.0-11.0) Red Blood Count 3.44 x10^6/uL (3.50-5.40) Hemoglobin 11.1 g/dL (12.0-15.5) Hematocrit 32.7 % (36.0-47.0) Mean Corpuscular Volume 95 fL (79-100) Mean Corpuscular Hemoglobin 32 pg (25-35) Mean Corpuscular Hemoglobin Concent 34 g/dL (31-37) Red Cell Distribution Width 18.0 % (11.5-14.5) Platelet Count 234 x10^3/uL (140-400) Neutrophils (%) (Auto) 85 % (31-73) Lymphocytes (%) (Auto) 8 % (24-48) Monocytes (%) (Auto) 6 % (0-9) Eosinophils (%) (Auto) 0 % (0-3) Basophils (%) (Auto) 0 % (0-3) Neutrophils # (Auto) 7.4 x10^3/uL (1.8-7.7) Lymphocytes # (Auto) 0.7 x10^3/uL (1.0-4.8) Monocytes # (Auto) 0.5 x10^3/uL (0.0-1.1) Eosinophils # (Auto) 0.0 x10^3/uL (0.0-0.7) Basophils # (Auto) 0.0 x10^3/uL (0.0-0.2) Sodium Level 131 mmol/L (136-145) Potassium Level 4.0 mmol/L (3.5-5.1) Chloride Level 95 mmol/L (98-107) Carbon Dioxide Level 28 mmol/L (21-32) Anion Gap 8 (6-14) Blood Urea Nitrogen 4 mg/dL (7-20) Creatinine 0.4 mg/dL (0.6-1.0) Estimated GFR (Cockcroft-Gault) 161.7 BUN/Creatinine Ratio 10 (6-20) Glucose Level 108 mg/dL (70-99) Calcium Level 8.3 mg/dL (8.5-10.1) Total Bilirubin 5.2 mg/dL (0.2-1.0) Aspartate Amino Transf (AST/SGOT) 105 U/L (15-37) Alanine Aminotransferase (ALT/SGPT) 102 U/L (14-59) Alkaline Phosphatase 884 U/L (46-116) Total Protein 5.7 g/dL (6.4-8.2) Albumin 1.8 g/dL (3.4-5.0) Albumin/Globulin Ratio 0.5 (1.0-1.7) Laboratory Tests Test 12/28/18 08:15 White Blood Count 8.7 x10^3/uL (4.0-11.0) Red Blood Count 3.44 x10^6/uL (3.50-5.40) Hemoglobin 11.1 g/dL (12.0-15.5) Hematocrit 32.7 % (36.0-47.0) Mean Corpuscular Volume 95 fL (79-100) Mean Corpuscular Hemoglobin 32 pg (25-35) Mean Corpuscular Hemoglobin Concent 34 g/dL (31-37) Red Cell Distribution Width 18.0 % (11.5-14.5) Platelet Count 234 x10^3/uL (140-400) Neutrophils (%) (Auto) 85 % (31-73) Lymphocytes (%) (Auto) 8 % (24-48) Monocytes (%) (Auto) 6 % (0-9) Eosinophils (%) (Auto) 0 % (0-3) Basophils (%) (Auto) 0 % (0-3) Neutrophils # (Auto) 7.4 x10^3/uL (1.8-7.7) Lymphocytes # (Auto) 0.7 x10^3/uL (1.0-4.8) Monocytes # (Auto) 0.5 x10^3/uL (0.0-1.1) Eosinophils # (Auto) 0.0 x10^3/uL (0.0-0.7) Basophils # (Auto) 0.0 x10^3/uL (0.0-0.2) Sodium Level 131 mmol/L (136-145) Potassium Level 4.0 mmol/L (3.5-5.1) Chloride Level 95 mmol/L (98-107) Carbon Dioxide Level 28 mmol/L (21-32) Anion Gap 8 (6-14) Blood Urea Nitrogen 4 mg/dL (7-20) Creatinine 0.4 mg/dL (0.6-1.0) Estimated GFR (Cockcroft-Gault) 161.7 BUN/Creatinine Ratio 10 (6-20) Glucose Level 108 mg/dL (70-99) Calcium Level 8.3 mg/dL (8.5-10.1) Total Bilirubin 5.2 mg/dL (0.2-1.0) Aspartate Amino Transf (AST/SGOT) 105 U/L (15-37) Alanine Aminotransferase (ALT/SGPT) 102 U/L (14-59) Alkaline Phosphatase 884 U/L (46-116) Total Protein 5.7 g/dL (6.4-8.2) Albumin 1.8 g/dL (3.4-5.0) Albumin/Globulin Ratio 0.5 (1.0-1.7) Microbiology 12/22/18 Blood Culture - Final, Complete NO GROWTH AFTER 5 DAYS Medications Current Medications Morphine Sulfate (Morphine Sulfate) 5 mg 1X ONCE IV Last administered on 12/22/18at 10:00; Start 12/22/18 at 10:00; Stop 12/22/18 at 10:03; Status DC Naloxone HCl (Narcan) 0.4 mg PRN Q2MIN PRN IV SEE INSTRUCTIONS; Start 12/22/18 at 10:00 Sodium Chloride 1,000 ml @ 25 mls/hr Q24H IV Last administered on 12/22/18at 09:55; Start 12/22/18 at 09:55 Hydromorphone HCl 30 ml @ 0 mls/hr CONT PRN PRN IV PER PROTOCOL Last administered on 12/26/18at 08:12; Start 12/22/18 at 10:00; Stop 12/27/18 at 08:24; Status DC Sodium Chloride (Normal Saline Flush) 3 ml QSHIFT PRN IV AFTER MEDS AND BLOOD DRAWS; Start 12/22/18 at 11:30 Sodium Chloride 1,000 ml @ 100 mls/hr Q10H IV Last administered on 12/26/18 05:39; Start 12/22/18 at 13:00; Stop 12/26/18 at 08:16; Status DC Ondansetron HCl (Zofran) 4 mg PRN Q4HRS PRN IVP NAUSEA/VOMITING Last ad ministered on 12/27/18 16:20; Start 12/22/18 at 11:30 Acetaminophen (Tylenol Supp) 650 mg PRN Q4HRS PRN DE TEMP OVER 100.4F OR MILD PAIN Last administered on 12/23/18 03:47; Start 12/22/18 at 11:30 Clonidine HCl (Catapres) 0.1 mg PRN Q6HRS PRN PO SBP>160 OR DBP>90; Start 12/22/18 at 11:30 Albuterol/ Ipratropium (Duoneb) 3 ml Q4H NEB Last administered on 12/28/18 07:27; Start 12/22/18 at 12:00 Lorazepam (Ativan) 0.5 mg PRN Q4HRS PRN PO ANXIETY / AGITATION Last administered on 12/27/18 17:47; Start 12/22/18 at 11:30 Enoxaparin Sodium (Lovenox 40mg Syringe) 40 mg DAILY SQ ; Start 12/23/18 at 09:00; Stop 12/22/18 at 16:29; Status DC Piperacillin Sod/ Tazobactam Sod 3.375 gm/Sodium Chloride 50 ml @ 100 mls/hr Q6HRS IV Last administered on 12/28/18 06:06; Start 12/22/18 at 12:00 Ascorbic Acid (Vitamin C) 500 mg BID PO Last administered on 12/28/18 07:58; Start 12/22/18 at 21:00 Ferrous Sulfate (Feosol) 325 mg BIDWMEALS PO Last administered on 12/28/18 07:58; Start 12/22/18 at 17:00 Gabapentin (Neurontin) 300 mg BID PO Last administered on 12/28/18 07:58; Start 12/22/18 at 21:00 Acyclovir (Zovirax) 400 mg BID PO Last administered on 12/28/18at 07:58; Start 12/22/18 at 21:00 Non-Formulary Medication (Alpha Lipoic Acid ) 600 mg BID PO ; Start 12/22/18 at 21:00; Status UNV Citalopram Hydrobromide (CeleXA) 20 mg DAILY PO Last administered on 12/28/18at 07:58; Start 12/23/18 at 09:00 Non-Formulary Medication (Lactobacillus Rhamnosus Gg (Culturelle)) 1 each BID PO ; Start 12/22/18 at 21:00; Status UNV Potassium Chloride/Water 100 ml @ 100 mls/hr Q1H IV Last administered on 12/23/18at 08:15; Start 12/23/18 at 06:15; Stop 12/23/18 at 09:14; Status DC Polyethylene Glycol (miraLAX PACKET) 17 gm DAILY PO Last administered on 12/28/18at 07:57; Start 12/23/18 at 14:45 Docusate Sodium (Colace Solution) 100 mg BID PO Last administered on 12/28/18at 07:58; Start 12/23/18 at 14:45 Bisacodyl (Dulcolax Supp) 10 mg PRN DAILY PRN DE CONSTIPATION; Start 12/23/18 at 14:45; Stop 12/26/18 at 12:49; Status DC Acetaminophen (Tylenol) 500 mg PRN Q6HRS PRN PO MILD PAIN / TEMP; Start 12/24/18 at 09:00 Oxycodone/ Acetaminophen (Percocet 5/325) 1 tab PRN Q4HRS PRN PO MODERATE PAIN Last administered on 12/28/18at 02:10; Start 12/24/18 at 09:00 Lidocaine HCl (Lidocaine Pf 2% Vial) 5 ml STK-MED ONCE .ROUTE ; Start 12/24/18 at 09:38; Stop 12/24/18 at 09:39; Status DC Propofol 20 ml @ As Directed STK-MED ONCE IV ; Start 12/24/18 at 09:38; Stop 12/24/18 at 09:39; Status DC Succinylcholine Chloride (Anectine) 200 mg STK-MED ONCE .ROUTE ; Start 12/24/18 at 09:38; Stop 12/24/18 at 09:39; Status DC Ondansetron HCl (Zofran) 4 mg STK-MED ONCE .ROUTE ; Start 12/24/18 at 09:39; Stop 12/24/18 at 09:39; Status DC Glycopyrrolate (Robinul) 1 mg STK-MED ONCE .ROUTE ; Start 12/24/18 at 09:39; Stop 12/24/18 at 09:39; Status DC Rocuronium [place] (Zemuron) 50 mg STK-MED ONCE .ROUTE ; Start 12/24/18 at 09:49; Stop 12/24/18 at 09:50; Status DC Propofol 20 ml @ As Directed STK-MED ONCE IV ; Start 12/24/18 at 09:52; Stop 12/24/18 at 09:52; Status DC Lidocaine HCl (Lidocaine Pf 2% Vial) 5 ml STK-MED ONCE .ROUTE ; Start 12/24/18 at 09:52; Stop 12/24/18 at 09:52; Status DC Hydromorphone HCl (Dilaudid Standard HYDROELECTRIC STATION OPERATOR) 12 mg STK-MED ONCE IV ; Start 12/22/18 at 12:00; Stop 12/24/18 at 10:33; Status DC Hydromorphone HCl (Dilaudid Standard HYDROELECTRIC STATION OPERATOR) 12 mg STK-MED ONCE IV ; Start 12/23/18 at 12:20; Stop 12/24/18 at 10:34; Status DC Midazolam HCl (Versed) 2 mg PRN 1X PRN IV PRIOR TO PROCEDURE; Start 12/24/18 at 10:45; Stop 12/25/18 at 10:44; Status DC Fentanyl Citrate (Fentanyl 2ml Vial) 25 mcg PRN Q5MIN PRN IV X 2 DOSES FOR PAIN; Start 12/24/18 at 10:45; Stop 12/25/18 at 10:44; Status DC Fentanyl Citrate (Fentanyl 2ml Vial) 50 mcg PRN Q5MIN PRN IV X 2 DOSES FOR PAIN; Start 12/24/18 at 10:45; Stop 12/25/18 at 10:44; Status DC Ringer's Solution 1,000 ml @ 125 mls/hr Q8H IV Last administered on 12/24/18at 11:46; Start 12/24/18 at 10:38; Stop 12/24/18 at 22:37; Status DC Lidocaine HCl (Xylocaine-Mpf 1% 2ml Vial) 2 ml 1X PRN PRN ID IV START; Start 12/24/18 at 10:45; Stop 12/25/18 at 10:44; Status DC Iohexol (Omnipaque 300 Mg/ml) 100 ml STK-MED ONCE .ROUTE ; Start 12/24/18 at 12:04; Stop 12/24/18 at 12:04; Status DC Influenza Virus Vaccine Quadrival (Afluria Quad 2019-20 (3yr Up) Syringe) 0.5 ml ONCE ONCE VAX IM Last administered on 12/25/18at 09:42; Start 12/25/18 at 09:00; Stop 12/25/18 at 09:01; Status DC Potassium Chloride (Klor-Con) 40 meq BIDWMEALS PO Last administered on 12/28/18at 07:59; Start 12/25/18 at 08:45 Zolpidem Tartrate (Ambien) 5 mg PRN QHS PRN PO INSOMNIA; Start 12/25/18 at 08:45 Calcium Carbonate/ Glycine (Tums) 500 mg PRN AFTMEALHC PRN PO INDIGESTION; Start 12/25/18 at 08:45 Enoxaparin Sodium (Lovenox 40mg Syringe) 40 mg Q24H SQ Last administered on 12/28/18at 07:55; Start 12/25/18 at 10:00 Hydromorphone HCl (Dilaudid Standard HYDROELECTRIC STATION OPERATOR) 12 mg STK-MED ONCE IV ; Start 12/24/18 at 22:58; Stop 12/25/18 at 11:34; Status DC Amino Acids/ Glycerin/ Electrolytes 1,000 ml @ 80 mls/hr [id number] IV Last administered on 12/27/18at 20:27; Start 12/26/18 at 08:15; Stop 12/28/18 at 08:24; Status DC Magnesium Hydroxide (Milk Of Magnesia) 2,400 mg PRN DAILY PRN PO CONSTIPATION, 1ST CHOICE Last administered on 12/26/18at 16:41; Start 12/26/18 at 09:15 Bisacodyl (Dulcolax Supp) 10 mg PRN DAILY PRN DE CONSTIPATION Last administered on 12/27/18at 07:39; Start 12/26/18 at 09:15 Lubiprostone (Amitiza) 8 mcg BIDWMEALS PO Last administered on 12/28/18at 07:58; Start 12/26/18 at 10:00 Polyethylene Glycol (miraLAX PACKET) 17 gm DAILY PO ; Start 12/27/18 at 09:00; Stop 12/26/18 at 15:42; Status DC Polyethylene Glycol (miraLAX PACKET) 17 gm PRN DAILY PRN PO CONSTIPATION, 2ND CHOICE; Start 12/26/18 at 12:45 Morphine Sulfate (Ms Contin) 15 mg BID PO Last administered on 12/28/18at 07:58; Start 12/27/18 at 09:00; Stop 12/28/18 at 08:24; Status DC Hydromorphone HCl (Dilaudid) 0.4 mg PRN Q4HRS PRN IVP MODERATE TO SEVERE PAIN; Start 12/27/18 at 08:30; Stop 12/27/18 at 09:19; Status DC Hydromorphone HCl (Dilaudid) 0.2 mg PRN Q4HRS PRN IVP MODERATE TO SEVERE PAIN Last administered on 12/27/18at 17:48; Start 12/27/18 at 09:30 Furosemide (Lasix) 20 mg DAILY PO Last administered on 12/28/18at 07:58; Start 12/27/18 at 11:15 Hydromorphone HCl (Dilaudid Standard HYDROELECTRIC STATION OPERATOR) 12 mg STK-MED ONCE IV ; Start 12/26/18 at 07:59; Stop 12/27/18 at 14:44; Status DC Morphine Sulfate (Ms Contin) 30 mg BID PO ; Start 12/28/18 at 09:00 Info (Tpn Per Pharmacy) 1 each PRN DAILY PRN MC SEE COMMENTS; Start 12/28/18 at 08:30 Furosemide (Lasix) 20 mg 1X ONCE IVP Last administered on 12/28/18at 08:49; Start 12/28/18 at 08:30; Stop 12/28/18 at 08:31; Status DC Potassium Chloride (Klor-Con) 40 meq 1X ONCE PO Last administered on 12/28/18at 08:48; Start 12/28/18 at 08:30; Stop 12/28/18 at 08:31; Status DC Potassium Chloride (Klor-Con) 20 meq DAILYWBKFT PO ; Start 12/29/18 at 08:00 Morphine Sulfate (Ms Contin) 15 mg 1X PO ; Start 12/28/18 at 08:45; Stop 12/28/18 at 09:14; Status DC Morphine Sulfate (Ms Contin) 15 mg 1X ONCE PO Last administered on 12/28/18at 09:16; Start 12/28/18 at 09:15; Stop 12/28/18 at 09:16; Status DC Active Scripts Active Ascorbic Acid 500 Mg Tablet 500 Mg PO BID 30 Days Ferrous Sulfate 325 Mg Tablet 1 Tab PO BID 30 Days Reported Imodium A-D (Loperamide HCl) 2 Mg Capsule 2 Mg PO PRN Q4HRS PRN Alpha Lipoic Acid 600 Mg Capsule 600 Mg PO BID Ambien (Zolpidem Tartrate) 5 Mg Tablet 5 Mg PO PRN QHS PRN Gabapentin (Gabapentin) 300 Mg Capsule 300 Mg PO BID Escitalopram Oxalate 10 Mg Tablet 1 Tab PO DAILY Acyclovir 400 Mg Tablet 1 Tab PO BID Temazepam 15 Mg Capsule 1 Cap PO QHS Eliquis (Apixaban) 5 Mg Tablet 5 Mg PO BID 60 Days Culturelle (Lactobacillus Rhamnosus Gg) 1 Each Capsule 1 Each PO BID Vitals/I & O Vital Sign - Last 24 Hours 12/27/18 12/27/18 12/27/18 12/27/18 11:00 11:22 12:15 12:17 Temp 97.6 97.6 Pulse 100 Resp 18 B/P (MAP) 123/59 (80) Pulse Ox 94 90 90 90 O2 Delivery Nasal Cannula Nasal Cannula Nasal Cannula Nasal Cannula O2 Flow Rate 2.0 2.0 2.0 2.0 12/27/18 12/27/18 12/27/18 12/27/18 12:46 13:09 15:00 15:30 Temp 97.2 97.2 Pulse 93 Resp 16 B/P (MAP) 134/64 (87) Pulse Ox 90 92 O2 Delivery Nasal Cannula Nasal Cannula Room Air Nasal Cannula O2 Flow Rate 2.0 2.0 1.0 12/27/18 12/27/18 12/27/18 12/27/18 16:12 17:00 17:48 18:28 Pulse Ox 92 92 92 92 O2 Delivery Nasal Cannula Nasal Cannula Nasal Cannula Nasal Cannula O2 Flow Rate 2.0 2.0 2.0 2.0 12/27/18 12/27/18 12/27/18 12/27/18 19:20 19:51 20:00 20:28 Temp 98.3 98.3 Pulse 101 Resp 20 18 B/P (MAP) 120/68 (85) Pulse Ox 96 93 93 O2 Delivery Nasal Cannula Nasal Cannula Room Air Room Air O2 Flow Rate 2.0 2.0 12/27/18 12/27/18 12/28/18 12/28/18 23:31 23:40 00:28 02:10 Temp 97.6 97.6 Pulse 102 Resp 20 20 20 B/P (MAP) 130/66 (87) Pulse Ox 90 90 90 O2 Delivery Room Air Nasal Cannula Nasal Cannula Nasal Cannula O2 Flow Rate 2.0 2.0 2.0 12/28/18 12/28/18 12/28/18 12/28/18 03:37 07:00 07:13 07:26 Temp 98.7 98.1 98.7 98.1 Pulse 106 109 Resp 18 18 B/P (MAP) 138/76 (96) 128/75 (92) Pulse Ox 90 95 91 O2 Delivery Room Air Nasal Cannula Room Air Nasal Cannula O2 Flow Rate 2.0 2.0 12/28/18 12/28/18 12/28/18 07:58 08:37 09:16 Pulse Ox 91 91 91 O2 Delivery Nasal Cannula Room Air Nasal Cannula O2 Flow Rate 2.0 2.0 2.0 Intake and Output 12/27/18 12/27/18 12/28/18 15:00 23:00 07:00 Intake Total 125 ml 920 ml Balance 125 ml 920 ml RUSS BETANCOURT MD Dec 28, 2018 09:48
--- NOTE | 2018-12-28 10:05 | PDOC ---
Infectious Disease Note Subjective Subjective C/o sore throat + BM No F/C/S/n/V pain ok Vital Sign Vital Signs Vital Signs Date Time Temp Pulse Resp B/P (MAP) Pulse Ox O2 Delivery O2 Flow Rate FiO2 12/28/18 09:16 91 Nasal Cannula 2.0 12/28/18 07:00 98.1 109 18 128/75 (92) 98.1 Physical Exam PHYSICAL EXAM GENERAL: The patient is slightly propped up in bed and looks comfortable- in no apparent distress. HEENT: Pupils equally round and reactive. Sclerae icterus. Oropharynx pink and moist. ? early ulcers and thrush. LLE lip lesion ? from procedure - resolved NECK: Supple. LUNGS: Diminished aeration. Nonlabored. on 1.5 L HEART: S1, S2. ABDOMEN: Not distended, soft + BS EXTREMITIES: No gross edema or cyanosis. SKIN: Warm to touch, jaundice. NEUROLOGIC: Drowsy, but answering questions appropriately and following commands. Right-sided Port-A-Cath without signs of any complications. Labs Lab Laboratory Tests Test 12/28/18 08:15 White Blood Count 8.7 x10^3/uL (4.0-11.0) Red Blood Count 3.44 x10^6/uL (3.50-5.40) Hemoglobin 11.1 g/dL (12.0-15.5) Hematocrit 32.7 % (36.0-47.0) Mean Corpuscular Volume 95 fL (79-100) Mean Corpuscular Hemoglobin 32 pg (25-35) Mean Corpuscular Hemoglobin Concent 34 g/dL (31-37) Red Cell Distribution Width 18.0 % (11.5-14.5) Platelet Count 234 x10^3/uL (140-400) Neutrophils (%) (Auto) 85 % (31-73) Lymphocytes (%) (Auto) 8 % (24-48) Monocytes (%) (Auto) 6 % (0-9) Eosinophils (%) (Auto) 0 % (0-3) Basophils (%) (Auto) 0 % (0-3) Neutrophils # (Auto) 7.4 x10^3/uL (1.8-7.7) Lymphocytes # (Auto) 0.7 x10^3/uL (1.0-4.8) Monocytes # (Auto) 0.5 x10^3/uL (0.0-1.1) Eosinophils # (Auto) 0.0 x10^3/uL (0.0-0.7) Basophils # (Auto) 0.0 x10^3/uL (0.0-0.2) Sodium Level 131 mmol/L (136-145) Potassium Level 4.0 mmol/L (3.5-5.1) Chloride Level 95 mmol/L (98-107) Carbon Dioxide Level 28 mmol/L (21-32) Anion Gap 8 (6-14) Blood Urea Nitrogen 4 mg/dL (7-20) Creatinine 0.4 mg/dL (0.6-1.0) Estimated GFR (Cockcroft-Gault) 161.7 BUN/Creatinine Ratio 10 (6-20) Glucose Level 108 mg/dL (70-99) Calcium Level 8.3 mg/dL (8.5-10.1) Total Bilirubin 5.2 mg/dL (0.2-1.0) Aspartate Amino Transf (AST/SGOT) 105 U/L (15-37) Alanine Aminotransferase (ALT/SGPT) 102 U/L (14-59) Alkaline Phosphatase 884 U/L (46-116) Total Protein 5.7 g/dL (6.4-8.2) Albumin 1.8 g/dL (3.4-5.0) Albumin/Globulin Ratio 0.5 (1.0-1.7) Micro CXR 12/24 Increase in coarse interstitial bilateral perihilar opacities, left greater than right. Interstitial pneumonitis is a primary consideration. Recommend follow-up to resolution. Microbiology 12/22/18 Blood Culture - Preliminary, Resulted NO GROWTH AFTER 2 DAYS Objective Assessment Ascending cholangiti Oral ulcerations Obstructive jaundice s/p ERCP 12/24 Immunosuppression d/t chemotherapy Colon cancer with metastasis Recently h/o treated for PJP, off Bactrim h/o C. diff CXR reviewed but clinically better Plan Plan of Care D/w Dr. Perea, no surgical plans F/u CXR - ? fluid overload with PPN Add Fluconazole and Valtrex Continue Zosyn and f/u on clinical improvement Cont Incentive spirometry Bubble 02 Monitor labs Pain management per primary Hoping to continue chemo D/w nursing DEMI DUKE MD Dec 28, 2018 10:05
--- NOTE | 2018-12-28 10:25 | NUR ---
SS following up with discharge planning. SS checked benefits for TPN. With [employer] pt has deductible of $1000 and has only met $369. Pt has out of pocket maximum of $6550 and has only met $539. Pt will have co-pay of $268/day until deductible is met and then the cost with be deducted to $53.60/day until the out of pocket maximum is met. PT/OT recommended home with assistance. Physician concerned that pt may be too weak for return to home with home healthcare. SS requesting that PT/OT reevaluate. SS will continue to follow for discharge planning.
--- NOTE | 2018-12-28 10:35 | RAD ---
EXAM: PA and Lateral Views of the Chest DATE: 12/28/2018 8:21 AM INDICATION: Dyspnea COMPARISON: 12/24/2018 FINDINGS: The heart is not enlarged. Right Port-A-Cath tip terminates over the right atrium. Mediastinal and hilar contours are stable. Bilateral airspace opacities are essentially unchanged compared to 12/24/2018 Trace bilateral pleural effusions. No pneumothorax. Biliary stent is partially profiled. IMPRESSION: Bilateral airspace opacities are essentially unchanged compared to 12/24/2018 Electronically signed by: Darío Araiza MD (12/28/2018 10:32 AM) [facility]
[2018-12-28 11:00] VITALS: BP 119/76
--- NOTE | 2018-12-28 11:12 | PDOC ---
G I PROGRESS NOTE Reason for Follow-up Obstructive jaundice Subjective Breathing better with diuresis Physical Exam Lungs decreased BS CV S1 S2 ABd Diffuse tenderness, soft, +BS Review of Relevant I have reviewed the following items erwin (where applicable) has been applied. Labs Laboratory Tests Test 12/28/18 08:15 White Blood Count 8.7 x10^3/uL (4.0-11.0) Red Blood Count 3.44 x10^6/uL (3.50-5.40) Hemoglobin 11.1 g/dL (12.0-15.5) Hematocrit 32.7 % (36.0-47.0) Mean Corpuscular Volume 95 fL (79-100) Mean Corpuscular Hemoglobin 32 pg (25-35) Mean Corpuscular Hemoglobin Concent 34 g/dL (31-37) Red Cell Distribution Width 18.0 % (11.5-14.5) Platelet Count 234 x10^3/uL (140-400) Neutrophils (%) (Auto) 85 % (31-73) Lymphocytes (%) (Auto) 8 % (24-48) Monocytes (%) (Auto) 6 % (0-9) Eosinophils (%) (Auto) 0 % (0-3) Basophils (%) (Auto) 0 % (0-3) Neutrophils # (Auto) 7.4 x10^3/uL (1.8-7.7) Lymphocytes # (Auto) 0.7 x10^3/uL (1.0-4.8) Monocytes # (Auto) 0.5 x10^3/uL (0.0-1.1) Eosinophils # (Auto) 0.0 x10^3/uL (0.0-0.7) Basophils # (Auto) 0.0 x10^3/uL (0.0-0.2) Sodium Level 131 mmol/L (136-145) Potassium Level 4.0 mmol/L (3.5-5.1) Chloride Level 95 mmol/L (98-107) Carbon Dioxide Level 28 mmol/L (21-32) Anion Gap 8 (6-14) Blood Urea Nitrogen 4 mg/dL (7-20) Creatinine 0.4 mg/dL (0.6-1.0) Estimated GFR (Cockcroft-Gault) 161.7 BUN/Creatinine Ratio 10 (6-20) Glucose Level 108 mg/dL (70-99) Calcium Level 8.3 mg/dL (8.5-10.1) Total Bilirubin 5.2 mg/dL (0.2-1.0) Aspartate Amino Transf (AST/SGOT) 105 U/L (15-37) Alanine Aminotransferase (ALT/SGPT) 102 U/L (14-59) Alkaline Phosphatase 884 U/L (46-116) Total Protein 5.7 g/dL (6.4-8.2) Albumin 1.8 g/dL (3.4-5.0) Albumin/Globulin Ratio 0.5 (1.0-1.7) Laboratory Tests Test 12/28/18 08:15 White Blood Count 8.7 x10^3/uL (4.0-11.0) Red Blood Count 3.44 x10^6/uL (3.50-5.40) Hemoglobin 11.1 g/dL (12.0-15.5) Hematocrit 32.7 % (36.0-47.0) Mean Corpuscular Volume 95 fL (79-100) Mean Corpuscular Hemoglobin 32 pg (25-35) Mean Corpuscular Hemoglobin Concent 34 g/dL (31-37) Red Cell Distribution Width 18.0 % (11.5-14.5) Platelet Count 234 x10^3/uL (140-400) Neutrophils (%) (Auto) 85 % (31-73) Lymphocytes (%) (Auto) 8 % (24-48) Monocytes (%) (Auto) 6 % (0-9) Eosinophils (%) (Auto) 0 % (0-3) Basophils (%) (Auto) 0 % (0-3) Neutrophils # (Auto) 7.4 x10^3/uL (1.8-7.7) Lymphocytes # (Auto) 0.7 x10^3/uL (1.0-4.8) Monocytes # (Auto) 0.5 x10^3/uL (0.0-1.1) Eosinophils # (Auto) 0.0 x10^3/uL (0.0-0.7) Basophils # (Auto) 0.0 x10^3/uL (0.0-0.2) Sodium Level 131 mmol/L (136-145) Potassium Level 4.0 mmol/L (3.5-5.1) Chloride Level 95 mmol/L (98-107) Carbon Dioxide Level 28 mmol/L (21-32) Anion Gap 8 (6-14) Blood Urea Nitrogen 4 mg/dL (7-20) Creatinine 0.4 mg/dL (0.6-1.0) Estimated GFR (Cockcroft-Gault) 161.7 BUN/Creatinine Ratio 10 (6-20) Glucose Level 108 mg/dL (70-99) Calcium Level 8.3 mg/dL (8.5-10.1) Total Bilirubin 5.2 mg/dL (0.2-1.0) Aspartate Amino Transf (AST/SGOT) 105 U/L (15-37) Alanine Aminotransferase (ALT/SGPT) 102 U/L (14-59) Alkaline Phosphatase 884 U/L (46-116) Total Protein 5.7 g/dL (6.4-8.2) Albumin 1.8 g/dL (3.4-5.0) Albumin/Globulin Ratio 0.5 (1.0-1.7) Microbiology 12/22/18 Blood Culture - Final, Complete NO GROWTH AFTER 5 DAYS Medications Current Medications Morphine Sulfate (Morphine Sulfate) 5 mg 1X ONCE IV Last administered on 12/22/18at 10:00; Start 12/22/18 at 10:00; Stop 12/22/18 at 10:03; Status DC Naloxone HCl (Narcan) 0.4 mg PRN Q2MIN PRN IV SEE INSTRUCTIONS; Start 12/22/18 at 10:00 Sodium Chloride 1,000 ml @ 25 mls/hr Q24H IV Last administered on 12/22/18at 09:55; Start 12/22/18 at 09:55 Hydromorphone HCl 30 ml @ 0 mls/hr CONT PRN PRN IV PER PROTOCOL Last administered on 12/26/18at 08:12; Start 12/22/18 at 10:00; Stop 12/27/18 at 08:24; Status DC Sodium Chloride (Normal Saline Flush) 3 ml QSHIFT PRN IV AFTER MEDS AND BLOOD DRAWS; Start 12/22/18 at 11:30 Sodium Chloride 1,000 ml @ 100 mls/hr Q10H IV Last administered on 12/26/18at 05:39; Start 12/22/18 at 13:00; Stop 12/26/18 at 08:16; Status DC Ondansetron HCl (Zofran) 4 mg PRN Q4HRS PRN IVP NAUSEA/VOMITING Last administe red on 12/27/18 16:20; Start 12/22/18 at 11:30 Acetaminophen (Tylenol Supp) 650 mg PRN Q4HRS PRN [place] TEMP OVER 100.4F OR MILD PAIN Last administered on 12/23/18 03:47; Start 12/22/18 at 11:30 Clonidine HCl (Catapres) 0.1 mg PRN Q6HRS PRN PO SBP>160 OR DBP>90; Start 12/22/18 at 11:30 Albuterol/ Ipratropium (Duoneb) 3 ml Q4H NEB Last administered on 12/28/18 11:08; Start 12/22/18 at 12:00 Lorazepam (Ativan) 0.5 mg PRN Q4HRS PRN PO ANXIETY / AGITATION Last administered on 12/27/18 17:47; Start 12/22/18 at 11:30 Enoxaparin Sodium (Lovenox 40mg Syringe) 40 mg DAILY SQ ; Start 12/23/18 at 09:00; Stop 12/22/18 at 16:29; Status DC Piperacillin Sod/ Tazobactam Sod 3.375 gm/Sodium Chloride 50 ml @ 100 mls/hr Q6HRS IV Last administered on 12/28/18 06:06; Start 12/22/18 at 12:00 Ascorbic Acid (Vitamin C) 500 mg BID PO Last administered on 12/28/18 07:58; Start 12/22/18 at 21:00 Ferrous Sulfate (Feosol) 325 mg BIDWMEALS PO Last administered on 12/28/18 07:58; Start 12/22/18 at 17:00 Gabapentin (Neurontin) 300 mg BID PO Last administered on 12/28/18 07:58; Start 12/22/18 at 21:00 Acyclovir (Zovirax) 400 mg BID PO Last administered on 12/28/18 07:58; Start 12/22/18 at 21:00; Stop 12/28/18 at 10:07; Status DC Non-Formulary Medication (Alpha Lipoic Acid ) 600 mg BID PO ; Start 12/22/18 at 21:00; Status UNV Citalopram Hydrobromide (CeleXA) 20 mg DAILY PO Last administered on 12/28/18at 07:58; Start 12/23/18 at 09:00 Non-Formulary Medication (Lactobacillus Rhamnosus Gg (Culturelle)) 1 each BID PO ; Start 12/22/18 at 21:00; Status UNV Potassium Chloride/Water 100 ml @ 100 mls/hr Q1H IV Last administered on 12/23/18at 08:15; Start 12/23/18 at 06:15; Stop 12/23/18 at 09:14; Status DC Polyethylene Glycol (miraLAX PACKET) 17 gm DAILY PO Last administered on 12/28/18at 07:57; Start 12/23/18 at 14:45 Docusate Sodium (Colace Solution) 100 mg BID PO Last administered on 12/28/18at 07:58; Start 12/23/18 at 14:45 Bisacodyl (Dulcolax Supp) 10 mg PRN DAILY PRN [place] CONSTIPATION; Start 12/23/18 at 14:45; Stop 12/26/18 at 12:49; Status DC Acetaminophen (Tylenol) 500 mg PRN Q6HRS PRN PO MILD PAIN / TEMP; Start 12/24/18 at 09:00 Oxycodone/ Acetaminophen (Percocet 5/325) 1 tab PRN Q4HRS PRN PO MODERATE PAIN Last administered on 12/28/18at 02:10; Start 12/24/18 at 09:00 Lidocaine HCl (Lidocaine Pf 2% Vial) 5 ml STK-MED ONCE .ROUTE ; Start 12/24/18 at 09:38; Stop 12/24/18 at 09:39; Status DC Propofol 20 ml @ As Directed STK-MED ONCE IV ; Start 12/24/18 at 09:38; Stop 12/24/18 at 09:39; Status DC Succinylcholine Chloride (Anectine) 200 mg STK-MED ONCE .ROUTE ; Start 12/24/18 at 09:38; Stop 12/24/18 at 09:39; Status DC Ondansetron HCl (Zofran) 4 mg STK-MED ONCE .ROUTE ; Start 12/24/18 at 09:39; Stop 12/24/18 at 09:39; Status DC Glycopyrrolate (Robinul) 1 mg STK-MED ONCE .ROUTE ; Start 12/24/18 at 09:39; Stop 12/24/18 at 09:39; Status DC Rocuronium [place] (Zemuron) 50 mg STK-MED ONCE .ROUTE ; Start 12/24/18 at 09:49; Stop 12/24/18 at 09:50; Status DC Propofol 20 ml @ As Directed STK-MED ONCE IV ; Start 12/24/18 at 09:52; Stop 12/24/18 at 09:52; Status DC Lidocaine HCl (Lidocaine Pf 2% Vial) 5 ml STK-MED ONCE .ROUTE ; Start 12/24/18 at 09:52; Stop 12/24/18 at 09:52; Status DC Hydromorphone HCl (Dilaudid Standard [employer]ENTICE) 12 mg STK-MED ONCE IV ; Start 12/22/18 at 12:00; Stop 12/24/18 at 10:33; Status DC Hydromorphone HCl (Dilaudid Standard [employer]CH[employer]ENTICE) 12 mg STK-MED ONCE IV ; Start 12/23/18 at 12:20; Stop 12/24/18 at 10:34; Status DC Midazolam HCl (Versed) 2 mg PRN 1X PRN IV PRIOR TO PROCEDURE; Start 12/24/18 at 10:45; Stop 12/25/18 at 10:44; Status DC Fentanyl Citrate (Fentanyl 2ml Vial) 25 mcg PRN Q5MIN PRN IV X 2 DOSES FOR PAIN; Start 12/24/18 at 10:45; Stop 12/25/18 at 10:44; Status DC Fentanyl Citrate (Fentanyl 2ml Vial) 50 mcg PRN Q5MIN PRN IV X 2 DOSES FOR PAIN; Start 12/24/18 at 10:45; Stop 12/25/18 at 10:44; Status DC Ringer's Solution 1,000 ml @ 125 mls/hr Q8H IV Last administered on 12/24/18at 11:46; Start 12/24/18 at 10:38; Stop 12/24/18 at 22:37; Status DC Lidocaine HCl (Xylocaine-Mpf 1% 2ml Vial) 2 ml 1X PRN PRN ID IV START; Start 12/24/18 at 10:45; Stop 12/25/18 at 10:44; Status DC Iohexol (Omnipaque 300 Mg/ml) 100 ml STK-MED ONCE .ROUTE ; Start 12/24/18 at 12:04; Stop 12/24/18 at 12:04; Status DC Influenza Virus Vaccine Quadrival (Afluria Quad 2019-20 (3yr Up) Syringe) 0.5 ml ONCE ONCE VAX IM Last administered on 12/25/18at 09:42; Start 12/25/18 at 09:00; Stop 12/25/18 at 09:01; Status DC Potassium Chloride (Klor-Con) 40 meq BIDWMEALS PO Last administered on 12/28/18at 07:59; Start 12/25/18 at 08:45; Stop 12/28/18 at 10:27; Status DC Zolpidem Tartrate (Ambien) 5 mg PRN QHS PRN PO INSOMNIA; Start 12/25/18 at 08:45 Calcium Carbonate/ Glycine (Tums) 500 mg PRN AFTMEALHC PRN PO INDIGESTION; Start 12/25/18 at 08:45 Enoxaparin Sodium (Lovenox 40mg Syringe) 40 mg Q24H SQ Last administered on 12/28/18at 07:55; Start 12/25/18 at 10:00 Hydromorphone HCl (Dilaudid Standard [employer]CH[employer] AP[employer]ENTICE) 12 mg STK-MED ONCE IV ; Start 12/24/18 at 22:58; Stop 12/25/18 at 11:34; Status DC Amino Acids/ Glycerin/ Electrolytes 1,000 ml @ 80 mls/hr [id number] IV Last administered on 12/27/18at 20:27; Start 12/26/18 at 08:15; Stop 12/28/18 at 08:24; Status DC Magnesium Hydroxide (Milk Of Magnesia) 2,400 mg PRN DAILY PRN PO CONSTIPATION, 1ST CHOICE Last administered on 12/26/18at 16:41; Start 12/26/18 at 09:15 Bisacodyl (Dulcolax Supp) 10 mg PRN DAILY PRN [place] CONSTIPATION Last administered on 12/27/18at 07:39; Start 12/26/18 at 09:15 Lubiprostone (Amitiza) 8 mcg BIDWMEALS PO Last administered on 12/28/18at 07:58; Start 12/26/18 at 10:00 Polyethylene Glycol (miraLAX PACKET) 17 gm DAILY PO ; Start 12/27/18 at 09:00; Stop 12/26/18 at 15:42; Status DC Polyethylene Glycol (miraLAX PACKET) 17 gm PRN DAILY PRN PO CONSTIPATION, 2ND CHOICE; Start 12/26/18 at 12:45 Morphine Sulfate (Ms Contin) 15 mg BID PO Last administered on 12/28/18at 07:58; Start 12/27/18 at 09:00; Stop 12/28/18 at 08:24; Status DC Hydromorphone HCl (Dilaudid) 0.4 mg PRN Q4HRS PRN IVP MODERATE TO SEVERE PAIN; Start 12/27/18 at 08:30; Stop 12/27/18 at 09:19; Status DC Hydromorphone HCl (Dilaudid) 0.2 mg PRN Q4HRS PRN IVP MODERATE TO SEVERE PAIN Last administered on 12/27/18at 17:48; Start 12/27/18 at 09:30 Furosemide (Lasix) 20 mg DAILY PO Last administered on 12/28/18at 07:58; Start 12/27/18 at 11:15 Hydromorphone HCl (Dilaudid Standard [employer]CH[employer]ENTICE) 12 mg STK-MED ONCE IV ; Start 12/26/18 at 07:59; Stop 12/27/18 at 14:44; Status DC Morphine Sulfate (Ms Contin) 30 mg BID PO ; Start 12/28/18 at 09:00 Info (Tpn Per Pharmacy) 1 each PRN DAILY PRN MC SEE COMMENTS; Start 12/28/18 a t 08:30 Furosemide (Lasix) 20 mg 1X ONCE IVP Last administered on 12/28/18at 08:49; Start 12/28/18 at 08:30; Stop 12/28/18 at 08:31; Status DC Potassium Chloride (Klor-Con) 40 meq 1X ONCE PO Last administered on 12/28/18at 08:48; Start 12/28/18 at 08:30; Stop 12/28/18 at 08:31; Status DC Potassium Chloride (Klor-Con) 20 meq DAILYWBKFT PO ; Start 12/29/18 at 08:00 Morphine Sulfate (Ms Contin) 15 mg 1X PO ; Start 12/28/18 at 08:45; Stop 12/28/18 at 09:14; Status DC Morphine Sulfate (Ms Contin) 15 mg 1X ONCE PO Last administered on 12/28/18at 09:16; Start 12/28/18 at 09:15; Stop 12/28/18 at 09:16; Status DC Fluconazole (Diflucan) 200 mg DAILY PO ; Start 12/28/18 at 10:15 Valacyclovir HCl (Valtrex) 1,000 mg BID PO ; Start 12/28/18 at 21:00 Active Scripts Active Ascorbic Acid 500 Mg Tablet 500 Mg PO BID 30 Days Ferrous Sulfate 325 Mg Tablet 1 Tab PO BID 30 Days Reported Imodium A-D (Loperamide HCl) 2 Mg Capsule 2 Mg PO PRN Q4HRS PRN Alpha Lipoic Acid 600 Mg Capsule 600 Mg PO BID Ambien (Zolpidem Tartrate) 5 Mg Tablet 5 Mg PO PRN QHS PRN Gabapentin (Gabapentin) 300 Mg Capsule 300 Mg PO BID Escitalopram Oxalate 10 Mg Tablet 1 Tab PO DAILY Acyclovir 400 Mg Tablet 1 Tab PO BID Temazepam 15 Mg Capsule 1 Cap PO QHS Eliquis (Apixaban) 5 Mg Tablet 5 Mg PO BID 60 Days Culturelle (Lactobacillus Rhamnosus Gg) 1 Each Capsule 1 Each PO BID Vitals/I & O Vital Sign - Last 24 Hours 12/27/18 12/27/18 12/27/18 12/27/18 11:22 12:15 12:17 12:46 Pulse Ox 90 90 90 O2 Delivery Nasal Cannula Nasal Cannula Nasal Cannula Nasal Cannula O2 Flow Rate 2.0 2.0 2.0 2.0 12/27/18 12/27/18 12/27/18 12/27/18 13:09 15:00 15:30 16:12 Temp 97.2 97.2 Pulse 93 Resp 16 B/P (MAP) 134/64 (87) Pulse Ox 90 92 92 O2 Delivery Nasal Cannula Room Air Nasal Cannula Nasal Cannula O2 Flow Rate 2.0 1.0 2.0 12/27/18 12/27/18 12/27/18 12/27/18 17:00 17:48 18:28 19:20 Temp 98.3 98.3 Pulse 101 Resp 20 B/P (MAP) 120/68 (85) Pulse Ox 92 92 92 96 O2 Delivery Nasal Cannula Nasal Cannula Nasal Cannula Nasal Cannula O2 Flow Rate 2.0 2.0 2.0 2.0 12/27/18 12/27/18 12/27/18 12/27/18 19:51 20:00 20:28 23:31 Temp 97.6 97.6 Pulse 102 Resp 18 20 B/P (MAP) 130/66 (87) Pulse Ox 93 93 90 O2 Delivery Nasal Cannula Room Air Room Air Room Air O2 Flow Rate 2.0 12/27/18 12/28/18 12/28/18 12/28/18 23:40 00:28 02:10 03:37 Temp 98.7 98.7 Pulse 106 Resp 20 20 18 B/P (MAP) 138/76 (96) Pulse Ox 90 90 90 O2 Delivery Nasal Cannula Nasal Cannula Nasal Cannula Room Air O2 Flow Rate 2.0 2.0 2.0 12/28/18 12/28/18 12/28/18 12/28/18 07:00 07:13 07:26 07:58 Temp 98.1 98.1 Pulse 109 Resp 18 B/P (MAP) 128/75 (92) Pulse Ox 95 91 91 O2 Delivery Nasal Cannula Room Air Nasal Cannula Nasal Cannula O2 Flow Rate 2.0 2.0 2.0 12/28/18 12/28/18 08:37 09:16 Pulse Ox 91 91 O2 Delivery Room Air Nasal Cannula O2 Flow Rate 2.0 2.0 Intake and Output 12/27/18 12/27/18 12/28/18 14:59 22:59 06:59 Intake Total 125 ml 920 ml Balance 125 ml 920 ml Problem List Obstructive jaundice- s/p biliary stent, T alonzo slowly normalizing , discussed PEG with patient who wishes to avoid, TPN if Po intake inadequate until possible further chemotherapy as LFTS continue to improve CHASIDY FULLER MD Dec 28, 2018 11:11
[2018-12-28] MEDS: FLUCONAZOLE 100 MG TABLET. PO SCH (11:18)
[2018-12-28] MEDS: TPN PER PHARMACY MC PRN (11:20)
--- NOTE | 2018-12-28 11:29 | NUR ---
Pharmacy TPN Dosing Note S: JAZMIN EASON is a 63 year old F Currently receiving Central Continuous TPN started 12/28/18 B:Pertinent PMH: MALNUTRITION Height: 5 feet, 6 inches Weight: 88.575243 kg Current diet: LABS: Sodium: 131 Potassium: 4.0 Chloride: 95 Calcium: 8.3 Corrected Calcium: 10.06 Magnesium: CO2: 28 SCr: 0.4 Glucose: 108 Albumin: 1.8 AST: 105 ALT: 102 TPN FORMULA: TPN TYPE: Central Continuous AMINO ACIDS: 60 gm DEXTROSE: 200 gm LIPIDS: gm SODIUM CHLORIDE: 70 mEq SODIUM ACETATE: mEq SODIUM PHOSPHATE: mmol POTASSIUM CHLORIDE: 40 mEq POTASSIUM ACETATE: mEq POTASSIUM PHOSPHATE: 13.6 mmol MAGNESIUM: 10 mEq CALCIUM: 10 mEq INSULIN: units MULTIPLE VITAMIN: 10 ml TRACE ELEMENTS: 1 ml(s) TPN PLAN: 12/28 NEW TPN AA 60 GM/DEXTROSE 200GM, NO LIPID TILL AST NORMAL. R: Begin TPN at 63ml/hr Will monitor electrolytes, glucose, and tolerance to TPN. ENZO TRACY [facility], 12/28/18 1127
[2018-12-28] MEDS ORDERED: AMINO AC 3%/ELECTROLYTE/GLYCER 1,000 ML IV ONE (11:30)
[2018-12-28 11:41] LABS: % LYMPHS 8 % (24-48); % MONOS 4 % (0-10); % SEGS 88 % (35-66); ANISOCYTOSIS SLIGHT; PLT ESTIMATE ADEQUATE (ADEQUATE)
--- NOTE | 2018-12-28 14:17 | PDOC2 ---
PALLIATIVE CARE Palliative Care Note Palliative Care Patient rates pain 0. Receiving Morphine 30 mg ER BID. Had not received any breakthrough since nights. Walked to bathroom with PT. Unable to walk back. Poor po intake. PPN infusing. Labs reviewed. T Bili down. No family at bedside. Consider D/C Ativan ---may be causing increased lethargy. CARLA ABARCA Dec 28, 2018 14:17
--- NOTE | 2018-12-28 14:52 | NUR ---
Received a fax for urinalysis results from [facility] from date of service 12/22/18. Results show gram negative rods and Klebsiella pneumoniae greater than 100,000 colony forming units, also report stated "susceptibility profile is consistent with a probable ESBL". Dr. Simon estes, waiting for return call. Addendum: 12/28/18 at 1546 by ROSALINDA PAULA RN [facility] again at [phone], waiting for return call. Addendum: 12/28/18 at 1700 by ROSALINDA PAULA RN [facility], waiting for return call.
[2018-12-28 15:00] VITALS: BP 135/72
[2018-12-28 19:00] VITALS: BP 131/60
[2018-12-28] MEDS: valACYclovir 500 MG TABLET. PO SCH (21:08)
[2018-12-28] MEDS ORDERED: DEXTROSE 70% IV SCH ×9 (22:00)
[2018-12-28] MEDS ORDERED: [UNRECOGNIZED DRUG - OTHER] IV SCH ×9 (22:00)
[2018-12-28] MEDS ORDERED: TOTAL PARENTERAL NUTRITION IV SCH ×9 (22:00)
[2018-12-28] MEDS ORDERED: AMINO ACID IV SCH ×9 (22:00)
[2018-12-28 23:02] VITALS: BP 128/67
[2018-12-29 03:08] VITALS: BP 129/67
[2018-12-29] MEDS: IPRATRPIUM/ALBUTEROL 0.5/2.5MG 3 ML NEBU. NEB SCH ×6 (04:05→23:13)
[2018-12-29 05:48] LABS: CALCIUM 8.8 mg/dL (8.5-10.1); CREATININE 0.5 mg/dL (0.6-1.0); POTASSIUM 4.2 mmol/L (3.5-5.1)
[2018-12-29] MEDS: PIPERACILLIN/TAZOBACTAM 3.375 GM in IV NORMAL SALINE 50ML 50 ML IV SCH ×2 (05:49→12:17)
[2018-12-29 05:57] LABS: MAGNESIUM 2.1 mg/dL (1.8-2.4); PHOSPHORUS 2.1 mg/dL (2.6-4.7)
[2018-12-29 07:00] VITALS: BP 108/61
[2018-12-29] MEDS: DOCUSATE 100 MG/10 ML SOLUTION. PO SCH ×2 (08:22→20:36)
[2018-12-29] MEDS: POLYETHYLENE GLYCOL 3350 17 GM PACKET. PO SCH (08:24)
[2018-12-29] MEDS: ASCORBIC ACID 500 MG TABLET PO SCH ×2 (08:25→20:37)
[2018-12-29] MEDS: LUBIPROSTONE 8 MCG CAPSULE PO SCH ×2 (08:25→17:12)
[2018-12-29] MEDS: FLUCONAZOLE 100 MG TABLET. PO SCH (08:25)
[2018-12-29] MEDS: FUROSEMIDE 20 MG TABLET PO SCH (08:26)
[2018-12-29] MEDS: POTASSIUM CHLORIDE 20 MEQ TABLET.ER. PO SCH (08:26)
[2018-12-29] MEDS: CITALOPRAM 20 MG TABLET. PO SCH (08:26)
[2018-12-29] MEDS: FERROUS SULFATE 325 MG TABLET. PO SCH ×2 (08:27→17:12)
[2018-12-29] MEDS: MORPHINE ER 30 MG TABLET.ER PO SCH (08:27)
[2018-12-29] MEDS: valACYclovir 500 MG TABLET. PO SCH ×2 (08:27→20:37)
[2018-12-29] MEDS: GABAPENTIN 300 MG CAPSULE. PO SCH ×2 (08:27→20:37)
[2018-12-29] MEDS ORDERED: LORazepam 0.5 MG TABLET PO PRN (08:30)
[2018-12-29] MEDS: MORPHINE ER 15 MG TABLET.ER PO SCH ×2 (08:58→20:37)
--- NOTE | 2018-12-29 09:31 | PDOC ---
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 H/o Pneumocystis jiroveci pneumonia./chronic cough H/o Clostridium difficile. Obstructive jaundice secondary to biliary compression by metastatic lymphadenopathy - Narc tolerant NArc induced constipation - resolved KELBSIELLA UTI - on zosyn History of Present Illness History of Present Illness Too drowsy to eat, to do anything Dtr and RN verifies TPN running - NEED TO WATCH LFts - can get high again NOT Eating FULL CODE< was not ready for hospice last week family involved in care, initial plans was HH with indwelling allen cath and was hopeful for chemo again Klebsiella UTI on urine cx - ID on case, on zosyn NO bacteremia so far NOn febrile, WBC ok NOn toxic applearing but weak PLAN: Inform ID klebsiella uti on zosyn TPN for now if anytime LFTs rises markedly might need to go back to PPN FULL CODE Dec MS contin to 15 BID again STOP dilaudid and ativan (has gotten 2 doses dilaudid only) Dc ambien (never got a dose anyways) PT.OT daily as she can dw dtr and RN at bedside Vitals Vitals Vital Signs Date Time Temp Pulse Resp B/P (MAP) Pulse Ox O2 Delivery O2 Flow Rate FiO2 12/29/18 08:58 96 Room Air 2.0 12/29/18 07:00 99.0 108 16 108/61 (77) 99.0 Physical Exam Physical Exam GENERAL: The patient is slightly propped up in bed and looks comfortable- in no apparent distress. HEENT: Pupils equally round and reactive. Sclerae icterus. Oropharynx pink and moist. ? early ulcers and thrush. LLE lip lesion ? from procedure - resolved NECK: Supple. LUNGS: Diminished aeration. Nonlabored. on 1.5 L HEART: S1, S2. ABDOMEN: Not distended, soft + BS EXTREMITIES: No gross edema or cyanosis. SKIN: Warm to touch, jaundice. NEUROLOGIC: Drowsy, but answering questions appropriately and following commands. Right-sided Port-A-Cath without signs of any complications. General: Cooperative, Other (jaundice improved) Heart: Regular rate Lungs: Clear, Other Abdomen: Soft Extremities: No clubbing Skin: Other (a little less jaundiced) Labs LABS Laboratory Tests Test 12/28/18 23:45 12/29/18 05:00 12/29/18 05:40 Glucose (Fingerstick) 145 mg/dL (70-99) 125 mg/dL (70-99) Sodium Level 132 mmol/L (136-145) Potassium Level 4.2 mmol/L (3.5-5.1) Chloride Level 95 mmol/L (98-107) Carbon Dioxide Level 30 mmol/L (21-32) Anion Gap 7 (6-14) Blood Urea Nitrogen 5 mg/dL (7-20) Creatinine 0.5 mg/dL (0.6-1.0) Estimated GFR (Cockcroft-Gault) 125.0 Glucose Level 138 mg/dL (70-99) Calcium Level 8.8 mg/dL (8.5-10.1) Phosphorus Level 2.1 mg/dL (2.6-4.7) Magnesium Level 2.1 mg/dL (1.8-2.4) Review of Systems Review of Systems too weak to participate with full ROS Comment Review of Relevant I have reviewed the following items erwin (where applicable) has been applied. Labs Laboratory Tests Test 12/28/18 08:15 12/28/18 23:45 12/29/18 05:00 12/29/18 05:40 White Blood Count 8.7 x10^3/uL (4.0-11.0) Red Blood Count 3.44 x10^6/uL (3.50-5.40) Hemoglobin 11.1 g/dL (12.0-15.5) Hematocrit 32.7 % (36.0-47.0) Mean Corpuscular Volume 95 fL (79-100) Mean Corpuscular Hemoglobin 32 pg (25-35) Mean Corpuscular Hemoglobin Concent 34 g/dL (31-37) Red Cell Distribution Width 18.0 % (11.5-14.5) Platelet Count 234 x10^3/uL (140-400) Neutrophils (%) (Auto) 85 % (31-73) Lymphocytes (%) (Auto) 8 % (24-48) Monocytes (%) (Auto) 6 % (0-9) Eosinophils (%) (Auto) 0 % (0-3) Basophils (%) (Auto) 0 % (0-3) Neutrophils # (Auto) 7.4 x10^3/uL (1.8-7.7) Lymphocytes # (Auto) 0.7 x10^3/uL (1.0-4.8) Monocytes # (Auto) 0.5 x10^3/uL (0.0-1.1) Eosinophils # (Auto) 0.0 x10^3/uL (0.0-0.7) Basophils # (Auto) 0.0 x10^3/uL (0.0-0.2) Segmented Neutrophils % 88 % (35-66) Lymphocytes % 8 % (24-48) Monocytes % 4 % (0-10) Platelet Estimate Adequate (ADEQUATE) Anisocytosis Slight Sodium Level 131 mmol/L (136-145) 132 mmol/L (136-145) Potassium Level 4.0 mmol/L (3.5-5.1) 4.2 mmol/L (3.5-5.1) Chloride Level 95 mmol/L (98-107) 95 mmol/L (98-107) Carbon Dioxide Level 28 mmol/L (21-32) 30 mmol/L (21-32) Anion Gap 8 (6-14) 7 (6-14) Blood Urea Nitrogen 4 mg/dL (7-20) 5 mg/dL (7-20) Creatinine 0.4 mg/dL (0.6-1.0) 0.5 mg/dL (0.6-1.0) Estimated GFR (Cockcroft-Gault) 161.7 125.0 BUN/Creatinine Ratio 10 (6-20) Glucose Level 108 mg/dL (70-99) 138 mg/dL (70-99) Calcium Level 8.3 mg/dL (8.5-10.1) 8.8 mg/dL (8.5-10.1) Total Bilirubin 5.2 mg/dL (0.2-1.0) Aspartate Amino Transf (AST/SGOT) 105 U/L (15-37) Alanine Aminotransferase (ALT/SGPT) 102 U/L (14-59) Alkaline Phosphatase 884 U/L (46-116) Total Protein 5.7 g/dL (6.4-8.2) Albumin 1.8 g/dL (3.4-5.0) Albumin/Globulin Ratio 0.5 (1.0-1.7) Glucose (Fingerstick) 145 mg/dL (70-99) 125 mg/dL (70-99) Phosphorus Level 2.1 mg/dL (2.6-4.7) Magnesium Level 2.1 mg/dL (1.8-2.4) Laboratory Tests Test 12/28/18 23:45 12/29/18 05:00 12/29/18 05:40 Glucose (Fingerstick) 145 mg/dL (70-99) 125 mg/dL (70-99) Sodium Level 132 mmol/L (136-145) Potassium Level 4.2 mmol/L (3.5-5.1) Chloride Level 95 mmol/L (98-107) Carbon Dioxide Level 30 mmol/L (21-32) Anion Gap 7 (6-14) Blood Urea Nitrogen 5 mg/dL (7-20) Creatinine 0.5 mg/dL (0.6-1.0) Estimated GFR (Cockcroft-Gault) 125.0 Glucose Level 138 mg/dL (70-99) Calcium Level 8.8 mg/dL (8.5-10.1) Phosphorus Level 2.1 mg/dL (2.6-4.7) Magnesium Level 2.1 mg/dL (1.8-2.4) Microbiology 12/22/18 Blood Culture - Final, Complete NO GROWTH AFTER 5 DAYS Medications Current Medications Morphine Sulfate (Morphine Sulfate) 5 mg 1X ONCE IV Last administered on 12/22/18at 10:00; Start 12/22/18 at 10:00; Stop 12/22/18 at 10:03; Status DC Naloxone HCl (Narcan) 0.4 mg PRN Q2MIN PRN IV SEE INSTRUCTIONS; Start 12/22/18 at 10:00 Sodium Chloride 1,000 ml @ 25 mls/hr Q24H IV Last administered on 12/22/18at 09:55; Start 12/22/18 at 09:55 Hydromorphone HCl 30 ml @ 0 mls/hr CONT PRN PRN IV PER PROTOCOL Last administered on 12/26/18at 08:12; Start 12/22/18 at 10:00; Stop 12/27/18 at 08:24; Status DC Sodium Chloride (Normal Saline Flush) 3 ml QSHIFT PRN IV AFTER MEDS AND BLOOD DRAWS; Start 12/22/18 at 11:30 Sodium Chloride 1,000 ml @ 100 mls/hr Q10H IV Last administered on 12/26/18 05:39; Start 12/22/18 at 13:00; Stop 12/26/18 at 08:16; Status DC Ondansetron HCl (Zofran) 4 mg PRN Q4HRS PRN IVP NAUSEA/VOMITING Last administered on 12/27/18 16:20; Start 12/22/18 at 11:30 Acetaminophen (Tylenol Supp) 650 mg PRN Q4HRS PRN WI TEMP OVER 100.4F OR MILD PAIN Last administered on 12/23/18 03:47; Start 12/22/18 at 11:30 Clonidine HCl (Catapres) 0.1 mg PRN Q6HRS PRN PO SBP>160 OR DBP>90; Start 12/22/18 at 11:30 Albuterol/ Ipratropium (Duoneb) 3 ml Q4H NEB Last administered on 12/29/18 07:42; Start 12/22/18 at 12:00 Lorazepam (Ativan) 0.5 mg PRN Q4HRS PRN PO ANXIETY / AGITATION Last administered on 12/27/18 17:47; Start 12/22/18 at 11:30; Stop 12/29/18 at 08:25; Status DC Enoxaparin Sodium (Lovenox 40mg Syringe) 40 mg DAILY SQ ; Start 12/23/18 at 09:00; Stop 12/22/18 at 16:29; Status DC Piperacillin Sod/ Tazobactam Sod 3.375 gm/Sodium Chloride 50 ml @ 100 mls/hr Q6HRS IV Last administered on 12/29/18 05:49; Start 12/22/18 at 12:00 Ascorbic Acid (Vitamin C) 500 mg BID PO Last administered on 12/29/18 08:25; Start 12/22/18 at 21:00 Ferrous Sulfate (Feosol) 325 mg BIDWMEALS PO Last administered on 12/29/18 08:27; Start 12/22/18 at 17:00 Gabapentin (Neurontin) 300 mg BID PO Last administered on 12/29/18 08:27; Start 12/22/18 at 21:00 Acyclovir (Zovirax) 400 mg BID PO Last administered on 12/28/18at 07:58; Start 12/22/18 at 21:00; Stop 12/28/18 at 10:07; Status DC Non-Formulary Medication (Alpha Lipoic Acid ) 600 mg BID PO ; Start 12/22/18 at 21:00; Status UNV Citalopram Hydrobromide (CeleXA) 20 mg DAILY PO Last administered on 12/29/18at 08:26; Start 12/23/18 at 09:00 Non-Formulary Medication (Lactobacillus Rhamnosus Gg (Culturelle)) 1 each BID PO ; Start 12/22/18 at 21:00; Status UNV Potassium Chloride/Water 100 ml @ 100 mls/hr Q1H IV Last administered on 12/23/18at 08:15; Start 12/23/18 at 06:15; Stop 12/23/18 at 09:14; Status DC Polyethylene Glycol (miraLAX PACKET) 17 gm DAILY PO Last administered on 12/29/18at 08:24; Start 12/23/18 at 14:45 Docusate Sodium (Colace Solution) 100 mg BID PO Last administered on 12/29/18at 08:22; Start 12/23/18 at 14:45 Bisacodyl (Dulcolax Supp) 10 mg PRN DAILY PRN [place] CONSTIPATION; Start 12/23/18 at 14:45; Stop 12/26/18 at 12:49; Status DC Acetaminophen (Tylenol) 500 mg PRN Q6HRS PRN PO MILD PAIN / TEMP; Start 12/24/18 at 09:00 Oxycodone/ Acetaminophen (Percocet 5/325) 1 tab PRN Q4HRS PRN PO MODERATE PAIN Last administered on 12/28/18at 02:10; Start 12/24/18 at 09:00 Lidocaine HCl (Lidocaine Pf 2% Vial) 5 ml STK-MED ONCE .ROUTE ; Start 12/24/18 at 09:38; Stop 12/24/18 at 09:39; Status DC Propofol 20 ml @ As Directed STK-MED ONCE IV ; Start 12/24/18 at 09:38; Stop 12/24/18 at 09:39; Status DC Succinylcholine Chloride (Anectine) 200 mg STK-MED ONCE .ROUTE ; Start 12/24/18 at 09:38; Stop 12/24/18 at 09:39; Status DC Ondansetron HCl (Zofran) 4 mg STK-MED ONCE .ROUTE ; Start 12/24/18 at 09:39; Stop 12/24/18 at 09:39; Status DC Glycopyrrolate (Robinul) 1 mg STK-MED ONCE .ROUTE ; Start 12/24/18 at 09:39; Stop 12/24/18 at 09:39; Status DC Rocuronium [place] (Zemuron) 50 mg STK-MED ONCE .ROUTE ; Start 12/24/18 at 09:49; Stop 12/24/18 at 09:50; Status DC Propofol 20 ml @ As Directed STK-MED ONCE IV ; Start 12/24/18 at 09:52; Stop 12/24/18 at 09:52; Status DC Lidocaine HCl (Lidocaine Pf 2% Vial) 5 ml STK-MED ONCE .ROUTE ; Start 12/24/18 at 09:52; Stop 12/24/18 at 09:52; Status DC Hydromorphone HCl (Dilaudid Standard CROZE CUTTER) 12 mg STK-MED ONCE IV ; Start 12/22/18 at 12:00; Stop 12/24/18 at 10:33; Status DC Hydromorphone HCl (Dilaudid Standard CROZE CUTTER) 12 mg STK-MED ONCE IV ; Start 12/23/18 at 12:20; Stop 12/24/18 at 10:34; Status DC Midazolam HCl (Versed) 2 mg PRN 1X PRN IV PRIOR TO PROCEDURE; Start 12/24/18 at 10:45; Stop 12/25/18 at 10:44; Status DC Fentanyl Citrate (Fentanyl 2ml Vial) 25 mcg PRN Q5MIN PRN IV X 2 DOSES FOR PAIN; Start 12/24/18 at 10:45; Stop 12/25/18 at 10:44; Status DC Fentanyl Citrate (Fentanyl 2ml Vial) 50 mcg PRN Q5MIN PRN IV X 2 DOSES FOR PAIN; Start 12/24/18 at 10:45; Stop 12/25/18 at 10:44; Status DC Ringer's Solution 1,000 ml @ 125 mls/hr Q8H IV Last administered on 12/24/18at 11:46; Start 12/24/18 at 10:38; Stop 12/24/18 at 22:37; Status DC Lidocaine HCl (Xylocaine-Mpf 1% 2ml Vial) 2 ml 1X PRN PRN ID IV START; Start 12/24/18 at 10:45; Stop 12/25/18 at 10:44; Status DC Iohexol (Omnipaque 300 Mg/ml) 100 ml STK-MED ONCE .ROUTE ; Start 12/24/18 at 12:04; Stop 12/24/18 at 12:04; Status DC Influenza Virus Vaccine Quadrival (Afluria Quad 2019-20 (3yr Up) Syringe) 0.5 ml ONCE ONCE VAX IM Last administered on 12/25/18at 09:42; Start 12/25/18 at 09:00; Stop 12/25/18 at 09:01; Status DC Potassium Chloride (Klor-Con) 40 meq BIDWMEALS PO Last administered on 12/28/18at 07:59; Start 12/25/18 at 08:45; Stop 12/28/18 at 10:27; Status DC Zolpidem Tartrate (Ambien) 5 mg PRN QHS PRN PO INSOMNIA; Start 12/25/18 at 08:45 Calcium Carbonate/ Glycine (Tums) 500 mg PRN AFTMEALHC PRN PO INDIGESTION; Start 12/25/18 at 08:45 Enoxaparin Sodium (Lovenox 40mg Syringe) 40 mg Q24H SQ Last administered on 12/28/18at 07:55; Start 12/25/18 at 10:00 Hydromorphone HCl (Dilaudid Standard CROZE CUTTER) 12 mg STK-MED ONCE IV ; Start 12/24/18 at 22:58; Stop 12/25/18 at 11:34; Status DC Amino Acids/ Glycerin/ Electrolytes 1,000 ml @ 80 mls/hr [id number] IV Last administered on 12/27/18at 20:27; Start 12/26/18 at 08:15; Stop 12/28/18 at 08:24; Status DC Magnesium Hydroxide (Milk Of Magnesia) 2,400 mg PRN DAILY PRN PO CONSTIPATION, 1ST CHOICE Last administered on 12/26/18at 16:41; Start 12/26/18 at 09:15 Bisacodyl (Dulcolax Supp) 10 mg PRN DAILY PRN [place] CONSTIPATION Last administered on 12/27/18at 07:39; Start 12/26/18 at 09:15 Lubiprostone (Amitiza) 8 mcg BIDWMEALS PO Last administered on 12/29/18at 08:25; Start 12/26/18 at 10:00 Polyethylene Glycol (miraLAX PACKET) 17 gm DAILY PO ; Start 12/27/18 at 09:00; Stop 12/26/18 at 15:42; Status DC Polyethylene Glycol (miraLAX PACKET) 17 gm PRN DAILY PRN PO CONSTIPATION, 2ND CHOICE; Start 12/26/18 at 12:45 Morphine Sulfate (Ms Contin) 15 mg BID PO Last administered on 12/28/18at 07:58; Start 12/27/18 at 09:00; Stop 12/28/18 at 08:24; Status DC Hydromorphone HCl (Dilaudid) 0.4 mg PRN Q4HRS PRN IVP MODERATE TO SEVERE PAIN; Start 12/27/18 at 08:30; Stop 12/27/18 at 09:19; Status DC Hydromorphone HCl (Dilaudid) 0.2 mg PRN Q4HRS PRN IVP MODERATE TO SEVERE PAIN Last administered on 12/27/18at 17:48; Start 12/27/18 at 09:30 Furosemide (Lasix) 20 mg DAILY PO Last administered on 12/29/18at 08:26; Start 12/27/18 at 11:15 Hydromorphone HCl (Dilaudid Standard CROZE CUTTER) 12 mg STK-MED ONCE IV ; Start 12/26/18 at 07:59; Stop 12/27/18 at 14:44; Status DC Morphine Sulfate (Ms Contin) 30 mg BID PO Last administered on 12/28/18at 21:08; Start 12/28/18 at 09:00; Stop 12/29/18 at 08:48; Status DC Info (Tpn Per Pharmacy) 1 each PRN DAILY PRN MC SEE COMMENTS Last administered on 12/28/18at 11:20; Start 12/28/18 at 08:30 Furosemide (Lasix) 20 mg 1X ONCE IVP Last administered on 12/28/18at 08:49; Start 12/28/18 at 08:30; Stop 12/28/18 at 08:31; Status DC Potassium Chloride (Klor-Con) 40 meq 1X ONCE PO Last administered on 12/28/18at 08:48; Start 12/28/18 at 08:30; Stop 12/28/18 at 08:31; Status DC Potassium Chloride (Klor-Con) 20 meq [id number] PO Last administered on 12/29/18at 08:26; Start 12/29/18 at 08:00 Morphine Sulfate (Ms Contin) 15 mg 1X PO ; Start 12/28/18 at 08:45; Stop 12/28/18 at 09:14; Status DC Morphine Sulfate (Ms Contin) 15 mg 1X ONCE PO Last administered on 12/28/18 09:16; Start 12/28/18 at 09:15; Stop 12/28/18 at 09:16; Status DC Fluconazole (Diflucan) 200 mg DAILY PO Last administered on 12/29/18at 08:25; Start 12/28/18 at 10:15 Valacyclovir HCl (Valtrex) 1,000 mg BID PO Last administered on 12/29/18 08:27; Start 12/28/18 at 21:00 Sodium Chloride 70 meq/Potassium Chloride 40 meq/ Potassium Phosphate 13.6 mmol/Magnesium Sulfate 10 meq/ Calcium Gluconate 10 meq/ Multivitamins 10 ml/Chromium/ Copper/Manganese/ Seleni/Zn 1 ml/ Total Parenteral Nutrition/Amino Acids/Dextrose 1,512 ml @ 63 mls/hr TPN CONT IV Last administered on 12/28/18 21:07; Start 12/28/18 at 22:00; Stop 12/29/18 at 21:59 Amino Acids/ Glycerin/ Electrolytes 1,000 ml @ 80 mls/hr [id number] ONCE IV Last administered on 12/28/18at 11:34; Start 12/28/18 at 11:30; Stop 12/28/18 at 23:59; Status DC Lorazepam (Ativan) 0.25 mg PRN Q4HRS PRN PO ANXIETY / AGITATION; Start 12/29/18 at 08:30 Morphine Sulfate (Ms Contin) 15 mg BID PO Last administered on 12/29/18at 08:58; Start 12/29/18 at 09:00 Active Scripts Active Ascorbic Acid 500 Mg Tablet 500 Mg PO BID 30 Days Ferrous Sulfate 325 Mg Tablet 1 Tab PO BID 30 Days Reported Imodium A-D (Loperamide HCl) 2 Mg Capsule 2 Mg PO PRN Q4HRS PRN Alpha Lipoic Acid 600 Mg Capsule 600 Mg PO BID Ambien (Zolpidem Tartrate) 5 Mg Tablet 5 Mg PO PRN QHS PRN Gabapentin (Gabapentin) 300 Mg Capsule 300 Mg PO BID Escitalopram Oxalate 10 Mg Tablet 1 Tab PO DAILY Acyclovir 400 Mg Tablet 1 Tab PO BID Temazepam 15 Mg Capsule 1 Cap PO QHS Eliquis (Apixaban) 5 Mg Tablet 5 Mg PO BID 60 Days Culturelle (Lactobacillus Rhamnosus Gg) 1 Each Capsule 1 Each PO BID Vitals/I & O Vital Sign - Last 24 Hours 12/28/18 12/28/18 12/28/18 12/28/18 11:00 13:39 15:00 16:28 Temp 98.4 98.2 98.4 98.2 Pulse 109 101 Resp 16 16 B/P (MAP) 119/76 (90) 135/72 (93) Pulse Ox 94 94 O2 Delivery Room Air Nasal Cannula Room Air Nasal Cannula O2 Flow Rate 2.0 2.0 12/28/18 12/28/18 12/28/18 12/28/18 19:00 20:00 21:08 21:27 Temp 97.9 97.9 Pulse 111 Resp 20 18 B/P (MAP) 131/60 (83) Pulse Ox 95 95 93 O2 Delivery Nasal Cannula Room Air Room Air Nasal Cannula O2 Flow Rate 2.0 2.0 12/28/18 12/29/18 12/29/18 12/29/18 23:02 01:08 03:08 04:11 Temp 98.1 98.2 98.1 98.2 Pulse 111 107 Resp 18 18 18 B/P (MAP) 128/67 (87) 129/67 (87) Pulse Ox 95 95 O2 Delivery Nasal Cannula Nasal Cannula Nasal Cannula Nasal Cannula O2 Flow Rate 2.0 2.0 12/29/18 12/29/18 12/29/18 07:00 07:44 08:58 Temp 99.0 99.0 Pulse 108 Resp 16 B/P (MAP) 108/61 (77) Pulse Ox 93 96 96 O2 Delivery Room Air Nasal Cannula Room Air O2 Flow Rate 2.0 2.0 2.0 Intake and Output 12/28/18 12/28/18 12/29/18 15:00 23:00 07:00 Intake Total 450 ml Balance 450 ml RUSS BETANCOURT MD Dec 29, 2018 09:31
[2018-12-29] MEDS: IV NORMAL SALINE 1000ML BAG 1,000 ML IV SCH (09:55)
[2018-12-29 11:00] VITALS: BP 117/56
--- NOTE | 2018-12-29 11:17 | PDOC ---
Infectious Disease Note Subjective Subjective c/o back pain, some abdominal discomfort and mouth dryness Denies F/C/S/N/V/SOA ROS ROS per HPI Vital Sign Vital Signs Vital Signs Date Time Temp Pulse Resp B/P (MAP) Pulse Ox O2 Delivery O2 Flow Rate FiO2 12/29/18 08:58 96 Room Air 2.0 12/29/18 07:00 99.0 108 16 108/61 (77) 99.0 Physical Exam PHYSICAL EXAM GENERAL: Propped up in bed, awake, tired appearance, flat affect HEENT: Pupils equally round and reactive. Sclerae icterus. Oropharynx pink, dry. NECK: Supple. LUNGS: Diminished aeration. Nonlabored. HEART: S1, S2. ABDOMEN: Soft, mildly tender, + BS EXTREMITIES: No gross edema or cyanosis. SKIN: Warm to touch, jaundice. NEUROLOGIC: Awake, answering questions appropriately and following commands. Right-sided Port-A-Cath without signs of any complications. Labs Lab Laboratory Tests Test 12/28/18 23:45 12/29/18 05:00 12/29/18 05:40 Glucose (Fingerstick) 145 mg/dL (70-99) 125 mg/dL (70-99) Sodium Level 132 mmol/L (136-145) Potassium Level 4.2 mmol/L (3.5-5.1) Chloride Level 95 mmol/L (98-107) Carbon Dioxide Level 30 mmol/L (21-32) Anion Gap 7 (6-14) Blood Urea Nitrogen 5 mg/dL (7-20) Creatinine 0.5 mg/dL (0.6-1.0) Estimated GFR (Cockcroft-Gault) 125.0 Glucose Level 138 mg/dL (70-99) Calcium Level 8.8 mg/dL (8.5-10.1) Phosphorus Level 2.1 mg/dL (2.6-4.7) Magnesium Level 2.1 mg/dL (1.8-2.4) Micro 10/5. ([facility]) URINE CULT RES 1 Final Gram negative rods Klebsiella pneumoniae Greater than 100,000 colony forming units per mL Multi-Drug Resistant Organism Susceptibility profile is consistent with a probable ESBL. MICS are expressed in micrograms per mL Antibiotic RSLT#1 Amikacin S<=2 Amoxicillin/Clavulanic Acid S =8 Ampicillin R>=32 Ampicillin/Sulbactam R>=32 Cefazolin R>=64 Cefepime R>=64 Cefotaxime R>=64 Ceftazidime R>=64 Ceftriaxone R>=64 Cefuroxime R>=64 Ciprofloxacin R>=4 Ertapenem S<=0.12 Gentamicin S<=1 Imipenem S<=1 Levofloxacin R>=8 Meropenem S<=0.25 Nitrofurantoin I =64 Piperacillin/Tazobactam S =16 Tetracycline R>=16 Tigecycline S =1 Tobramycin S<=1 Trimethoprim/Sulfa R>=320 Objective Assessment Ascending cholangitis Oral ulcerations Obstructive jaundice s/p ERCP w/ stent placement, 12/24. LFT improving Immunosuppression d/t chemotherapy Klebsiella in urine, 03/24 ([facility]) probable ESBL Colon cancer with metastasis Recently h/o treated for PJP, off Bactrim h/o C. diff Plan Plan of Care Change Zosyn to meropenem Continue Fluconazole and Valtrex Cont Incentive spirometry Bubble 02 Monitor labs Pain management per primary Hoping to continue chemo Contact isolation D/w daughter at bedside Attending Co-Sign The patient was seen and interviewed as well as examined at the bedside. The chart was reviewed. The case was discussed. Agree with the plan of care. NOY LÓPEZ APRN Dec 29, 2018 11:17 ROSALBA ZAPATA MD Dec 29, 2018 13:58
[2018-12-29] MEDS: TPN PER PHARMACY MC PRN (11:59)
[2018-12-29] MEDS: ENOXAPARIN 40 MG/0.4 ML SYRINGE. SQ SCH (12:18)
[2018-12-29] MEDS ORDERED: SODIUM PHOSPHATE 15 MMOL in IV DEXTROSE 5% 250 ML IV ONE (13:00)
[2018-12-29 15:00] VITALS: BP 132/66
[2018-12-29] MEDS: MEROPENEM 500 MG in IV NORMAL SALINE 50ML 50 ML IV SCH ×2 (15:12→22:13)
[2018-12-29 19:00] VITALS: BP 120/71
[2018-12-29] MEDS ORDERED: AMINO ACID IV SCH ×9 (22:00)
[2018-12-29] MEDS ORDERED: DEXTROSE 70% IV SCH ×9 (22:00)
[2018-12-29] MEDS ORDERED: TOTAL PARENTERAL NUTRITION IV SCH ×9 (22:00)
[2018-12-29] MEDS ORDERED: [UNRECOGNIZED DRUG - OTHER] IV SCH ×9 (22:00)
[2018-12-29 23:00] VITALS: BP 125/70
[2018-12-30] MEDS: oxyCODONE/APAP 5/325 1 TAB TABLET PO PRN ×4 (01:01→23:12)
--- NOTE | 2018-12-30 01:09 | NUR ---
pt has increased pain, prn oxycodone given, fall precaution inplaced as pt not jessica for assistance when going to bathroom, bed alarm on ,will monitor pain and give support.
[2018-12-30] MEDS: ONDANSETRON PF 4 MG/2 ML VIAL. IVP PRN (01:15)
--- NOTE | 2018-12-30 01:54 | NUR ---
pt still in alot of pain , Dr Real contacted and new order made. pt informed and agreed.
[2018-12-30] MEDS: HYDROmorphone 2 MG/ML VIAL IVP PRN (01:59)
[2018-12-30 03:00] VITALS: BP 129/54
[2018-12-30] MEDS: IPRATRPIUM/ALBUTEROL 0.5/2.5MG 3 ML NEBU. NEB SCH ×6 (03:11→23:56)
[2018-12-30] MEDS: MEROPENEM 500 MG in IV NORMAL SALINE 50ML 50 ML IV SCH ×3 (05:18→21:23)
[2018-12-30 07:00] VITALS: BP 134/71
[2018-12-30 07:48] LABS: ALBUMIN 1.6 g/dL (3.4-5.0); ALBUMIN/GLOBULIN RATIO 0.4 (1.0-1.7); CALCIUM 8.6 mg/dL (8.5-10.1); CREATININE 0.4 mg/dL (0.6-1.0); GFR 161.7; POTASSIUM 4.2 mmol/L (3.5-5.1); TOTAL BILIRUBIN 4.5 mg/dL (0.2-1.0); TOTAL PROTEIN 5.6 g/dL (6.4-8.2)
[2018-12-30] MEDS: POLYETHYLENE GLYCOL 3350 17 GM PACKET. PO SCH (08:49)
[2018-12-30] MEDS: CITALOPRAM 20 MG TABLET. PO SCH (08:50)
[2018-12-30] MEDS: POTASSIUM CHLORIDE 20 MEQ TABLET.ER. PO SCH (08:50)
[2018-12-30] MEDS: valACYclovir 500 MG TABLET. PO SCH ×2 (08:50→21:23)
[2018-12-30] MEDS: FERROUS SULFATE 325 MG TABLET. PO SCH ×2 (08:50→17:33)
[2018-12-30] MEDS: DOCUSATE 100 MG/10 ML SOLUTION. PO SCH ×2 (08:50→21:22)
[2018-12-30] MEDS: FUROSEMIDE 20 MG TABLET PO SCH (08:50)
[2018-12-30] MEDS: ASCORBIC ACID 500 MG TABLET PO SCH ×2 (08:50→21:23)
--- NOTE | 2018-12-30 08:50 | PDOC ---
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 H/o Pneumocystis jiroveci pneumonia./chronic cough H/o Clostridium difficile. 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 Overnight MD ,may give x 1 dose narcotic but NOT a big dose as dtrs are concerned she gets drugged up SHe was slated for monday but is getting weaker so might be SNU - and dtr acknowledges that LFTS climbing up as predicted (high to begin with but now higher bec of TPN I started monday) PLAN: KEep current pain regimen SW SNU Current tpn to consume, then PPN - dw RN Rosmery Will dc with indwelling allen cath (she cant hav etPN at home, has co pay, not unless she goes skilled but then LFTS also climbs with TPN) She was not ready for hospice last week MInimal PO intake - DR Lorenza nguyen mentioned peg - pt is sitting on that idea FULL CODE for now, hopsice candidate - might need to revisit that idea - PAt on case Vitals Vitals Vital Signs Date Time Temp Pulse Resp B/P (MAP) Pulse Ox O2 Delivery O2 Flow Rate FiO2 12/30/18 07:59 92 Room Air 2.0 12/30/18 06:18 20 12/30/18 03:00 97.6 88 129/54 (79) 97.6 Physical Exam Physical Exam GENERAL: Propped up in bed, awake, tired appearance, flat affect HEENT: Pupils equally round and reactive. Sclerae icterus. Oropharynx pink, dry. NECK: Supple. LUNGS: Diminished aeration. Nonlabored. HEART: S1, S2. ABDOMEN: Soft, mildly tender, + BS EXTREMITIES: No gross edema or cyanosis. SKIN: Warm to touch, jaundice. NEUROLOGIC: Awake, answering questions appropriately and following commands. Right-sided Port-A-Cath without signs of any complications. General: Cooperative, Other (jaundice improved) Heart: Regular rate Lungs: Clear, Other Abdomen: Soft Extremities: No clubbing Skin: Other (a little less jaundiced) Labs LABS Laboratory Tests Test 12/29/18 11:39 12/29/18 16:56 12/30/18 01:08 12/30/18 06:16 Glucose (Fingerstick) 128 mg/dL (70-99) 96 mg/dL (70-99) 120 mg/dL (70-99) 119 mg/dL (70-99) Test 12/30/18 06:45 Sodium Level 132 mmol/L (136-145) Potassium Level 4.2 mmol/L (3.5-5.1) Chloride Level 98 mmol/L (98-107) Carbon Dioxide Level 30 mmol/L (21-32) Anion Gap 4 (6-14) Blood Urea Nitrogen 6 mg/dL (7-20) Creatinine 0.4 mg/dL (0.6-1.0) Estimated GFR (Cockcroft-Gault) 161.7 BUN/Creatinine Ratio 15 (6-20) Glucose Level 122 mg/dL (70-99) Calcium Level 8.6 mg/dL (8.5-10.1) Total Bilirubin 4.5 mg/dL (0.2-1.0) Aspartate Amino Transf (AST/SGOT) 183 U/L (15-37) Alanine Aminotransferase (ALT/SGPT) 106 U/L (14-59) Alkaline Phosphatase 946 U/L (46-116) Total Protein 5.6 g/dL (6.4-8.2) Albumin 1.6 g/dL (3.4-5.0) Albumin/Globulin Ratio 0.4 (1.0-1.7) Review of Systems Review of Systems pain, last BM few days ago (on bowel regimen), weak, all else neg 14 pt Comment Review of Relevant I have reviewed the following items erwin (where applicable) has been applied. Labs Laboratory Tests Test 12/28/18 23:45 12/29/18 05:00 12/29/18 05:40 12/29/18 11:39 Glucose (Fingerstick) 145 mg/dL (70-99) 125 mg/dL (70-99) 128 mg/dL (70-99) Sodium Level 132 mmol/L (136-145) Potassium Level 4.2 mmol/L (3.5-5.1) Chloride Level 95 mmol/L (98-107) Carbon Dioxide Level 30 mmol/L (21-32) Anion Gap 7 (6-14) Blood Urea Nitrogen 5 mg/dL (7-20) Creatinine 0.5 mg/dL (0.6-1.0) Estimated GFR (Cockcroft-Gault) 125.0 Glucose Level 138 mg/dL (70-99) Calcium Level 8.8 mg/dL (8.5-10.1) Phosphorus Level 2.1 mg/dL (2.6-4.7) Magnesium Level 2.1 mg/dL (1.8-2.4) Test 12/29/18 16:56 12/30/18 01:08 12/30/18 06:16 12/30/18 06:45 Glucose (Fingerstick) 96 mg/dL (70-99) 120 mg/dL (70-99) 119 mg/dL (70-99) Sodium Level 132 mmol/L (136-145) Potassium Level 4.2 mmol/L (3.5-5.1) Chloride Level 98 mmol/L (98-107) Carbon Dioxide Level 30 mmol/L (21-32) Anion Gap 4 (6-14) Blood Urea Nitrogen 6 mg/dL (7-20) Creatinine 0.4 mg/dL (0.6-1.0) Estimated GFR (Cockcroft-Gault) 161.7 BUN/Creatinine Ratio 15 (6-20) Glucose Level 122 mg/dL (70-99) Calcium Level 8.6 mg/dL (8.5-10.1) Total Bilirubin 4.5 mg/dL (0.2-1.0) Aspartate Amino Transf (AST/SGOT) 183 U/L (15-37) Alanine Aminotransferase (ALT/SGPT) 106 U/L (14-59) Alkaline Phosphatase 946 U/L (46-116) Total Protein 5.6 g/dL (6.4-8.2) Albumin 1.6 g/dL (3.4-5.0) Albumin/Globulin Ratio 0.4 (1.0-1.7) Laboratory Tests Test 12/29/18 11:39 12/29/18 16:56 12/30/18 01:08 12/30/18 06:16 Glucose (Fingerstick) 128 mg/dL (70-99) 96 mg/dL (70-99) 120 mg/dL (70-99) 119 mg/dL (70-99) Test 12/30/18 06:45 Sodium Level 132 mmol/L (136-145) Potassium Level 4.2 mmol/L (3.5-5.1) Chloride Level 98 mmol/L (98-107) Carbon Dioxide Level 30 mmol/L (21-32) Anion Gap 4 (6-14) Blood Urea Nitrogen 6 mg/dL (7-20) Creatinine 0.4 mg/dL (0.6-1.0) Estimated GFR (Cockcroft-Gault) 161.7 BUN/Creatinine Ratio 15 (6-20) Glucose Level 122 mg/dL (70-99) Calcium Level 8.6 mg/dL (8.5-10.1) Total Bilirubin 4.5 mg/dL (0.2-1.0) Aspartate Amino Transf (AST/SGOT) 183 U/L (15-37) Alanine Aminotransferase (ALT/SGPT) 106 U/L (14-59) Alkaline Phosphatase 946 U/L (46-116) Total Protein 5.6 g/dL (6.4-8.2) Albumin 1.6 g/dL (3.4-5.0) Albumin/Globulin Ratio 0.4 (1.0-1.7) Microbiology 12/22/18 Blood Culture - Final, Complete NO GROWTH AFTER 5 DAYS Medications Current Medications Morphine Sulfate (Morphine Sulfate) 5 mg 1X ONCE IV Last administered on 12/22/18at 10:00; Start 12/22/18 at 10:00; Stop 12/22/18 at 10:03; Status DC Naloxone HCl (Narcan) 0.4 mg PRN Q2MIN PRN IV SEE INSTRUCTIONS; Start 12/22/18 at 10:00 Sodium Chloride 1,000 ml @ 25 mls/hr Q24H IV Last administered on 12/22/18at 09:55; Start 12/22/18 at 09:55 Hydromorphone HCl 30 ml @ 0 mls/hr CONT PRN PRN IV PER PROTOCOL Last administered on 12/26/18 08:12; Start 12/22/18 at 10:00; Stop 12/27/18 at 08:24; Status DC Sodium Chloride (Normal Saline Flush) 3 ml QSHIFT PRN IV AFTER MEDS AND BLOOD DRAWS; Start 12/22/18 at 11:30 Sodium Chloride 1,000 ml @ 100 mls/hr Q10H IV Last administered on 12/26/18at 05:39; Start 12/22/18 at 13:00; Stop 12/26/18 at 08:16; Status DC Ondansetron HCl (Zofran) 4 mg PRN Q4HRS PRN IVP NAUSEA/VOMITING Last administered on 12/30/18at 01:15; Start 12/22/18 at 11:30 Acetaminophen (Tylenol Supp) 650 mg PRN Q4HRS PRN TN TEMP OVER 100.4F OR MILD PAIN Last administered on 12/23/18 03:47; Start 12/22/18 at 11:30 Clonidine HCl (Catapres) 0.1 mg PRN Q6HRS PRN PO SBP>160 OR DBP>90; Start 12/22/18 at 11:30 Albuterol/ Ipratropium (Duoneb) 3 ml Q4H NEB Last administered on 12/30/18at 07:25; Start 12/22/18 at 12:00 Lorazepam (Ativan) 0.5 mg PRN Q4HRS PRN PO ANXIETY / AGITATION Last administered on 12/27/18 17:47; Start 12/22/18 at 11:30; Stop 12/29/18 at 08:25; Status DC Enoxaparin Sodium (Lovenox 40mg Syringe) 40 mg DAILY SQ ; Start 12/23/18 at 09:00; Stop 12/22/18 at 16:29; Status DC Piperacillin Sod/ Tazobactam Sod 3.375 gm/Sodium Chloride 50 ml @ 100 mls/hr Q6HRS IV Last administered on 12/29/18 12:17; Start 12/22/18 at 12:00; Stop 12/29/18 at 13:05; Status DC Ascorbic Acid (Vitamin C) 500 mg BID PO Last administered on 12/29/18 20:37; Start 12/22/18 at 21:00 Ferrous Sulfate (Feosol) 325 mg BIDWMEALS PO Last administered on 12/29/18 17:12; Start 12/22/18 at 17:00 Gabapentin (Neurontin) 300 mg BID PO Last administered on 12/29/18 20:37; Start 12/22/18 at 21:00 Acyclovir (Zovirax) 400 mg BID PO Last administered on 12/28/18 07:58; Start 12/22/18 at 21:00; Stop 12/28/18 at 10:07; Status DC Non-Formulary Medication (Alpha Lipoic Acid ) 600 mg BID PO ; Start 12/22/18 at 21:00; Status UNV Citalopram Hydrobromide (CeleXA) 20 mg DAILY PO Last administered on 12/29/18 08:26; Start 12/23/18 at 09:00 Non-Formulary Medication (Lactobacillus Rhamnosus Gg (Culturelle)) 1 each BID PO ; Start 12/22/18 at 21:00; Status UNV Potassium Chloride/Water 100 ml @ 100 mls/hr Q1H IV Last administered on 12/23/18 08:15; Start 12/23/18 at 06:15; Stop 12/23/18 at 09:14; Status DC Polyethylene Glycol (miraLAX PACKET) 17 gm DAILY PO Last administered on 12/29/18 08:24; Start 12/23/18 at 14:45 Docusate Sodium (Colace Solution) 100 mg BID PO Last administered on 12/29/18 20:36; Start 12/23/18 at 14:45 Bisacodyl (Dulcolax Supp) 10 mg PRN DAILY PRN TN CONSTIPATION; Start 12/23/18 at 14:45; Stop 12/26/18 at 12:49; Status DC Acetaminophen (Tylenol) 500 mg PRN Q6HRS PRN PO MILD PAIN / TEMP; Start 12/24/18 at 09:00 Oxycodone/ Acetaminophen (Percocet 5/325) 1 tab PRN Q4HRS PRN PO MODERATE PAIN Last administered on 12/30/18at 06:18; Start 12/24/18 at 09:00 Lidocaine HCl (Lidocaine Pf 2% Vial) 5 ml STK-MED ONCE .ROUTE ; Start 12/24/18 at 09:38; Stop 12/24/18 at 09:39; Status DC Propofol 20 ml @ As Directed STK-MED ONCE IV ; Start 12/24/18 at 09:38; Stop 12/24/18 at 09:39; Status DC Succinylcholine Chloride (Anectine) 200 mg STK-MED ONCE .ROUTE ; Start 12/24/18 at 09:38; Stop 12/24/18 at 09:39; Status DC Ondansetron HCl (Zofran) 4 mg STK-MED ONCE .ROUTE ; Start 12/24/18 at 09:39; Stop 12/24/18 at 09:39; Status DC Glycopyrrolate (Robinul) 1 mg STK-MED ONCE .ROUTE ; Start 12/24/18 at 09:39; Stop 12/24/18 at 09:39; Status DC Rocuronium Lyle (Zemuron) 50 mg STK-MED ONCE .ROUTE ; Start 12/24/18 at 09:49; Stop 12/24/18 at 09:50; Status DC Propofol 20 ml @ As Directed STK-MED ONCE IV ; Start 12/24/18 at 09:52; Stop 12/24/18 at 09:52; Status DC Lidocaine HCl (Lidocaine Pf 2% Vial) 5 ml STK-MED ONCE .ROUTE ; Start 12/24/18 at 09:52; Stop 12/24/18 at 09:52; Status DC Hydromorphone HCl (Dilaudid Standard TOY CONSULTANT) 12 mg STK-MED ONCE IV ; Start 12/22/18 at 12:00; Stop 12/24/18 at 10:33; Status DC Hydromorphone HCl (Dilaudid Standard TOY CONSULTANT) 12 mg STK-MED ONCE IV ; Start 12/23/18 at 12:20; Stop 12/24/18 at 10:34; Status DC Midazolam HCl (Versed) 2 mg PRN 1X PRN IV PRIOR TO PROCEDURE; Start 12/24/18 at 10:45; Stop 12/25/18 at 10:44; Status DC Fentanyl Citrate (Fentanyl 2ml Vial) 25 mcg PRN Q5MIN PRN IV X 2 DOSES FOR PAIN; Start 12/24/18 at 10:45; Stop 12/25/18 at 10:44; Status DC Fentanyl Citrate (Fentanyl 2ml Vial) 50 mcg PRN Q5MIN PRN IV X 2 DOSES FOR PAIN; Start 12/24/18 at 10:45; Stop 12/25/18 at 10:44; Status DC Ringer's Solution 1,000 ml @ 125 mls/hr Q8H IV Last administered on 12/24/18at 11:46; Start 12/24/18 at 10:38; Stop 12/24/18 at 22:37; Status DC Lidocaine HCl (Xylocaine-Mpf 1% 2ml Vial) 2 ml 1X PRN PRN ID IV START; Start 12/24/18 at 10:45; Stop 12/25/18 at 10:44; Status DC Iohexol (Omnipaque 300 Mg/ml) 100 ml STK-MED ONCE .ROUTE ; Start 12/24/18 at 12:04; Stop 12/24/18 at 12:04; Status DC Influenza Virus Vaccine Quadrival (Afluria Quad 2019-20 (3yr Up) Syringe) 0.5 ml ONCE ONCE VAX IM Last administered on 12/25/18at 09:42; Start 12/25/18 at 09:00; Stop 12/25/18 at 09:01; Status DC Potassium Chloride (Klor-Con) 40 meq BIDWMEALS PO Last administered on 12/28/18at 07:59; Start 12/25/18 at 08:45; Stop 12/28/18 at 10:27; Status DC Zolpidem Tartrate (Ambien) 5 mg PRN QHS PRN PO INSOMNIA; Start 12/25/18 at 08:45; Stop 12/29/18 at 09:28; Status DC Calcium Carbonate/ Glycine (Tums) 500 mg PRN AFTMEALHC PRN PO INDIGESTION; Start 12/25/18 at 08:45 Enoxaparin Sodium (Lovenox 40mg Syringe) 40 mg Q24H SQ Last administered on 12/29/18at 12:18; Start 12/25/18 at 10:00 Hydromorphone HCl (Dilaudid Standard TOY CONSULTANT) 12 mg STK-MED ONCE IV ; Start 12/24/18 at 22:58; Stop 12/25/18 at 11:34; Status DC Amino Acids/ Glycerin/ Electrolytes 1,000 ml @ 80 mls/hr [id number] IV Last administered on 12/27/18at 20:27; Start 12/26/18 at 08:15; Stop 12/28/18 at 08:24; Status DC Magnesium Hydroxide (Milk Of Magnesia) 2,400 mg PRN DAILY PRN PO CONSTIPATION, 1ST CHOICE Last administered on 12/26/18at 16:41; Start 12/26/18 at 09:15 Bisacodyl (Dulcolax Supp) 10 mg PRN DAILY PRN TN CONSTIPATION Last administered on 12/27/18at 07:39; Start 12/26/18 at 09:15 Lubiprostone (Amitiza) 8 mcg BIDWMEALS PO Last administered on 12/29/18at 17:12; Start 12/26/18 at 10:00 Polyethylene Glycol (miraLAX PACKET) 17 gm DAILY PO ; Start 12/27/18 at 09:00; Stop 12/26/18 at 15:42; Status DC Polyethylene Glycol (miraLAX PACKET) 17 gm PRN DAILY PRN PO CONSTIPATION, 2ND CHOICE; Start 12/26/18 at 12:45 Morphine Sulfate (Ms Contin) 15 mg BID PO Last administered on 12/28/18at 07:58; Start 12/27/18 at 09:00; Stop 12/28/18 at 08:24; Status DC Hydromorphone HCl (Dilaudid) 0.4 mg PRN Q4HRS PRN IVP MODERATE TO SEVERE PAIN; Start 12/27/18 at 08:30; Stop 12/27/18 at 09:19; Status DC Hydromorphone HCl (Dilaudid) 0.2 mg PRN Q4HRS PRN IVP MODERATE TO SEVERE PAIN Last administered on 12/27/18at 17:48; Start 12/27/18 at 09:30; Stop 12/29/18 at 09:28; Status DC Furosemide (Lasix) 20 mg DAILY PO Last administered on 12/29/18at 08:26; Start 12/27/18 at 11:15 Hydromorphone HCl (Dilaudid Standard TOY CONSULTANT) 12 mg STK-MED ONCE IV ; Start 12/26/18 at 07:59; Stop 12/27/18 at 14:44; Status DC Morphine Sulfate (Ms Contin) 30 mg BID PO Last administered on 12/28/18at 21:08; Start 12/28/18 at 09:00; Stop 12/29/18 at 08:48; Status DC Info (Tpn Per Pharmacy) 1 each PRN DAILY PRN MC SEE COMMENTS Last administered on 12/29/18at 11:59; Start 12/28/18 at 08:30; Stop 12/30/18 at 08:04; Status DC Furosemide (Lasix) 20 mg 1X ONCE IVP Last administered on 12/28/18at 08:49; Start 12/28/18 at 08:30; Stop 12/28/18 at 08:31; Status DC Potassium Chloride (Klor-Con) 40 meq 1X ONCE PO Last administered on 12/28/18at 08:48; Start 12/28/18 at 08:30; Stop 12/28/18 at 08:31; Status DC Potassium Chloride (Klor-Con) 20 meq [id number] PO Last administered on 12/29/18at 08:26; Start 12/29/18 at 08:00 Morphine Sulfate (Ms Contin) 15 mg 1X PO ; Start 12/28/18 at 08:45; Stop 12/28/18 at 09:14; Status DC Morphine Sulfate (Ms Contin) 15 mg 1X ONCE PO Last administered on 12/28/18at 09:16; Start 12/28/18 at 09:15; Stop 12/28/18 at 09:16; Status DC Fluconazole (Diflucan) 200 mg DAILY PO Last administered on 12/29/18at 08:25; Start 12/28/18 at 10:15 Valacyclovir HCl (Valtrex) 1,000 mg BID PO Last administered on 12/29/18at 20:37; Start 12/28/18 at 21:00 Sodium Chloride 70 meq/Potassium Chloride 40 meq/ Potassium Phosphate 13.6 mmol/Magnesium Sulfate 10 meq/ Calcium Gluconate 10 meq/ Multivitamins 10 ml/Chromium/ Copper/Manganese/ Seleni/Zn 1 ml/ Total Parenteral Nutrition/Amino Acids/Dextrose 1,512 ml @ 63 mls/hr TPN CONT IV Last administered on 10/11/19at 21:07; Start 12/28/18 at 22:00; Stop 12/29/18 at 21:59; Status DC Amino Acids/ Glycerin/ Electrolytes 1,000 ml @ 80 mls/hr [id number] ONCE IV Last administered on 12/28/18at 11:34; Start 12/28/18 at 11:30; Stop 12/28/18 at 23:59; Status DC Lorazepam (Ativan) 0.25 mg PRN Q4HRS PRN PO ANXIETY / AGITATION; Start 12/29/18 at 08:30; Stop 12/29/18 at 09:28; Status DC Morphine Sulfate (Ms Contin) 15 mg BID PO Last administered on 12/29/18at 20:37; Start 12/29/18 at 09:00 Sodium Phosphate 15 mmol/Dextrose 255 ml @ 63.75 mls/ hr 1X ONCE IV Last administered on 12/29/18at 13:00; Start 12/29/18 at 13:00; Stop 12/29/18 at 16:59; Status DC Sodium Chloride 100 meq/Potassium Chloride 30 meq/ Potassium Phosphate 20 mmol/ Magnesium Sulfate 10 meq/Calcium Gluconate 10 meq/ Multivitamins 10 ml/Chromium/ Copper/Manganese/ Seleni/Zn 1 ml/ Total Parenteral Nutrition/Amino Acids/Dextrose 1,512 ml @ 63 mls/hr TPN CONT IV Last administered on 12/29/18at 22:13; Start 12/29/18 at 22:00; Stop 12/30/18 at 08:02; Status DC Meropenem 500 mg/ Sodium Chloride 50 ml @ 100 mls/hr Q8HRS IV Last administered on 12/30/18at 05:18; Start 12/29/18 at 14:00 Hydromorphone HCl (Dilaudid) 0.2 mg PRN Q4HRS PRN IVP SEVERE PAIN 7-10 Last administered on 12/30/18at 01:59; Start 12/30/18 at 02:00 Amino Acids/ Glycerin/ Electrolytes 1,000 ml @ 80 mls/hr [id number] IV ; Start 12/30/18 at 22:00 Active Scripts Active Ascorbic Acid 500 Mg Tablet 500 Mg PO BID 30 Days Ferrous Sulfate 325 Mg Tablet 1 Tab PO BID 30 Days Reported Imodium A-D (Loperamide HCl) 2 Mg Capsule 2 Mg PO PRN Q4HRS PRN Alpha Lipoic Acid 600 Mg Capsule 600 Mg PO BID Ambien (Zolpidem Tartrate) 5 Mg Tablet 5 Mg PO PRN QHS PRN Gabapentin (Gabapentin) 300 Mg Capsule 300 Mg PO BID Escitalopram Oxalate 10 Mg Tablet 1 Tab PO DAILY Acyclovir 400 Mg Tablet 1 Tab PO BID Temazepam 15 Mg Capsule 1 Cap PO QHS Eliquis (Apixaban) 5 Mg Tablet 5 Mg PO BID 60 Days Culturelle (Lactobacillus Rhamnosus Gg) 1 Each Capsule 1 Each PO BID Vitals/I & O Vital Sign - Last 24 Hours 12/29/18 12/29/18 12/29/18 12/29/18 08:58 11:00 11:45 13:42 Temp 98.8 98.8 Pulse 104 Resp 16 B/P (MAP) 117/56 (76) Pulse Ox 96 93 93 O2 Delivery Room Air Room Air Nasal Cannula Room Air O2 Flow Rate 2.0 2.0 2.0 12/29/18 12/29/18 12/29/18 12/29/18 15:00 16:33 19:00 19:43 Temp 98.1 98.9 98.1 98.9 Pulse 102 109 Resp 18 18 B/P (MAP) 132/66 (88) 120/71 (87) Pulse Ox 96 92 92 O2 Delivery Room Air Nasal Cannula Room Air Nasal Cannula O2 Flow Rate 2.0 2.0 12/29/18 12/29/18 12/29/18 12/29/18 19:43 20:00 20:37 23:00 Temp 98.6 98.6 Pulse 88 Resp 20 18 B/P (MAP) 125/70 (88) Pulse Ox 84 91 95 O2 Delivery Room Air Room Air Room Air Room Air O2 Flow Rate 2.0 12/30/18 12/30/18 12/30/18 12/30/18 00:37 01:01 01:59 02:01 Resp 20 20 20 20 Pulse Ox 95 95 95 94 O2 Delivery Room Air Room Air Room Air Room Air O2 Flow Rate 2.0 2.0 2.0 2.0 12/30/18 12/30/18 12/30/18 12/30/18 02:29 03:00 06:18 07:26 Temp 97.6 97.6 Pulse 88 Resp 20 18 20 B/P (MAP) 129/54 (79) Pulse Ox 92 94 92 O2 Delivery Nasal Cannula Room Air Nasal Cannula Nasal Cannula O2 Flow Rate 2.0 2.0 12/30/18 07:59 Pulse Ox 92 O2 Delivery Room Air O2 Flow Rate 2.0 Intake and Output 12/29/18 12/29/18 12/30/18 15:00 23:00 07:00 Intake Total 0 ml Balance 0 ml RUSS BETANCOURT MD Dec 30, 2018 08:50
[2018-12-30] MEDS: LUBIPROSTONE 8 MCG CAPSULE PO SCH ×2 (08:51→17:33)
[2018-12-30] MEDS: MORPHINE ER 15 MG TABLET.ER PO SCH ×2 (08:51→21:22)
[2018-12-30] MEDS: FLUCONAZOLE 100 MG TABLET. PO SCH (08:51)
[2018-12-30] MEDS: GABAPENTIN 300 MG CAPSULE. PO SCH ×2 (08:51→21:23)
[2018-12-30] MEDS: ENOXAPARIN 40 MG/0.4 ML SYRINGE. SQ SCH (08:55)
--- NOTE | 2018-12-30 09:48 | PDOC ---
Infectious Disease Note Subjective Subjective Feeling better this morning Some back pain, though not as intense Mouth feels less sore and dry Walking some Denies F/C/S/N/V/SOA ROS ROS per HPI Vital Sign Vital Signs Vital Signs Date Time Temp Pulse Resp B/P (MAP) Pulse Ox O2 Delivery O2 Flow Rate FiO2 12/30/18 08:51 92 Room Air 2.0 12/30/18 07:00 97.7 91 18 134/71 (92) 97.7 Physical Exam PHYSICAL EXAM GENERAL: Propped up in bed, alert, smiling, family rubbing her back HEENT: Pupils equally round and reactive. Sclerae icterus. Oropharynx pink, dry. NECK: Supple. LUNGS: Diminished aeration. Nonlabored. HEART: S1, S2. ABDOMEN: Soft, mildly tender, + BS EXTREMITIES: No gross edema or cyanosis. SKIN: Warm to touch, jaundice. NEUROLOGIC: Alert, answering questions appropriately Right-sided Port-A-Cath without signs of any complications. Labs Lab Laboratory Tests Test 12/29/18 11:39 12/29/18 16:56 12/30/18 01:08 12/30/18 06:16 Glucose (Fingerstick) 128 mg/dL (70-99) 96 mg/dL (70-99) 120 mg/dL (70-99) 119 mg/dL (70-99) Test 12/30/18 06:45 Sodium Level 132 mmol/L (136-145) Potassium Level 4.2 mmol/L (3.5-5.1) Chloride Level 98 mmol/L (98-107) Carbon Dioxide Level 30 mmol/L (21-32) Anion Gap 4 (6-14) Blood Urea Nitrogen 6 mg/dL (7-20) Creatinine 0.4 mg/dL (0.6-1.0) Estimated GFR (Cockcroft-Gault) 161.7 BUN/Creatinine Ratio 15 (6-20) Glucose Level 122 mg/dL (70-99) Calcium Level 8.6 mg/dL (8.5-10.1) Total Bilirubin 4.5 mg/dL (0.2-1.0) Aspartate Amino Transf (AST/SGOT) 183 U/L (15-37) Alanine Aminotransferase (ALT/SGPT) 106 U/L (14-59) Alkaline Phosphatase 946 U/L (46-116) Total Protein 5.6 g/dL (6.4-8.2) Albumin 1.6 g/dL (3.4-5.0) Albumin/Globulin Ratio 0.4 (1.0-1.7) Micro 10/. ([facility]) URINE CULT RES 1 Final Gram negative rods Klebsiella pneumoniae Greater than 100,000 colony forming units per mL Multi-Drug Resistant Organism Susceptibility profile is consistent with a probable ESBL. MICS are expressed in micrograms per mL Antibiotic RSLT#1 Amikacin S<=2 Amoxicillin/Clavulanic Acid S =8 Ampicillin R>=32 Ampicillin/Sulbactam R>=32 Cefazolin R>=64 Cefepime R>=64 Cefotaxime R>=64 Ceftazidime R>=64 Ceftriaxone R>=64 Cefuroxime R>=64 Ciprofloxacin R>=4 Ertapenem S<=0.12 Gentamicin S<=1 Imipenem S<=1 Levofloxacin R>=8 Meropenem S<=0.25 Nitrofurantoin I =64 Piperacillin/Tazobactam S =16 Tetracycline R>=16 Tigecycline S =1 Tobramycin S<=1 Trimethoprim/Sulfa R>=320 Objective Assessment Ascending cholangitis Oral ulcerations Obstructive jaundice s/p ERCP w/ stent placement, 12/24. LFT improving Immunosuppression d/t chemotherapy Klebsiella in urine, 03/24 ([facility]) probable ESBL Colon cancer with metastasis Recently h/o treated for PJP, off Bactrim h/o C. diff Plan Plan of Care Continue meropenem (started 12/29) Continue Fluconazole and Valtrex Cont Incentive spirometry Bubble 02 Monitor labs Pain management per primary Hoping to continue chemo Contact isolation D/w family at bedside Attending Co-Sign The patient was seen and interviewed as well as examined at the bedside. The chart was reviewed. The case was discussed. Agree with the plan of care. NOY LÓPEZ APRN Dec 30, 2018 09:48 ROSALBA ZAPATA MD Dec 30, 2018 11:29
[2018-12-30] MEDS: IV NORMAL SALINE 1000ML BAG 1,000 ML IV SCH (09:55)
[2018-12-30 11:00] VITALS: BP 128/62
[2018-12-30 12:13] LABS: MAGNESIUM 1.8 mg/dL (1.8-2.4); PHOSPHORUS 2.4 mg/dL (2.6-4.7)
--- NOTE | 2018-12-30 14:10 | PDOC ---
G I PROGRESS NOTE Reason for Follow-up Obstructive jaundice/constipation Subjective ANorexic/no bms since 12/26 Physical Exam Lung decreased BS CV S1 S2 ABD +BS, soft, mild tenderness throughout Review of Relevant I have reviewed the following items erwin (where applicable) has been applied. Labs Laboratory Tests Test 12/28/18 23:45 12/29/18 05:00 12/29/18 05:40 12/29/18 11:39 Glucose (Fingerstick) 145 mg/dL (70-99) 125 mg/dL (70-99) 128 mg/dL (70-99) Sodium Level 132 mmol/L (136-145) Potassium Level 4.2 mmol/L (3.5-5.1) Chloride Level 95 mmol/L (98-107) Carbon Dioxide Level 30 mmol/L (21-32) Anion Gap 7 (6-14) Blood Urea Nitrogen 5 mg/dL (7-20) Creatinine 0.5 mg/dL (0.6-1.0) Estimated GFR (Cockcroft-Gault) 125.0 Glucose Level 138 mg/dL (70-99) Calcium Level 8.8 mg/dL (8.5-10.1) Phosphorus Level 2.1 mg/dL (2.6-4.7) Magnesium Level 2.1 mg/dL (1.8-2.4) Test 12/29/18 16:56 12/30/18 01:08 12/30/18 06:16 12/30/18 06:45 Glucose (Fingerstick) 96 mg/dL (70-99) 120 mg/dL (70-99) 119 mg/dL (70-99) Sodium Level 132 mmol/L (136-145) Potassium Level 4.2 mmol/L (3.5-5.1) Chloride Level 98 mmol/L (98-107) Carbon Dioxide Level 30 mmol/L (21-32) Anion Gap 4 (6-14) Blood Urea Nitrogen 6 mg/dL (7-20) Creatinine 0.4 mg/dL (0.6-1.0) Estimated GFR (Cockcroft-Gault) 161.7 BUN/Creatinine Ratio 15 (6-20) Glucose Level 122 mg/dL (70-99) Calcium Level 8.6 mg/dL (8.5-10.1) Total Bilirubin 4.5 mg/dL (0.2-1.0) Aspartate Amino Transf (AST/SGOT) 183 U/L (15-37) Alanine Aminotransferase (ALT/SGPT) 106 U/L (14-59) Alkaline Phosphatase 946 U/L (46-116) Total Protein 5.6 g/dL (6.4-8.2) Albumin 1.6 g/dL (3.4-5.0) Albumin/Globulin Ratio 0.4 (1.0-1.7) Test 12/30/18 06:48 Phosphorus Level 2.4 mg/dL (2.6-4.7) Magnesium Level 1.8 mg/dL (1.8-2.4) Laboratory Tests Test 12/29/18 16:56 12/30/18 01:08 12/30/18 06:16 12/30/18 06:45 Glucose (Fingerstick) 96 mg/dL (70-99) 120 mg/dL (70-99) 119 mg/dL (70-99) Sodium Level 132 mmol/L (136-145) Potassium Level 4.2 mmol/L (3.5-5.1) Chloride Level 98 mmol/L (98-107) Carbon Dioxide Level 30 mmol/L (21-32) Anion Gap 4 (6-14) Blood Urea Nitrogen 6 mg/dL (7-20) Creatinine 0.4 mg/dL (0.6-1.0) Estimated GFR (Cockcroft-Gault) 161.7 BUN/Creatinine Ratio 15 (6-20) Glucose Level 122 mg/dL (70-99) Calcium Level 8.6 mg/dL (8.5-10.1) Total Bilirubin 4.5 mg/dL (0.2-1.0) Aspartate Amino Transf (AST/SGOT) 183 U/L (15-37) Alanine Aminotransferase (ALT/SGPT) 106 U/L (14-59) Alkaline Phosphatase 946 U/L (46-116) Total Protein 5.6 g/dL (6.4-8.2) Albumin 1.6 g/dL (3.4-5.0) Albumin/Globulin Ratio 0.4 (1.0-1.7) Test 12/30/18 06:48 Phosphorus Level 2.4 mg/dL (2.6-4.7) Magnesium Level 1.8 mg/dL (1.8-2.4) Microbiology 12/22/18 Blood Culture - Final, Complete NO GROWTH AFTER 5 DAYS Medications Current Medications Morphine Sulfate (Morphine Sulfate) 5 mg 1X ONCE IV Last administered on 12/22/18at 10:00; Start 12/22/18 at 10:00; Stop 12/22/18 at 10:03; Status DC Naloxone HCl (Narcan) 0.4 mg PRN Q2MIN PRN IV SEE INSTRUCTIONS; Start 12/22/18 at 10:00 Sodium Chloride 1,000 ml @ 25 mls/hr Q24H IV Last administered on 12/22/18at 09:55; Start 12/22/18 at 09:55 Hydromorphone HCl 30 ml @ 0 mls/hr CONT PRN PRN IV PER PROTOCOL Last administered on 12/26/18 08:12; Start 12/22/18 at 10:00; Stop 12/27/18 at 08:24; Status DC Sodium Chloride (Normal Saline Flush) 3 ml QSHIFT PRN IV AFTER MEDS AND BLOOD DRAWS; Start 12/22/18 at 11:30 Sodium Chloride 1,000 ml @ 100 mls/hr Q10H IV Last administered on 12/26/18at 05:39; Start 12/22/18 at 13:00; Stop 12/26/18 at 08:16; Status DC Ondansetron HCl (Zofran) 4 mg PRN Q4HRS PRN IVP NAUSEA/VOMITING Last ad ministered on 12/30/18at 01:15; Start 12/22/18 at 11:30 Acetaminophen (Tylenol Supp) 650 mg PRN Q4HRS PRN SD TEMP OVER 100.4F OR MILD PAIN Last administered on 12/23/18 03:47; Start 12/22/18 at 11:30 Clonidine HCl (Catapres) 0.1 mg PRN Q6HRS PRN PO SBP>160 OR DBP>90; Start 12/22/18 at 11:30 Albuterol/ Ipratropium (Duoneb) 3 ml Q4H NEB Last administered on 12/30/18 11:20; Start 12/22/18 at 12:00 Lorazepam (Ativan) 0.5 mg PRN Q4HRS PRN PO ANXIETY / AGITATION Last administered on 12/27/18 17:47; Start 12/22/18 at 11:30; Stop 12/29/18 at 08:25; Status DC Enoxaparin Sodium (Lovenox 40mg Syringe) 40 mg DAILY SQ ; Start 12/23/18 at 09:00; Stop 12/22/18 at 16:29; Status DC Piperacillin Sod/ Tazobactam Sod 3.375 gm/Sodium Chloride 50 ml @ 100 mls/hr Q6HRS IV Last administered on 12/29/18at 12:17; Start 12/22/18 at 12:00; Stop 12/29/18 at 13:05; Status DC Ascorbic Acid (Vitamin C) 500 mg BID PO Last administered on 12/30/18 08:50; Start 12/22/18 at 21:00 Ferrous Sulfate (Feosol) 325 mg BIDWMEALS PO Last administered on 12/30/18 08:50; Start 12/22/18 at 17:00 Gabapentin (Neurontin) 300 mg BID PO Last administered on 12/30/18 08:51; Start 12/22/18 at 21:00 Acyclovir (Zovirax) 400 mg BID PO Last administered on 12/28/18at 07:58; Start 12/22/18 at 21:00; Stop 12/28/18 at 10:07; Status DC Non-Formulary Medication (Alpha Lipoic Acid ) 600 mg BID PO ; Start 12/22/18 at 21:00; Status UNV Citalopram Hydrobromide (CeleXA) 20 mg DAILY PO Last administered on 12/30/18 08:50; Start 12/23/18 at 09:00 Non-Formulary Medication (Lactobacillus Rhamnosus Gg (Culturelle)) 1 each BID PO ; Start 12/22/18 at 21:00; Status UNV Potassium Chloride/Water 100 ml @ 100 mls/hr Q1H IV Last administered on 12/23/18 08:15; Start 12/23/18 at 06:15; Stop 12/23/18 at 09:14; Status DC Polyethylene Glycol (miraLAX PACKET) 17 gm DAILY PO Last administered on 12/30/18 08:49; Start 12/23/18 at 14:45 Docusate Sodium (Colace Solution) 100 mg BID PO Last administered on 10/13/19at 08:50; Start 12/23/18 at 14:45 Bisacodyl (Dulcolax Supp) 10 mg PRN DAILY PRN SD CONSTIPATION; Start 12/23/18 at 14:45; Stop 12/26/18 at 12:49; Status DC Acetaminophen (Tylenol) 500 mg PRN Q6HRS PRN PO MILD PAIN / TEMP; Start 12/24/18 at 09:00 Oxycodone/ Acetaminophen (Percocet 5/325) 1 tab PRN Q4HRS PRN PO MODERATE PAIN Last administered on 12/30/18at 06:18; Start 12/24/18 at 09:00 Lidocaine HCl (Lidocaine Pf 2% Vial) 5 ml STK-MED ONCE .ROUTE ; Start 12/24/18 at 09:38; Stop 12/24/18 at 09:39; Status DC Propofol 20 ml @ As Directed STK-MED ONCE IV ; Start 12/24/18 at 09:38; Stop 12/24/18 at 09:39; Status DC Succinylcholine Chloride (Anectine) 200 mg STK-MED ONCE .ROUTE ; Start 12/24/18 at 09:38; Stop 12/24/18 at 09:39; Status DC Ondansetron HCl (Zofran) 4 mg STK-MED ONCE .ROUTE ; Start 12/24/18 at 09:39; Stop 12/24/18 at 09:39; Status DC Glycopyrrolate (Robinul) 1 mg STK-MED ONCE .ROUTE ; Start 12/24/18 at 09:39; Stop 12/24/18 at 09:39; Status DC Rocuronium [place] (Zemuron) 50 mg STK-MED ONCE .ROUTE ; Start 12/24/18 at 09:49; Stop 12/24/18 at 09:50; Status DC Propofol 20 ml @ As Directed STK-MED ONCE IV ; Start 12/24/18 at 09:52; Stop 12/24/18 at 09:52; Status DC Lidocaine HCl (Lidocaine Pf 2% Vial) 5 ml STK-MED ONCE .ROUTE ; Start 12/24/18 at 09:52; Stop 12/24/18 at 09:52; Status DC Hydromorphone HCl (Dilaudid Standard [employer]) 12 mg STK-MED ONCE IV ; Start 12/22/18 at 12:00; Stop 12/24/18 at 10:33; Status DC Hydromorphone HCl (Dilaudid Standard [employer]) 12 mg STK-MED ONCE IV ; Start 12/23/18 at 12:20; Stop 12/24/18 at 10:34; Status DC Midazolam HCl (Versed) 2 mg PRN 1X PRN IV PRIOR TO PROCEDURE; Start 12/24/18 at 10:45; Stop 12/25/18 at 10:44; Status DC Fentanyl Citrate (Fentanyl 2ml Vial) 25 mcg PRN Q5MIN PRN IV X 2 DOSES FOR PAIN; Start 12/24/18 at 10:45; Stop 12/25/18 at 10:44; Status DC Fentanyl Citrate (Fentanyl 2ml Vial) 50 mcg PRN Q5MIN PRN IV X 2 DOSES FOR PAIN; Start 12/24/18 at 10:45; Stop 12/25/18 at 10:44; Status DC Ringer's Solution 1,000 ml @ 125 mls/hr Q8H IV Last administered on 12/24/18at 11:46; Start 12/24/18 at 10:38; Stop 12/24/18 at 22:37; Status DC Lidocaine HCl (Xylocaine-Mpf 1% 2ml Vial) 2 ml 1X PRN PRN ID IV START; Start 12/24/18 at 10:45; Stop 12/25/18 at 10:44; Status DC Iohexol (Omnipaque 300 Mg/ml) 100 ml STK-MED ONCE .ROUTE ; Start 12/24/18 at 12:04; Stop 12/24/18 at 12:04; Status DC Influenza Virus Vaccine Quadrival (Afluria Quad 2019-20 (3yr Up) Syringe) 0.5 ml ONCE ONCE VAX IM Last administered on 12/25/18at 09:42; Start 12/25/18 at 09:00; Stop 12/25/18 at 09:01; Status DC Potassium Chloride (Klor-Con) 40 meq BIDWMEALS PO Last administered on 12/28/18at 07:59; Start 12/25/18 at 08:45; Stop 12/28/18 at 10:27; Status DC Zolpidem Tartrate (Ambien) 5 mg PRN QHS PRN PO INSOMNIA; Start 12/25/18 at 08:45; Stop 12/29/18 at 09:28; Status DC Calcium Carbonate/ Glycine (Tums) 500 mg PRN AFTMEALHC PRN PO INDIGESTION; Start 12/25/18 at 08:45 Enoxaparin Sodium (Lovenox 40mg Syringe) 40 mg Q24H SQ Last administered on 12/30/18at 08:55; Start 12/25/18 at 10:00 Hydromorphone HCl (Dilaudid Standard [employer]) 12 mg STK-MED ONCE IV ; Start 12/24/18 at 22:58; Stop 12/25/18 at 11:34; Status DC Amino Acids/ Glycerin/ Electrolytes 1,000 ml @ 80 mls/hr [id number] IV Last administered on 12/27/18at 20:27; Start 12/26/18 at 08:15; Stop 12/28/18 at 08:24; Status DC Magnesium Hydroxide (Milk Of Magnesia) 2,400 mg PRN DAILY PRN PO CONSTIPATION, 1ST CHOICE Last administered on 12/26/18at 16:41; Start 12/26/18 at 09:15 Bisacodyl (Dulcolax Supp) 10 mg PRN DAILY PRN SD CONSTIPATION Last administered on 12/27/18at 07:39; Start 12/26/18 at 09:15 Lubiprostone (Amitiza) 8 mcg BIDWMEALS PO Last administered on 12/30/18at 08:51; Start 12/26/18 at 10:00 Polyethylene Glycol (miraLAX PACKET) 17 gm DAILY PO ; Start 12/27/18 at 09:00; Stop 12/26/18 at 15:42; Status DC Polyethylene Glycol (miraLAX PACKET) 17 gm PRN DAILY PRN PO CONSTIPATION, 2ND CHOICE; Start 12/26/18 at 12:45 Morphine Sulfate (Ms Contin) 15 mg BID PO Last administered on 12/28/18at 07:58; Start 12/27/18 at 09:00; Stop 12/28/18 at 08:24; Status DC Hydromorphone HCl (Dilaudid) 0.4 mg PRN Q4HRS PRN IVP MODERATE TO SEVERE PAIN; Start 12/27/18 at 08:30; Stop 12/27/18 at 09:19; Status DC Hydromorphone HCl (Dilaudid) 0.2 mg PRN Q4HRS PRN IVP MODERATE TO SEVERE PAIN Last administered on 12/27/18at 17:48; Start 12/27/18 at 09:30; Stop 12/29/18 at 09:28; Status DC Furosemide (Lasix) 20 mg DAILY PO Last administered on 12/30/18at 08:50; Start 12/27/18 at 11:15 Hydromorphone HCl (Dilaudid Standard [employer]) 12 mg STK-MED ONCE IV ; Start 12/26/18 at 07:59; Stop 12/27/18 at 14:44; Status DC Morphine Sulfate (Ms Contin) 30 mg BID PO Last administered on 12/28/18at 21:08; Start 12/28/18 at 09:00; Stop 12/29/18 at 08:48; Status DC Info (Tpn Per Pharmacy) 1 each PRN DAILY PRN MC SEE COMMENTS Last administered on 12/29/18at 11:59; Start 12/28/18 at 08:30; Stop 12/30/18 at 08:04; Status DC Furosemide (Lasix) 20 mg 1X ONCE IVP Last administered on 12/28/18at 08:49; Start 12/28/18 at 08:30; Stop 12/28/18 at 08:31; Status DC Potassium Chloride (Klor-Con) 40 meq 1X ONCE PO Last administered on 12/28/18at 08:48; Start 12/28/18 at 08:30; Stop 12/28/18 at 08:31; Status DC Potassium Chloride (Klor-Con) 20 meq [id number] PO Last administered on 12/30/18at 08:50; Start 12/29/18 at 08:00 Morphine Sulfate (Ms Contin) 15 mg 1X PO ; Start 12/28/18 at 08:45; Stop 12/28/18 at 09:14; Status DC Morphine Sulfate (Ms Contin) 15 mg 1X ONCE PO Last administered on 12/28/18at 09:16; Start 12/28/18 at 09:15; Stop 12/28/18 at 09:16; Status DC Fluconazole (Diflucan) 200 mg DAILY PO Last administered on 12/30/18at 08:51; Start 12/28/18 at 10:15 Valacyclovir HCl (Valtrex) 1,000 mg BID PO Last administered on 12/30/18at 08:50; Start 12/28/18 at 21:00 Sodium Chloride 70 meq/Potassium Chloride 40 meq/ Potassium Phosphate 13.6 mmol/Magnesium Sulfate 10 meq/ Calcium Gluconate 10 meq/ Multivitamins 10 ml/Chromium/ Copper/Manganese/ Seleni/Zn 1 ml/ Total Parenteral Nutrition/Amino Acids/Dextrose 1,512 ml @ 63 mls/hr TPN CONT IV Last administered on 12/28/18at 21:07; Start 12/28/18 at 22:00; Stop 12/29/18 at 21:59; Status DC Amino Acids/ Glycerin/ Electrolytes 1,000 ml @ 80 mls/hr [id number] ONCE IV Last administered on 12/28/18at 11:34; Start 12/28/18 at 11:30; Stop 12/28/18 at 23:59; Status DC Lorazepam (Ativan) 0.25 mg PRN Q4HRS PRN PO ANXIETY / AGITATION; Start 12/29/18 at 08:30; Stop 12/29/18 at 09:28; Status DC Morphine Sulfate (Ms Contin) 15 mg BID PO Last administered on 12/30/18at 08:51; Start 12/29/18 at 09:00 Sodium Phosphate 15 mmol/Dextrose 255 ml @ 63.75 mls/ hr 1X ONCE IV Last administered on 12/29/18at 13:00; Start 12/29/18 at 13:00; Stop 12/29/18 at 16:59; Status DC Sodium Chloride 100 meq/Potassium Chloride 30 meq/ Potassium Phosphate 20 mmol/ Magnesium Sulfate 10 meq/Calcium Gluconate 10 meq/ Multivitamins 10 ml/Chromium/ Copper/Manganese/ Seleni/Zn 1 ml/ Total Parenteral Nutrition/Amino Acids/Dextrose 1,512 ml @ 63 mls/hr TPN CONT IV Last administered on 12/29/18at 22:13; Start 12/29/18 at 22:00; Stop 12/30/18 at 08:02; Status DC Meropenem 500 mg/ Sodium Chloride 50 ml @ 100 mls/hr Q8HRS IV Last administered on 12/30/18at 05:18; Start 12/29/18 at 14:00 Hydromorphone HCl (Dilaudid) 0.2 mg PRN Q4HRS PRN IVP SEVERE PAIN 7-10 Last administered on 12/30/18at 01:59; Start 12/30/18 at 02:00 Amino Acids/ Glycerin/ Electrolytes 1,000 ml @ 80 mls/hr [id number] IV ; Start 12/30/18 at 22:00 Active Scripts Active Ascorbic Acid 500 Mg Tablet 500 Mg PO BID 30 Days Ferrous Sulfate 325 Mg Tablet 1 Tab PO BID 30 Days Reported Imodium A-D (Loperamide HCl) 2 Mg Capsule 2 Mg PO PRN Q4HRS PRN Alpha Lipoic Acid 600 Mg Capsule 600 Mg PO BID Ambien (Zolpidem Tartrate) 5 Mg Tablet 5 Mg PO PRN QHS PRN Gabapentin (Gabapentin) 300 Mg Capsule 300 Mg PO BID Escitalopram Oxalate 10 Mg Tablet 1 Tab PO DAILY Acyclovir 400 Mg Tablet 1 Tab PO BID Temazepam 15 Mg Capsule 1 Cap PO QHS Eliquis (Apixaban) 5 Mg Tablet 5 Mg PO BID 60 Days Culturelle (Lactobacillus Rhamnosus Gg) 1 Each Capsule 1 Each PO BID Vitals/I & O Vital Sign - Last 24 Hours 12/29/18 12/29/18 12/29/18 12/29/18 15:00 16:33 19:00 19:43 Temp 98.1 98.9 98.1 98.9 Pulse 102 109 Resp 18 18 B/P (MAP) 132/66 (88) 120/71 (87) Pulse Ox 96 92 92 O2 Delivery Room Air Nasal Cannula Room Air Nasal Cannula O2 Flow Rate 2.0 2.0 12/29/18 12/29/18 12/29/18 12/29/18 19:43 20:00 20:37 23:00 Temp 98.6 98.6 Pulse 88 Resp 20 18 B/P (MAP) 125/70 (88) Pulse Ox 84 91 95 O2 Delivery Room Air Room Air Room Air Room Air O2 Flow Rate 2.0 12/30/18 12/30/18 12/30/18 12/30/18 00:37 01:01 01:59 02:01 Resp 20 20 20 20 Pulse Ox 95 95 95 94 O2 Delivery Room Air Room Air Room Air Room Air O2 Flow Rate 2.0 2.0 2.0 2.0 12/30/18 12/30/18 12/30/18 12/30/18 02:29 03:00 06:18 07:00 Temp 97.6 97.7 97.6 97.7 Pulse 88 91 Resp 20 18 20 18 B/P (MAP) 129/54 (79) 134/71 (92) Pulse Ox 92 94 95 O2 Delivery Nasal Cannula Room Air Nasal Cannula Nasal Cannula O2 Flow Rate 2.0 2.0 12/30/18 12/30/18 12/30/18 12/30/18 07:26 07:59 08:00 08:51 Pulse Ox 92 92 92 O2 Delivery Nasal Cannula Room Air Room Air Room Air O2 Flow Rate 2.0 2.0 2.0 12/30/18 12/30/18 11:00 11:21 Temp 98.0 98.0 Pulse 95 Resp 18 B/P (MAP) 128/62 (84) Pulse Ox 96 O2 Delivery Nasal Cannula Nasal Cannula O2 Flow Rate 2.0 2.0 Intake and Output 12/29/18 12/29/18 12/30/18 15:00 23:00 07:00 Intake Total 0 ml Balance 0 ml Problem List Obstructive jaundice- s/p stent with metastatic colon cancer, T alonzo at 4.5, cpm Constipation- likely opioid induced, on amitza, will check KUB and proceed with tap water enema PROPDAVID,CHASIDY Angeles MD Dec 30, 2018 14:10
[2018-12-30 15:00] VITALS: BP 128/62
--- NOTE | 2018-12-30 15:12 | RAD ---
KUB History: Abdominal pain, constipation Comparison: 01/04/2018 Findings: Single supine AP portable view of the abdomen is submitted. There is now biliary stent present not fully included proximally. There is more prominent retained stool near the hepatic flexure. Exam is insufficient for the evaluation for free air. Some gas in bowel in the right lower quadrant may be somewhat distended small bowel loops. Impression: 1. There is more prominent retained stool near the hepatic flexure. There is some gas distention of bowel in the right lower quadrant which may be slightly distended small bowel. 2. There is now biliary stent. Electronically signed by: Geoff Bender MD (12/30/2018 3:09 PM) [facility]
--- NOTE | 2018-12-30 17:12 | NUR ---
Tap water enema administered with 800cc warm water. Patient tolerated well.Immediate Medium size stool produced with fluid evacuation.
[2018-12-30 19:00] VITALS: BP 126/72
[2018-12-30] MEDS: AMINO AC 3%/ELECTROLYTE/GLYCER 1,000 ML IV SCH (21:23)
[2018-12-30 23:00] VITALS: BP 139/76
--- NOTE | 2018-12-31 01:49 | NUR ---
at 0145 patient has increased pain 6/10 ,percocet 5mg po given at 2315 for breakthrough pain of 4/10 at the time, warm pad applied to affected area, light dim and offered back rub. pt aware of pain regimen and stated she will wait for the next percocet dose due at 0315, daughter Marli aware .
[2018-12-31] MEDS: HYDROmorphone 2 MG/ML VIAL IVP PRN ×3 (02:36→13:31)
--- NOTE | 2018-12-31 02:39 | NUR ---
patient called RN still in pain and requesting to her pain shot (dilaudid ) for svere pain., pt is alert and OX 4
--- NOTE | 2018-12-31 02:44 | NUR ---
dilaudid 0.2mg IV given per MD order, VS WNL.
[2018-12-31 02:45] VITALS: BP 128/59
--- NOTE | 2018-12-31 03:22 | NUR ---
patient reassessed , pain at 3-4/10 pt is more calm not restless , pt is awake and want to rest at this time, will continue to monitor.
[2018-12-31] MEDS: IPRATRPIUM/ALBUTEROL 0.5/2.5MG 3 ML NEBU. NEB SCH ×5 (03:38→19:55)
--- NOTE | 2018-12-31 05:11 | NUR ---
pt asleep at 0400, resting comfortably, easily awaken, not sedated.
[2018-12-31] MEDS: MEROPENEM 500 MG in IV NORMAL SALINE 50ML 50 ML IV SCH ×3 (06:13→21:42)
--- NOTE | 2018-12-31 06:15 | NUR ---
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 finally able to sleep at 0400 , will make providers know that she may become sleepy today during day shift as pt had rough night due to pain. will continue to monitor pt and give support.
[2018-12-31 07:00] VITALS: BP 139/67
[2018-12-31 07:40] LABS: BASO % 0 % (0-3); EOS % 0 % (0-3); HEMATOCRIT 30.8 % (36.0-47.0); HEMOGLOBIN 10.5 g/dL (12.0-15.5); LYMPH # 0.7 x10^3/uL (1.0-4.8); LYMPH % 8 % (24-48); MEAN CORPUSCULAR HEMOGLOBIN 32 pg (25-35); MEAN CORPUSCULAR HGB CONC 34 g/dL (31-37); MEAN CORPUSCULAR VOLUME 94 fL (79-100); MONO # 0.8 x10^3/uL (0.0-1.1); MONO % 10 % (0-9); NEUT # 6.8 x10^3/uL (1.8-7.7); NEUT % 82 % (31-73); PLATELET COUNT 170 x10^3/uL (140-400); RED BLOOD COUNT 3.28 x10^6/uL (3.50-5.40); RED CELL DISTRIBUTION WIDTH 18.7 % (11.5-14.5); WHITE BLOOD COUNT 8.3 x10^3/uL (4.0-11.0)
[2018-12-31] MEDS: POTASSIUM CHLORIDE 20 MEQ TABLET.ER. PO SCH (08:00)
[2018-12-31] MEDS: FERROUS SULFATE 325 MG TABLET. PO SCH ×2 (08:00→17:05)
[2018-12-31 08:42] LABS: ALBUMIN 1.6 g/dL (3.4-5.0); ALBUMIN/GLOBULIN RATIO 0.4 (1.0-1.7); CALCIUM 8.8 mg/dL (8.5-10.1); CREATININE 0.4 mg/dL (0.6-1.0); GFR 161.7; POTASSIUM 4.5 mmol/L (3.5-5.1); TOTAL BILIRUBIN 4.4 mg/dL (0.2-1.0); TOTAL PROTEIN 5.7 g/dL (6.4-8.2)
--- NOTE | 2018-12-31 08:52 | PDOC ---
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 Obstructive jaundice secondary to biliary compression by metastatic lymphadenopathy - cancer PAIN, CHALLENGING TO MANAGE Narc tolerant NArc induced constipation - resolved fULL CODE, NOT READY FOR HOSPICE [facility] UTI - History of Present Illness History of Present Illness She was on MS contin 30 BID and dilaudid prn (only got 4 doses or such) and ativan 0.5 BIDm, changed to MS contin to 15 BID and she has been requesting phone call prior to prn dilaudid Last night learning operations specialist MD called from RN saying pain not controlled again. Pain not well controlled She was slated for monday but is getting weaker so might be SNU - and dtr acknowledges that, also will discuss palliative home health LFTS climbing up as predicted PLAN: Change to fentanyl patch from MS contin SW SNU Current tpn to consume, then PPN - dw RN Rosmery Will dc with indwelling allen cath (she cant hav etPN at home, has co pay, not unless she goes skilled but then LFTS also climbs with TPN) She was not ready for hospice last week MInimal PO intake - DR Lorenza nguyen mentioned peg - pt is sitting on that idea FULL CODE for now, hopsice candidate - might need to revisit that idea - MS Brandon on case Vitals Vitals Vital Signs Date Time Temp Pulse Resp B/P (MAP) Pulse Ox O2 Delivery O2 Flow Rate FiO2 12/31/18 08:05 94 Nasal Cannula 2.0 12/31/18 03:06 20 12/31/18 02:45 98.9 102 128/59 (82) 98.9 Physical Exam Physical Exam GENERAL: Propped up in bed, alert, smiling, family rubbing her back HEENT: Pupils equally round and reactive. Sclerae icterus. Oropharynx pink, dry. NECK: Supple. LUNGS: Diminished aeration. Nonlabored. HEART: S1, S2. ABDOMEN: Soft, mildly tender, + BS EXTREMITIES: No gross edema or cyanosis. SKIN: Warm to touch, jaundice. NEUROLOGIC: Alert, answering questions appropriately Right-sided Port-A-Cath without signs of any complications. General: Cooperative, Other (jaundice improved) Heart: Regular rate Lungs: Clear, Other Abdomen: Soft Extremities: No clubbing Skin: Other (a little less jaundiced) Labs LABS Laboratory Tests Test 12/30/18 16:33 12/31/18 07:05 Glucose (Fingerstick) 136 mg/dL (70-99) White Blood Count 8.3 x10^3/uL (4.0-11.0) Red Blood Count 3.28 x10^6/uL (3.50-5.40) Hemoglobin 10.5 g/dL (12.0-15.5) Hematocrit 30.8 % (36.0-47.0) Mean Corpuscular Volume 94 fL (79-100) Mean Corpuscular Hemoglobin 32 pg (25-35) Mean Corpuscular Hemoglobin Concent 34 g/dL (31-37) Red Cell Distribution Width 18.7 % (11.5-14.5) Platelet Count 170 x10^3/uL (140-400) Neutrophils (%) (Auto) 82 % (31-73) Lymphocytes (%) (Auto) 8 % (24-48) Monocytes (%) (Auto) 10 % (0-9) Eosinophils (%) (Auto) 0 % (0-3) Basophils (%) (Auto) 0 % (0-3) Neutrophils # (Auto) 6.8 x10^3/uL (1.8-7.7) Lymphocytes # (Auto) 0.7 x10^3/uL (1.0-4.8) Monocytes # (Auto) 0.8 x10^3/uL (0.0-1.1) Eosinophils # (Auto) 0.0 x10^3/uL (0.0-0.7) Basophils # (Auto) 0.0 x10^3/uL (0.0-0.2) Sodium Level 130 mmol/L (136-145) Potassium Level 4.5 mmol/L (3.5-5.1) Chloride Level 96 mmol/L (98-107) Carbon Dioxide Level 29 mmol/L (21-32) Anion Gap 5 (6-14) Blood Urea Nitrogen 4 mg/dL (7-20) Creatinine 0.4 mg/dL (0.6-1.0) Estimated GFR (Cockcroft-Gault) 161.7 BUN/Creatinine Ratio 10 (6-20) Glucose Level 104 mg/dL (70-99) Calcium Level 8.8 mg/dL (8.5-10.1) Total Bilirubin 4.4 mg/dL (0.2-1.0) Aspartate Amino Transf (AST/SGOT) 201 U/L (15-37) Alanine Aminotransferase (ALT/SGPT) 122 U/L (14-59) Alkaline Phosphatase 1110 U/L (46-116) Total Protein 5.7 g/dL (6.4-8.2) Albumin 1.6 g/dL (3.4-5.0) Albumin/Globulin Ratio 0.4 (1.0-1.7) Comment Review of Relevant I have reviewed the following items erwin (where applicable) has been applied. Labs Laboratory Tests Test 12/29/18 11:39 12/29/18 16:56 12/30/18 01:08 12/30/18 06:16 Glucose (Fingerstick) 128 mg/dL (70-99) 96 mg/dL (70-99) 120 mg/dL (70-99) 119 mg/dL (70-99) Test 12/30/18 06:45 12/30/18 06:48 12/30/18 16:33 12/31/18 07:05 Sodium Level 132 mmol/L (136-145) 130 mmol/L (136-145) Potassium Level 4.2 mmol/L (3.5-5.1) 4.5 mmol/L (3.5-5.1) Chloride Level 98 mmol/L (98-107) 96 mmol/L (98-107) Carbon Dioxide Level 30 mmol/L (21-32) 29 mmol/L (21-32) Anion Gap 4 (6-14) 5 (6-14) Blood Urea Nitrogen 6 mg/dL (7-20) 4 mg/dL (7-20) Creatinine 0.4 mg/dL (0.6-1.0) 0.4 mg/dL (0.6-1.0) Estimated GFR (Cockcroft-Gault) 161.7 161.7 BUN/Creatinine Ratio 15 (6-20) 10 (6-20) Glucose Level 122 mg/dL (70-99) 104 mg/dL (70-99) Calcium Level 8.6 mg/dL (8.5-10.1) 8.8 mg/dL (8.5-10.1) Total Bilirubin 4.5 mg/dL (0.2-1.0) 4.4 mg/dL (0.2-1.0) Aspartate Amino Transf (AST/SGOT) 183 U/L (15-37) 201 U/L (15-37) Alanine Aminotransferase (ALT/SGPT) 106 U/L (14-59) 122 U/L (14-59) Alkaline Phosphatase 946 U/L (46-116) 1110 U/L (46-116) Total Protein 5.6 g/dL (6.4-8.2) 5.7 g/dL (6.4-8.2) Albumin 1.6 g/dL (3.4-5.0) 1.6 g/dL (3.4-5.0) Albumin/Globulin Ratio 0.4 (1.0-1.7) 0.4 (1.0-1.7) Phosphorus Level 2.4 mg/dL (2.6-4.7) Magnesium Level 1.8 mg/dL (1.8-2.4) Glucose (Fingerstick) 136 mg/dL (70-99) White Blood Count 8.3 x10^3/uL (4.0-11.0) Red Blood Count 3.28 x10^6/uL (3.50-5.40) Hemoglobin 10.5 g/dL (12.0-15.5) Hematocrit 30.8 % (36.0-47.0) Mean Corpuscular Volume 94 fL (79-100) Mean Corpuscular Hemoglobin 32 pg (25-35) Mean Corpuscular Hemoglobin Concent 34 g/dL (31-37) Red Cell Distribution Width 18.7 % (11.5-14.5) Platelet Count 170 x10^3/uL (140-400) Neutrophils (%) (Auto) 82 % (31-73) Lymphocytes (%) (Auto) 8 % (24-48) Monocytes (%) (Auto) 10 % (0-9) Eosinophils (%) (Auto) 0 % (0-3) Basophils (%) (Auto) 0 % (0-3) Neutrophils # (Auto) 6.8 x10^3/uL (1.8-7.7) Lymphocytes # (Auto) 0.7 x10^3/uL (1.0-4.8) Monocytes # (Auto) 0.8 x10^3/uL (0.0-1.1) Eosinophils # (Auto) 0.0 x10^3/uL (0.0-0.7) Basophils # (Auto) 0.0 x10^3/uL (0.0-0.2) Laboratory Tests Test 12/30/18 16:33 12/31/18 07:05 Glucose (Fingerstick) 136 mg/dL (70-99) White Blood Count 8.3 x10^3/uL (4.0-11.0) Red Blood Count 3.28 x10^6/uL (3.50-5.40) Hemoglobin 10.5 g/dL (12.0-15.5) Hematocrit 30.8 % (36.0-47.0) Mean Corpuscular Volume 94 fL (79-100) Mean Corpuscular Hemoglobin 32 pg (25-35) Mean Corpuscular Hemoglobin Concent 34 g/dL (31-37) Red Cell Distribution Width 18.7 % (11.5-14.5) Platelet Count 170 x10^3/uL (140-400) Neutrophils (%) (Auto) 82 % (31-73) Lymphocytes (%) (Auto) 8 % (24-48) Monocytes (%) (Auto) 10 % (0-9) Eosinophils (%) (Auto) 0 % (0-3) Basophils (%) (Auto) 0 % (0-3) Neutrophils # (Auto) 6.8 x10^3/uL (1.8-7.7) Lymphocytes # (Auto) 0.7 x10^3/uL (1.0-4.8) Monocytes # (Auto) 0.8 x10^3/uL (0.0-1.1) Eosinophils # (Auto) 0.0 x10^3/uL (0.0-0.7) Basophils # (Auto) 0.0 x10^3/uL (0.0-0.2) Sodium Level 130 mmol/L (136-145) Potassium Level 4.5 mmol/L (3.5-5.1) Chloride Level 96 mmol/L (98-107) Carbon Dioxide Level 29 mmol/L (21-32) Anion Gap 5 (6-14) Blood Urea Nitrogen 4 mg/dL (7-20) Creatinine 0.4 mg/dL (0.6-1.0) Estimated GFR (Cockcroft-Gault) 161.7 BUN/Creatinine Ratio 10 (6-20) Glucose Level 104 mg/dL (70-99) Calcium Level 8.8 mg/dL (8.5-10.1) Total Bilirubin 4.4 mg/dL (0.2-1.0) Aspartate Amino Transf (AST/SGOT) 201 U/L (15-37) Alanine Aminotransferase (ALT/SGPT) 122 U/L (14-59) Alkaline Phosphatase 1110 U/L (46-116) Total Protein 5.7 g/dL (6.4-8.2) Albumin 1.6 g/dL (3.4-5.0) Albumin/Globulin Ratio 0.4 (1.0-1.7) Microbiology 12/22/18 Blood Culture - Final, Complete NO GROWTH AFTER 5 DAYS Medications Current Medications Morphine Sulfate (Morphine Sulfate) 5 mg 1X ONCE IV Last administered on 12/22/18at 10:00; Start 12/22/18 at 10:00; Stop 12/22/18 at 10:03; Status DC Naloxone HCl (Narcan) 0.4 mg PRN Q2MIN PRN IV SEE INSTRUCTIONS; Start 12/22/18 at 10:00 Sodium Chloride 1,000 ml @ 25 mls/hr Q24H IV Last administered on 12/22/18at 09:55; Start 12/22/18 at 09:55 Hydromorphone HCl 30 ml @ 0 mls/hr CONT PRN PRN IV PER PROTOCOL Last administered on 12/26/18at 08:12; Start 12/22/18 at 10:00; Stop 12/27/18 at 08:24; Status DC Sodium Chloride (Normal Saline Flush) 3 ml QSHIFT PRN IV AFTER MEDS AND BLOOD DRAWS; Start 12/22/18 at 11:30 Sodium Chloride 1,000 ml @ 100 mls/hr Q10H IV Last administered on 12/26/18at 05:39; Start 12/22/18 at 13:00; Stop 12/26/18 at 08:16; Status DC Ondansetron HCl (Zofran) 4 mg PRN Q4HRS PRN IVP NAUSEA/VOMITING Last administered on 12/30/18 01:15; Start 12/22/18 at 11:30 Acetaminophen (Tylenol Supp) 650 mg PRN Q4HRS PRN MO TEMP OVER 100.4F OR MILD PAIN Last administered on 12/23/18 03:47; Start 12/22/18 at 11:30 Clonidine HCl (Catapres) 0.1 mg PRN Q6HRS PRN PO SBP>160 OR DBP>90; Start 12/22/18 at 11:30 Albuterol/ Ipratropium (Duoneb) 3 ml Q4H NEB Last administered on 12/31/18 08:02; Start 12/22/18 at 12:00 Lorazepam (Ativan) 0.5 mg PRN Q4HRS PRN PO ANXIETY / AGITATION Last administered on 12/27/18 17:47; Start 12/22/18 at 11:30; Stop 12/29/18 at 08:25; Status DC Enoxaparin Sodium (Lovenox 40mg Syringe) 40 mg DAILY SQ ; Start 12/23/18 at 09:00; Stop 12/22/18 at 16:29; Status DC Piperacillin Sod/ Tazobactam Sod 3.375 gm/Sodium Chloride 50 ml @ 100 mls/hr Q6HRS IV Last administered on 12/29/18 12:17; Start 12/22/18 at 12:00; Stop 12/29/18 at 13:05; Status DC Ascorbic Acid (Vitamin C) 500 mg BID PO Last administered on 12/30/18 21:23; Start 12/22/18 at 21:00 Ferrous Sulfate (Feosol) 325 mg BIDWMEALS PO Last administered on 12/30/18 17:33; Start 12/22/18 at 17:00 Gabapentin (Neurontin) 300 mg BID PO Last administered on 12/30/18 21:23; Start 12/22/18 at 21:00 Acyclovir (Zovirax) 400 mg BID PO Last administered on 12/28/18at 07:58; Start 12/22/18 at 21:00; Stop 12/28/18 at 10:07; Status DC Non-Formulary Medication (Alpha Lipoic Acid ) 600 mg BID PO ; Start 12/22/18 at 21:00; Status UNV Citalopram Hydrobromide (CeleXA) 20 mg DAILY PO Last administered on 12/30/18at 08:50; Start 12/23/18 at 09:00 Non-Formulary Medication (Lactobacillus Rhamnosus Gg (Culturelle)) 1 each BID PO ; Start 12/22/18 at 21:00; Status UNV Potassium Chloride/Water 100 ml @ 100 mls/hr Q1H IV Last administered on 12/23/18at 08:15; Start 12/23/18 at 06:15; Stop 12/23/18 at 09:14; Status DC Polyethylene Glycol (miraLAX PACKET) 17 gm DAILY PO Last administered on 12/30/18at 08:49; Start 12/23/18 at 14:45 Docusate Sodium (Colace Solution) 100 mg BID PO Last administered on 12/30/18at 21:22; Start 12/23/18 at 14:45 Bisacodyl (Dulcolax Supp) 10 mg PRN DAILY PRN MO CONSTIPATION; Start 12/23/18 at 14:45; Stop 12/26/18 at 12:49; Status DC Acetaminophen (Tylenol) 500 mg PRN Q6HRS PRN PO MILD PAIN / TEMP; Start 12/24/18 at 09:00 Oxycodone/ Acetaminophen (Percocet 5/325) 1 tab PRN Q4HRS PRN PO MODERATE PAIN Last administered on 12/30/18at 23:12; Start 12/24/18 at 09:00 Lidocaine HCl (Lidocaine Pf 2% Vial) 5 ml STK-MED ONCE .ROUTE ; Start 12/24/18 at 09:38; Stop 12/24/18 at 09:39; Status DC Propofol 20 ml @ As Directed STK-MED ONCE IV ; Start 12/24/18 at 09:38; Stop 12/24/18 at 09:39; Status DC Succinylcholine Chloride (Anectine) 200 mg STK-MED ONCE .ROUTE ; Start 12/24/18 at 09:38; Stop 12/24/18 at 09:39; Status DC Ondansetron HCl (Zofran) 4 mg STK-MED ONCE .ROUTE ; Start 12/24/18 at 09:39; Stop 12/24/18 at 09:39; Status DC Glycopyrrolate (Robinul) 1 mg STK-MED ONCE .ROUTE ; Start 12/24/18 at 09:39; Stop 12/24/18 at 09:39; Status DC Rocuronium [place] (Zemuron) 50 mg STK-MED ONCE .ROUTE ; Start 12/24/18 at 09:49; Stop 12/24/18 at 09:50; Status DC Propofol 20 ml @ As Directed STK-MED ONCE IV ; Start 12/24/18 at 09:52; Stop 12/24/18 at 09:52; Status DC Lidocaine HCl (Lidocaine Pf 2% Vial) 5 ml STK-MED ONCE .ROUTE ; Start 12/24/18 at 09:52; Stop 12/24/18 at 09:52; Status DC Hydromorphone HCl (Dilaudid Standard COMBUSTION ENGINEER) 12 mg STK-MED ONCE IV ; Start 12/22/18 at 12:00; Stop 12/24/18 at 10:33; Status DC Hydromorphone HCl (Dilaudid Standard COMBUSTION ENGINEER) 12 mg STK-MED ONCE IV ; Start 12/23/18 at 12:20; Stop 12/24/18 at 10:34; Status DC Midazolam HCl (Versed) 2 mg PRN 1X PRN IV PRIOR TO PROCEDURE; Start 12/24/18 at 10:45; Stop 12/25/18 at 10:44; Status DC Fentanyl Citrate (Fentanyl 2ml Vial) 25 mcg PRN Q5MIN PRN IV X 2 DOSES FOR PAIN; Start 12/24/18 at 10:45; Stop 12/25/18 at 10:44; Status DC Fentanyl Citrate (Fentanyl 2ml Vial) 50 mcg PRN Q5MIN PRN IV X 2 DOSES FOR PAIN; Start 12/24/18 at 10:45; Stop 12/25/18 at 10:44; Status DC Ringer's Solution 1,000 ml @ 125 mls/hr Q8H IV Last administered on 12/24/18at 11:46; Start 12/24/18 at 10:38; Stop 12/24/18 at 22:37; Status DC Lidocaine HCl (Xylocaine-Mpf 1% 2ml Vial) 2 ml 1X PRN PRN ID IV START; Start 12/24/18 at 10:45; Stop 12/25/18 at 10:44; Status DC Iohexol (Omnipaque 300 Mg/ml) 100 ml STK-MED ONCE .ROUTE ; Start 12/24/18 at 12:04; Stop 12/24/18 at 12:04; Status DC Influenza Virus Vaccine Quadrival (Afluria Quad 2019-20 (3yr Up) Syringe) 0.5 ml ONCE ONCE VAX IM Last administered on 12/25/18at 09:42; Start 12/25/18 at 09:00; Stop 12/25/18 at 09:01; Status DC Potassium Chloride (Klor-Con) 40 meq BIDWMEALS PO Last administered on 9at 07:59; Start 12/25/18 at 08:45; Stop 12/28/18 at 10:27; Status DC Zolpidem Tartrate (Ambien) 5 mg PRN QHS PRN PO INSOMNIA; Start 12/25/18 at 08:45; Stop 12/29/18 at 09:28; Status DC Calcium Carbonate/ Glycine (Tums) 500 mg PRN AFTMEALHC PRN PO INDIGESTION; Start 12/25/18 at 08:45 Enoxaparin Sodium (Lovenox 40mg Syringe) 40 mg Q24H SQ Last administered on 12/30/18at 08:55; Start 12/25/18 at 10:00 Hydromorphone HCl (Dilaudid Standard COMBUSTION ENGINEER) 12 mg STK-MED ONCE IV ; Start 12/24/18 at 22:58; Stop 12/25/18 at 11:34; Status DC Amino Acids/ Glycerin/ Electrolytes 1,000 ml @ 80 mls/hr [id number] IV Last administered on 12/27/18at 20:27; Start 12/26/18 at 08:15; Stop 12/28/18 at 08:24; Status DC Magnesium Hydroxide (Milk Of Magnesia) 2,400 mg PRN DAILY PRN PO CONSTIPATION, 1ST CHOICE Last administered on 12/26/18at 16:41; Start 12/26/18 at 09:15 Bisacodyl (Dulcolax Supp) 10 mg PRN DAILY PRN MO CONSTIPATION Last administered on 12/27/18at 07:39; Start 12/26/18 at 09:15 Lubiprostone (Amitiza) 8 mcg BIDWMEALS PO Last administered on 12/30/18at 17:33; Start 12/26/18 at 10:00 Polyethylene Glycol (miraLAX PACKET) 17 gm DAILY PO ; Start 12/27/18 at 09:00; Stop 12/26/18 at 15:42; Status DC Polyethylene Glycol (miraLAX PACKET) 17 gm PRN DAILY PRN PO CONSTIPATION, 2ND CHOICE; Start 12/26/18 at 12:45 Morphine Sulfate (Ms Contin) 15 mg BID PO Last administered on 12/28/18at 07:58; Start 12/27/18 at 09:00; Stop 12/28/18 at 08:24; Status DC Hydromorphone HCl (Dilaudid) 0.4 mg PRN Q4HRS PRN IVP MODERATE TO SEVERE PAIN; Start 12/27/18 at 08:30; Stop 12/27/18 at 09:19; Status DC Hydromorphone HCl (Dilaudid) 0.2 mg PRN Q4HRS PRN IVP MODERATE TO SEVERE PAIN Last administered on 12/27/18at 17:48; Start 12/27/18 at 09:30; Stop 12/29/18 at 09:28; Status DC Furosemide (Lasix) 20 mg DAILY PO Last administered on 12/30/18at 08:50; Start 12/27/18 at 11:15 Hydromorphone HCl (Dilaudid Standard COMBUSTION ENGINEER) 12 mg STK-MED ONCE IV ; Start 12/26/18 at 07:59; Stop 12/27/18 at 14:44; Status DC Morphine Sulfate (Ms Contin) 30 mg BID PO Last administered on 12/28/18at 21:08; Start 12/28/18 at 09:00; Stop 12/29/18 at 08:48; Status DC Info (Tpn Per Pharmacy) 1 each PRN DAILY PRN MC SEE COMMENTS Last administered on 12/29/18at 11:59; Start 12/28/18 at 08:30; Stop 12/30/18 at 08:04; Status DC Furosemide (Lasix) 20 mg 1X ONCE IVP Last administered on 12/28/18at 08:49; Start 12/28/18 at 08:30; Stop 12/28/18 at 08:31; Status DC Potassium Chloride (Klor-Con) 40 meq 1X ONCE PO Last administered on 12/28/18at 08:48; Start 12/28/18 at 08:30; Stop 12/28/18 at 08:31; Status DC Potassium Chloride (Klor-Con) 20 meq [id number] PO Last administered on 12/30/18at 08:50; Start 12/29/18 at 08:00 Morphine Sulfate (Ms Contin) 15 mg 1X PO ; Start 12/28/18 at 08:45; Stop 12/28/18 at 09:14; Status DC Morphine Sulfate (Ms Contin) 15 mg 1X ONCE PO Last administered on 12/28/18at 09:16; Start 12/28/18 at 09:15; Stop 12/28/18 at 09:16; Status DC Fluconazole (Diflucan) 200 mg DAILY PO Last administered on 12/30/18at 08:51; Start 12/28/18 at 10:15 Valacyclovir HCl (Valtrex) 1,000 mg BID PO Last administered on 12/30/18at 21:23; Start 12/28/18 at 21:00 Sodium Chloride 70 meq/Potassium Chloride 40 meq/ Potassium Phosphate 13.6 mmol/Magnesium Sulfate 10 meq/ Calcium Gluconate 10 meq/ Multivitamins 10 ml/Chromium/ Copper/Manganese/ Seleni/Zn 1 ml/ Total Parenteral Nutrition/Amino Acids/Dextrose 1,512 ml @ 63 mls/hr TPN CONT IV Last administered on 12/28/18at 21:07; Start 12/28/18 at 22:00; Stop 12/29/18 at 21:59; Status DC Amino Acids/ Glycerin/ Electrolytes 1,000 ml @ 80 mls/hr [id number] ONCE IV Last administered on 12/28/18at 11:34; Start 12/28/18 at 11:30; Stop 12/28/18 at 23:59; Status DC Lorazepam (Ativan) 0.25 mg PRN Q4HRS PRN PO ANXIETY / AGITATION; Start 12/29/18 at 08:30; Stop 12/29/18 at 09:28; Status DC Morphine Sulfate (Ms Contin) 15 mg BID PO Last administered on 12/30/18at 21:22; Start 12/29/18 at 09:00 Sodium Phosphate 15 mmol/Dextrose 255 ml @ 63.75 mls/ hr 1X ONCE IV Last administered on 12/29/18at 13:00; Start 12/29/18 at 13:00; Stop 12/29/18 at 16:59; Status DC Sodium Chloride 100 meq/Potassium Chloride 30 meq/ Potassium Phosphate 20 mmol/ Magnesium Sulfate 10 meq/Calcium Gluconate 10 meq/ Multivitamins 10 ml/Chromium/ Copper/Manganese/ Seleni/Zn 1 ml/ Total Parenteral Nutrition/Amino Acids/Dextrose 1,512 ml @ 63 mls/hr TPN CONT IV Last administered on 12/29/18at 22:13; Start 12/29/18 at 22:00; Stop 12/30/18 at 08:02; Status DC Meropenem 500 mg/ Sodium Chloride 50 ml @ 100 mls/hr Q8HRS IV Last admini stered on 12/31/18at 06:13; Start 12/29/18 at 14:00 Hydromorphone HCl (Dilaudid) 0.2 mg PRN Q4HRS PRN IVP SEVERE PAIN 7-10 Last administered on 12/31/18at 02:36; Start 12/30/18 at 02:00 Amino Acids/ Glycerin/ Electrolytes 1,000 ml @ 80 mls/hr [id number] IV Last administered on 12/30/18at 21:23; Start 12/30/18 at 22:00 Active Scripts Active Ascorbic Acid 500 Mg Tablet 500 Mg PO BID 30 Days Ferrous Sulfate 325 Mg Tablet 1 Tab PO BID 30 Days Reported Imodium A-D (Loperamide HCl) 2 Mg Capsule 2 Mg PO PRN Q4HRS PRN Alpha Lipoic Acid 600 Mg Capsule 600 Mg PO BID Ambien (Zolpidem Tartrate) 5 Mg Tablet 5 Mg PO PRN QHS PRN Gabapentin (Gabapentin) 300 Mg Capsule 300 Mg PO BID Escitalopram Oxalate 10 Mg Tablet 1 Tab PO DAILY Acyclovir 400 Mg Tablet 1 Tab PO BID Temazepam 15 Mg Capsule 1 Cap PO QHS Eliquis (Apixaban) 5 Mg Tablet 5 Mg PO BID 60 Days Culturelle (Lactobacillus Rhamnosus Gg) 1 Each Capsule 1 Each PO BID Vitals/I & O Vital Sign - Last 24 Hours 12/30/18 12/30/18 12/30/18 12/30/18 11:00 11:21 14:33 15:00 Temp 98.0 98.0 98.0 98.0 Pulse 95 95 Resp 18 18 B/P (MAP) 128/62 (84) 128/62 (84) Pulse Ox 96 96 96 O2 Delivery Nasal Cannula Nasal Cannula Room Air Nasal Cannula O2 Flow Rate 2.0 2.0 2.0 2.0 12/30/18 12/30/18 12/30/18 12/30/18 15:17 15:20 16:24 19:00 Temp 98.0 98.0 Pulse 104 Resp 18 B/P (MAP) 126/72 (90) Pulse Ox 96 96 95 O2 Delivery Nasal Cannula Room Air Room Air Nasal Cannula O2 Flow Rate 2.0 2.0 2.0 2.0 12/30/18 12/30/18 12/30/18 12/30/18 19:25 20:00 21:22 23:00 Temp 97.9 97.9 Pulse 105 Resp 20 18 B/P (MAP) 139/76 (97) Pulse Ox 94 94 96 O2 Delivery Nasal Cannula Room Air Room Air Nasal Cannula O2 Flow Rate 2.0 2.0 2.0 12/30/18 12/31/18 12/31/18 12/31/18 23:12 00:12 01:48 02:36 Resp 20 20 20 Pulse Ox 94 94 94 O2 Delivery Room Air Room Air Room Air Room Air O2 Flow Rate 2.0 2.0 2.0 12/31/18 12/31/18 12/31/18 02:45 03:06 08:05 Temp 98.9 98.9 Pulse 102 Resp 18 20 B/P (MAP) 128/59 (82) Pulse Ox 95 95 94 O2 Delivery Nasal Cannula Nasal Cannula Nasal Cannula O2 Flow Rate 2.0 2.0 2.0 Intake and Output 12/30/18 12/30/18 12/31/18 14:59 22:59 06:59 Intake Total 220 ml Output Total 500 ml Balance 220 ml -500 ml RADHA WILSON MD Dec 31, 2018 08:52
[2018-12-31] MEDS: DOCUSATE 100 MG/10 ML SOLUTION. PO SCH ×2 (09:00→21:40)
[2018-12-31] MEDS: ASCORBIC ACID 500 MG TABLET PO SCH ×2 (09:00→21:41)
[2018-12-31] MEDS: FUROSEMIDE 20 MG TABLET PO SCH (09:00)
[2018-12-31] MEDS: CITALOPRAM 20 MG TABLET. PO SCH (09:00)
[2018-12-31] MEDS: valACYclovir 500 MG TABLET. PO SCH ×2 (09:00→21:41)
[2018-12-31] MEDS: GABAPENTIN 300 MG CAPSULE. PO SCH ×2 (09:00→21:41)
[2018-12-31] MEDS: POLYETHYLENE GLYCOL 3350 17 GM PACKET. PO SCH (09:00)
[2018-12-31] MEDS: FLUCONAZOLE 100 MG TABLET. PO SCH (09:00)
[2018-12-31] MEDS: MORPHINE ER 15 MG TABLET.ER PO SCH (09:09)
--- NOTE | 2018-12-31 09:42 | PDOC ---
Infectious Disease Note Subjective Subjective Feeling ok this morning Some back pain, though not as intense Mouth feels less sore and dry Walking some Denies F/C/S/N/V/SOA Vital Sign Vital Signs Vital Signs Date Time Temp Pulse Resp B/P (MAP) Pulse Ox O2 Delivery O2 Flow Rate FiO2 12/31/18 09:09 Room Air 12/31/18 08:05 94 2.0 12/31/18 07:00 97.5 99 18 139/67 (91) 97.5 Physical Exam PHYSICAL EXAM GENERAL: Propped up in bed, alert, smiling, family rubbing her back HEENT: Pupils equally round and reactive. Sclerae icterus. Oropharynx pink, dry. NECK: Supple. LUNGS: Diminished aeration. Nonlabored. HEART: S1, S2. ABDOMEN: Soft, mildly tender, + BS EXTREMITIES: No gross edema or cyanosis. SKIN: Warm to touch, jaundice. NEUROLOGIC: Alert, answering questions appropriately Right-sided Port-A-Cath without signs of any complications. Labs Lab Laboratory Tests Test 12/30/18 16:33 12/31/18 07:05 Glucose (Fingerstick) 136 mg/dL (70-99) White Blood Count 8.3 x10^3/uL (4.0-11.0) Red Blood Count 3.28 x10^6/uL (3.50-5.40) Hemoglobin 10.5 g/dL (12.0-15.5) Hematocrit 30.8 % (36.0-47.0) Mean Corpuscular Volume 94 fL (79-100) Mean Corpuscular Hemoglobin 32 pg (25-35) Mean Corpuscular Hemoglobin Concent 34 g/dL (31-37) Red Cell Distribution Width 18.7 % (11.5-14.5) Platelet Count 170 x10^3/uL (140-400) Neutrophils (%) (Auto) 82 % (31-73) Lymphocytes (%) (Auto) 8 % (24-48) Monocytes (%) (Auto) 10 % (0-9) Eosinophils (%) (Auto) 0 % (0-3) Basophils (%) (Auto) 0 % (0-3) Neutrophils # (Auto) 6.8 x10^3/uL (1.8-7.7) Lymphocytes # (Auto) 0.7 x10^3/uL (1.0-4.8) Monocytes # (Auto) 0.8 x10^3/uL (0.0-1.1) Eosinophils # (Auto) 0.0 x10^3/uL (0.0-0.7) Basophils # (Auto) 0.0 x10^3/uL (0.0-0.2) Sodium Level 130 mmol/L (136-145) Potassium Level 4.5 mmol/L (3.5-5.1) Chloride Level 96 mmol/L (98-107) Carbon Dioxide Level 29 mmol/L (21-32) Anion Gap 5 (6-14) Blood Urea Nitrogen 4 mg/dL (7-20) Creatinine 0.4 mg/dL (0.6-1.0) Estimated GFR (Cockcroft-Gault) 161.7 BUN/Creatinine Ratio 10 (6-20) Glucose Level 104 mg/dL (70-99) Calcium Level 8.8 mg/dL (8.5-10.1) Total Bilirubin 4.4 mg/dL (0.2-1.0) Aspartate Amino Transf (AST/SGOT) 201 U/L (15-37) Alanine Aminotransferase (ALT/SGPT) 122 U/L (14-59) Alkaline Phosphatase 1110 U/L (46-116) Total Protein 5.7 g/dL (6.4-8.2) Albumin 1.6 g/dL (3.4-5.0) Albumin/Globulin Ratio 0.4 (1.0-1.7) Micro Microbiology 12/22/18 Blood Culture - Final, Complete NO GROWTH AFTER 5 DAYS Objective Assessment Ascending cholangitis Oral ulcerations Obstructive jaundice s/p ERCP w/ stent placement, 12/24. LFT improving Immunosuppression d/t chemotherapy Klebsiella in urine, 03/24 ([facility]) probable ESBL Colon cancer with metastasis Recently h/o treated for PJP, off Bactrim h/o C. diff Plan Plan of Care Continue meropenem (started 12/29) Continue Fluconazole and Valtrex Cont Incentive spirometry Bubble 02 Monitor labs Pain management per primary Hoping to continue chemo Contact isolation D/w Dr Interiano D/w Pat with palliative care there is no oral option , iv for now, UTI treated, ? ascending cholengitis not treated yet if at all she has, pain control is problem and po intake is a problem, if plan to go home on palliative care then d/c iv antibiotics ROSALBA ZAPATA MD Dec 31, 2018 09:42
--- NOTE | 2018-12-31 09:43 | PDOC ---
SUBJECTIVE Subjective S: tired, weak, in pain O: Physical exam: Gen.: Thin 60s female, weak, hoarse, resting in bed Skin: Still slightly jaundiced Psychiatric: tired mood and affect Labs: T bili 4.5, Hb 10.5 Rads: ERCP with stent completed 24 December Chest x-ray with coarse interstitial bilateral opacities left greater than right Assessment and Plan: Ms New is a 63-year-old female with aggressive metastatic colon cancer who had unfortunate suspected PJP pneumonia for which she was treated in November and has had declining functional status and progressive disease while being off chemotherapy admitted with worsening of abdominal pain and suggestion of cholangitis on MRCP with extrinsic compression of bile ducts as well with hyperbilirubinemia. Bilirubin has improved post-ERCP stenting on 24 December. Hyperbilirubinemia: improving post stent, can restart chemo (based on functional status, seems unlikely) if she desires once bili <3 Metastatic colon cancer: Chemotherapy on hold with elevated bili and ECOG, appreciate Ms Pat helping with pain control and palliative care options at home, would like pall care at home set up prior to dc, primary is transitioning pain meds to home regimen Hypokalemia: Deferred to primary, TPN not recommended based on rising LFTs and terminal disease and PEG tube declined History of DVT: Lovenox prophylaxis Constipation: prn's, and lubiprostone disposition: home w/ pall care and f/u w/ me in a few days Thank you kindly and please do not hesitate to call with questions. OBJECTIVE Vital Signs Vital Signs Date Time Temp Pulse Resp B/P (MAP) Pulse Ox O2 Delivery O2 Flow Rate FiO2 12/31/18 09:09 Room Air 12/31/18 09:06 Room Air 12/31/18 08:05 94 Nasal Cannula 2.0 12/31/18 07:00 97.5 99 18 139/67 (91) 92 Nasal Cannula 1.0 97.5 12/31/18 03:06 20 95 Nasal Cannula 2.0 12/31/18 02:45 98.9 102 18 128/59 (82) 95 Nasal Cannula 2.0 98.9 12/31/18 02:36 20 94 Room Air 2.0 12/31/18 01:48 20 94 Room Air 2.0 12/31/18 00:12 20 Room Air 12/30/18 23:12 94 Room Air 2.0 12/30/18 23:00 97.9 105 18 139/76 (97) 96 Nasal Cannula 2.0 97.9 12/30/18 21:22 20 94 Room Air 2.0 12/30/18 20:00 Room Air 12/30/18 19:25 94 Nasal Cannula 2.0 12/30/18 19:00 98.0 104 18 126/72 (90) 95 Nasal Cannula 2.0 98.0 12/30/18 16:24 96 Room Air 2.0 12/30/18 15:20 96 Room Air 2.0 12/30/18 15:17 Nasal Cannula 2.0 12/30/18 15:00 98.0 95 18 128/62 (84) 96 Nasal Cannula 2.0 98.0 12/30/18 14:33 96 Room Air 2.0 12/30/18 11:21 Nasal Cannula 2.0 12/30/18 11:00 98.0 95 18 128/62 (84) 96 Nasal Cannula 2.0 98.0 I & O Intake and Output 12/31/18 06:59 Intake Total 220 ml Output Total 500 ml Balance -280 ml Intake Oral 220 ml Output Urine Total 500 ml # Voids 2 # Bowel Movements 1 COMMENT Lab Laboratory Tests Test 12/30/18 16:33 12/31/18 07:05 Glucose (Fingerstick) 136 mg/dL (70-99) White Blood Count 8.3 x10^3/uL (4.0-11.0) Red Blood Count 3.28 x10^6/uL (3.50-5.40) Hemoglobin 10.5 g/dL (12.0-15.5) Hematocrit 30.8 % (36.0-47.0) Mean Corpuscular Volume 94 fL (79-100) Mean Corpuscular Hemoglobin 32 pg (25-35) Mean Corpuscular Hemoglobin Concent 34 g/dL (31-37) Red Cell Distribution Width 18.7 % (11.5-14.5) Platelet Count 170 x10^3/uL (140-400) Neutrophils (%) (Auto) 82 % (31-73) Lymphocytes (%) (Auto) 8 % (24-48) Monocytes (%) (Auto) 10 % (0-9) Eosinophils (%) (Auto) 0 % (0-3) Basophils (%) (Auto) 0 % (0-3) Neutrophils # (Auto) 6.8 x10^3/uL (1.8-7.7) Lymphocytes # (Auto) 0.7 x10^3/uL (1.0-4.8) Monocytes # (Auto) 0.8 x10^3/uL (0.0-1.1) Eosinophils # (Auto) 0.0 x10^3/uL (0.0-0.7) Basophils # (Auto) 0.0 x10^3/uL (0.0-0.2) Sodium Level 130 mmol/L (136-145) Potassium Level 4.5 mmol/L (3.5-5.1) Chloride Level 96 mmol/L (98-107) Carbon Dioxide Level 29 mmol/L (21-32) Anion Gap 5 (6-14) Blood Urea Nitrogen 4 mg/dL (7-20) Creatinine 0.4 mg/dL (0.6-1.0) Estimated GFR (Cockcroft-Gault) 161.7 BUN/Creatinine Ratio 10 (6-20) Glucose Level 104 mg/dL (70-99) Calcium Level 8.8 mg/dL (8.5-10.1) Total Bilirubin 4.4 mg/dL (0.2-1.0) Aspartate Amino Transf (AST/SGOT) 201 U/L (15-37) Alanine Aminotransferase (ALT/SGPT) 122 U/L (14-59) Alkaline Phosphatase 1110 U/L (46-116) Total Protein 5.7 g/dL (6.4-8.2) Albumin 1.6 g/dL (3.4-5.0) Albumin/Globulin Ratio 0.4 (1.0-1.7) MAYRA TORRES MD Dec 31, 2018 09:43
[2018-12-31] MEDS: IV NORMAL SALINE 1000ML BAG 1,000 ML IV SCH (09:55)
[2018-12-31] MEDS: ENOXAPARIN 40 MG/0.4 ML SYRINGE. SQ SCH (10:00)
--- NOTE | 2018-12-31 10:19 | PDOC ---
Subjective: Subjective: Has abd pain. Didn't eat breakfast - wasn't hungry. "[place]" stool yesterday after enema. Objective: Objective: D/w Dr. Villarreal, Pat/PC, and nurse. Reviewed chart - pt wishes to avoid PEG. TPN avoided w/ elevated LFTs. Vital Signs: Vital Signs Date Time Temp Pulse Resp B/P (MAP) Pulse Ox O2 Delivery O2 Flow Rate FiO2 12/31/18 09:09 Room Air 12/31/18 08:05 94 2.0 12/31/18 07:00 97.5 99 18 139/67 (91) 97.5 Labs: Laboratory Tests Test 12/30/18 16:33 Glucose (Fingerstick) 136 mg/dL (70-99) Imaging: [facility] 12/30 Impression: 1. There is more prominent retained stool near the hepatic flexure. There is some gas distention of bowel in the right lower quadrant which may be slightly distended small bowel. 2. There is now biliary stent. PE: GEN: NAD LUNGS: CTAB HEART: RRR ABD: NABS, S/ND/NT NEURO/PSYCH: A & O 3 A/P: Metastatic colon cancer Obstructive jaundice - bili improved s/p ERCP/stent, Alk Phos worse today; can resume chemo when bili <3 Anorexia, constipation -- Abd pain remains an issue - family prefers that she avoid pain meds. On PPN - no appetite. Continue treatment for constipation - repeat tap-water enema PRN - she wishes to observe for now. Palliative care involved. Will review additional recs w/ Dr. Escobedo. RAFFI TYLER Dec 31, 2018 10:19
[2018-12-31] MEDS: AMINO AC 3%/ELECTROLYTE/GLYCER 1,000 ML IV SCH ×2 (10:30→23:00)
--- NOTE | 2018-12-31 12:58 | NUR ---
SS following up with discharge planning. Pt is currently on room air. PT/OT still recommending home with home health/assistance at this time. Palliative Care consulted. SS will continue to follow for discharge planning.
[2018-12-31] MEDS: fentaNYL 25MCG/HR PATCH 1 PATCH PATCH.TD72 TD SCH (13:31)
[2018-12-31 15:00] VITALS: BP 121/57
[2018-12-31] MEDS: oxyCODONE/APAP 5/325 1 TAB TABLET PO PRN ×2 (16:53→21:41)
[2018-12-31] MEDS: LUBIPROSTONE 8 MCG CAPSULE PO SCH (17:05)
[2018-12-31 19:00] VITALS: BP 127/65
--- NOTE | 2018-12-31 19:15 | PDOC2 ---
PALLIATIVE CARE Palliative Care Note Palliative Care Patient alert lethargic but awakens easily--weak voice but can participate in conversation Met with daughters Marli and Eunice, mother Katlin; Brother Sj and Dell on phone Reviewed medical condition; Aggressive metastatic colon cancer who had unfortunate suspected PJP pneumonia for which she was treated in November and has had declining functional status and progressive disease while being off chemotherapy admitted with worsening of abdominal pain and suggestion of cholangitis on MRCP with extrinsic compression of bile ducts as well with hyperbilirubinemia. Bilirubin has improved post-ERCP stenting on 24 December. Hyperbilirubinemia: improving post stent, can restart chemo (based on functional status, seems unlikely) if she desires once bili <3 Metastatic colon cancer: Chemotherapy on hold with elevated bili and ECOG, appreciate Ms Sarmiento helping with pain control and palliative care options at home, would like pall care at home set up prior to dc, primary is transitioning pain meds to home regimen Hypokalemia: Deferred to primary, TPN not recommended based on rising LFTs and terminal disease and PEG tube declined History of DVT: Lovenox prophylaxis Constipation: prn's, and lubiprostone disposition: home w/ pall care and f/u w/ me in a few days Discussed pain management with family and importance of balance of pain management and allowing patient to be able to participate in PT/OT and eat. Patient and family would like to keep the option open for more chemotherapy. Bili. 4.5. Will need to be <3 with improved performance status before starting chemotherapy. Discussed Palliative Home Health where symptoms could be monitored closely. Patient and family in agreement. Family requests Palliative Home Health. Understand they could transition to Hospice as needed. Will work on transitioning pain medication for home: Start Fentanyl 25mcq patch and medications for breakthrough. Discussed with Dr. Barraza who will order. CARLA ABARCA Dec 31, 2018 19:15
[2018-12-31 22:59] VITALS: BP 123/73
[2019-01-01 03:00] VITALS: BP 119/62
[2019-01-01] MEDS: oxyCODONE/APAP 5/325 1 TAB TABLET PO PRN ×3 (03:09→12:14)
[2019-01-01] MEDS: IPRATRPIUM/ALBUTEROL 0.5/2.5MG 3 ML NEBU. NEB SCH ×6 (03:33→19:43)
[2019-01-01] MEDS: MEROPENEM 500 MG in IV NORMAL SALINE 50ML 50 ML IV SCH ×3 (06:12→22:00)
[2019-01-01 07:00] VITALS: BP 116/58
--- NOTE | 2019-01-01 08:35 | PDOC ---
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 Obstructive jaundice secondary to biliary compression by metastatic lymphadenopathy - cancer PAIN, CHALLENGING TO MANAGE Narc tolerant NArc induced constipation - resolved fULL CODE, NOT READY FOR HOSPICE [facility] UTI - History of Present Illness History of Present Illness She was on MS contin 30 BID and dilaudid prn (only got 4 doses or such) and ativan 0.5 BIDm, changed to MS contin to 15 BID and she has been requesting phone call prior to prn dilaudid. Changed to fentanyl patch 25mcg on 12/31, feels her pain is a bit better controlled. Pain has shifted to right upper chest, points to AC joint and LUQ and left flank She was slated for HH monday but is getting weaker so might be SNU - and dtr acknowledges that, also will discuss palliative home health No labs today. Taking a bit of PO. No BM PLAN: Change to fentanyl patch from MS contin SW SNU Current tpn to consume, then PPN - dw RN Rosmery Will dc with indwelling allen cath (she cant hav etPN at home, has co pay, not unless she goes skilled but then LFTS also climbs with TPN) She was not ready for hospice last week MInimal PO intake - DR Lorenza nguyen mentioned peg - pt is sitting on that idea FULL CODE for now, hopsice candidate - might need to revisit that idea - MS PAt on case Vitals Vitals Vital Signs Date Time Temp Pulse Resp B/P (MAP) Pulse Ox O2 Delivery O2 Flow Rate FiO2 01/01/19 07:09 96 Nasal Cannula 3.0 01/01/19 04:21 16 01/01/19 03:00 99.3 106 119/62 (81) 99.3 Physical Exam Physical Exam GENERAL: Propped up in bed, alert, smiling, family rubbing her back HEENT: Pupils equally round and reactive. Sclerae icterus. Oropharynx pink, dry. NECK: Supple. LUNGS: Diminished aeration. Nonlabored. HEART: S1, S2. ABDOMEN: Soft, mildly tender, + BS EXTREMITIES: No gross edema or cyanosis. SKIN: Warm to touch, jaundice. NEUROLOGIC: Alert, answering questions appropriately Right-sided Port-A-Cath without signs of any complications. General: Cooperative, Other (jaundice improved) Heart: Regular rate Lungs: Clear, Other Abdomen: Soft Extremities: No clubbing Skin: Other (a little less jaundiced) Comment Review of Relevant I have reviewed the following items erwin (where applicable) has been applied. Labs Laboratory Tests Test 12/30/18 16:33 12/31/18 07:05 Glucose (Fingerstick) 136 mg/dL (70-99) White Blood Count 8.3 x10^3/uL (4.0-11.0) Red Blood Count 3.28 x10^6/uL (3.50-5.40) Hemoglobin 10.5 g/dL (12.0-15.5) Hematocrit 30.8 % (36.0-47.0) Mean Corpuscular Volume 94 fL (79-100) Mean Corpuscular Hemoglobin 32 pg (25-35) Mean Corpuscular Hemoglobin Concent 34 g/dL (31-37) Red Cell Distribution Width 18.7 % (11.5-14.5) Platelet Count 170 x10^3/uL (140-400) Neutrophils (%) (Auto) 82 % (31-73) Lymphocytes (%) (Auto) 8 % (24-48) Monocytes (%) (Auto) 10 % (0-9) Eosinophils (%) (Auto) 0 % (0-3) Basophils (%) (Auto) 0 % (0-3) Neutrophils # (Auto) 6.8 x10^3/uL (1.8-7.7) Lymphocytes # (Auto) 0.7 x10^3/uL (1.0-4.8) Monocytes # (Auto) 0.8 x10^3/uL (0.0-1.1) Eosinophils # (Auto) 0.0 x10^3/uL (0.0-0.7) Basophils # (Auto) 0.0 x10^3/uL (0.0-0.2) Sodium Level 130 mmol/L (136-145) Potassium Level 4.5 mmol/L (3.5-5.1) Chloride Level 96 mmol/L (98-107) Carbon Dioxide Level 29 mmol/L (21-32) Anion Gap 5 (6-14) Blood Urea Nitrogen 4 mg/dL (7-20) Creatinine 0.4 mg/dL (0.6-1.0) Estimated GFR (Cockcroft-Gault) 161.7 BUN/Creatinine Ratio 10 (6-20) Glucose Level 104 mg/dL (70-99) Calcium Level 8.8 mg/dL (8.5-10.1) Total Bilirubin 4.4 mg/dL (0.2-1.0) Aspartate Amino Transf (AST/SGOT) 201 U/L (15-37) Alanine Aminotransferase (ALT/SGPT) 122 U/L (14-59) Alkaline Phosphatase 1110 U/L (46-116) Total Protein 5.7 g/dL (6.4-8.2) Albumin 1.6 g/dL (3.4-5.0) Albumin/Globulin Ratio 0.4 (1.0-1.7) Microbiology 12/22/18 Blood Culture - Final, Complete NO GROWTH AFTER 5 DAYS Medications Current Medications Morphine Sulfate (Morphine Sulfate) 5 mg 1X ONCE IV Last administered on 12/22/18at 10:00; Start 12/22/18 at 10:00; Stop 12/22/18 at 10:03; Status DC Naloxone HCl (Narcan) 0.4 mg PRN Q2MIN PRN IV SEE INSTRUCTIONS; Start 12/22/18 at 10:00 Sodium Chloride 1,000 ml @ 25 mls/hr Q24H IV Last administered on 12/22/18at 09:55; Start 12/22/18 at 09:55 Hydromorphone HCl 30 ml @ 0 mls/hr CONT PRN PRN IV PER PROTOCOL Last administered on 12/26/18at 08:12; Start 12/22/18 at 10:00; Stop 12/27/18 at 08:24; Status DC Sodium Chloride (Normal Saline Flush) 3 ml QSHIFT PRN IV AFTER MEDS AND BLOOD DRAWS; Start 12/22/18 at 11:30 Sodium Chloride 1,000 ml @ 100 mls/hr Q10H IV Last administered on 12/26/18at 05:39; Start 12/22/18 at 13:00; Stop 12/26/18 at 08:16; Status DC Ondansetron HCl (Zofran) 4 mg PRN Q4HRS PRN IVP NAUSEA/VOMITING Last administered on 12/30/18 01:15; Start 12/22/18 at 11:30 Acetaminophen (Tylenol Supp) 650 mg PRN Q4HRS PRN WA TEMP OVER 100.4F OR MILD PAIN Last administered on 12/23/18 03:47; Start 12/22/18 at 11:30 Clonidine HCl (Catapres) 0.1 mg PRN Q6HRS PRN PO SBP>160 OR DBP>90; Start 12/22/18 at 11:30 Albuterol/ Ipratropium (Duoneb) 3 ml Q4H NEB Last administered on 01/01/19 07:05; Start 12/22/18 at 12:00 Lorazepam (Ativan) 0.5 mg PRN Q4HRS PRN PO ANXIETY / AGITATION Last administered on 12/27/18 17:47; Start 12/22/18 at 11:30; Stop 12/29/18 at 08:25; Status DC Enoxaparin Sodium (Lovenox 40mg Syringe) 40 mg DAILY SQ ; Start 12/23/18 at 09:00; Stop 12/22/18 at 16:29; Status DC Piperacillin Sod/ Tazobactam Sod 3.375 gm/Sodium Chloride 50 ml @ 100 mls/hr Q6HRS IV Last administered on 12/29/18at 12:17; Start 12/22/18 at 12:00; Stop 12/29/18 at 13:05; Status DC Ascorbic Acid (Vitamin C) 500 mg BID PO Last administered on 12/31/18 21:41; Start 12/22/18 at 21:00 Ferrous Sulfate (Feosol) 325 mg BIDWMEALS PO Last administered on 12/31/18at 17:05; Start 12/22/18 at 17:00 Gabapentin (Neurontin) 300 mg BID PO Last administered on 12/31/18 21:41; Start 12/22/18 at 21:00 Acyclovir (Zovirax) 400 mg BID PO Last administered on 12/28/18at 07:58; Start 12/22/18 at 21:00; Stop 12/28/18 at 10:07; Status DC Non-Formulary Medication (Alpha Lipoic Acid ) 600 mg BID PO ; Start 12/22/18 at 21:00; Status UNV Citalopram Hydrobromide (CeleXA) 20 mg DAILY PO Last administered on 12/30/18at 08:50; Start 12/23/18 at 09:00 Non-Formulary Medication (Lactobacillus Rhamnosus Gg (Culturelle)) 1 each BID PO ; Start 12/22/18 at 21:00; Status UNV Potassium Chloride/Water 100 ml @ 100 mls/hr Q1H IV Last administered on 12/23/18at 08:15; Start 12/23/18 at 06:15; Stop 12/23/18 at 09:14; Status DC Polyethylene Glycol (miraLAX PACKET) 17 gm DAILY PO Last administered on 12/30/18at 08:49; Start 12/23/18 at 14:45 Docusate Sodium (Colace Solution) 100 mg BID PO Last administered on 12/31/18at 21:40; Start 12/23/18 at 14:45 Bisacodyl (Dulcolax Supp) 10 mg PRN DAILY PRN [place] CONSTIPATION; Start 12/23/18 at 14:45; Stop 12/26/18 at 12:49; Status DC Acetaminophen (Tylenol) 500 mg PRN Q6HRS PRN PO MILD PAIN / TEMP; Start 12/24/18 at 09:00 Oxycodone/ Acetaminophen (Percocet 5/325) 1 tab PRN Q4HRS PRN PO MODERATE PAIN Last administered on 01/01/19at 03:09; Start 12/24/18 at 09:00 Lidocaine HCl (Lidocaine Pf 2% Vial) 5 ml STK-MED ONCE .ROUTE ; Start 12/24/18 at 09:38; Stop 12/24/18 at 09:39; Status DC Propofol 20 ml @ As Directed STK-MED ONCE IV ; Start 12/24/18 at 09:38; Stop 12/24/18 at 09:39; Status DC Succinylcholine Chloride (Anectine) 200 mg STK-MED ONCE .ROUTE ; Start 12/24/18 at 09:38; Stop 12/24/18 at 09:39; Status DC Ondansetron HCl (Zofran) 4 mg STK-MED ONCE .ROUTE ; Start 12/24/18 at 09:39; Stop 12/24/18 at 09:39; Status DC Glycopyrrolate (Robinul) 1 mg STK-MED ONCE .ROUTE ; Start 12/24/18 at 09:39; Stop 12/24/18 at 09:39; Status DC Rocuronium [place] (Zemuron) 50 mg STK-MED ONCE .ROUTE ; Start 12/24/18 at 09:49; Stop 12/24/18 at 09:50; Status DC Propofol 20 ml @ As Directed STK-MED ONCE IV ; Start 12/24/18 at 09:52; Stop 12/24/18 at 09:52; Status DC Lidocaine HCl (Lidocaine Pf 2% Vial) 5 ml STK-MED ONCE .ROUTE ; Start 12/24/18 at 09:52; Stop 12/24/18 at 09:52; Status DC Hydromorphone HCl (Dilaudid Standard BOTTOM STOP ATTACHER) 12 mg STK-MED ONCE IV ; Start 12/22/18 at 12:00; Stop 12/24/18 at 10:33; Status DC Hydromorphone HCl (Dilaudid Standard BOTTOM STOP ATTACHER) 12 mg STK-MED ONCE IV ; Start 12/23/18 at 12:20; Stop 12/24/18 at 10:34; Status DC Midazolam HCl (Versed) 2 mg PRN 1X PRN IV PRIOR TO PROCEDURE; Start 12/24/18 at 10:45; Stop 12/25/18 at 10:44; Status DC Fentanyl Citrate (Fentanyl 2ml Vial) 25 mcg PRN Q5MIN PRN IV X 2 DOSES FOR PAIN; Start 12/24/18 at 10:45; Stop 12/25/18 at 10:44; Status DC Fentanyl Citrate (Fentanyl 2ml Vial) 50 mcg PRN Q5MIN PRN IV X 2 DOSES FOR PAIN; Start 12/24/18 at 10:45; Stop 12/25/18 at 10:44; Status DC Ringer's Solution 1,000 ml @ 125 mls/hr Q8H IV Last administered on 12/24/18at 11:46; Start 12/24/18 at 10:38; Stop 12/24/18 at 22:37; Status DC Lidocaine HCl (Xylocaine-Mpf 1% 2ml Vial) 2 ml 1X PRN PRN ID IV START; Start 12/24/18 at 10:45; Stop 12/25/18 at 10:44; Status DC Iohexol (Omnipaque 300 Mg/ml) 100 ml STK-MED ONCE .ROUTE ; Start 12/24/18 at 12:04; Stop 12/24/18 at 12:04; Status DC Influenza Virus Vaccine Quadrival (Afluria Quad 2019-20 (3yr Up) Syringe) 0.5 ml ONCE ONCE VAX IM Last administered on 12/25/18at 09:42; Start 12/25/18 at 09:00; Stop 12/25/18 at 09:01; Status DC Potassium Chloride (Klor-Con) 40 meq BIDWMEALS PO Last administered on 12/28/18at 07:59; Start 12/25/18 at 08:45; Stop 12/28/18 at 10:27; Status DC Zolpidem Tartrate (Ambien) 5 mg PRN QHS PRN PO INSOMNIA; Start 12/25/18 at 08:45; Stop 12/29/18 at 09:28; Status DC Calcium Carbonate/ Glycine (Tums) 500 mg PRN AFTMEALHC PRN PO INDIGESTION; Start 12/25/18 at 08:45 Enoxaparin Sodium (Lovenox 40mg Syringe) 40 mg Q24H SQ Last administered on 12/30/18at 08:55; Start 12/25/18 at 10:00 Hydromorphone HCl (Dilaudid Standard BOTTOM STOP ATTACHER) 12 mg STK-MED ONCE IV ; Start 12/24/18 at 22:58; Stop 12/25/18 at 11:34; Status DC Amino Acids/ Glycerin/ Electrolytes 1,000 ml @ 80 mls/hr [id number] IV Last administered on 12/27/18at 20:27; Start 12/26/18 at 08:15; Stop 12/28/18 at 08:24; Status DC Magnesium Hydroxide (Milk Of Magnesia) 2,400 mg PRN DAILY PRN PO CONSTIPATION, 1ST CHOICE Last administered on 12/26/18at 16:41; Start 12/26/18 at 09:15 Bisacodyl (Dulcolax Supp) 10 mg PRN DAILY PRN [place] CONSTIPATION Last administered on 12/27/18at 07:39; Start 12/26/18 at 09:15 Lubiprostone (Amitiza) 8 mcg BIDWMEALS PO Last administered on 12/30/18at 17:33; Start 12/26/18 at 10:00; Stop 12/31/18 at 10:18; Status DC Polyethylene Glycol (miraLAX PACKET) 17 gm DAILY PO ; Start 12/27/18 at 09:00; Stop 12/26/18 at 15:42; Status DC Polyethylene Glycol (miraLAX PACKET) 17 gm PRN DAILY PRN PO CONSTIPATION, 2ND CHOICE; Start 12/26/18 at 12:45 Morphine Sulfate (Ms Contin) 15 mg BID PO Last administered on 12/28/18at 07:58; Start 12/27/18 at 09:00; Stop 12/28/18 at 08:24; Status DC Hydromorphone HCl (Dilaudid) 0.4 mg PRN Q4HRS PRN IVP MODERATE TO SEVERE PAIN; Start 12/27/18 at 08:30; Stop 12/27/18 at 09:19; Status DC Hydromorphone HCl (Dilaudid) 0.2 mg PRN Q4HRS PRN IVP MODERATE TO SEVERE PAIN Last administered on 12/27/18at 17:48; Start 12/27/18 at 09:30; Stop 12/29/18 at 09:28; Status DC Furosemide (Lasix) 20 mg DAILY PO Last administered on 12/30/18at 08:50; Start 12/27/18 at 11:15 Hydromorphone HCl (Dilaudid Standard BOTTOM STOP ATTACHER) 12 mg STK-MED ONCE IV ; Start 12/26/18 at 07:59; Stop 12/27/18 at 14:44; Status DC Morphine Sulfate (Ms Contin) 30 mg BID PO Last administered on 12/28/18at 21:08; Start 12/28/18 at 09:00; Stop 12/29/18 at 08:48; Status DC Info (Tpn Per Pharmacy) 1 each PRN DAILY PRN MC SEE COMMENTS Last administered on 12/29/18at 11:59; Start 12/28/18 at 08:30; Stop 12/30/18 at 08:04; Status DC Furosemide (Lasix) 20 mg 1X ONCE IVP Last administered on 12/28/18at 08:49; Start 12/28/18 at 08:30; Stop 12/28/18 at 08:31; Status DC Potassium Chloride (Klor-Con) 40 meq 1X ONCE PO Last administered on 1 at 08:48; Start 12/28/18 at 08:30; Stop 12/28/18 at 08:31; Status DC Potassium Chloride (Klor-Con) 20 meq [id number] PO Last administered on 12/30/18at 08:50; Start 12/29/18 at 08:00 Morphine Sulfate (Ms Contin) 15 mg 1X PO ; Start 12/28/18 at 08:45; Stop 12/28/18 at 09:14; Status DC Morphine Sulfate (Ms Contin) 15 mg 1X ONCE PO Last administered on 12/28/18at 09:16; Start 12/28/18 at 09:15; Stop 12/28/18 at 09:16; Status DC Fluconazole (Diflucan) 200 mg DAILY PO Last administered on 12/30/18at 08:51; Start 12/28/18 at 10:15 Valacyclovir HCl (Valtrex) 1,000 mg BID PO Last administered on 12/31/18at 21:41; Start 12/28/18 at 21:00 Sodium Chloride 70 meq/Potassium Chloride 40 meq/ Potassium Phosphate 13.6 mmol/Magnesium Sulfate 10 meq/ Calcium Gluconate 10 meq/ Multivitamins 10 ml/Chromium/ Copper/Manganese/ Seleni/Zn 1 ml/ Total Parenteral Nutrition/Amino Acids/Dextrose 1,512 ml @ 63 mls/hr TPN CONT IV Last administered on 12/28/18at 21:07; Start 12/28/18 at 22:00; Stop 12/29/18 at 21:59; Status DC Amino Acids/ Glycerin/ Electrolytes 1,000 ml @ 80 mls/hr [id number] ONCE IV Last administered on 12/28/18at 11:34; Start 12/28/18 at 11:30; Stop 12/28/18 at 23:59; Status DC Lorazepam (Ativan) 0.25 mg PRN Q4HRS PRN PO ANXIETY / AGITATION; Start 12/29/18 at 08:30; Stop 12/29/18 at 09:28; Status DC Morphine Sulfate (Ms Contin) 15 mg BID PO Last administered on 12/31/18 09:09; Start 12/29/18 at 09:00; Stop 12/31/18 at 09:28; Status DC Sodium Phosphate 15 mmol/Dextrose 255 ml @ 63.75 mls/ hr 1X ONCE IV Last administered on 12/29/18at 13:00; Start 12/29/18 at 13:00; Stop 12/29/18 at 16:59; Status DC Sodium Chloride 100 meq/Potassium Chloride 30 meq/ Potassium Phosphate 20 mmol/ Magnesium Sulfate 10 meq/Calcium Gluconate 10 meq/ Multivitamins 10 ml/Chromium/ Copper/Manganese/ Seleni/Zn 1 ml/ Total Parenteral Nutrition/Amino Acids/Dextrose 1,512 ml @ 63 mls/hr TPN CONT IV Last administered on 12/29/18at 22:13; Start 12/29/18 at 22:00; Stop 12/30/18 at 08:02; Status DC Meropenem 500 mg/ Sodium Chloride 50 ml @ 100 mls/hr Q8HRS IV Last administered on 01/01/19at 06:12; Start 12/29/18 at 14:00 Hydromorphone HCl (Dilaudid) 0.2 mg PRN Q4HRS PRN IVP SEVERE PAIN 7-10 Last administered on 12/31/18at 13:31; Start 12/30/18 at 02:00 Amino Acids/ Glycerin/ Electrolytes 1,000 ml @ 80 mls/hr [id number] IV Last administered on 12/31/18at 10:30; Start 12/30/18 at 22:00 Fentanyl (Duragesic 25mcg/ Hr Patch) 1 patch Q3DAYS TD Last administered on 12/31/18at 13:31; Start 12/31/18 at 09:30 Lubiprostone (Amitiza) 24 mcg BIDWMEALS PO Last administered on 12/31/18at 17:05; Start 12/31/18 at 17:00 Active Scripts Active Ascorbic Acid 500 Mg Tablet 500 Mg PO BID 30 Days Ferrous Sulfate 325 Mg Tablet 1 Tab PO BID 30 Days Reported Imodium A-D (Loperamide HCl) 2 Mg Capsule 2 Mg PO PRN Q4HRS PRN Alpha Lipoic Acid 600 Mg Capsule 600 Mg PO BID Ambien (Zolpidem Tartrate) 5 Mg Tablet 5 Mg PO PRN QHS PRN Gabapentin (Gabapentin) 300 Mg Capsule 300 Mg PO BID Escitalopram Oxalate 10 Mg Tablet 1 Tab PO DAILY Acyclovir 400 Mg Tablet 1 Tab PO BID Temazepam 15 Mg Capsule 1 Cap PO QHS Eliquis (Apixaban) 5 Mg Tablet 5 Mg PO BID 60 Days Culturelle (Lactobacillus Rhamnosus Gg) 1 Each Capsule 1 Each PO BID Vitals/I & O Vital Sign - Last 24 Hours 12/31/18 12/31/18 12/31/18 12/31/18 09:06 09:09 09:36 13:09 O2 Delivery Room Air Room Air Room Air Room Air 12/31/18 12/31/18 12/31/18 12/31/18 13:31 13:31 14:01 15:00 Temp 98.7 98.7 Pulse 100 Resp 18 B/P (MAP) 121/57 (78) Pulse Ox 94 94 94 99 O2 Delivery Room Air Room Air Room Air Nasal Cannula O2 Flow Rate 2.0 2.0 2.0 2.0 12/31/18 12/31/18 12/31/18 12/31/18 15:25 16:53 17:31 17:53 Pulse Ox 94 94 94 94 O2 Delivery Nasal Cannula Room Air Nasal Cannula Nasal Cannula O2 Flow Rate 2.0 2.0 2.0 2.0 12/31/18 12/31/18 12/31/18 12/31/18 19:00 19:55 20:15 21:41 Temp 98.8 98.8 Pulse 109 Resp 18 18 B/P (MAP) 127/65 (85) Pulse Ox 94 94 94 O2 Delivery Nasal Cannula Nasal Cannula Room Air Room Air O2 Flow Rate 2.0 2.0 2.0 12/31/18 12/31/18 01/01/19 01/01/19 22:59 23:00 03:00 03:09 Temp 99.1 99.3 99.1 99.3 Pulse 110 106 Resp 18 16 18 18 B/P (MAP) 123/73 (90) 119/62 (81) Pulse Ox 96 96 95 96 O2 Delivery Nasal Cannula Room Air Nasal Cannula Room Air O2 Flow Rate 2.0 2.0 2.0 2.0 01/01/19 01/01/19 04:21 07:09 Resp 16 Pulse Ox 96 96 O2 Delivery Room Air Nasal Cannula O2 Flow Rate 2.0 3.0 Intake and Output 12/31/18 12/31/18 01/01/19 15:00 23:00 07:00 Intake Total 150 ml Balance 150 ml RADHA WILSON MD Jan 01, 2019 08:35
[2019-01-01] MEDS: FLUCONAZOLE 100 MG TABLET. PO SCH (08:43)
[2019-01-01] MEDS: FUROSEMIDE 20 MG TABLET PO SCH (08:43)
[2019-01-01] MEDS: GABAPENTIN 300 MG CAPSULE. PO SCH ×2 (08:44→21:00)
[2019-01-01] MEDS: valACYclovir 500 MG TABLET. PO SCH ×2 (08:44→21:00)
[2019-01-01] MEDS: FERROUS SULFATE 325 MG TABLET. PO SCH ×2 (08:44→16:39)
[2019-01-01] MEDS: CITALOPRAM 20 MG TABLET. PO SCH (08:44)
[2019-01-01] MEDS: LUBIPROSTONE 8 MCG CAPSULE PO SCH ×2 (08:44→16:39)
[2019-01-01] MEDS: ASCORBIC ACID 500 MG TABLET PO SCH ×2 (08:44→21:00)
[2019-01-01] MEDS: POTASSIUM CHLORIDE 20 MEQ TABLET.ER. PO SCH (08:44)
[2019-01-01] MEDS: DOCUSATE 100 MG/10 ML SOLUTION. PO SCH ×2 (08:45→21:00)
[2019-01-01] MEDS: POLYETHYLENE GLYCOL 3350 17 GM PACKET. PO SCH (08:45)
--- NOTE | 2019-01-01 09:19 | PDOC ---
Infectious Disease Note Subjective Subjective cont to have pain, though after meds feels better eating little better ROS ROS no n/v/d/sob Vital Sign Vital Signs Vital Signs Date Time Temp Pulse Resp B/P (MAP) Pulse Ox O2 Delivery O2 Flow Rate FiO2 01/01/19 08:43 19 93 Nasal Cannula 2.0 01/01/19 07:00 98.2 111 116/58 (77) 98.2 Physical Exam PHYSICAL EXAM GENERAL: Propped up in bed, alert, smiling, family rubbing her back HEENT: Pupils equally round and reactive. Sclerae icterus. Oropharynx pink, dry. NECK: Supple. LUNGS: Diminished aeration. Nonlabored. HEART: S1, S2. ABDOMEN: Soft, mildly tender, + BS EXTREMITIES: No gross edema or cyanosis. SKIN: Warm to touch, jaundice. NEUROLOGIC: Alert, answering questions appropriately Right-sided Port-A-Cath without signs of any complications. Labs Micro Microbiology 12/22/18 Blood Culture - Final, Complete NO GROWTH AFTER 5 DAYS Objective Assessment Ascending cholangitis ? Oral ulcerations Obstructive jaundice s/p ERCP w/ stent placement, 12/24. LFT improving Immunosuppression d/t chemotherapy Klebsiella in urine, 03/24 ([facility]) probable ESBL Colon cancer with metastasis Recently h/o treated for PJP, off Bactrim h/o C. diff Plan Plan of Care Continue meropenem (started 12/29) Continue Fluconazole and Valtrex Cont Incentive spirometry Bubble 02 Monitor labs Pain management per primary Hoping to continue chemo Contact isolation D/w Dr Interiano D/w Pat with palliative care there is no oral option , iv for now, UTI treated, ? ascending cholangitis not treated yet if at all she has, pain control is problem and po intake is a problem, if plan to go home on palliative care then d/c iv antibiotics ROSALBA ZAPATA MD Jan 01, 2019 09:19
--- NOTE | 2019-01-01 09:26 | PDOC ---
SUBJECTIVE Subjective S: tired, weak, pain better on fentanyl patch though still needing some breakthrough medications, looks best today since DOWEL [employer] MAN stopped O: Physical exam: Gen.: Thin 60s female, weak, hoarse, resting in bed Skin: Still slightly jaundiced Psychiatric: tired mood and pleasant affect Labs: T bili 4.4 Rads: ERCP with stent completed 24 December Chest x-ray with coarse interstitial bilateral opacities left greater than right Assessment and Plan: Ms New is a 63-year-old female with aggressive metastatic colon cancer who had unfortunate suspected PJP pneumonia for which she was treated in November and has had declining functional status and progressive disease while being off chemotherapy admitted with worsening of abdominal pain and suggestion of cholangitis on MRCP with extrinsic compression of bile ducts as well with hyperbilirubinemia. Bilirubin has improved post-ERCP stenting on 24 December. Hyperbilirubinemia: improving post stent, can restart chemo (based on functional status, seems unlikely) if she desires once bili <3 Metastatic colon cancer: Chemotherapy on hold with elevated bili and ECOG, appreciate Ms Guillermina helping with pain control and palliative care options at home, would like pall care at home set up prior to dc, primary is transitioning pain meds to home regimen Hypokalemia: Deferred to primary, TPN not recommended based on rising LFTs and terminal disease and PEG tube declined History of DVT: Lovenox prophylaxis Constipation: prn's, and lubiprostone disposition: home w/ pall care today? and f/u w/ me in a few days as able Thank you kindly and please do not hesitate to call with questions. OBJECTIVE Vital Signs Vital Signs Date Time Temp Pulse Resp B/P (MAP) Pulse Ox O2 Delivery O2 Flow Rate FiO2 01/01/19 08:43 19 93 Nasal Cannula 2.0 01/01/19 07:09 96 Nasal Cannula 3.0 01/01/19 07:00 98.2 111 16 116/58 (77) 93 Room Air 98.2 01/01/19 04:21 16 96 Room Air 2.0 01/01/19 03:09 18 96 Room Air 2.0 01/01/19 03:00 99.3 106 18 119/62 (81) 95 Nasal Cannula 2.0 99.3 12/31/18 23:00 16 96 Room Air 2.0 12/31/18 22:59 99.1 110 18 123/73 (90) 96 Nasal Cannula 2.0 99.1 12/31/18 21:41 18 94 Room Air 2.0 12/31/18 20:15 Room Air 12/31/18 19:55 94 Nasal Cannula 2.0 12/31/18 19:00 98.8 109 18 127/65 (85) 94 Nasal Cannula 2.0 98.8 12/31/18 17:53 94 Nasal Cannula 2.0 12/31/18 17:31 94 Nasal Cannula 2.0 12/31/18 16:53 94 Room Air 2.0 12/31/18 15:25 94 Nasal Cannula 2.0 12/31/18 15:00 98.7 100 18 121/57 (78) 99 Nasal Cannula 2.0 98.7 12/31/18 14:01 94 Room Air 2.0 12/31/18 13:31 94 Room Air 2.0 12/31/18 13:31 94 Room Air 2.0 12/31/18 13:09 Room Air 12/31/18 09:36 Room Air I & O Intake and Output 01/01/19 07:00 Intake Total 150 ml Balance 150 ml IV Total 150 ml # Voids 5 MAYRA TORRES MD Jan 01, 2019 09:26
--- NOTE | 2019-01-01 09:43 | PDOC ---
Subjective: Subjective: Pain has shifted to right upper chest and LUQ. Not hungry but will try pancakes in a minute. Hasn't stooled any more. Objective: Objective: Reviewed chart - transitioning pain meds, plans for palliative home health. Vital Signs: Vital Signs Date Time Temp Pulse Resp B/P (MAP) Pulse Ox O2 Delivery O2 Flow Rate FiO2 01/01/19 08:43 19 93 Nasal Cannula 2.0 01/01/19 07:00 98.2 111 116/58 (77) 98.2 PE: GEN: NAD, ill LUNGS: NC 2L HEART: RRR ABD: quiet BS, soft SKIN: +jaundice (better) NEURO/PSYCH: A & O 3, fatigued A/P: Chest/abd pain Metastatic colon cancer Obstructive jaundice - bili improving s/p ERCP/stent Anorexia, constipation -- Follow LFTs - bili needs to be <3 to resume chemo. Plans as above. RAFFI TYLER Jan 01, 2019 09:43
[2019-01-01] MEDS ORDERED: BISACODYL 5 MG TABLET.DR. PO PRN (09:45)
[2019-01-01] MEDS: IV NORMAL SALINE 1000ML BAG 1,000 ML IV SCH (09:55)
[2019-01-01 11:00] VITALS: BP 116/62
[2019-01-01] MEDS: AMINO AC 3%/ELECTROLYTE/GLYCER 1,000 ML IV SCH (11:30)
[2019-01-01 11:46] LABS: ALBUMIN 1.6 g/dL (3.4-5.0); DIRECT BILIRUBIN 4.3 mg/dL (0.0-0.2); TOTAL BILIRUBIN 4.7 mg/dL (0.2-1.0); TOTAL PROTEIN 5.9 g/dL (6.4-8.2)
[2019-01-01] MEDS: ENOXAPARIN 40 MG/0.4 ML SYRINGE. SQ SCH (12:15)
[2019-01-01] MEDS ORDERED: MORPHINE SULFATE 20 MG/ML CONC SOLUTION. SL PRN ×2 (14:45→18:45)
[2019-01-01 15:00] VITALS: BP 124/67
[2019-01-01] MEDS: oxyCODONE/APAP 10/325 1 TAB TABLET PO PRN (15:10)
--- NOTE | 2019-01-01 16:09 | NUR ---
SS following up with discharge planning. SS discussed with palliative care RN. Pt will discharge to home with Palliative Care at discharge. Pt has walker at home. Pt will need six minute walk for oxygen prior to discharge from the hospital.
[2019-01-01] MEDS: DRONABINOL 2.5 MG CAPSULE. PO SCH (16:38)
--- NOTE | 2019-01-01 17:07 | PDOC2 ---
PALLIATIVE CARE Palliative Care Note Palliative Care Patient seen at 0715. Rested better last night. Received 2 doses Percocet last night. Attempting to eat breakfast. BM x 1 yesterday. Will continue to follow and support. No family at bedside. 1730 Patient complains of Pain--abdominal 8. Received Percocet 10 mg. and Roxanol 5mg po without relief. 183. Dr. Barraza pagerosaura. Orders received to give Roxanol l 10mg x 1 dose now and increase frequency to every 3 hours prn. CARLA ABARCA Jan 01, 2019 17:07
[2019-01-01] MEDS: MORPHINE SULFATE 20 MG/ML CONC SOLUTION. SL PRN (17:26)
[2019-01-01 19:30] VITALS: BP 117/65
[2019-01-01 23:05] VITALS: BP 117/65
[2019-01-02] MEDS: IPRATRPIUM/ALBUTEROL 0.5/2.5MG 3 ML NEBU. NEB SCH ×7 (00:23→23:48)
[2019-01-02] MEDS: AMINO AC 3%/ELECTROLYTE/GLYCER 1,000 ML IV SCH ×3 (01:34→21:13)
[2019-01-02] MEDS: oxyCODONE/APAP 10/325 1 TAB TABLET PO PRN ×5 (03:19→21:05)
[2019-01-02 03:20] VITALS: BP 128/71
[2019-01-02] MEDS: MEROPENEM 500 MG in IV NORMAL SALINE 50ML 50 ML IV SCH ×3 (06:01→21:18)
[2019-01-02] MEDS: MORPHINE SULFATE 20 MG/ML CONC SOLUTION. SL PRN ×4 (06:52→17:01)
[2019-01-02 07:00] VITALS: BP 125/60
[2019-01-02] MEDS: LUBIPROSTONE 8 MCG CAPSULE PO SCH ×2 (08:21→17:01)
[2019-01-02] MEDS: ENOXAPARIN 40 MG/0.4 ML SYRINGE. SQ SCH (08:21)
[2019-01-02] MEDS: FUROSEMIDE 20 MG TABLET PO SCH (08:21)
[2019-01-02] MEDS: POLYETHYLENE GLYCOL 3350 17 GM PACKET. PO SCH (08:22)
[2019-01-02] MEDS: DOCUSATE 100 MG/10 ML SOLUTION. PO SCH ×2 (08:22→21:05)
[2019-01-02] MEDS: POTASSIUM CHLORIDE 20 MEQ TABLET.ER. PO SCH (08:22)
[2019-01-02] MEDS: ASCORBIC ACID 500 MG TABLET PO SCH ×2 (08:23→21:05)
[2019-01-02] MEDS: FERROUS SULFATE 325 MG TABLET. PO SCH ×2 (08:23→17:01)
[2019-01-02] MEDS: FLUCONAZOLE 100 MG TABLET. PO SCH (08:23)
[2019-01-02] MEDS: valACYclovir 500 MG TABLET. PO SCH ×2 (08:23→21:05)
[2019-01-02] MEDS: CITALOPRAM 20 MG TABLET. PO SCH (08:23)
[2019-01-02] MEDS: GABAPENTIN 300 MG CAPSULE. PO SCH ×2 (08:24→21:05)
--- NOTE | 2019-01-02 08:41 | PDOC ---
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 Obstructive jaundice secondary to biliary compression by metastatic lymphadenopathy - cancer PAIN, CHALLENGING TO MANAGE Narc tolerant NArc induced constipation - resolved fULL CODE, NOT READY FOR HOSPICE [facility] UTI - History of Present Illness History of Present Illness She was on MS contin 30 BID and dilaudid prn (only got 4 doses or such) and ativan 0.5 BIDm, changed to MS contin to 15 BID and she has been requesting phone call prior to prn dilaudid. Changed to fentanyl patch 25mcg on 12/31, feels her pain is a bit better controlled. Pain has shifted to right upper chest, points to AC joint and LUQ and left flank She was slated for HH monday but is getting weaker so might be SNU - and dtr acknowledges that, also will discuss palliative home health LFTs stable, a bit up. Taking a bit of PO. No BM for 2 days. Feels her pain is better controlled with fentanyl patch, oxycodone, and roxanol morphine. No CP, mild SOB, she is still on O2. PLAN: Change to fentanyl patch from MS contin SW SNU Will dc with indwelling allen cath (she cant hav etPN at home, has co pay, not unless she goes skilled but then LFTS also climbs with TPN) She was not ready for hospice last week 6 minute walk D/w daughter to go home with palliative home health FULL CODE for now, hospice candidate - might need to revisit that idea - palliative care on case Vitals Vitals Vital Signs Date Time Temp Pulse Resp B/P (MAP) Pulse Ox O2 Delivery O2 Flow Rate FiO2 01/02/19 08:23 16 Nasal Cannula 3.0 01/02/19 07:53 95 01/02/19 07:00 97.8 104 125/60 (81) 97.8 Physical Exam Physical Exam GENERAL: Propped up in bed, alert, smiling, family rubbing her back HEENT: Pupils equally round and reactive. Sclerae icterus. Oropharynx pink, dry. NECK: Supple. LUNGS: Diminished aeration. Nonlabored. HEART: S1, S2. ABDOMEN: Soft, mildly tender, + BS EXTREMITIES: No gross edema or cyanosis. SKIN: Warm to touch, jaundice. NEUROLOGIC: Alert, answering questions appropriately Right-sided Port-A-Cath without signs of any complications. General: Cooperative, Other (jaundice improved) Heart: Regular rate Lungs: Clear, Other Abdomen: Soft Extremities: No clubbing Skin: Other (a little less jaundiced) Labs LABS Laboratory Tests Test 01/01/19 10:01/01/19 11:03 Total Bilirubin 4.7 mg/dL (0.2-1.0) Direct Bilirubin 4.3 mg/dL (0.0-0.2) Aspartate Amino Transf (AST/SGOT) 223 U/L (15-37) Alanine Aminotransferase (ALT/SGPT) 133 U/L (14-59) Alkaline Phosphatase 1452 U/L (46-116) Total Protein 5.9 g/dL (6.4-8.2) Albumin 1.6 g/dL (3.4-5.0) Glucose (Fingerstick) 93 mg/dL (70-99) Comment Review of Relevant I have reviewed the following items erwin (where applicable) has been applied. Labs Laboratory Tests Test 01/01/19 10:01/01/19 11:03 Total Bilirubin 4.7 mg/dL (0.2-1.0) Direct Bilirubin 4.3 mg/dL (0.0-0.2) Aspartate Amino Transf (AST/SGOT) 223 U/L (15-37) Alanine Aminotransferase (ALT/SGPT) 133 U/L (14-59) Alkaline Phosphatase 1452 U/L (46-116) Total Protein 5.9 g/dL (6.4-8.2) Albumin 1.6 g/dL (3.4-5.0) Glucose (Fingerstick) 93 mg/dL (70-99) Laboratory Tests Test 01/01/19 10:01/01/19 11:03 Total Bilirubin 4.7 mg/dL (0.2-1.0) Direct Bilirubin 4.3 mg/dL (0.0-0.2) Aspartate Amino Transf (AST/SGOT) 223 U/L (15-37) Alanine Aminotransferase (ALT/SGPT) 133 U/L (14-59) Alkaline Phosphatase 1452 U/L (46-116) Total Protein 5.9 g/dL (6.4-8.2) Albumin 1.6 g/dL (3.4-5.0) Glucose (Fingerstick) 93 mg/dL (70-99) Microbiology 12/22/18 Blood Culture - Final, Complete NO GROWTH AFTER 5 DAYS Medications Current Medications Morphine Sulfate (Morphine Sulfate) 5 mg 1X ONCE IV Last administered on 12/22/18at 10:00; Start 12/22/18 at 10:00; Stop 12/22/18 at 10:03; Status DC Naloxone HCl (Narcan) 0.4 mg PRN Q2MIN PRN IV SEE INSTRUCTIONS; Start 12/22/18 at 10:00 Sodium Chloride 1,000 ml @ 25 mls/hr Q24H IV Last administered on 12/22/18at 09:55; Start 12/22/18 at 09:55 Hydromorphone HCl 30 ml @ 0 mls/hr CONT PRN PRN IV PER PROTOCOL Last administered on 12/26/18at 08:12; Start 12/22/18 at 10:00; Stop 12/27/18 at 08:24; Status DC Sodium Chloride (Normal Saline Flush) 3 ml QSHIFT PRN IV AFTER MEDS AND BLOOD DRAWS; Start 12/22/18 at 11:30 Sodium Chloride 1,000 ml @ 100 mls/hr Q10H IV Last administered on 12/26/18at 05:39; Start 12/22/18 at 13:00; Stop 12/26/18 at 08:16; Status DC Ondansetron HCl (Zofran) 4 mg PRN Q4HRS PRN IVP NAUSEA/VOMITING Last administered on 12/30/18at 01:15; Start 12/22/18 at 11:30 Acetaminophen (Tylenol Supp) 650 mg PRN Q4HRS PRN [place] TEMP OVER 100.4F OR MILD PAIN Last administered on 12/23/18at 03:47; Start 12/22/18 at 11:30 Clonidine HCl (Catapres) 0.1 mg PRN Q6HRS PRN PO SBP>160 OR DBP>90; Start 12/22/18 at 11:30 Albuterol/ Ipratropium (Duoneb) 3 ml Q4H NEB Last administered on 01/02/19at 07:52; Start 12/22/18 at 12:00 Lorazepam (Ativan) 0.5 mg PRN Q4HRS PRN PO ANXIETY / AGITATION Last administered on 12/27/18at 17:47; Start 12/22/18 at 11:30; Stop 12/29/18 at 08:25; Status DC Enoxaparin Sodium (Lovenox 40mg Syringe) 40 mg DAILY SQ ; Start 12/23/18 at 09:00; Stop 12/22/18 at 16:29; Status DC Piperacillin Sod/ Tazobactam Sod 3.375 gm/Sodium Chloride 50 ml @ 100 mls/hr Q6HRS IV Last administered on 12/29/18at 12:17; Start 12/22/18 at 12:00; Stop 12/29/18 at 13:05; Status DC Ascorbic Acid (Vitamin C) 500 mg BID PO Last administered on 01/02/19 08:23; Start 12/22/18 at 21:00 Ferrous Sulfate (Feosol) 325 mg BIDWMEALS PO Last administered on 01/02/19at 08:23; Start 12/22/18 at 17:00 Gabapentin (Neurontin) 300 mg BID PO Last administered on 01/02/19at 08:24; Start 12/22/18 at 21:00 Acyclovir (Zovirax) 400 mg BID PO Last administered on 12/28/18at 07:58; Start 12/22/18 at 21:00; Stop 12/28/18 at 10:07; Status DC Non-Formulary Medication (Alpha Lipoic Acid ) 600 mg BID PO ; Start 12/22/18 at 21:00; Status UNV Citalopram Hydrobromide (CeleXA) 20 mg DAILY PO Last administered on 01/02/19at 08:23; Start 12/23/18 at 09:00 Non-Formulary Medication (Lactobacillus Rhamnosus Gg (Culturelle)) 1 each BID PO ; Start 12/22/18 at 21:00; Status UNV Potassium Chloride/Water 100 ml @ 100 mls/hr Q1H IV Last administered on 12/23/18at 08:15; Start 12/23/18 at 06:15; Stop 12/23/18 at 09:14; Status DC Polyethylene Glycol (miraLAX PACKET) 17 gm DAILY PO Last administered on 01/02/19at 08:22; Start 12/23/18 at 14:45 Docusate Sodium (Colace Solution) 100 mg BID PO Last administered on 01/02/19at 08:22; Start 12/23/18 at 14:45 Bisacodyl (Dulcolax Supp) 10 mg PRN DAILY PRN [place] CONSTIPATION; Start 12/23/18 at 14:45; Stop 12/26/18 at 12:49; Status DC Acetaminophen (Tylenol) 500 mg PRN Q6HRS PRN PO MILD PAIN / TEMP; Start 12/24/18 at 09:00 Oxycodone/ Acetaminophen (Percocet 5/325) 1 tab PRN Q4HRS PRN PO MODERATE PAIN Last administered on 01/01/19at 12:14; Start 12/24/18 at 09:00 Lidocaine HCl (Lidocaine Pf 2% Vial) 5 ml STK-MED ONCE .ROUTE ; Start 12/24/18 at 09:38; Stop 12/24/18 at 09:39; Status DC Propofol 20 ml @ As Directed STK-MED ONCE IV ; Start 12/24/18 at 09:38; Stop 12/24/18 at 09:39; Status DC Succinylcholine Chloride (Anectine) 200 mg STK-MED ONCE .ROUTE ; Start 12/24/18 at 09:38; Stop 12/24/18 at 09:39; Status DC Ondansetron HCl (Zofran) 4 mg STK-MED ONCE .ROUTE ; Start 12/24/18 at 09:39; Stop 12/24/18 at 09:39; Status DC Glycopyrrolate (Robinul) 1 mg STK-MED ONCE .ROUTE ; Start 12/24/18 at 09:39; Stop 12/24/18 at 09:39; Status DC Rocuronium Kenney (Zemuron) 50 mg STK-MED ONCE .ROUTE ; Start 12/24/18 at 09:49; Stop 12/24/18 at 09:50; Status DC Propofol 20 ml @ As Directed STK-MED ONCE IV ; Start 12/24/18 at 09:52; Stop 12/24/18 at 09:52; Status DC Lidocaine HCl (Lidocaine Pf 2% Vial) 5 ml STK-MED ONCE .ROUTE ; Start 12/24/18 at 09:52; Stop 12/24/18 at 09:52; Status DC Hydromorphone HCl (Dilaudid Standard CENTRIFUGE SEPARATOR OPERATOR) 12 mg STK-MED ONCE IV ; Start 12/22/18 at 12:00; Stop 12/24/18 at 10:33; Status DC Hydromorphone HCl (Dilaudid Standard CENTRIFUGE SEPARATOR OPERATOR) 12 mg STK-MED ONCE IV ; Start 12/23/18 at 12:20; Stop 12/24/18 at 10:34; Status DC Midazolam HCl (Versed) 2 mg PRN 1X PRN IV PRIOR TO PROCEDURE; Start 12/24/18 at 10:45; Stop 12/25/18 at 10:44; Status DC Fentanyl Citrate (Fentanyl 2ml Vial) 25 mcg PRN Q5MIN PRN IV X 2 DOSES FOR PAIN; Start 12/24/18 at 10:45; Stop 12/25/18 at 10:44; Status DC Fentanyl Citrate (Fentanyl 2ml Vial) 50 mcg PRN Q5MIN PRN IV X 2 DOSES FOR PAIN; Start 12/24/18 at 10:45; Stop 12/25/18 at 10:44; Status DC Ringer's Solution 1,000 ml @ 125 mls/hr Q8H IV Last administered on 12/24/18at 11:46; Start 12/24/18 at 10:38; Stop 12/24/18 at 22:37; Status DC Lidocaine HCl (Xylocaine-Mpf 1% 2ml Vial) 2 ml 1X PRN PRN ID IV START; Start 12/24/18 at 10:45; Stop 12/25/18 at 10:44; Status DC Iohexol (Omnipaque 300 Mg/ml) 100 ml STK-MED ONCE .ROUTE ; Start 12/24/18 at 12:04; Stop 12/24/18 at 12:04; Status DC Influenza Virus Vaccine Quadrival (Afluria Quad 2019-20 (3yr Up) Syringe) 0.5 ml ONCE ONCE VAX IM Last administered on 12/25/18at 09:42; Start 12/25/18 at 09:00; Stop 12/25/18 at 09:01; Status DC Potassium Chloride (Klor-Con) 40 meq BIDWMEALS PO Last administered on 12/28/18at 07:59; Start 12/25/18 at 08:45; Stop 12/28/18 at 10:27; Status DC Zolpidem Tartrate (Ambien) 5 mg PRN QHS PRN PO INSOMNIA; Start 12/25/18 at 08:45; Stop 12/29/18 at 09:28; Status DC Calcium Carbonate/ Glycine (Tums) 500 mg PRN AFTMEALHC PRN PO INDIGESTION; Start 12/25/18 at 08:45 Enoxaparin Sodium (Lovenox 40mg Syringe) 40 mg Q24H SQ Last administered on 01/02/19at 08:21; Start 12/25/18 at 10:00 Hydromorphone HCl (Dilaudid Standard CENTRIFUGE SEPARATOR OPERATOR) 12 mg STK-MED ONCE IV ; Start 12/24/18 at 22:58; Stop 12/25/18 at 11:34; Status DC Amino Acids/ Glycerin/ Electrolytes 1,000 ml @ 80 mls/hr [id number] IV Last administered on 12/27/18at 20:27; Start 12/26/18 at 08:15; Stop 12/28/18 at 08:24; Status DC Magnesium Hydroxide (Milk Of Magnesia) 2,400 mg PRN DAILY PRN PO CONSTIPATION, 1ST CHOICE Last administered on 12/26/18at 16:41; Start 12/26/18 at 09:15 Bisacodyl (Dulcolax Supp) 10 mg PRN DAILY PRN [place] CONSTIPATION Last administered on 12/27/18at 07:39; Start 12/26/18 at 09:15 Lubiprostone (Amitiza) 8 mcg BIDWMEALS PO Last administered on 12/30/18at 17:33; Start 12/26/18 at 10:00; Stop 12/31/18 at 10:18; Status DC Polyethylene Glycol (miraLAX PACKET) 17 gm DAILY PO ; Start 12/27/18 at 09:00; Stop 12/26/18 at 15:42; Status DC Polyethylene Glycol (miraLAX PACKET) 17 gm PRN DAILY PRN PO CONSTIPATION, 2ND CHOICE; Start 12/26/18 at 12:45 Morphine Sulfate (Ms Contin) 15 mg BID PO Last administered on 12/28/18at 07:58; Start 12/27/18 at 09:00; Stop 12/28/18 at 08:24; Status DC Hydromorphone HCl (Dilaudid) 0.4 mg PRN Q4HRS PRN IVP MODERATE TO SEVERE PAIN; Start 12/27/18 at 08:30; Stop 12/27/18 at 09:19; Status DC Hydromorphone HCl (Dilaudid) 0.2 mg PRN Q4HRS PRN IVP MODERATE TO SEVERE PAIN Last administered on 12/27/18at 17:48; Start 12/27/18 at 09:30; Stop 12/29/18 at 09:28; Status DC Furosemide (Lasix) 20 mg DAILY PO Last administered on 01/02/19at 08:21; Start 12/27/18 at 11:15 Hydromorphone HCl (Dilaudid Standard CENTRIFUGE SEPARATOR OPERATOR) 12 mg STK-MED ONCE IV ; Start 12/26/18 at 07:59; Stop 12/27/18 at 14:44; Status DC Morphine Sulfate (Ms Contin) 30 mg BID PO Last administered on 12/28/18at 21:08; Start 12/28/18 at 09:00; Stop 12/29/18 at 08:48; Status DC Info (Tpn Per Pharmacy) 1 each PRN DAILY PRN MC SEE COMMENTS Last administered on 12/29/18at 11:59; Start 12/28/18 at 08:30; Stop 12/30/18 at 08:04; Status DC Furosemide (Lasix) 20 mg 1X ONCE IVP Last administered on 12/28/18at 08:49; Start 12/28/18 at 08:30; Stop 12/28/18 at 08:31; Status DC Potassium Chloride (Klor-Con) 40 meq 1X ONCE PO Last administered on 12/28/18at 08:48; Start 12/28/18 at 08:30; Stop 12/28/18 at 08:31; Status DC Potassium Chloride (Klor-Con) 20 meq [id number] PO Last administered on 01/02/19at 08:22; Start 12/29/18 at 08:00 Morphine Sulfate (Ms Contin) 15 mg 1X PO ; Start 12/28/18 at 08:45; Stop 1 at 09:14; Status DC Morphine Sulfate (Ms Contin) 15 mg 1X ONCE PO Last administered on 12/28/18at 09:16; Start 12/28/18 at 09:15; Stop 12/28/18 at 09:16; Status DC Fluconazole (Diflucan) 200 mg DAILY PO Last administered on 01/02/19at 08:23; Start 12/28/18 at 10:15 Valacyclovir HCl (Valtrex) 1,000 mg BID PO Last administered on 01/02/19at 08:23; Start 12/28/18 at 21:00 Sodium Chloride 70 meq/Potassium Chloride 40 meq/ Potassium Phosphate 13.6 mmol/Magnesium Sulfate 10 meq/ Calcium Gluconate 10 meq/ Multivitamins 10 ml/Chromium/ Copper/Manganese/ Seleni/Zn 1 ml/ Total Parenteral Nutrition/Amino Acids/Dextrose 1,512 ml @ 63 mls/hr TPN CONT IV Last administered on 12/28/18at 21:07; Start 12/28/18 at 22:00; Stop 12/29/18 at 21:59; Status DC Amino Acids/ Glycerin/ Electrolytes 1,000 ml @ 80 mls/hr [id number] ONCE IV Last administered on 12/28/18at 11:34; Start 12/28/18 at 11:30; Stop 12/28/18 at 23:59; Status DC Lorazepam (Ativan) 0.25 mg PRN Q4HRS PRN PO ANXIETY / AGITATION; Start 12/18 05/08 at 08:30; Stop 12/29/18 at 09:28; Status DC Morphine Sulfate (Ms Contin) 15 mg BID PO Last administered on 12/31/18at 09 :09; Start 12/29/18 at 09:00; Stop 12/31/18 at 09:28; Status DC Sodium Phosphate 15 mmol/Dextrose 255 ml @ 63.75 mls/ hr 1X ONCE IV Last administered on 12/29/18at 13:00; Start 12/29/18 at 13:00; Stop 12/29/18 at 16:59; Status DC Sodium Chloride 100 meq/Potassium Chloride 30 meq/ Potassium Phosphate 20 mmol/ Magnesium Sulfate 10 meq/Calcium Gluconate 10 meq/ Multivitamins 10 ml/Chromium/ Copper/Manganese/ Seleni/Zn 1 ml/ Total Parenteral Nutrition/Amino Acids/Dextrose 1,512 ml @ 63 mls/hr TPN CONT IV Last administered on 12/29/18at 22:13; Start 12/29/18 at 22:00; Stop 12/30/18 at 08:02; Status DC Meropenem 500 mg/ Sodium Chloride 50 ml @ 100 mls/hr Q8HRS IV Last administered on 01/02/19 06:01; Start 12/29/18 at 14:00 Hydromorphone HCl (Dilaudid) 0.2 mg PRN Q4HRS PRN IVP SEVERE PAIN 7-10 Last administered on 12/31/18 13:31; Start 12/30/18 at 02:00; Stop 01/01/19 at 14:42; Status DC Amino Acids/ Glycerin/ Electrolytes 1,000 ml @ 80 mls/hr [id number] IV Last administered on 01/02/19 01:34; Start 12/30/18 at 22:00 Fentanyl (Duragesic 25mcg/ Hr Patch) 1 patch Q3DAYS TD Last administered on 12/31/18 13:31; Start 12/31/18 at 09:30 Lubiprostone (Amitiza) 24 mcg BIDWMEALS PO Last administered on 01/02/19 08:21; Start 12/31/18 at 17:00 Bisacodyl (Dulcolax Tab) 5 mg PRN DAILY PRN PO CONSTIPATION, 3RD CHOICE Last administered on 01/02/19 08:24; Start 01/01/19 at 09:45 Oxycodone/ Acetaminophen (Percocet 10/325) 1 tab PRN Q4HRS PRN PO 7-10 pain Last administered on 01/02/19 08:23; Start 01/01/19 at 13:00 Morphine Sulfate (Roxanol Conc) 5 mg PRN Q3HRS PRN SL PAIN; Start 01/01/19 at 14:45; Stop 01/01/19 at 18:34; Status DC Dronabinol (Marinol) 2.5 mg BIDACLD PO Last administered on 01/01/19 16:38; Start 01/01/19 at 16:30 Morphine Sulfate (Roxanol Conc) 10 mg PRN 1X PRN SL PAIN Last administered on 01/01/19 18:50; Start 01/01/19 at 18:45 Morphine Sulfate (Roxanol Conc) 10 mg PRN Q3HRS PRN SL PAIN Last administered on 01/02/19 06:52; Start 10/15/19 at 18:45 Active Scripts Active Ascorbic Acid 500 Mg Tablet 500 Mg PO BID 30 Days Ferrous Sulfate 325 Mg Tablet 1 Tab PO BID 30 Days Reported Imodium A-D (Loperamide HCl) 2 Mg Capsule 2 Mg PO PRN Q4HRS PRN Alpha Lipoic Acid 600 Mg Capsule 600 Mg PO BID Ambien (Zolpidem Tartrate) 5 Mg Tablet 5 Mg PO PRN QHS PRN Gabapentin (Gabapentin) 300 Mg Capsule 300 Mg PO BID Escitalopram Oxalate 10 Mg Tablet 1 Tab PO DAILY Acyclovir 400 Mg Tablet 1 Tab PO BID Temazepam 15 Mg Capsule 1 Cap PO QHS Eliquis (Apixaban) 5 Mg Tablet 5 Mg PO BID 60 Days Culturelle (Lactobacillus Rhamnosus Gg) 1 Each Capsule 1 Each PO BID Vitals/I & O Vital Sign - Last 24 Hours 01/01/19 01/01/19 01/01/19 01/01/19 08:43 09:50 11:00 12:14 Temp 98.4 98.4 Pulse 109 Resp 19 B/P (MAP) 116/62 (80) Pulse Ox 93 93 97 93 O2 Delivery Nasal Cannula Room Air Room Air Nasal Cannula O2 Flow Rate 2.0 2.0 01/01/19 01/01/19 01/01/19 01/01/19 12:22 13:15 15:00 15:10 Temp 98.5 98.5 Pulse 103 Resp 19 B/P (MAP) 124/67 (86) Pulse Ox 93 95 93 O2 Delivery Nasal Cannula Nasal Cannula Room Air Nasal Cannula O2 Flow Rate 3.0 2.0 2.0 01/01/19 01/01/19 01/01/19 01/01/19 16:23 17:26 18:50 19:30 Temp 98.0 98.0 Pulse 117 Resp 20 B/P (MAP) 117/65 (82) Pulse Ox 93 97 O2 Delivery Nasal Cannula Nasal Cannula Nasal Cannula Nasal Cannula O2 Flow Rate 3.0 2.0 01/01/19 01/01/19 01/01/19 01/01/19 19:44 19:50 20:00 23:05 Temp 98.0 98.0 Pulse 117 Resp 20 20 B/P (MAP) 117/65 (82) Pulse Ox 100 97 O2 Delivery Nasal Cannula Room Air Room Air Nasal Cannula O2 Flow Rate 3.0 2.0 01/02/19 01/02/19 01/02/19 01/02/19 03:19 03:20 04:19 06:52 Temp 99.0 99.0 Pulse 109 Resp 20 20 20 20 B/P (MAP) 128/71 (90) Pulse Ox 95 94 94 94 O2 Delivery Room Air Nasal Cannula Room Air Room Air O2 Flow Rate 2.0 2.0 2.0 01/02/19 01/02/19 01/02/19 01/02/19 07:00 07:52 07:52 07:52 Temp 97.8 97.8 Pulse 104 Resp 16 16 16 16 B/P (MAP) 125/60 (81) Pulse Ox 97 O2 Delivery Room Air Nasal Cannula Nasal Cannula Nasal Cannula O2 Flow Rate 3.0 3.0 3.0 01/02/19 01/02/19 01/02/19 07:53 08:00 08:23 Resp 16 Pulse Ox 95 O2 Delivery Nasal Cannula Room Air Nasal Cannula O2 Flow Rate 3.0 3.0 3.0 Intake and Output 01/01/19 01/01/19 01/02/19 14:59 22:59 06:59 Intake Total 240 ml Balance 240 ml RADHA WILSON MD Jan 02, 2019 08:41
[2019-01-02] MEDS: IV NORMAL SALINE 1000ML BAG 1,000 ML IV SCH (09:55)
--- NOTE | 2019-01-02 10:06 | PDOC ---
SUBJECTIVE Subjective S: tired, weak, pain ok on fentanyl patch w/ roxanol, getting ready for PT O: Physical exam: Gen.: Thin 60s female, weak, hoarse, resting at side of bed Skin: Still slightly jaundiced Psychiatric: tired mood and pleasant affect Labs: T bili 4.7 Rads: ERCP with stent completed 24 December Chest x-ray with coarse interstitial bilateral opacities left greater than right Assessment and Plan: Ms New is a 63-year-old female with aggressive metastatic colon cancer who had unfortunate suspected PJP pneumonia for which she was treated in November and has had declining functional status and progres sive disease while being off chemotherapy admitted with worsening of abdominal pain and suggestion of cholangitis on MRCP with extrinsic compression of bile ducts as well with hyperbilirubinemia. Bilirubin has improved post-ERCP stenting on 24 December. Hyperbilirubinemia: in the 4 range post stent, for now do not plan to restart chemo (based on functional status, and bili) Metastatic colon cancer: Chemotherapy dc'd with elevated bili and ECOG, appreciate Ms Guillermina helping with pain control and palliative care options at home, would like pall care at home set up prior to dc, has fentanyl patch and roxanol prn, will likely need home O2, to be arranged today likely Nutrition: TPN not recommended based on rising LFTs and terminal disease and PEG tube declined History of DVT: Lovenox prophylaxis while here Constipation: prn's, and lubiprostone disposition: home w/ pall care tomorrow? and f/u w/ me in a few days if desired, hospice now or later is always reasonable Thank you kindly and please do not hesitate to call with questions, i will return on Monday but Dr Anthony is avail prn. OBJECTIVE Vital Signs Vital Signs Date Time Temp Pulse Resp B/P (MAP) Pulse Ox O2 Delivery O2 Flow Rate FiO2 01/02/19 10:00 16 Nasal Cannula 3.0 01/02/19 09:39 16 Room Air 01/02/19 08:23 16 Nasal Cannula 3.0 01/02/19 08:00 Room Air 3.0 01/02/19 07:53 95 Nasal Cannula 3.0 01/02/19 07:52 16 Nasal Cannula 3.0 01/02/19 07:52 16 Nasal Cannula 3.0 01/02/19 07:52 16 Nasal Cannula 3.0 01/02/19 07:00 97.8 104 16 125/60 (81) 97 Room Air 97.8 01/02/19 06:52 20 94 Room Air 2.0 01/02/19 04:19 20 94 Room Air 2.0 01/02/19 03:20 99.0 109 20 128/71 (90) 94 Nasal Cannula 2.0 99.0 01/02/19 03:19 20 95 Room Air 01/01/19 23:05 98.0 117 20 117/65 (82) 97 Nasal Cannula 2.0 98.0 01/01/19 20:00 Room Air 01/01/19 19:50 20 Room Air 01/01/19 19:44 100 Nasal Cannula 3.0 01/01/19 19:30 98.0 117 20 117/65 (82) 97 Nasal Cannula 2.0 98.0 01/01/19 18:50 Nasal Cannula 01/01/19 17:26 19 93 Nasal Cannula 01/01/19 16:23 Nasal Cannula 3.0 01/01/19 15:10 19 93 Nasal Cannula 2.0 01/01/19 15:00 98.5 103 16 124/67 (86) 95 Room Air 98.5 01/01/19 13:15 20 93 Nasal Cannula 2.0 01/01/19 12:22 Nasal Cannula 3.0 01/01/19 12:14 19 93 Nasal Cannula 2.0 01/01/19 11:00 98.4 109 18 116/62 (80) 97 Room Air 98.4 I & O Intake and Output 01/02/19 07:00 Intake Total 240 ml Balance 240 ml Intake Oral 240 ml # Voids 3 COMMENT Lab Laboratory Tests Test 01/01/19 10:20 01/01/19 11:03 Total Bilirubin 4.7 mg/dL (0.2-1.0) Direct Bilirubin 4.3 mg/dL (0.0-0.2) Aspartate Amino Transf (AST/SGOT) 223 U/L (15-37) Alanine Aminotransferase (ALT/SGPT) 133 U/L (14-59) Alkaline Phosphatase 1452 U/L (46-116) Total Protein 5.9 g/dL (6.4-8.2) Albumin 1.6 g/dL (3.4-5.0) Glucose (Fingerstick) 93 mg/dL (70-99) MAYRA TORRES MD Jan 02, 2019 10:06
[2019-01-02] MEDS ORDERED: NALO25TA2 PO (10:47)
[2019-01-02] MEDS ORDERED: OXYC1TAB22 PO ×2 (10:47→10:50)
[2019-01-02] MEDS ORDERED: BISA10SU4 PR (10:47)
[2019-01-02] MEDS ORDERED: MORP100S3 SL ×2 (10:47→10:50)
[2019-01-02] MEDS ORDERED: FENT1PAT15 TD ×2 (10:47→10:50)
[2019-01-02 11:00] VITALS: BP 123/70
[2019-01-02] MEDS: DRONABINOL 2.5 MG CAPSULE. PO SCH ×2 (11:56→16:09)
--- NOTE | 2019-01-02 11:56 | PDOC2 ---
PALLIATIVE CARE Palliative Care Note Palliative Care Patient awaken easily. Daughter at bedside. Percocet and Roxanol x2 each last night. continues to have abdominal pain. Fentanyl 25mcq patch. No nausea. Code Status: Full code Plan Home with Palliative Home Care. Likely tomorrow. Above reviewed with CARLA García Jan 02, 2019 11:56
--- NOTE | 2019-01-02 12:55 | PDOC ---
Subjective: Subjective: Trying to eat some. Might be discharged today or tomorrow. Has Rx for Movantik. Objective: Vital Signs: Vital Signs Date Time Temp Pulse Resp B/P (MAP) Pulse Ox O2 Delivery O2 Flow Rate FiO2 01/02/19 11:56 16 Nasal Cannula 2.0 01/02/19 11:38 94 01/02/19 11:00 98.0 115 123/70 (87) 98.0 PE: GEN: leaning forward in bed, a few bites gone from tray, family present LUNGS: NC 2L NEURO/PSYCH: A & O 3 A/P: Metastatic colon cancer Obstructive jaundice - s/p ERCP/stent, bili 4.7 Anorexia, constipation Chest/abd pain -- Continue same per GI, DC per primary. RAFFI TYLER Jan 02, 2019 12:55
[2019-01-02] MEDS: PSYLLIUM HUSK (SUGAR FREE) 1 PKT PACKET PO SCH (14:32)
[2019-01-02 15:00] VITALS: BP 125/67
[2019-01-02] MEDS: MAGNESIUM HYDROXIDE 2,400 MG/30 ML ORAL.SUSP. PO PRN (16:10)
[2019-01-02 19:54] VITALS: BP 123/54
[2019-01-02 23:18] VITALS: BP 127/66
[2019-01-03] MEDS: oxyCODONE/APAP 10/325 1 TAB TABLET PO PRN ×4 (01:07→12:35)
[2019-01-03] MEDS: MORPHINE SULFATE 20 MG/ML CONC SOLUTION. SL PRN (03:22)
[2019-01-03 03:30] VITALS: BP 130/70
[2019-01-03] MEDS: IPRATRPIUM/ALBUTEROL 0.5/2.5MG 3 ML NEBU. NEB SCH ×3 (03:55→12:00)
[2019-01-03] MEDS: MEROPENEM 500 MG in IV NORMAL SALINE 50ML 50 ML IV SCH (05:24)
[2019-01-03 07:00] VITALS: BP 117/54
[2019-01-03] MEDS: PSYLLIUM HUSK (SUGAR FREE) 1 PKT PACKET PO SCH (08:20)
[2019-01-03] MEDS: POLYETHYLENE GLYCOL 3350 17 GM PACKET. PO SCH (08:21)
[2019-01-03] MEDS: ENOXAPARIN 40 MG/0.4 ML SYRINGE. SQ SCH (08:22)
[2019-01-03] MEDS: LUBIPROSTONE 8 MCG CAPSULE PO SCH (08:23)
[2019-01-03] MEDS: GABAPENTIN 300 MG CAPSULE. PO SCH (08:23)
[2019-01-03] MEDS: DOCUSATE 100 MG/10 ML SOLUTION. PO SCH (08:23)
[2019-01-03] MEDS: CITALOPRAM 20 MG TABLET. PO SCH (08:24)
[2019-01-03] MEDS: FUROSEMIDE 20 MG TABLET PO SCH (08:24)
[2019-01-03] MEDS: FLUCONAZOLE 100 MG TABLET. PO SCH (08:24)
[2019-01-03] MEDS: FERROUS SULFATE 325 MG TABLET. PO SCH (08:24)
[2019-01-03] MEDS: valACYclovir 500 MG TABLET. PO SCH (08:24)
[2019-01-03] MEDS: ASCORBIC ACID 500 MG TABLET PO SCH (08:24)
[2019-01-03] MEDS: POTASSIUM CHLORIDE 20 MEQ TABLET.ER. PO SCH (08:24)
[2019-01-03] MEDS: fentaNYL 25MCG/HR PATCH 1 PATCH PATCH.TD72 TD SCH (08:26)
[2019-01-03] MEDS: IV NORMAL SALINE 1000ML BAG 1,000 ML IV SCH (08:29)
--- NOTE | 2019-01-03 08:48 | PDOC ---
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 Obstructive jaundice secondary to biliary compression by metastatic lymphadenopathy - cancer PAIN, CHALLENGING TO MANAGE Narc tolerant NArc induced constipation - resolved fULL CODE, NOT READY FOR HOSPICE [facility] UTI - History of Present Illness History of Present Illness She was on MS contin 30 BID and dilaudid prn (only got 4 doses or such) and ativan 0.5 BIDm, changed to MS contin to 15 BID and she has been requesting phone call prior to prn dilaudid. Changed to fentanyl patch 25mcg on 12/31, feels her pain is a bit better controlled. Pain has shifted to right upper chest, points to AC joint and LUQ and left flank She was slated for HH monday but is getting weaker so might be SNU - and dtr acknowledges that, also will discuss palliative home health LFTs stable, a bit up. Taking a bit of PO. No BM for 2 days. Feels her pain is better controlled with fentanyl patch, oxycodone, and roxanol morphine. No CP, mild SOB, she is still on O2. PLAN: Change to fentanyl patch from MS contin SW SNU Will dc with indwelling allen cath (she cant hav etPN at home, has co pay, not unless she goes skilled but then LFTS also climbs with TPN) She was not ready for hospice last week 6 minute walk D/w daughter to go home with palliative home health FULL CODE for now, hospice candidate - might need to revisit that idea - palliative care on case Vitals Vitals Vital Signs Date Time Temp Pulse Resp B/P (MAP) Pulse Ox O2 Delivery O2 Flow Rate FiO2 01/03/19 08:26 Nasal Cannula 2.0 01/03/19 07:50 99 01/03/19 07:00 98.8 106 18 117/54 (75) 98.8 Physical Exam Physical Exam GENERAL: Propped up in bed, alert, smiling, family rubbing her back HEENT: Pupils equally round and reactive. Sclerae icterus. Oropharynx pink, dry. NECK: Supple. LUNGS: Diminished aeration. Nonlabored. HEART: S1, S2. ABDOMEN: Soft, mildly tender, + BS EXTREMITIES: No gross edema or cyanosis. SKIN: Warm to touch, jaundice. NEUROLOGIC: Alert, answering questions appropriately Right-sided Port-A-Cath without signs of any complications. General: Cooperative, Other (jaundice improved) Heart: Regular rate Lungs: Clear, Other Abdomen: Soft Extremities: No clubbing Skin: Other (a little less jaundiced) Comment Review of Relevant I have reviewed the following items erwin (where applicable) has been applied. Labs Laboratory Tests Test 01/01/19 10:20 01/01/19 11:03 Total Bilirubin 4.7 mg/dL (0.2-1.0) Direct Bilirubin 4.3 mg/dL (0.0-0.2) Aspartate Amino Transf (AST/SGOT) 223 U/L (15-37) Alanine Aminotransferase (ALT/SGPT) 133 U/L (14-59) Alkaline Phosphatase 1452 U/L (46-116) Total Protein 5.9 g/dL (6.4-8.2) Albumin 1.6 g/dL (3.4-5.0) Glucose (Fingerstick) 93 mg/dL (70-99) Microbiology 12/22/18 Blood Culture - Final, Complete NO GROWTH AFTER 5 DAYS Medications Current Medications Morphine Sulfate (Morphine Sulfate) 5 mg 1X ONCE IV Last administered on 12/22/18at 10:00; Start 12/22/18 at 10:00; Stop 12/22/18 at 10:03; Status DC Naloxone HCl (Narcan) 0.4 mg PRN Q2MIN PRN IV SEE INSTRUCTIONS; Start 12/22/18 at 10:00 Sodium Chloride 1,000 ml @ 25 mls/hr Q24H IV Last administered on 12/22/18at 09:55; Start 12/22/18 at 09:55 Hydromorphone HCl 30 ml @ 0 mls/hr CONT PRN PRN IV PER PROTOCOL Last administered on 12/26/18at 08:12; Start 12/22/18 at 10:00; Stop 12/27/18 at 08:24; Status DC Sodium Chloride (Normal Saline Flush) 3 ml QSHIFT PRN IV AFTER MEDS AND BLOOD DRAWS; Start 12/22/18 at 11:30 Sodium Chloride 1,000 ml @ 100 mls/hr Q10H IV Last administered on 12/26/18 05:39; Start 12/22/18 at 13:00; Stop 12/26/18 at 08:16; Status DC Ondansetron HCl (Zofran) 4 mg PRN Q4HRS PRN IVP NAUSEA/VOMITING Last administered on 12/30/18 01:15; Start 12/22/18 at 11:30 Acetaminophen (Tylenol Supp) 650 mg PRN Q4HRS PRN UT TEMP OVER 100.4F OR MILD PAIN Last administered on 12/23/18 03:47; Start 12/22/18 at 11:30 Clonidine HCl (Catapres) 0.1 mg PRN Q6HRS PRN PO SBP>160 OR DBP>90; Start 12/22/18 at 11:30 Albuterol/ Ipratropium (Duoneb) 3 ml Q4H NEB Last administered on 01/03/19 07:49; Start 12/22/18 at 12:00 Lorazepam (Ativan) 0.5 mg PRN Q4HRS PRN PO ANXIETY / AGITATION Last administered on 12/27/18 17:47; Start 12/22/18 at 11:30; Stop 12/29/18 at 08:25; Status DC Enoxaparin Sodium (Lovenox 40mg Syringe) 40 mg DAILY SQ ; Start 12/23/18 at 09:00; Stop 12/22/18 at 16:29; Status DC Piperacillin Sod/ Tazobactam Sod 3.375 gm/Sodium Chloride 50 ml @ 100 mls/hr Q6HRS IV Last administered on 12/29/18 12:17; Start 12/22/18 at 12:00; Stop 12/29/18 at 13:05; Status DC Ascorbic Acid (Vitamin C) 500 mg BID PO Last administered on 01/03/19 08:24; Start 12/22/18 at 21:00 Ferrous Sulfate (Feosol) 325 mg BIDWMEALS PO Last administered on 01/03/19 08:24; Start 12/22/18 at 17:00 Gabapentin (Neurontin) 300 mg BID PO Last administered on 01/03/19 08:23; Start 12/22/18 at 21:00 Acyclovir (Zovirax) 400 mg BID PO Last administered on 10/11/19at 07:58; Start 12/22/18 at 21:00; Stop 12/28/18 at 10:07; Status DC Non-Formulary Medication (Alpha Lipoic Acid ) 600 mg BID PO ; Start 12/22/18 at 21:00; Status UNV Citalopram Hydrobromide (CeleXA) 20 mg DAILY PO Last administered on 01/03/19at 08:24; Start 12/23/18 at 09:00 Non-Formulary Medication (Lactobacillus Rhamnosus Gg (Culturelle)) 1 each BID PO ; Start 12/22/18 at 21:00; Status UNV Potassium Chloride/Water 100 ml @ 100 mls/hr Q1H IV Last administered on 12/23/18at 08:15; Start 12/23/18 at 06:15; Stop 12/23/18 at 09:14; Status DC Polyethylene Glycol (miraLAX PACKET) 17 gm DAILY PO Last administered on 01/03/19at 08:21; Start 12/23/18 at 14:45 Docusate Sodium (Colace Solution) 100 mg BID PO Last administered on 01/03/19at 08:23; Start 12/23/18 at 14:45 Bisacodyl (Dulcolax Supp) 10 mg PRN DAILY PRN UT CONSTIPATION; Start 12/23/18 at 14:45; Stop 12/26/18 at 12:49; Status DC Acetaminophen (Tylenol) 500 mg PRN Q6HRS PRN PO MILD PAIN / TEMP; Start 12/24/18 at 09:00 Oxycodone/ Acetaminophen (Percocet 5/325) 1 tab PRN Q4HRS PRN PO MODERATE PAIN Last administered on 01/01/19at 12:14; Start 12/24/18 at 09:00 Lidocaine HCl (Lidocaine Pf 2% Vial) 5 ml STK-MED ONCE .ROUTE ; Start 12/24/18 at 09:38; Stop 12/24/18 at 09:39; Status DC Propofol 20 ml @ As Directed STK-MED ONCE IV ; Start 12/24/18 at 09:38; Stop 12/24/18 at 09:39; Status DC Succinylcholine Chloride (Anectine) 200 mg STK-MED ONCE .ROUTE ; Start 12/24/18 at 09:38; Stop 12/24/18 at 09:39; Status DC Ondansetron HCl (Zofran) 4 mg STK-MED ONCE .ROUTE ; Start 12/24/18 at 09:39; Stop 12/24/18 at 09:39; Status DC Glycopyrrolate (Robinul) 1 mg STK-MED ONCE .ROUTE ; Start 12/24/18 at 09:39; Stop 12/24/18 at 09:39; Status DC Rocuronium Harrod (Zemuron) 50 mg STK-MED ONCE .ROUTE ; Start 12/24/18 at 09:49; Stop 12/24/18 at 09:50; Status DC Propofol 20 ml @ As Directed STK-MED ONCE IV ; Start 12/24/18 at 09:52; Stop 12/24/18 at 09:52; Status DC Lidocaine HCl (Lidocaine Pf 2% Vial) 5 ml STK-MED ONCE .ROUTE ; Start 12/24/18 at 09:52; Stop 12/24/18 at 09:52; Status DC Hydromorphone HCl (Dilaudid Standard [employer]IMAL TRA[employer] SUPERVISOR) 12 mg STK-MED ONCE IV ; Start 12/22/18 at 12:00; Stop 12/24/18 at 10:33; Status DC Hydromorphone HCl (Dilaudid Standard [employer]IMAL TRA[employer]ER SUPERVISOR) 12 mg STK-MED ONCE IV ; Start 12/23/18 at 12:20; Stop 12/24/18 at 10:34; Status DC Midazolam HCl (Versed) 2 mg PRN 1X PRN IV PRIOR TO PROCEDURE; Start 12/24/18 at 10:45; Stop 12/25/18 at 10:44; Status DC Fentanyl Citrate (Fentanyl 2ml Vial) 25 mcg PRN Q5MIN PRN IV X 2 DOSES FOR PAIN; Start 12/24/18 at 10:45; Stop 12/25/18 at 10:44; Status DC Fentanyl Citrate (Fentanyl 2ml Vial) 50 mcg PRN Q5MIN PRN IV X 2 DOSES FOR PAIN; Start 12/24/18 at 10:45; Stop 12/25/18 at 10:44; Status DC Ringer's Solution 1,000 ml @ 125 mls/hr Q8H IV Last administered on 12/24/18at 11:46; Start 12/24/18 at 10:38; Stop 12/24/18 at 22:37; Status DC Lidocaine HCl (Xylocaine-Mpf 1% 2ml Vial) 2 ml 1X PRN PRN ID IV START; Start 12/24/18 at 10:45; Stop 12/25/18 at 10:44; Status DC Iohexol (Omnipaque 300 Mg/ml) 100 ml STK-MED ONCE .ROUTE ; Start 12/24/18 at 12:04; Stop 12/24/18 at 12:04; Status DC Influenza Virus Vaccine Quadrival (Afluria Quad 2019-20 (3yr Up) Syringe) 0.5 ml ONCE ONCE VAX IM Last administered on 12/25/18at 09:42; Start 12/25/18 at 09:00; Stop 12/25/18 at 09:01; Status DC Potassium Chloride (Klor-Con) 40 meq BIDWMEALS PO Last administered on 12/28/18at 07:59; Start 12/25/18 at 08:45; Stop 12/28/18 at 10:27; Status DC Zolpidem Tartrate (Ambien) 5 mg PRN QHS PRN PO INSOMNIA; Start 12/25/18 at 08:45; Stop 12/29/18 at 09:28; Status DC Calcium Carbonate/ Glycine (Tums) 500 mg PRN AFTMEALHC PRN PO INDIGESTION; Start 12/25/18 at 08:45 Enoxaparin Sodium (Lovenox 40mg Syringe) 40 mg Q24H SQ Last administered on 01/03/19at 08:22; Start 12/25/18 at 10:00 Hydromorphone HCl (Dilaudid Standard [employer]IM[employer] TRA[employer] SUPER[employer]OR) 12 mg STK-MED ONCE IV ; Start 12/24/18 at 22:58; Stop 12/25/18 at 11:34; Status DC Amino Acids/ Glycerin/ Electrolytes 1,000 ml @ 80 mls/hr [id number] IV Last administered on 12/27/18at 20:27; Start 12/26/18 at 08:15; Stop 12/28/18 at 08:24; Status DC Magnesium Hydroxide (Milk Of Magnesia) 2,400 mg PRN DAILY PRN PO CONSTIPATION, 1ST CHOICE Last administered on 01/02/19at 16:10; Start 12/26/18 at 09:15 Bisacodyl (Dulcolax Supp) 10 mg PRN DAILY PRN [place] CONSTIPATION Last administered on 12/27/18at 07:39; Start 12/26/18 at 09:15 Lubiprostone (Amitiza) 8 mcg BIDWMEALS PO Last administered on 12/30/18at 17:33; Start 12/26/18 at 10:00; Stop 12/31/18 at 10:18; Status DC Polyethylene Glycol (miraLAX PACKET) 17 gm DAILY PO ; Start 12/27/18 at 09:00; Stop 12/26/18 at 15:42; Status DC Polyethylene Glycol (miraLAX PACKET) 17 gm PRN DAILY PRN PO CONSTIPATION, 2ND CHOICE; Start 12/26/18 at 12:45 Morphine Sulfate (Ms Contin) 15 mg BID PO Last administered on 12/28/18at 07:58; Start 12/27/18 at 09:00; Stop 12/28/18 at 08:24; Status DC Hydromorphone HCl (Dilaudid) 0.4 mg PRN Q4HRS PRN IVP MODERATE TO SEVERE PAIN; Start 12/27/18 at 08:30; Stop 12/27/18 at 09:19; Status DC Hydromorphone HCl (Dilaudid) 0.2 mg PRN Q4HRS PRN IVP MODERATE TO SEVERE PAIN Last administered on 12/27/18at 17:48; Start 12/27/18 at 09:30; Stop 12/29/18 at 09:28; Status DC Furosemide (Lasix) 20 mg DAILY PO Last administered on 01/03/19at 08:24; Start 12/27/18 at 11:15 Hydromorphone HCl (Dilaudid Standard [employer]IMAL TRA[employer]ER SUPERVISOR) 12 mg STK-MED ONCE IV ; Start 12/26/18 at 07:59; Stop 12/27/18 at 14:44; Status DC Morphine Sulfate (Ms Contin) 30 mg BID PO Last administered on 12/28/18at 21:08; Start 12/28/18 at 09:00; Stop 12/29/18 at 08:48; Status DC Info (Tpn Per Pharmacy) 1 each PRN DAILY PRN MC SEE COMMENTS Last administered on 12/29/18at 11:59; Start 12/28/18 at 08:30; Stop 12/30/18 at 08:04; Status DC Furosemide (Lasix) 20 mg 1X ONCE IVP Last administered on 12/28/18 08:49; Start 12/28/18 at 08:30; Stop 12/28/18 at 08:31; Status DC Potassium Chloride (Klor-Con) 40 meq 1X ONCE PO Last administered on 12/28/18at 08:48; Start 12/28/18 at 08:30; Stop 12/28/18 at 08:31; Status DC Potassium Chloride (Klor-Con) 20 meq [id number] PO Last administered on 01/03/19at 08:24; Start 12/29/18 at 08:00 Morphine Sulfate (Ms Contin) 15 mg 1X PO ; Start 12/28/18 at 08:45; Stop 12/28/18 at 09:14; Status DC Morphine Sulfate (Ms Contin) 15 mg 1X ONCE PO Last administered on 12/28/18 09:16; Start 12/28/18 at 09:15; Stop 12/28/18 at 09:16; Status DC Fluconazole (Diflucan) 200 mg DAILY PO Last administered on 01/03/19at 08:24; Start 12/28/18 at 10:15 Valacyclovir HCl (Valtrex) 1,000 mg BID PO Last administered on 01/03/19 08:24; Start 12/28/18 at 21:00 Sodium Chloride 70 meq/Potassium Chloride 40 meq/ Potassium Phosphate 13.6 mmol/Magnesium Sulfate 10 meq/ Calcium Gluconate 10 meq/ Multivitamins 10 ml/Chromium/ Copper/Manganese/ Seleni/Zn 1 ml/ Total Parenteral Nutrition/Amino Acids/Dextrose 1,512 ml @ 63 mls/hr TPN CONT IV Last administered on 12/28/18at 21:07; Start 12/28/18 at 22:00; Stop 12/29/18 at 21:59; Status DC Amino Acids/ Glycerin/ Electrolytes 1,000 ml @ 80 mls/hr [id number] ONCE IV Last administered on 12/28/18at 11:34; Start 12/28/18 at 11:30; Stop 12/28/18 at 23:59; Status DC Lorazepam (Ativan) 0.25 mg PRN Q4HRS PRN PO ANXIETY / AGITATION; Start 12/29/18 at 08:30; Stop 12/29/18 at 09:28; Status DC Morphine Sulfate (Ms Contin) 15 mg BID PO Last administered on 12/31/18 09:09; Start 12/29/18 at 09:00; Stop 12/31/18 at 09:28; Status DC Sodium Phosphate 15 mmol/Dextrose 255 ml @ 63.75 mls/ hr 1X ONCE IV Last administered on 12/29/18 13:00; Start 12/29/18 at 13:00; Stop 12/29/18 at 16:59; Status DC Sodium Chloride 100 meq/Potassium Chloride 30 meq/ Potassium Phosphate 20 mmol/ Magnesium Sulfate 10 meq/Calcium Gluconate 10 meq/ Multivitamins 10 ml/Chromium/ Copper/Manganese/ Seleni/Zn 1 ml/ Total Parenteral Nutrition/Amino Acids/De xtrose 1,512 ml @ 63 mls/hr TPN CONT IV Last administered on 12/29/18 22:13; Start 12/29/18 at 22:00; Stop 12/30/18 at 08:02; Status DC Meropenem 500 mg/ Sodium Chloride 50 ml @ 100 mls/hr Q8HRS IV Last administered on 01/03/19 05:24; Start 12/29/18 at 14:00 Hydromorphone HCl (Dilaudid) 0.2 mg PRN Q4HRS PRN IVP SEVERE PAIN 7-10 Last administered on 12/31/18 13:31; Start 12/30/18 at 02:00; Stop 01/01/19 at 14:42; Status DC Amino Acids/ Glycerin/ Electrolytes 1,000 ml @ 80 mls/hr [id number] IV Last administered on 01/02/19 21:13; Start 12/30/18 at 22:00 Fentanyl (Duragesic 25mcg/ Hr Patch) 1 patch Q3DAYS TD Last administered on 01/03/19 08:26; Start 12/31/18 at 09:30 Lubiprostone (Amitiza) 24 mcg BIDWMEALS PO Last administered on 01/03/19 08:23; Start 12/31/18 at 17:00 Bisacodyl (Dulcolax Tab) 5 mg PRN DAILY PRN PO CONSTIPATION, 3RD CHOICE Last administered on 01/02/19 08:24; Start 01/01/19 at 09:45 Oxycodone/ Acetaminophen (Percocet 10/325) 1 tab PRN Q4HRS PRN PO 7-10 pain Las t administered on 01/03/19at 05:28; Start 01/01/19 at 13:00 Morphine Sulfate (Roxanol Conc) 5 mg PRN Q3HRS PRN SL PAIN; Start 01/01/19 at 14:45; Stop 01/01/19 at 18:34; Status DC Dronabinol (Marinol) 2.5 mg BIDACLD PO Last administered on 01/02/19at 16:09; Start 01/01/19 at 16:30 Morphine Sulfate (Roxanol Conc) 10 mg PRN 1X PRN SL PAIN Last administered on 01/01/19at 18:50; Start 01/01/19 at 18:45 Morphine Sulfate (Roxanol Conc) 10 mg PRN Q3HRS PRN SL PAIN Last administered on 01/03/19at 03:22; Start 01/01/19 at 18:45 Psyllium Hydrophilic Mucilloid (Metamucil Fiber Packet) 1 pkt DAILY PO Last administered on 01/03/19at 08:20; Start 01/02/19 at 14:15 Active Scripts Active Percocet 10-325 Mg Tablet (Oxycodone/Acetaminophen) 1 Each Tablet 1 Tab PO PRN Q4HRS PRN 30 Days Morphine Sulfate 100 Mg/5 Ml Solution 10 Mg SL PRN Q3HRS PRN 30 Days FENTANYL 25mcg/hr (Fentanyl) 1 Each Patch.td72 1 Patch TD Q3DAYS 30 Days Movantik (Naloxegol Oxalate) 25 Mg Tablet 25 Mg PO DAILY 30 Days Bisacodyl 10 Mg Supp.rect 10 Mg UT PRN DAILY PRN 30 Days Ascorbic Acid 500 Mg Tablet 500 Mg PO BID 30 Days Reported Imodium A-D (Loperamide HCl) 2 Mg Capsule 2 Mg PO PRN Q4HRS PRN Alpha Lipoic Acid 600 Mg Capsule 600 Mg PO BID Ambien (Zolpidem Tartrate) 5 Mg Tablet 5 Mg PO PRN QHS PRN Gabapentin (Gabapentin) 300 Mg Capsule 300 Mg PO BID Escitalopram Oxalate 10 Mg Tablet 1 Tab PO DAILY Acyclovir 400 Mg Tablet 1 Tab PO BID Culturelle (Lactobacillus Rhamnosus Gg) 1 Each Capsule 1 Each PO BID Vitals/I & O Vital Sign - Last 24 Hours 10/01/02/19 01/02/19 01/02/19 09:39 10:00 11:00 11:06 Temp 98.0 98.0 Pulse 115 Resp 16 16 16 16 B/P (MAP) 123/70 (87) Pulse Ox 95 O2 Delivery Room Air Nasal Cannula Room Air Nasal Cannula O2 Flow Rate 3.0 2.0 01/02/19 01/02/19 01/02/19 01/02/19 11:38 11:56 12:59 13:06 Resp 16 16 16 Pulse Ox 94 2 O2 Delivery Nasal Cannula Nasal Cannula Nasal Cannula Nasal Cannula O2 Flow Rate 2.0 2.0 2.0 01/02/19 01/02/19 01/02/19 01/02/19 14:27 15:00 15:11 16:10 Temp 98.2 98.2 Pulse 119 Resp 16 18 16 B/P (MAP) 125/67 (86) Pulse Ox 95 94 O2 Delivery Nasal Cannula Room Air Nasal Cannula Nasal Cannula O2 Flow Rate 2.0 2.0 2.0 01/02/19 01/02/19 01/02/19 01/02/19 17:01 17:12 18:04 19:54 Temp 99.8 99.8 Pulse 118 Resp 16 16 16 20 B/P (MAP) 123/54 (77) Pulse Ox 95 O2 Delivery Nasal Cannula Nasal Cannula Nasal Cannula Nasal Cannula O2 Flow Rate 2.0 2.0 2.0 2.0 01/02/19 01/02/19 01/02/19 01/02/19 20:00 20:52 21:05 22:05 Resp 20 20 Pulse Ox 99 99 O2 Delivery Nasal Cannula Nasal Cannula Room Air Room Air O2 Flow Rate 2.0 2.0 01/02/19 01/02/19 01/03/19 01/03/19 23:18 23:49 01:07 02:07 Temp 99.6 99.6 Pulse 120 Resp 18 20 18 B/P (MAP) 127/66 (86) Pulse Ox 98 99 99 97 O2 Delivery Nasal Cannula Nasal Cannula Nasal Cannula Nasal Cannula O2 Flow Rate 2.0 2.0 2.0 2.0 01/03/19 01/03/19 01/03/19 01/03/19 03:30 04:22 05:28 06:28 Temp 99.0 99.0 Pulse 122 Resp 20 20 20 20 B/P (MAP) 130/70 (90) Pulse Ox 97 97 97 95 O2 Delivery Nasal Cannula Nasal Cannula Nasal Cannula Nasal Cannula O2 Flow Rate 2.0 2.0 2.0 2.0 01/03/19 01/03/19 01/03/19 01/03/19 07:00 07:45 07:50 08:26 Temp 98.8 98.8 Pulse 106 Resp 18 B/P (MAP) 117/54 (75) Pulse Ox 94 99 O2 Delivery Room Air Nasal Cannula Nasal Cannula Nasal Cannula O2 Flow Rate 2.0 2.0 2.0 Intake and Output 01/02/19 01/02/19 01/03/19 15:00 23:00 07:00 Intake Total 0 ml Output Total 200 ml Balance 0 ml -200 ml RADHA WILSON MD Jan 03, 2019 08:48
[2019-01-03] MEDS: AMINO AC 3%/ELECTROLYTE/GLYCER 1,000 ML IV SCH (10:10)
[2019-01-03] MEDS ORDERED: LACT20SO PO (10:41)
--- NOTE | 2019-01-03 10:44 | SNU/HH DC ---
DISCHARGE WITH HOME HEALTH DISCHARGE INFORMATION: Discharge Date: Jan 03, 2019 Final Diagnosis: Metastatic colon cancer Condition on Discharge: Stable CODE STATUS: Code Status: Full HOME HEALTH: Face to Face: I certify this patient is under my care and that I, or a nurse practitioner or physician's activities assistant working with me, had a face to face encounter that meets the physician face to face encounter requirements with this patient on 01/03/19. Medical Complications: Falls, Other (Colon cancer) Residential For: Assess/Skilled Observatio, Pain Management RN For Eval/Treatment: Yes Home Health Aide For: Self-care Pt Meets Homebound Status: Poor coordination w/ amb., Extreme weakness w/ amb., Limited distance walking POST DISCHARGE ORDERS: Activity Instructions for Disc: Activity as tolerated, Bedrest today Weight Bearing Status after Di: As tolerated DIET AFTER DISCHARGE: Regular Wound/Incision Care: Keep wound/cast CDI FOLLOW-UP: Follow up with: Dr. Mar Interiano [facility] Oncology TREATMENT/EQUIPMENT ORDERS: Adaptive Equipment Issued: None Discharge Respiratory Equipmen: Oxygen (2L at rest, 6L on ambulation) CERTIFICATION STATEMENT: Certification Statement: Certification Statement: Based on the above finding, I certify that this patient is confined to the home and needs intermittent fci care, physical therapy and/or speech therapy, or continues to need occupational therapy.~ This patient is under my care, and I have initiated the establishment of the plan of care.~ This patient will be followed by myself or a community physician who will periodically review the plan of care. Home Meds Active Scripts Lactulose (LACTULOSE) 20 Gm/30 Ml Solution, 20 GM PO PRN DAILY PRN for CONSTIPATION for 30 Days, #900 ML 2 Refills Prov:RADHA WILSON MD 01/03/19 Oxycodone/Apap 10-325 (PERCOCET 10-325 MG TABLET ) 1 Each Tablet, 1 TAB PO PRN Q4HRS PRN for 7-10 pain for 30 Days, #180 TAB Prov:RADHA WILSON MD 01/02/19 Morphine Sulfate (MORPHINE SULFATE) 100 Mg/5 Ml Solution, 10 MG SL PRN Q3HRS PRN for Cancer pain for 30 Days, #30 ML 2 Refills Prov:ARDHA WILSON MD 01/02/19 Fentanyl (FENTANYL 25mcg/hr) 1 Each Patch.td72, 1 PATCH TD Q3DAYS for Cancer pain for 30 Days, #10 PATCH 2 Refills Prov:RADHA WILSON MD 01/02/19 Naloxegol Oxalate (Movantik) 25 Mg Tablet, 25 MG PO DAILY for OPIOID induced constipation for 30 Days, #30 TAB 2 Refills Prov:RADHA WILSON MD 01/02/19 Bisacodyl (BISACODYL) 10 Mg Supp.rect, 10 MG NC PRN DAILY PRN for CONSTIPATION for 30 Days, #30 SUPP.RECT 2 Refills Prov:RADHA WILSON MD 01/02/19 Ascorbic Acid (ASCORBIC ACID) 500 Mg Tablet, 500 MG PO BID for 30 Days, #60 TAB 5 Refills Prov:SINCERE PANTOJA MD 11/17/17 Reported Medications Loperamide HCl (Imodium A-D) 2 Mg Capsule, 2 MG PO PRN Q4HRS PRN for DIARRHEA, CAP 11/01/18 Alpha Lipoic Acid (Alpha Lipoic Acid) 600 Mg Capsule, 600 MG PO BID for Supplement, CAP 11/01/18 Zolpidem Tartrate (AMBIEN) 5 Mg Tablet, 5 MG PO PRN QHS PRN for INSOMNIA, TAB 0 Refills 11/01/18 Gabapentin (GABAPENTIN ) 300 Mg Capsule, 300 MG PO BID for NEUROGENIC PAIN, CAP 11/01/18 Escitalopram Oxalate (ESCITALOPRAM OXALATE) 10 Mg Tablet, 1 TAB PO DAILY for antidepressant, #30 TAB 3 Refills 02/23/18 Acyclovir (ACYCLOVIR) 400 Mg Tablet, 1 TAB PO BID for antibiotic, #60 TAB 3 Refills 02/23/18 Lactobacillus Rhamnosus Gg (CULTURELLE) 1 Each Capsule, 1 EACH PO BID, CAP 11/27/17 Discontinued Reported Medications Temazepam (TEMAZEPAM) 15 Mg Capsule, 1 CAP PO QHS for insomnia, #30 CAP 1 Refill 02/23/18 Apixaban (ELIQUIS) 5 Mg Tablet, 5 MG PO BID for 60 Days, #120 TAB 11/29/17 Discontinued Scripts Ferrous Sulfate (FERROUS SULFATE) 325 Mg Tablet, 1 TAB PO BID for 30 Days, #60 TAB 5 Refills Prov:SINCERE PANTOJA MD 11/17/17 RADHA WILSON MD Jan 03, 2019 10:44
[2019-01-03] MEDS ORDERED: LACTULOSE 20 GM/30 ML SOLUTION. PO PRN (10:45)
--- NOTE | 2019-01-03 10:45 | PDOC3 ---
Discharge Summary Visit Information Date of Admission: Dec 22, 2018 Date of Discharge: Jan 03, 2019 Admitting Diagnosis: Metastatic Colon cancer Final Diagnosis Metastatic colon cancer Brief Hospital Course Allergies Allergies Coded Allergies Type Severity Reaction Last Updated Verified I S O L A T I O N *CONTACT* Allergy Unknown 12/31/18 Yes No Known Medication Allergies Allergy Unknown 12/24/18 Yes Vital Signs Vital Signs Date Time Temp Pulse Resp B/P (MAP) Pulse Ox O2 Delivery O2 Flow Rate FiO2 01/03/19 10:41 Nasal Cannula 2.0 01/03/19 09:47 99 01/03/19 07:00 98.8 106 18 117/54 (75) 98.8 Lab Results Laboratory Tests Test 01/01/19 11:03 Glucose (Fingerstick) 93 mg/dL (70-99) Brief Hospital Course Ms New is a 63yo F w/ PMHx metastatic colon cancer, peripheral neuropathy admitted with intractable abdominal pain in RUQ requiring RADIATOR CORE TESTER, had bilirubin up to 10 and with hematology/oncology, ID, general surgery and GI consultation un12/24/18 ERCP with stent placement with some improvement in her symptoms, however functionally she was still fairly week, eventually required fentanyl patch, oxycodone, morphine roxanol for pain control. She was on MS contin 30 BID and dilaudid prn (only got 4 doses or such) and ativan 0.5 BIDm, changed to MS contin to 15 BID and she has been requesting phone call prior to prn dilaudid. Changed to fentanyl patch 25mcg on 12/31, feels her pain is a bit better controlled. Pain has shifted to right upper chest, points to AC joint and LUQ and left flank She was slated for HH monday but is getting weaker so might be SNU - and dtr acknowledges that, also will discuss palliative home health LFTs stable, a bit up. Taking a bit of PO. No BM for 2 days. Feels her pain is better controlled with fentanyl patch, oxycodone, and roxanol morphine. No CP, mild SOB, she is still on O2. 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 Obstructive jaundice secondary to biliary compression by metastatic lymphadenopathy - cancer PAIN, CHALLENGING TO MANAGE Narc tolerant NArc induced constipation - resolved fULL CODE, NOT READY FOR HOSPICE [facility] UTI - Greater than 30 minutes spent on d/c Discharge Information Condition at Discharge: Stable Follow Up: Weeks (1) Disposition/Orders: D/C to Another Facility Scheduled Acyclovir (Acyclovir) 400 Mg Tablet, 1 TAB PO BID for antibiotic, #60 Ref 3 (Reported) Entered as Reported by: JAIDEN NAM on 02/23/18 0745 Last Action: Converted on 12/22/181144 by JORDIN POWELL MD Alpha Lipoic Acid (Alpha Lipoic Acid) 600 Mg Capsule, 600 MG PO BID for Supplement, (Reported) Entered as Reported by: EDITH BRENNER on 11/01/182344 Last Action: Converted on 12/22/181144 by JORDIN POWELL MD Ascorbic Acid (Ascorbic Acid) 500 Mg Tablet, 500 MG PO BID for 30 Days, #60 Ref 5 Prescribed by: SCARLETT POST on 11/17/17 0942 Last Action: Continued on 12/22/181144 by JORDIN POWELL MD Escitalopram Oxalate (Escitalopram Oxalate) 10 Mg Tablet, 1 TAB PO DAILY for antidepressant, #30 Ref 3 (Reported) Entered as Reported by: JAIDEN NAM on 02/23/18 0745 Last Action: Converted on 12/22/181144 by JORDIN POWELL MD Fentanyl (FENTANYL 25mcg/hr) 1 Each Patch.td72, 1 PATCH TD Q3DAYS for Cancer pain for 30 Days, #10 Ref 2 Prescribed by: RADHA WILSON MD on 01/02/19 1050 Gabapentin (Gabapentin ) 300 Mg Capsule, 300 MG PO BID for NEUROGENIC PAIN, (Reported) Entered as Reported by: EDITH BRENNER on 11/01/182344 Last Action: Continued on 12/22/181144 by JORDIN POWELL MD Lactobacillus Rhamnosus Gg (Culturelle) 1 Each Capsule, 1 EACH PO BID, (Reported) Entered as Reported by: ADRIANA STOKCTON RN on 11/27/171948 Last Action: Converted on 12/22/18 114 by JORDIN POWELL MD Naloxegol Oxalate (Movantik) 25 Mg Tablet, 25 MG PO DAILY for OPIOID induced constipation for 30 Days, #30 Ref 2 Prescribed by: RADHA WILSON MD on 01/02/19 1047 Scheduled PRN Bisacodyl (Bisacodyl) 10 Mg Supp.rect, 10 MG HI PRN DAILY PRN for CONSTIPATION for 30 Days, #30 Ref 2 Prescribed by: RADHA WILSON MD on 01/02/19 1047 Lactulose (Lactulose) 20 Gm/30 Ml Solution, 20 GM PO PRN DAILY PRN for CONSTIPATION for 30 Days, #900 Ref 2 Prescribed by: RADHA WILSON MD on 01/03/19 1041 Loperamide HCl (Imodium A-D) 2 Mg Capsule, 2 MG PO PRN Q4HRS PRN for DIARRHEA, (Reported) Entered as Reported by: EDITH BRENNER on 11/01/18 2345 Last Action: HELD on 12/22/181144 by JORDIN POWELL MD Morphine Sulfate (Morphine Sulfate) 100 Mg/5 Ml Solution, 10 MG SL PRN Q3HRS PRN for Cancer pain for 30 Days, #30 Ref 2 Prescribed by: RADHA WILSON MD on 01/02/19 1050 Oxycodone/Apap 10-325 (Percocet 10-325 Mg Tablet ) 1 Each Tablet, 1 TAB PO PRN Q4HRS PRN for 7-10 pain for 30 Days, #180 Prescribed by: RADHA WILSON MD on 01/02/19 1050 Zolpidem Tartrate (Ambien) 5 Mg Tablet, 5 MG PO PRN QHS PRN for INSOMNIA, Ref 0 (Reported) Entered as Reported by: EDITH BRENNER on 11/01/18 2345 Discontinued Medications Apixaban (Eliquis) 5 Mg Tablet, 5 MG PO BID for 60 Days, #120 (Reported) Entered as Reported by: JEWEL MATIAS on 11/29/17 1227 Last Action: HELD on 12/22/18 1145 by JORDIN POWELL MD Ferrous Sulfate (Ferrous Sulfate) 325 Mg Tablet, 1 TAB PO BID for 30 Days, #60 Ref 5 Prescribed by: SCARLETT POST on 11/17/17 0942 Last Action: Continued on 12/22/18 1145 by JORDIN POWELL MD Temazepam (Temazepam) 15 Mg Capsule, 1 CAP PO QHS for insomnia, #30 Ref 1 (Repo rted) Entered as Reported by: JAIDEN NAM on 02/23/18 0745 Last Action: HELD on 12/22/18 1145 by MD STEVE ALEXIS CHRISTOPHER S MD Jan 03, 2019 10:45
[2019-01-03] MEDS: DRONABINOL 2.5 MG CAPSULE. PO SCH (10:47)
[2019-01-03 11:00] VITALS: BP 111/60
--- NOTE | 2019-01-03 11:06 | NUR ---
SS following up with discharge planning. Discharge orders and script received for palliative home healthcare and oxygen. SS phoned and faxed script and referral for oxygen to [facility], ; fax [phone]. Thompson from [facility] contacted SS and stated that insurance has approved oxygen. Pt's RN provided with oxygen tank for home. SS phoned and faxed discharge orders to [facility], ; fax [phone]. SS spoke with intake from [facility]. Pt's daughter notified of services. Pt's daughter reported that she will come to the hospital at 1145 to transport pt to home. Pt's RN notified.
--- NOTE | 2019-01-03 11:10 | PDOC ---
Objective: Objective: D/w nurse - home w/ palliative home health today. Vital Signs: Vital Signs Date Time Temp Pulse Resp B/P (MAP) Pulse Ox O2 Delivery O2 Flow Rate FiO2 01/03/19 10:41 Nasal Cannula 2.0 01/03/19 09:47 99 01/03/19 07:00 98.8 106 18 117/54 (75) 98.8 PE: GEN: in chair NEURO/PSYCH: sleeping - I did not wake her A/P: Metastatic colon cancer w/ pain Obstructive jaundice/cholestasis - s/p ERCP/stent Anorexia, constipation -- DC plans as above. RAFFI TYLER Jan 03, 2019 11:10
--- NOTE | 2019-01-03 12:35 | NUR ---
Discharge Note: AGATHA EASON BELFORD Discharge instructions and discharge home medications reviewed with Patient and daughter Marli and a copy given. All questions have been answered and understanding verbalized. The following instructions and handouts were given: information about cholecycstits, jaundice, hypokalemia, follow up appointments, medications, etc. Discontinued lines and drains: de-accessed patients right chest port-a-cath. Patient discharged to home with home health and palliative services, patient used wheelchair to get to discharge vehicle, patient left with daughter Marli.
== END 2019-01-03 12:35 | disposition home health service (06) | DRG 444 ==
LOC: 4 NORTH 08:26
PROVIDERS: ADMIT Internal Medicine; ATTEND Internal Medicine
PROC: BF101ZZ Fluoroscopy of Bile Ducts using Low Osmolar Contrast (ICD-10-PCS; 2018-12-24)
PROC: 0F7D8DZ Dilation of Pancreatic Duct with Intraluminal Device, Via Natural or Artificial Opening Endoscopic (ICD-10-PCS; principal; 2018-12-24 12:00)
DX: K83.1 Obstruction of bile duct (principal); E43 Unspecified severe protein-calorie malnutrition; C18.9 Malignant neoplasm of colon, unspecified; C77.9 Secondary and unspecified malignant neoplasm of lymph node, unspecified; K81.0 Acute cholecystitis; C78.7 Secondary malignant neoplasm of liver and intrahepatic bile duct; C79.70 Secondary malignant neoplasm of unspecified adrenal gland; J44.0 Chronic obstructive pulmonary disease with (acute) lower respiratory infection; K83.09 Other cholangitis; N39.0 Urinary tract infection, site not specified; B96.1 Klebsiella pneumoniae [K. pneumoniae] as the cause of diseases classified elsewhere; D64.9 Anemia, unspecified; F41.9 Anxiety disorder, unspecified; G47.00 Insomnia, unspecified; G62.9 Polyneuropathy, unspecified; H91.90 Unspecified hearing loss, unspecified ear; I50.9 Heart failure, unspecified; K12.1 Other forms of stomatitis; K21.9 Gastro-esophageal reflux disease without esophagitis; K59.03 Drug induced constipation; M19.90 Unspecified osteoarthritis, unspecified site; M43.16 Spondylolisthesis, lumbar region; T40.2X5A Adverse effect of other opioids, initial encounter; T45.1X5A Adverse effect of antineoplastic and immunosuppressive drugs, initial encounter; Z79.01 Long term (current) use of anticoagulants; Z79.899 Other long term (current) drug therapy; Z82.49 Family history of ischemic heart disease and other diseases of the circulatory system; Z85.038 Personal history of other malignant neoplasm of large intestine; Z85.51 Personal history of malignant neoplasm of bladder; Z86.72 Personal history of thrombophlebitis; Z87.01 Personal history of pneumonia (recurrent); Z87.891 Personal history of nicotine dependence; Z90.49 Acquired absence of other specified parts of digestive tract; Z68.23 Body mass index [BMI] 23.0-23.9, adult
CPT/HCPCS: 36415; 43274; 71046; 74018; 74181; 74330; 80048; 80053; 80076; 82150; 82962; 83690; 83735; 84100; 85007; 85025; 85610; 87040; 87641; 90471; 90686; 94618; 94640; 94760; 97168; C1713; C1757; J0330; J0610; J1170; J1650; J1940; J2001; J2185; J2270; J2405; J2543; J2704; J3475; J3480; J3490; J7030; J7120; J7620; Q0167; Q9967; 97110; 97116; 97530; 97535; G0378

== ENCOUNTER 2019-01-06 08:48 | Inpatient (IN) | payer OTHER ==
[2019-01-06] VITALS (13 sets, daily range): BP systolic 74–142; BP diastolic 41–75
[~2019-01-06] VITALS: Ht 167.6 cm; Wt 63.2 kg
[~2019-01-06 08:48] MED LIST changes: +BISA10SU4 PR; +FENT1PAT15 TD; +LACT20SO PO; +MORP100S3 SL; +NALO25TA2 PO; +OXYC1TAB22 PO
[2019-01-06] MEDS ORDERED: IV NORMAL SALINE 500ML BAG 500 ML IV ONE (10:30)
[2019-01-06] MEDS ORDERED: ELECTROLYTE (ICU) PROTOCOL. MC PRN (10:30)
[2019-01-06] MEDS ORDERED: MORPHINE SULFATE 2 MG/ML VIAL. IV PRN (10:30)
--- NOTE | 2019-01-06 10:31 | PDOC ---
Provider Note Provider Note [id number] acute resp fail abnl cxr sepsis see orders ASIYA ROY MD Jan 06, 2019 10:31
--- NOTE | 2019-01-06 10:43 | CONS ---
DATE OF CONSULTATION: 01/06/2019 REASON FOR CONSULTATION: I was asked to see this 63-year-old lady for acute respiratory failure. HISTORY OF PRESENT ILLNESS: The patient is currently lethargic, is not able to give me any information. All of the information was obtained from her brother and daughter. She has aggressive metastatic colon cancer, presented to [facility] today. She was discharged 3 days ago after putting a stent in her biliary system. She was admitted earlier this month for ascending cholangitis. She has history of Pneumocystis jiroveci pneumonia and C. diff. She was very lethargic. Her pain medication was decreased and she was alert couple of days ago, but she started to have increased shortness of breath and was in respiratory distress. She was taken to [facility], transferred to [facility] for further evaluation. Her CT of the chest did not show pulmonary embolism, but showed numerous masses throughout lungs consistent with worsening metastatic cancer. Her CT also did show liver masses, increased in size and number. Mild mediastinal lymphadenopathy also was noted. Currently, she does not answer any of my questions. She is on 50% FiO2 with O2 saturation of 96%. Her blood pressure is 100/60. She is slightly tachypneic. PAST MEDICAL HISTORY: Metastatic colon cancer; history of recent pneumonia, PJP, was on ventilator for extended time; Port-A-Cath placement; ureteral stent placement; colon resection; biliary stent placement. SOCIAL HISTORY: She is a former smoker, quit many years ago. FAMILY HISTORY: There is no history of lung disease. ALLERGIES: No known drug allergies. MEDICATIONS: Currently, she is on Zosyn, Solu-Medrol, DuoNeb. REVIEW OF SYSTEMS: As mentioned as above. I have discussed the patient with family and RN. Other systems are otherwise negative. PHYSICAL EXAMINATION: GENERAL: This is a chronically ill-appearing lady. VITAL SIGNS: Her O2 saturation is 96%, respiratory rate 26, heart rate 120, blood pressure 100/60. HEENT: Normocephalic, atraumatic. Pupils equal, round, reactive to light. NECK: There is no JVD or lymphadenopathy. CARDIOVASCULAR: Tachycardic. On inspection, she is tachypneic. LUNGS: There are bibasilar crackles and expiratory wheezing, dullness at the bases. ABDOMEN: Soft. Bowel sounds are good. EXTREMITIES: There is no edema. LYMPHATICS: There is no lymphadenopathy. NEUROLOGIC: She is lethargic. SKIN: icterus LABORATORY DATA: CT of the chest as mentioned as above. In [facility] today, WBC 24.5, hemoglobin 11.2, platelets 201. Sodium 132, potassium 3.2, chloride 94, CO2 of 23, BUN 17, creatinine 0.7, magnesium 1.4, total bilirubin 6.9. BNP 1478. Troponin 0.25. Influenza A and B negative. IMPRESSION: 1. Acute hypoxemic respiratory failure, multifactorial in etiology; sepsis; acute bronchospasm; worsening lung metastasis, cannot rule out pneumonia versus others. 2. Abnormal CT of the chest. 3. Aggressive metastatic colon cancer. 4. Sepsis, source unknown at this point. 5. Electrolyte abnormality. 6. Elevated liver function tests. 7. Elevated troponin. PLAN AND RECOMMENDATIONS: 1. Titrate FiO2 to keep O2 saturation 92%. 2. I will do ABG. 3. Bronchodilator. 4. Continue steroid. 5. Antibiotic. 6. Blood culture before antibiotics given. 7. I have discussed the code status with her brother and daughter. They are requesting DNR/DNI. I will discuss with Dr. Mann. 8. Check lactate level. 9. The overall prognosis is poor. Thank you very much for allowing me to participate in care of this very nice lady. The findings and recommendations were discussed with the patient's brother and daughter, RN. ASIYA ROY M.D. : David JOB#: [id number] / [id number] ALE
[2019-01-06] MEDS ORDERED: C.DIFF MED SCREEN BY RX. MC ONE (10:45)
--- NOTE | 2019-01-06 11:24 | PDOC ---
Provider Note Provider Note Cardiology asked to evaluate for positive troponin. 63 y.o with metastatic cancer. She has a very poor prognosis No further indication for CV treatment at this time. Please stop troponin labs. She has metastatic cancer with spread to the lungs. I have discussed with family that cardiac intervention in this setting would not prolong life or improve quality of life. Patient and family are thinking about home hospice. Await family decisions Thanks. MARYAM BLANCA MD Jan 06, 2019 11:24
[2019-01-06] MEDS: IV NORMAL SALINE 1000ML BAG 1,000 ML IV SCH (11:30)
[2019-01-06] MEDS ORDERED: POTASSIUM CHL 20MEQ PREMIX 50 ML IV ONE (11:30)
--- NOTE | 2019-01-06 11:43 | PDOC ---
Provider Note Provider Note Pt seen and examined ID consult dictated Thank you IMP: Acute resp failure Aggressive Metastatic Colon ca Lung masses Sepsis Leucocytosis abn lfts prognosis poor REC: Merrem zyvox bc induced sputum for PJP F/U labs and cults LIANG ZAPATA MD Jan 06, 2019 11:43
[2019-01-06] MEDS: IPRATRPIUM/ALBUTEROL 0.5/2.5MG 3 ML NEBU. NEB SCH ×3 (11:46→20:56)
[2019-01-06] MEDS: methylPREDNISolone SOD SUCC PF 40 MG/ML VIAL. IV SCH ×3 (11:53→20:47)
--- NOTE | 2019-01-06 12:00 | NUR ---
Patient arrived from [facility] via EMS, patient opens eyes to voice, follows some commands, Sinus Tach on monitor, O2 sat 95% on 50% Venti Mask. Daughter and brother at bedside. Dr. Mann called and orders received. Dr. Mann also notified of Severe Sepsis screen, orders received. Will continue to monitor.
[2019-01-06 12:02] LABS: BASE EXCESS ABG 0 mmol/L (-3-3); HCO3 ABG 23 mmol/L (21-28); PCO2 ABG 32 mmHg (35-46); PO2 ABG 73 mmHg (65-108); SAT O2 ABG 94 % (92-99)
[2019-01-06 12:04] LABS: FIO2 ABG 50
[2019-01-06] MEDS: MEROPENEM 500 MG in IV NORMAL SALINE 50ML 50 ML IV SCH ×2 (12:26→18:20)
--- NOTE | 2019-01-06 13:01 | CONS ---
DATE OF CONSULTATION: 01/06/2019 REASON FOR CONSULTATION: Antibiotic management for sepsis. HISTORY OF PRESENT ILLNESS: The patient is unable to give any information as she is very lethargic. History obtained from daughter at bedside and from the nursing staff. The patient is well known to our service from recent hospitalization. A 63-year-old female who presented to [facility] today with increased shortness of breath and respiratory distress. CT of the chest did not show any pulmonary embolism, but showed numerous masses throughout the lung consistent with worsening metastatic disease. CT also showed liver masses increased in number and size. Mild mediastinal lymphadenopathy was also noted. The patient was recently discharged from [facility] with possible acute ascending cholangitis, status post ERCP with stent placement on 12/24/2018 with some improvement. The patient had Klebsiella in the urine, probable ESBL. Today, the patient is nonverbal, opens her eyes transiently, is very weak and lethargic. Temperature was 97.9, pulse of 117. White count was elevated at [facility] with abnormal LFTs, anemia. The patient has received IV fluid bolus, was started on Zosyn and methylprednisolone. ID consult has been requested for antibiotic management. PAST MEDICAL HISTORY: Metastatic colon cancer, on palliative chemo; history of C. diff; history of acute respiratory failure; pneumonia, possible PJP treated with Bactrim; peripheral neuropathy; history of DVT; anemia; osteoarthritis; history of recent ERCP for obstructive jaundice; history of possible ESBL Klebsiella UTI. PAST SURGICAL HISTORY: Port-A-Cath placement, ureteral stent placement, colon resection in 2018, ERCP with stent. SOCIAL HISTORY: Lives at home. Nonsmoker. FAMILY HISTORY: Nonalcoholic hepatitis, myocardial infarction, heart disease. ALLERGIES: No known drug allergies. CURRENT MEDICATIONS: Zosyn, fentanyl, ipratropium and albuterol, methylprednisolone, morphine. PHYSICAL EXAMINATION: VITAL SIGNS: Temperature 97.9, pulse 117, respiratory rate 18, blood pressure 111/60, oxygen saturation 92% on 2 liters O2. GENERAL: Chronically ill-appearing female, lethargic, opens eyes transiently, does not answer any questions, appears comfortable. HEENT: Normocephalic, atraumatic. Anicteric. No thrush. NECK: Supple, no lymphadenopathy. LUNGS: Decreased breath sounds at the bases. No wheezing. ABDOMEN: Soft, nontender, bowel sounds present, nondistended. EXTREMITIES: No edema, no cyanosis. NEUROLOGIC: Lethargic, does not answer any questions, opens eyes transiently. DERMATOLOGIC: Warm, dry, no generalized rash. Port-A-Cath site looks okay. LABORATORY DATA: White count elevated at [facility]; otherwise, labs are pending here. CT of the chest as above. Influenza screen negative. Creatinine 0.7. Troponin 0.25. IMPRESSION: 1. Acute hypoxic respiratory failure, multifactorial with worsening lung metastasis, etiology could be infectious pneumonia versus other noninfectious etiology. 2. Aggressive metastatic worsening colon cancer to lungs and liver. 3. Sepsis, source unclear at this time. 4. Leukocytosis. 5. Abnormal liver function tests. 6. Elevated troponin. 7. Severe protein-calorie malnutrition. 8. Electrolyte abnormality. 9.Lethargy RECOMMENDATIONS: 1. Discontinue Zosyn. 2. Start the patient on empiric meropenem with history of ESBL Klebseilla pneumoniae. 3. Monitor lab values and cultures. 4. Pulmonary following. 5. Prognosis is very poor. 6. Continue supportive care. Discussed with family at bedside. Thank you, Dr. Mann, for consulting Infectious Disease to participate in this patient's care. We will follow along with you. LIANG ZAPATA MD DR: DILAN/ru JOB#: [id number] / [id number] ALE
[2019-01-06] MEDS ORDERED: PIPERACILLIN/TAZOBACTAM 3.375 GM in IV NORMAL SALINE 50ML 50 ML IV SCH (14:00)
[2019-01-06] MEDS ORDERED: BISACODYL 10 MG SUPP.RECT. PR PRN (15:00)
[2019-01-06] MEDS ORDERED: ZOLPIDEM 5 MG TABLET. PO PRN (15:00)
[2019-01-06] MEDS: ENOXAPARIN 40 MG/0.4 ML SYRINGE. SQ SCH (15:59)
[2019-01-06] MEDS: MORPHINE SULFATE 20 MG/ML CONC SOLUTION. SL PRN (18:31)
[2019-01-06] MEDS ORDERED: fentaNYL 12MCG/HR PATCH 1 PATCH PATCH.TD72 TD SCH (20:45)
[2019-01-06] MEDS: GABAPENTIN 300 MG CAPSULE. PO SCH (20:48)
[2019-01-06] MEDS: LACTOBACILLUS RHAMNOSUS GG 1 CAPSULE. PO SCH (20:48)
[2019-01-06] MEDS: ASCORBIC ACID 500 MG TABLET PO SCH (20:51)
[2019-01-06] MEDS ORDERED: methylPREDNISolone SOD SUCC PF 40 MG/ML VIAL. IV SCH (21:00)
[2019-01-07] VITALS (10 sets, daily range): BP systolic 107–144; BP diastolic 57–68
[2019-01-07] MEDS: MEROPENEM 500 MG in IV NORMAL SALINE 50ML 50 ML IV SCH ×3 (00:06→12:37)
[2019-01-07] MEDS ORDERED: LORazepam 1 MG TABLET PO PRN (01:00)
--- NOTE | 2019-01-07 03:43 | NUR ---
Patient with anxiety, soa with minimal exertion, but continuously taking o2 off, removing b/p cuff from left arm, earlier in the shift, she disconnected her o2 pulse ox line, she has had ambien, fentanyl patch placed on right posterior shoulder, ativan po, reports bed is 'uncomfortable', declines to be pulled up and repositioned, seems to occasionally be agitated that daughter (at bedside), frequently asking her questions.. RR fluctuates between 24-40's, but with her restlessness. To monitor.
[2019-01-07] MEDS: IV NORMAL SALINE 1000ML BAG 1,000 ML IV SCH ×2 (05:30→06:30)
[2019-01-07 05:58] LABS: BASO % 0 % (0-3); EOS % 0 % (0-3); HEMOGLOBIN 9.1 g/dL (12.0-15.5); LYMPH # 2.2 x10^3/uL (1.0-4.8); LYMPH % 15 % (24-48); MEAN CORPUSCULAR HEMOGLOBIN 31 pg (25-35); MEAN CORPUSCULAR HGB CONC 32 g/dL (31-37); MEAN CORPUSCULAR VOLUME 95 fL (79-100); MONO # 0.3 x10^3/uL (0.0-1.1); MONO % 2 % (0-9); NEUT # 12.5 x10^3/uL (1.8-7.7); NEUT % 83 % (31-73); PLATELET COUNT 136 x10^3/uL (140-400); RED BLOOD COUNT 2.94 x10^6/uL (3.50-5.40); RED CELL DISTRIBUTION WIDTH 19.8 % (11.5-14.5)
[2019-01-07 06:09] LABS: PROTHROMBIN TIME PATIENT 19.6 SEC (11.7-14.0)
[2019-01-07 06:32] LABS: ALBUMIN 1.2 g/dL (3.4-5.0); ALBUMIN/GLOBULIN RATIO 0.3 (1.0-1.7); CALCIUM 8.4 mg/dL (8.5-10.1); CREATININE 0.4 mg/dL (0.6-1.0); GFR 161.7; MAGNESIUM 1.6 mg/dL (1.8-2.4); POTASSIUM 3.9 mmol/L (3.5-5.1); TOTAL BILIRUBIN 5.6 mg/dL (0.2-1.0); TOTAL PROTEIN 5.3 g/dL (6.4-8.2)
[2019-01-07] MEDS: IPRATRPIUM/ALBUTEROL 0.5/2.5MG 3 ML NEBU. NEB SCH ×2 (06:52→13:19)
--- NOTE | 2019-01-07 08:23 | PDOC ---
Infectious Disease Note Subjective: Subjective pt is more alert today says sob, feels tired family is deciding on goals of tx no f/c/n/v/d/abdo pain ROS: ROS neg d/w rn Vital Signs: Vital Signs Vital Signs Date Time Temp Pulse Resp B/P (MAP) Pulse Ox O2 Delivery O2 Flow Rate FiO2 01/07/19 06:52 92 Nasal Cannula 6.0 01/07/19 06:09 33 114/57 (76) 01/07/19 04:10 97.7 101 97.7 Physical Exam: PHYSICAL EXAM GENERAL: Chronically ill-appearing female, alert awake appears comfortable. HEENT: Normocephalic, atraumatic. Anicteric. No thrush. NECK: Supple, no lymphadenopathy. LUNGS: Decreased breath sounds at the bases. No wheezing. ABDOMEN: Soft, nontender, bowel sounds present, nondistended. EXTREMITIES: No edema, no cyanosis. NEUROLOGIC: moves all 4 ext DERMATOLOGIC: Warm, dry, no generalized rash. Port-A-Cath site looks okay. Medications: Inpatient Meds: Current Medications Medications (Trade) Dose Ordered Sig/Chrissy Start Time Stop Time Status Last Admin Dose Admin Albuterol/ Ipratropium (Duoneb) 3 ml RTQID 01/06/19 12:00 01/07/19 06:52 3 ML Ascorbic Acid (Vitamin C) 500 mg BID 01/06/19 21:00 01/06/19 20:51 500 MG Bisacodyl (Dulcolax Supp) 10 mg PRN DAILY PRN 01/06/19 15:00 Citalopram Hydrobromide (CeleXA) 20 mg DAILY 01/07/19 09:00 Enoxaparin Sodium (Lovenox 40mg Syringe) 40 mg Q24H 01/06/19 14:00 01/06/19 15:59 40 MG Fentanyl (Duragesic 12mcg/ Hr Patch) 1 patch Q3DAYS 01/06/19 20:45 01/06/19 20:47 1 PATCH Gabapentin (Neurontin) 300 mg BID 01/06/19 21:00 01/06/19 20:48 300 MG Info (Icu Electrolyte Protocol) 1 ea CONT PRN PRN 01/06/19 10:30 Lactobacillus Rhamnosus (Culturelle) 1 cap BID 01/06/19 21:00 01/06/19 20:48 1 CAP Linezolid/Dextrose 300 ml @ 300 mls/hr Q12HR 01/06/19 12:30 01/06/19 20:47 300 MLS/HR Lorazepam (Ativan) 1 mg PRN Q4HRS PRN 01/07/19 01:00 01/07/19 02:17 1 MG Meropenem 500 mg/ Sodium Chloride 50 ml @ 100 mls/hr Q6HRS 01/06/19 12:30 01/07/19 05:30 100 MLS/HR Methylprednisolone Sodium Succinate (SOLU-Medrol 40MG VIAL) 40 mg Q12HR 01/06/19 11:00 01/06/19 20:47 40 MG Morphine Sulfate (Morphine Sulfate) 2 mg PRN Q4HRS PRN 01/06/19 10:30 Morphine Sulfate (Roxanol Conc) 10 mg PRN Q3HRS PRN 01/06/19 18:00 01/06/19 18:31 10 MG Non-Formulary Medication (Naloxegol Oxalate (Movantik)) 25 mg DAILY 01/07/19 09:00 UNV Pharmacy Consult (C.diff Med Screen By Rx) 1 each 1X ONCE 01/06/19 10:45 01/06/19 10:46 DC Piperacillin Sod/ Tazobactam Sod 3.375 gm/Sodium Chloride 50 ml @ 100 mls/hr Q8HRS 01/06/19 14:00 01/06/19 11:39 DC Potassium Chloride/Water 50 ml @ 50 mls/hr 1X ONCE 01/06/19 11:30 01/06/19 12:29 DC 01/06/19 12:47 50 MLS/HR Sodium Chloride 1,000 ml @ 100 mls/hr Q10H 01/06/19 10:30 01/07/19 05:30 100 MLS/HR Zolpidem Tartrate (Ambien) 5 mg PRN QHS PRN 01/06/19 15:00 01/06/19 21:55 5 MG Labs: Lab Laboratory Tests Test 01/06/19 11:30 01/06/19 11:55 01/07/19 05:30 O2 Saturation 94 % (92-99) Arterial Blood pH 7.48 (7.35-7.45) Arterial Blood pCO2 at Patient Temp 32 mmHg (35-46) Arterial Blood pO2 at Patient Temp 73 mmHg (65-108) Arterial Blood HCO3 23 mmol/L (21-28) Arterial Blood Base Excess 0 mmol/L (-3-3) FiO2 50 Lactic Acid Level 1.7 mmol/L (0.4-2.0) White Blood Count 15.0 x10^3/uL (4.0-11.0) Red Blood Count 2.94 x10^6/uL (3.50-5.40) Hemoglobin 9.1 g/dL (12.0-15.5) Hematocrit 28.0 % (36.0-47.0) Mean Corpuscular Volume 95 fL (79-100) Mean Corpuscular Hemoglobin 31 pg (25-35) Mean Corpuscular Hemoglobin Concent 32 g/dL (31-37) Red Cell Distribution Width 19.8 % (11.5-14.5) Platelet Count 136 x10^3/uL (140-400) Neutrophils (%) (Auto) 83 % (31-73) Lymphocytes (%) (Auto) 15 % (24-48) Monocytes (%) (Auto) 2 % (0-9) Eosinophils (%) (Auto) 0 % (0-3) Basophils (%) (Auto) 0 % (0-3) Neutrophils # (Auto) 12.5 x10^3/uL (1.8-7.7) Lymphocytes # (Auto) 2.2 x10^3/uL (1.0-4.8) Monocytes # (Auto) 0.3 x10^3/uL (0.0-1.1) Eosinophils # (Auto) 0.0 x10^3/uL (0.0-0.7) Basophils # (Auto) 0.0 x10^3/uL (0.0-0.2) Prothrombin Time 19.6 SEC (11.7-14.0) Prothromb Time International Ratio 1.7 (0.8-1.1) Sodium Level 134 mmol/L (136-145) Potassium Level 3.9 mmol/L (3.5-5.1) Chloride Level 100 mmol/L (98-107) Carbon Dioxide Level 25 mmol/L (21-32) Anion Gap 9 (6-14) Blood Urea Nitrogen 11 mg/dL (7-20) Creatinine 0.4 mg/dL (0.6-1.0) Estimated GFR (Cockcroft-Gault) 161.7 BUN/Creatinine Ratio 28 (6-20) Glucose Level 130 mg/dL (70-99) Calcium Level 8.4 mg/dL (8.5-10.1) Magnesium Level 1.6 mg/dL (1.8-2.4) Total Bilirubin 5.6 mg/dL (0.2-1.0) Aspartate Amino Transf (AST/SGOT) 224 U/L (15-37) Alanine Aminotransferase (ALT/SGPT) 120 U/L (14-59) Alkaline Phosphatase 2583 U/L (46-116) Total Protein 5.3 g/dL (6.4-8.2) Albumin 1.2 g/dL (3.4-5.0) Albumin/Globulin Ratio 0.3 (1.0-1.7) Objective: Assessment: 1. Acute hypoxic respiratory failure, multifactorial with worsening lung metastasis, etiology could be infectious pneumonia versus other noninfectious etiology. 2. Aggressive metastatic worsening colon cancer to lungs and liver. 3. Sepsis, source unclear at this time. 4. Leukocytosis. 5. Abnormal liver function tests. 6. Elevated troponin. 7. Severe protein-calorie malnutrition. 8. Electrolyte abnormality. Plan: Plan of Care Cont meropenem with history of ESBL Klebseilla pneumoniae. Monitor lab values and cultures. Continue supportive care. family is deciding on possible comfort measures Prognosis is very poor. LIANG ZAPATA MD Jan 07, 2019 08:23
[2019-01-07] MEDS: MORPHINE SULFATE 20 MG/ML CONC SOLUTION. SL PRN (08:28)
[2019-01-07] MEDS: methylPREDNISolone SOD SUCC PF 40 MG/ML VIAL. IV SCH (08:32)
[2019-01-07] MEDS: GABAPENTIN 300 MG CAPSULE. PO SCH (08:35)
[2019-01-07] MEDS: LACTOBACILLUS RHAMNOSUS GG 1 CAPSULE. PO SCH (09:00)
[2019-01-07] MEDS ORDERED: NON FORMULARY ITEM (Naloxegol Oxalate (Movantik) 25 MG) PO SCH (09:00)
[2019-01-07] MEDS ORDERED: CITALOPRAM 20 MG TABLET. PO SCH (09:00)
[2019-01-07] MEDS: ASCORBIC ACID 500 MG TABLET PO SCH (09:00)
--- NOTE | 2019-01-07 09:15 | PDOC ---
PULMONARY PROGRESS NOTES Subjective PT AT TIMES SOA NOW ON 2 NC DOES NOT LIKE BIPAP Vitals Vital Signs Date Time Temp Pulse Resp B/P (MAP) Pulse Ox O2 Delivery O2 Flow Rate FiO2 01/07/19 08:28 92 Nasal Cannula 6.0 01/07/19 06:09 33 114/57 (76) 01/07/19 04:10 97.7 101 97.7 ROS: No Nausea, No Chest Pain, No Abdominal Pain, No Increase Cough General: Alert, No acute distress Lungs: Crackles Cardiovascular: S1, S2 Abdomen: Soft, Non-tender, Other Neuro Exam: Alert Extremities: No Edema Skin: Warm Labs Laboratory Tests Test 01/06/19 11:30 01/06/19 11:55 01/07/19 05:30 O2 Saturation 94 % (92-99) Arterial Blood pH 7.48 (7.35-7.45) Arterial Blood pCO2 at Patient Temp 32 mmHg (35-46) Arterial Blood pO2 at Patient Temp 73 mmHg (65-108) Arterial Blood HCO3 23 mmol/L (21-28) Arterial Blood Base Excess 0 mmol/L (-3-3) FiO2 50 Lactic Acid Level 1.7 mmol/L (0.4-2.0) White Blood Count 15.0 x10^3/uL (4.0-11.0) Red Blood Count 2.94 x10^6/uL (3.50-5.40) Hemoglobin 9.1 g/dL (12.0-15.5) Hematocrit 28.0 % (36.0-47.0) Mean Corpuscular Volume 95 fL (79-100) Mean Corpuscular Hemoglobin 31 pg (25-35) Mean Corpuscular Hemoglobin Concent 32 g/dL (31-37) Red Cell Distribution Width 19.8 % (11.5-14.5) Platelet Count 136 x10^3/uL (140-400) Neutrophils (%) (Auto) 83 % (31-73) Lymphocytes (%) (Auto) 15 % (24-48) Monocytes (%) (Auto) 2 % (0-9) Eosinophils (%) (Auto) 0 % (0-3) Basophils (%) (Auto) 0 % (0-3) Neutrophils # (Auto) 12.5 x10^3/uL (1.8-7.7) Lymphocytes # (Auto) 2.2 x10^3/uL (1.0-4.8) Monocytes # (Auto) 0.3 x10^3/uL (0.0-1.1) Eosinophils # (Auto) 0.0 x10^3/uL (0.0-0.7) Basophils # (Auto) 0.0 x10^3/uL (0.0-0.2) Prothrombin Time 19.6 SEC (11.7-14.0) Prothromb Time International Ratio 1.7 (0.8-1.1) Sodium Level 134 mmol/L (136-145) Potassium Level 3.9 mmol/L (3.5-5.1) Chloride Level 100 mmol/L (98-107) Carbon Dioxide Level 25 mmol/L (21-32) Anion Gap 9 (6-14) Blood Urea Nitrogen 11 mg/dL (7-20) Creatinine 0.4 mg/dL (0.6-1.0) Estimated GFR (Cockcroft-Gault) 161.7 BUN/Creatinine Ratio 28 (6-20) Glucose Level 130 mg/dL (70-99) Calcium Level 8.4 mg/dL (8.5-10.1) Magnesium Level 1.6 mg/dL (1.8-2.4) Total Bilirubin 5.6 mg/dL (0.2-1.0) Aspartate Amino Transf (AST/SGOT) 224 U/L (15-37) Alanine Aminotransferase (ALT/SGPT) 120 U/L (14-59) Alkaline Phosphatase 2583 U/L (46-116) Total Protein 5.3 g/dL (6.4-8.2) Albumin 1.2 g/dL (3.4-5.0) Albumin/Globulin Ratio 0.3 (1.0-1.7) Laboratory Tests Test 01/06/19 11:30 01/06/19 11:55 01/07/19 05:30 O2 Saturation 94 % (92-99) Arterial Blood pH 7.48 (7.35-7.45) Arterial Blood pCO2 at Patient Temp 32 mmHg (35-46) Arterial Blood pO2 at Patient Temp 73 mmHg (65-108) Arterial Blood HCO3 23 mmol/L (21-28) Arterial Blood Base Excess 0 mmol/L (-3-3) FiO2 50 Lactic Acid Level 1.7 mmol/L (0.4-2.0) White Blood Count 15.0 x10^3/uL (4.0-11.0) Red Blood Count 2.94 x10^6/uL (3.50-5.40) Hemoglobin 9.1 g/dL (12.0-15.5) Hematocrit 28.0 % (36.0-47.0) Mean Corpuscular Volume 95 fL (79-100) Mean Corpuscular Hemoglobin 31 pg (25-35) Mean Corpuscular Hemoglobin Concent 32 g/dL (31-37) Red Cell Distribution Width 19.8 % (11.5-14.5) Platelet Count 136 x10^3/uL (140-400) Neutrophils (%) (Auto) 83 % (31-73) Lymphocytes (%) (Auto) 15 % (24-48) Monocytes (%) (Auto) 2 % (0-9) Eosinophils (%) (Auto) 0 % (0-3) Basophils (%) (Auto) 0 % (0-3) Neutrophils # (Auto) 12.5 x10^3/uL (1.8-7.7) Lymphocytes # (Auto) 2.2 x10^3/uL (1.0-4.8) Monocytes # (Auto) 0.3 x10^3/uL (0.0-1.1) Eosinophils # (Auto) 0.0 x10^3/uL (0.0-0.7) Basophils # (Auto) 0.0 x10^3/uL (0.0-0.2) Prothrombin Time 19.6 SEC (11.7-14.0) Prothromb Time International Ratio 1.7 (0.8-1.1) Sodium Level 134 mmol/L (136-145) Potassium Level 3.9 mmol/L (3.5-5.1) Chloride Level 100 mmol/L (98-107) Carbon Dioxide Level 25 mmol/L (21-32) Anion Gap 9 (6-14) Blood Urea Nitrogen 11 mg/dL (7-20) Creatinine 0.4 mg/dL (0.6-1.0) Estimated GFR (Cockcroft-Gault) 161.7 BUN/Creatinine Ratio 28 (6-20) Glucose Level 130 mg/dL (70-99) Calcium Level 8.4 mg/dL (8.5-10.1) Magnesium Level 1.6 mg/dL (1.8-2.4) Total Bilirubin 5.6 mg/dL (0.2-1.0) Aspartate Amino Transf (AST/SGOT) 224 U/L (15-37) Alanine Aminotransferase (ALT/SGPT) 120 U/L (14-59) Alkaline Phosphatase 2583 U/L (46-116) Total Protein 5.3 g/dL (6.4-8.2) Albumin 1.2 g/dL (3.4-5.0) Albumin/Globulin Ratio 0.3 (1.0-1.7) Medications Active Scripts Medications Dose Route/Sig Max Daily Dose Days Date Category Lactulose 20 Gm/30 Ml Solution 20 Gm PO PRN DAILY PRN 30 01/03/19 Rx Percocet 10-325 Mg Tablet (Oxycodone/Acetaminophen) 1 Each Tablet 1 Tab PO PRN Q4HRS PRN 30 01/02/19 Rx Morphine Sulfate 100 Mg/5 Ml Solution 10 Mg SL PRN Q3HRS PRN 30 01/02/19 Rx Movantik (Naloxegol Oxalate) 25 Mg Tablet 25 Mg PO DAILY 30 01/02/19 Rx Bisacodyl 10 Mg Supp.rect 10 Mg [place] PRN DAILY PRN 30 01/02/19 Rx Imodium A-D (Loperamide HCl) 2 Mg Capsule 2 Mg PO PRN Q4HRS PRN 11/01/18 Reported Ambien (Zolpidem Tartrate) 5 Mg Tablet 5 Mg PO PRN QHS PRN 11/01/18 Reported Gabapentin (Gabapentin) 300 Mg Capsule 300 Mg PO BID 11/01/18 Reported Escitalopram Oxalate 10 Mg Tablet 1 Tab PO DAILY 02/23/18 Reported Acyclovir 400 Mg Tablet 1 Tab PO BID 02/23/18 Reported Culturelle (Lactobacillus Rhamnosus Gg) 1 Each Capsule 1 Each PO BID 11/27/17 Reported Ascorbic Acid 500 Mg Tablet 500 Mg PO BID 30 11/17/17 Rx Impression . IMPRESSION: 1. Acute hypoxemic respiratory failure, multifactorial in etiology; sepsis; acute bronchospasm; worsening lung metastasis, cannot rule out pneumonia 2. Abnormal CT of the chest. 3. Aggressive metastatic colon cancer. 4. Sepsis, source unknown at this point. 5. Electrolyte abnormality. 6. Elevated liver function tests. 7. Elevated troponin. Plan . WILL CONTINUE THE SAME PROGNOSIS IS POOR TRANSFER TO FLOOR D/W FAMILY 1. Titrate FiO2 to keep O2 saturation 92%. 2. I will do ABG. 3. Bronchodilator. 4. Continue steroid. 5. Antibiotic. ROLAND POSADAS MD Jan 07, 2019 09:15
[2019-01-07] MEDS ORDERED: MORPHINE SULFATE 4 MG/ML VIAL. IV PRN (09:30)
[2019-01-07] MEDS ORDERED: fentaNYL PF VIAL 100 MCG/2 ML VIAL IVP PRN (09:45)
[2019-01-07] MEDS ORDERED: MORPHINE SULFATE 20 MG/ML CONC SOLUTION. SL PRN (09:45)
--- NOTE | 2019-01-07 09:48 | PDOC2 ---
PALLIATIVE CARE Palliative Care Note Palliative Care Consult requested by Dr Interiano to assist with plan of care. Patient alert/confused/restless most of time. 0930 Patient complained of severe chest pain. Oxygen saturations 74%. RR 35- 40. Patient's brother at bedside. Morphine given per order of Dr. Mann with good relief. Saturations returned to mid 80's. Will continue to follow for symptom management and family support. CARLA ABARCA Jan 07, 2019 09:48
--- NOTE | 2019-01-07 09:49 | PDOC2 ---
CONSULT Date of Consult Date of Consult DATE: 01/07/19 TIME: 09:42 Reason for consultation: Pain, back in-house Consult: Hematology oncology, Dr. Mayra Interiano History of present illness: She is a 63-year-old female who has been on FOLFOXIRI with Avastin, (oxaliplatin held recently due to neuropathy), palliative chemotherapy for aggressive colon cancer, unfortunately she was admitted with pneumonia Nov 2018 and treated for PJP pneumonia which was suspected but not confirmed, and has had a declining functional status since that respiratory failure episode. Unfortunately she had abdominal pain in the right upper quadrant, due to underlying cancer and levels of bilirubin improved after stent with ERCP and she was discharged last week though unfortunately she has had issues with pain and trouble breathing and is on antibiotics and readmitted. Currently in the ICU. Having pain, right upper quadrant, moderate, chronic, worse due to cancer, 5 out of 10 currently, improved with fentanyl, associated with some visual hallucinations when the fentanyl dose increases, also she has shortness of breath and cough, feels like it is somewhat productive. She was transferred from [facility]. Past medical history: Metastatic colon cancer History of C. difficile History of PJP pneumonia Peripheral neuropathy DVT Iron deficient anemia Osteoarthritis Left lower extremity superficial venous phlebitis Gout Hearing loss Herpes History of diverticulitis Noninvasive bladder cancer Past surgical history: Port placement Ureteral stent and bladder biopsy Colon resection ERCP Allergies: No known drug allergies Medications: See attached list Social history: , 2 daughters, no tobacco since 2007, no alcohol Family history: Heart disease, no cancer Review of systems: Weight loss, fatigue, abdominal pain, nausea, constipation, peripheral neuropathy, depression with disease, dyspnea, cough, visual hallucinations, otherwise 10 point review of systems negative Physical exam: Vitals reviewed Gen.: Thin jaundiced woman, resting in bed HEENT: mucous membranes moist, head normocephalic atraumatic Neck: Supple, no lymphadenopathy Lymph nodes: No palpable lymphadenopathy neck or axilla Lungs: Breathing comfortably w/o respiratory distress Heart: Regular rate and rhythm Abdomen: Soft, tender to palpation RUQ, nondistended Extremities: No cyanosis or signif edema Skin: No obvious rashes or skin breakdown Neuro: Alert, able to answer questions but some answers are confused Psych: pleasant mood and tired affect Lab reviewed: White count 15, hemoglobin 9.1, platelets 136 INR 1.7 Alkaline phosphatase 2583 T bili 5.6 Rads reviewed: Show stool, gas, distention, biliary stent from [facility] from 30 December Case discussed with: Her, her family, Ms Sarmiento, records reviewed in [facility], including labs and radiology, please see note for summary details. Assessment and Plan: Ms New is a 63-year-old female with aggressive metastatic colon cancer who had unfortunate suspected PJP pneumonia for which she was treated in November and has had declining functional status and progressive disease while being off chemotherapy re-admitted Hyperbilirubinemia: bili is too high at baseline to repeat chemotherapy, we should focus on comfort care at this point in time, do not suspect she will ever be strong enough for chemotherapy again confusion: We'll check ammonia level Metastatic colon cancer: rec palliative care, appreciate Ms Sarmiento, we should focus on comfort care at this point in time History of DVT: Lovenox prophylaxis, may be stopped if any concern for bleeding Thank you kindly for this consultation, and please do not hesitate to call with any further questions. Past Medical History Cardiovascular: Other Pulmonary: Pneumonia CENTRAL NERVOUS SYSTEM: Periperal neuropathy GI: GERD, Other Heme/Onc: Anemia NOS, Cancer, Other Hepatobiliary: No pertinent hx Psych: Anxiety Musculoskeletal: Osteoarthritis Rheumatologic: No pertinent hx Infectious disease: No pertinent hx Renal/: No pertinent hx Endocrine: No pertinent hx Past Surgical History Past Surgical History: Colon Resection, Other Family History Family History: Heart Disease Social History ALCOHOL: occassional Drugs: None Lives: with Family Current Medications Current Medications Current Medications Piperacillin Sod/ Tazobactam Sod 3.375 gm/Sodium Chloride 50 ml @ 100 mls/hr Q8HRS IV ; Start 01/06/19 at 14:00; Stop 01/06/19 at 11:39; Status DC Methylprednisolone Sodium Succinate (SOLU-Medrol 40MG VIAL) 40 mg Q12HR IV ; Start 01/06/19 at 21:00; Stop 01/06/19 at 10:58; Status DC Fentanyl (Duragesic 12mcg/ Hr Patch) 1 patch Q3DAYS TD ; Start 01/09/19 at 09:00; Stop 01/06/19 at 20:36; Status DC Morphine Sulfate (Morphine Sulfate) 2 mg PRN Q4HRS PRN IV PAIN Last administered on 01/07/19at 09:34; Start 01/06/19 at 10:30; Stop 01/07/19 at 09:28; Status DC Sodium Chloride 500 ml @ 500 mls/hr 1X ONCE IV Last administered on 01/06/19a t 10:30; Start 01/06/19 at 10:30; Stop 01/06/19 at 11:29; Status DC Sodium Chloride 1,000 ml @ 100 mls/hr Q10H IV Last administered on 01/07/19at 05:30; Start 01/06/19 at 10:30 Albuterol/ Ipratropium (Duoneb) 3 ml RTQID NEB Last administered on 01/07/19at 06:52; Start 01/06/19 at 12:00 Info (Icu Electrolyte Protocol) 1 ea CONT PRN PRN MC PER PROTOCOL; Start 01/06/19 at 10:30 Pharmacy Consult (C.diff Med Screen By Rx) 1 each 1X ONCE MC ; Start 01/06/19 at 10:45; Stop 01/06/19 at 10:46; Status DC Methylprednisolone Sodium Succinate (SOLU-Medrol 40MG VIAL) 40 mg Q12HR IV Last administered on 01/07/19at 08:32; Start 01/06/19 at 11:00 Potassium Chloride/Water 50 ml @ 50 mls/hr 1X ONCE IV Last administered on 01/06/19at 12:47; Start 01/06/19 at 11:30; Stop 01/06/19 at 12:29; Status DC Meropenem 500 mg/ Sodium Chloride 50 ml @ 100 mls/hr Q6HRS IV Last administered on 01/07/19at 05:30; Start 01/06/19 at 12:30 Linezolid/Dextrose 300 ml @ 300 mls/hr Q12HR IV Last administered on 01/07/19at 08:31; Start 01/06/19 at 12:30 Enoxaparin Sodium (Lovenox 40mg Syringe) 40 mg Q24H SQ Last administered on 01/06/19at 15:59; Start 01/06/19 at 14:00 Ascorbic Acid (Vitamin C) 500 mg BID PO Last administered on 01/06/19at 20:51; Start 01/06/19 at 21:00 Bisacodyl (Dulcolax Supp) 10 mg PRN DAILY PRN OK CONSTIPATION; Start 01/06/19 at 15:00 Gabapentin (Neurontin) 300 mg BID PO Last administered on 01/07/19at 08:35; Start 01/06/19 at 21:00 Zolpidem Tartrate (Ambien) 5 mg PRN QHS PRN PO INSOMNIA Last administered on 01/06/19at 21:55; Start 01/06/19 at 15:00 Citalopram Hydrobromide (CeleXA) 20 mg DAILY PO Last administered on 01/07/19at 08:35; Start 01/07/19 at 09:00 Lactobacillus Rhamnosus (Culturelle) 1 cap BID PO Last administered on 01/06/19at 20:48; Start 01/06/19 at 21:00 Non-Formulary Medication (Naloxegol Oxalate (Movantik)) 25 mg DAILY PO ; Start 01/07/19 at 09:00; Status UNV Morphine Sulfate (Roxanol Conc) 10 mg PRN Q3HRS PRN SL PAIN Last administered on 01/07/19at 08:28; Start 01/06/19 at 18:00 Fentanyl (Duragesic 12mcg/ Hr Patch) 1 patch Q3DAYS TD Last administered on 01/06/19at 20:47; Start 01/06/19 at 20:45 Lorazepam (Ativan) 1 mg PRN Q4HRS PRN PO ANXIETY / AGITATION Last administered on 01/07/19at 02:17; Start 01/07/19 at 01:00 Morphine Sulfate (Morphine Sulfate) 4 mg PRN Q4HRS PRN IV MODERATE TO SEVERE PAIN; Start 01/07/19 at 09:30 Lorazepam (Ativan Inj) 2 mg PRN Q4HRS PRN IVP ANXIETY / AGITATION; Start 01/07/19 at 09:45; Status UNV Morphine Sulfate (Roxanol Conc) 20 mg Q2HR PRN SL PAIN; Start 01/07/19 at 09:45; Status UNV Fentanyl Citrate (Fentanyl 2ml Vial) 25 mcg Q1HR PRN IVP PAIN; Start 01/07/19 at 09:45; Status UNV Active Scripts Active Lactulose 20 Gm/30 Ml Solution 20 Gm PO PRN DAILY PRN 30 Days Percocet 10-325 Mg Tablet (Oxycodone/Acetaminophen) 1 Each Tablet 1 Tab PO PRN Q4HRS PRN 30 Days Morphine Sulfate 100 Mg/5 Ml Solution 10 Mg SL PRN Q3HRS PRN 30 Days Movantik (Naloxegol Oxalate) 25 Mg Tablet 25 Mg PO DAILY 30 Days Bisacodyl 10 Mg Supp.rect 10 Mg [place] PRN DAILY PRN 30 Days Ascorbic Acid 500 Mg Tablet 500 Mg PO BID 30 Days Reported Imodium A-D (Loperamide HCl) 2 Mg Capsule 2 Mg PO PRN Q4HRS PRN Ambien (Zolpidem Tartrate) 5 Mg Tablet 5 Mg PO PRN QHS PRN Gabapentin (Gabapentin) 300 Mg Capsule 300 Mg PO BID Escitalopram Oxalate 10 Mg Tablet 1 Tab PO DAILY Acyclovir 400 Mg Tablet 1 Tab PO BID Culturelle (Lactobacillus Rhamnosus Gg) 1 Each Capsule 1 Each PO BID Allergies Allergies: Coded Allergies: I S O L A T I O N *CONTACT* (Verified Allergy, Unknown, 12/31/18) mrsa/ESBL No Known Medication Allergies (Verified Allergy, Unknown, 12/24/18) Vitals VITALS Vital Signs Date Time Temp Pulse Resp B/P (MAP) Pulse Ox O2 Delivery O2 Flow Rate FiO2 01/07/19 09:34 92 Nasal Cannula 6.0 01/07/19 06:09 33 114/57 (76) 01/07/19 04:10 97.7 101 97.7 Labs Labs Laboratory Tests Test 01/06/19 11:30 01/06/19 11:55 01/07/19 05:30 O2 Saturation 94 % (92-99) Arterial Blood pH 7.48 (7.35-7.45) Arterial Blood pCO2 at Patient Temp 32 mmHg (35-46) Arterial Blood pO2 at Patient Temp 73 mmHg (65-108) Arterial Blood HCO3 23 mmol/L (21-28) Arterial Blood Base Excess 0 mmol/L (-3-3) FiO2 50 Lactic Acid Level 1.7 mmol/L (0.4-2.0) White Blood Count 15.0 x10^3/uL (4.0-11.0) Red Blood Count 2.94 x10^6/uL (3.50-5.40) Hemoglobin 9.1 g/dL (12.0-15.5) Hematocrit 28.0 % (36.0-47.0) Mean Corpuscular Volume 95 fL (79-100) Mean Corpuscular Hemoglobin 31 pg (25-35) Mean Corpuscular Hemoglobin Concent 32 g/dL (31-37) Red Cell Distribution Width 19.8 % (11.5-14.5) Platelet Count 136 x10^3/uL (140-400) Neutrophils (%) (Auto) 83 % (31-73) Lymphocytes (%) (Auto) 15 % (24-48) Monocytes (%) (Auto) 2 % (0-9) Eosinophils (%) (Auto) 0 % (0-3) Basophils (%) (Auto) 0 % (0-3) Neutrophils # (Auto) 12.5 x10^3/uL (1.8-7.7) Lymphocytes # (Auto) 2.2 x10^3/uL (1.0-4.8) Monocytes # (Auto) 0.3 x10^3/uL (0.0-1.1) Eosinophils # (Auto) 0.0 x10^3/uL (0.0-0.7) Basophils # (Auto) 0.0 x10^3/uL (0.0-0.2) Prothrombin Time 19.6 SEC (11.7-14.0) Prothromb Time International Ratio 1.7 (0.8-1.1) Sodium Level 134 mmol/L (136-145) Potassium Level 3.9 mmol/L (3.5-5.1) Chloride Level 100 mmol/L (98-107) Carbon Dioxide Level 25 mmol/L (21-32) Anion Gap 9 (6-14) Blood Urea Nitrogen 11 mg/dL (7-20) Creatinine 0.4 mg/dL (0.6-1.0) Estimated GFR (Cockcroft-Gault) 161.7 BUN/Creatinine Ratio 28 (6-20) Glucose Level 130 mg/dL (70-99) Calcium Level 8.4 mg/dL (8.5-10.1) Magnesium Level 1.6 mg/dL (1.8-2.4) Total Bilirubin 5.6 mg/dL (0.2-1.0) Aspartate Amino Transf (AST/SGOT) 224 U/L (15-37) Alanine Aminotransferase (ALT/SGPT) 120 U/L (14-59) Alkaline Phosphatase 2583 U/L (46-116) Total Protein 5.3 g/dL (6.4-8.2) Albumin 1.2 g/dL (3.4-5.0) Albumin/Globulin Ratio 0.3 (1.0-1.7) Laboratory Tests Test 01/06/19 11:30 01/06/19 11:55 01/07/19 05:30 O2 Saturation 94 % (92-99) Arterial Blood pH 7.48 (7.35-7.45) Arterial Blood pCO2 at Patient Temp 32 mmHg (35-46) Arterial Blood pO2 at Patient Temp 73 mmHg (65-108) Arterial Blood HCO3 23 mmol/L (21-28) Arterial Blood Base Excess 0 mmol/L (-3-3) FiO2 50 Lactic Acid Level 1.7 mmol/L (0.4-2.0) White Blood Count 15.0 x10^3/uL (4.0-11.0) Red Blood Count 2.94 x10^6/uL (3.50-5.40) Hemoglobin 9.1 g/dL (12.0-15.5) Hematocrit 28.0 % (36.0-47.0) Mean Corpuscular Volume 95 fL (79-100) Mean Corpuscular Hemoglobin 31 pg (25-35) Mean Corpuscular Hemoglobin Concent 32 g/dL (31-37) Red Cell Distribution Width 19.8 % (11.5-14.5) Platelet Count 136 x10^3/uL (140-400) Neutrophils (%) (Auto) 83 % (31-73) Lymphocytes (%) (Auto) 15 % (24-48) Monocytes (%) (Auto) 2 % (0-9) Eosinophils (%) (Auto) 0 % (0-3) Basophils (%) (Auto) 0 % (0-3) Neutrophils # (Auto) 12.5 x10^3/uL (1.8-7.7) Lymphocytes # (Auto) 2.2 x10^3/uL (1.0-4.8) Monocytes # (Auto) 0.3 x10^3/uL (0.0-1.1) Eosinophils # (Auto) 0.0 x10^3/uL (0.0-0.7) Basophils # (Auto) 0.0 x10^3/uL (0.0-0.2) Prothrombin Time 19.6 SEC (11.7-14.0) Prothromb Time International Ratio 1.7 (0.8-1.1) Sodium Level 134 mmol/L (136-145) Potassium Level 3.9 mmol/L (3.5-5.1) Chloride Level 100 mmol/L (98-107) Carbon Dioxide Level 25 mmol/L (21-32) Anion Gap 9 (6-14) Blood Urea Nitrogen 11 mg/dL (7-20) Creatinine 0.4 mg/dL (0.6-1.0) Estimated GFR (Cockcroft-Gault) 161.7 BUN/Creatinine Ratio 28 (6-20) Glucose Level 130 mg/dL (70-99) Calcium Level 8.4 mg/dL (8.5-10.1) Magnesium Level 1.6 mg/dL (1.8-2.4) Total Bilirubin 5.6 mg/dL (0.2-1.0) Aspartate Amino Transf (AST/SGOT) 224 U/L (15-37) Alanine Aminotransferase (ALT/SGPT) 120 U/L (14-59) Alkaline Phosphatase 2583 U/L (46-116) Total Protein 5.3 g/dL (6.4-8.2) Albumin 1.2 g/dL (3.4-5.0) Albumin/Globulin Ratio 0.3 (1.0-1.7) MAYRA INTERIANO MD Jan 07, 2019 09:49
--- NOTE | 2019-01-07 11:13 | HP ---
ADMIT DATE: HISTORY OF PRESENT ILLNESS: The patient is a 63-year-old female, known to have stage 4 metastatic colon cancer, who presented to the Emergency Room with difficulty breathing, waking up shortly prior to arrival. She has a history of colon cancer as well as recently discharged from hospital from having a biliary stent placed. There has been no cough or fever. The patient has been on Eliquis, but was recently discontinued, breathing worse, rest makes it slightly better. Symptoms are severe in nature. She was extensively investigated in the Emergency Room of [facility] and was found to have marked leukocytosis with a white cell count 24,500. Her chemistry showed hypokalemia and markedly deranged liver enzymes. She was also found to be hypomagnesemic, hypokalemic and hyponatremic. She has had a CT angio of the chest which showed no evidence of pulmonary embolism, numerous masses throughout lungs consistent with worsening metastatic cancer, numerous liver metastases increased in size and numbers since prior study. There is significant progression of cancer since October. She has mild lymphadenopathy, unchanged, and therefore the patient was transferred to [facility] to continue with pain management and IV antibiotic and DVT prophylaxis. She was started on Ativan as well as morphine together with all other medications. We did start her on Lovenox for DVT prophylaxis and we did consult Infectious Disease and she was started on linezolid and meropenem as well as started Solu-Medrol. PAST MEDICAL HISTORY: Significant for metastatic colon cancer. She has chronic respiratory failure, COPD, was admitted recently with obstructive jaundice and underwent ERCP with stent deployment, varicose veins, history of diverticulitis, history of severe microscopic hypochromic anemia, colon cancer, metastasis to the liver, which she underwent colon resection with primary anastomosis and mobilization of the left splenic flexure on 01/04/2018. At that time, there was involvement of the mesenteric lymph nodes and liver metastases for which she was seen after that by the oncology team, has been receiving chemotherapy. PAST SURGICAL HISTORY: Significant for colon resection with end-to-end anastomosis, cystoscopy and left ureteral stent deployment. She also has a Port-A-Cath placement. ALLERGIES: She has no known drug allergies. MEDICATIONS: She is currently on following medications: Acyclovir 400 mg twice a day, morphine sulfate 100 mg per 5 mL solution, takes 10 mg sublingually every 3 hours as needed, oxycodone/APAP 10/325 one tablet every 4 hours as needed, gabapentin 300 mg twice a day, escitalopram oxalate 10 mg daily, Ambien 5 mg at bedtime, lactulose 30 mL p.o. daily p.r.n. for constipation, loperamide 2 mg as needed every 4 hours, bisacodyl 10 mg suppository rectally daily p.r.n. for constipation, lactobacillus rhamnosus, Culturelle 1 capsule twice a day, Movantik 25 mg daily, and ascorbic acid 500 mg twice a day. FAMILY HISTORY: She has one brother who has nonalcoholic steatohepatitis and one younger brother still alive and seemingly healthy. Her father at the age of 73 because of myocardial infarction and congestive heart failure. Mother is still alive at age of 87, has thyroid disease and underwent hysterectomy. SOCIAL HISTORY: She is , has two daughters. She is an ex-smoker, quit smoking in about 2007. She drinks alcohol occasionally. 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 REVIEW OF SYSTEMS: As per history of present illness. PHYSICAL EXAMINATION: GENERAL: On arrival to the Emergency Room of [facility], the patient was very tachypneic, tachycardic, hypoxic. Her heart rate was 162 and her oxygen saturation was only 78. She was pale, cachectic, but no jaundice, cyanosis or thyromegaly. No jugular venous distention. No lower limb edema. VITAL SIGNS: Her heart rate on arrival was 162, blood pressure was 126/66, temperature was 97.6, respiratory rate was 60, and oxygen saturation was 78% on 2 liters of oxygen. HEAD, EYES, EARS, NOSE AND THROAT: Normocephalic, atraumatic. NECK: Supple. HEART: Showed normal first and second heart sounds. No gallop, rub or murmur. CHEST: Showed central trachea, equally reduced expansion, reduced air entry, vesicular sounds with crepitation bilaterally posteriorly. ABDOMEN: Scaphoid, soft, nontender. NEUROLOGIC: She was awake, alert, very anxious, but all her cranial nerves are intact. EXTREMITIES: She moves extremities without difficulty. LABORATORY DATA: Her lab work showed a white cell count 24,500, hemoglobin 11, hematocrit 35, MCV was 96, and platelet count 201,000. Her chemistry showed serum sodium 132, potassium 3.2, chloride 94, bicarbonate 23, anion gap of 15, BUN 17, creatinine 0.7, estimated GFR was 85 mL per minute. Her glucose was 88, calcium was 9.4, magnesium was 1.4. Total bilirubin 6.9. AST, ALT are elevated. Alkaline phosphatase was very low. Troponin was less than 0.254 and her beta-natriuretic peptide was 1478. Total protein was 6.3, albumin was 1.6, lipase was 1.76. Her influenza A and B were negative. She did have a CT angio of the chest which showed no evidence of pulmonary embolism, numerous masses throughout the lung consistent with worsening metastatic cancer, numerous liver masses increased in size and numbers since prior study. There is significant progression of cancer since October, mild lymphadenopathy unchanged. ASSESSMENT AND PLAN: The patient was transferred to [facility] ICU with acute on chronic hypoxic respiratory failure, colon cancer, metastases to the liver and lung, elevated troponin, hypokalemia, hypomagnesemia and marked leukocytosis. She was continued on all her medications. We did consult the senior storage administrator as well as the Infectious Disease specialist and the oncologist and we started her back on steroids and breathing treatment and pain management. We will also consult the palliative care team as she probably with this progression will require to go on hospice care given her overall poor prognosis. SINCERE PANTOJA MD DR: CLYDE/ru JOB#: [id number] / [id number]
--- NOTE | 2019-01-07 11:27 | PN ---
DATE: 01/07/2019 SUBJECTIVE: The patient was admitted yesterday with [id number] hypoxic respiratory failure, worsening lung and liver metastasis of the colon cancer, hyponatremia, hypomagnesemia and hypokalemia. She was started on oral pain medication as well as antibiotic, Lovenox for DVT prophylaxis and steroids. The patient is continued to be extremely agitated, restless, hypoxic, on 10 liters of oxygen. We did try her on BiPAP, but she became more restless and agitated. With palliative care team, we have a lengthy discussion with daughters and plan is to consider inpatient hospice. The patient will be transferred to a different room to go for inpatient hospice care. OBJECTIVE: GENERAL: When I saw her this morning, she was definitely markedly restless, agitated, pale, cachectic but no jaundice, cyanosis, or thyromegaly. No jugular venous distension. No lower limb edema. VITAL SIGNS: Her heart rate was 106, blood pressure was 140/60, temperature was 98, respiratory rate was 26 and oxygen saturation was 82% on 7 liters of oxygen. HEAD, EYES, EARS, NOSE AND THROAT: Showed normocephalic, atraumatic. NECK: Supple. HEART: Showed normal first and second heart sounds with no gallop, rub or murmur. CHEST: Clear to auscultation. No crepitation or rhonchi. ABDOMEN: Scaphoid, soft, nontender. NEUROLOGIC: She was awake, alert, restless. All cranial nerves are intact. She moves extremities without difficulty. LABORATORY DATA: Her lab work showed a white cell count of 15,000, hemoglobin 9, hematocrit 28, MCV 95 and platelet count of 136,000. Her chemistry showed serum sodium 134, potassium is much better at 3.9, chloride 100, bicarbonate 25, anion gap of 9, BUN 11 and creatinine 0.4. Estimated GFR was 161 mL per minute. Her glucose was 130, lactic acid 1.7, calcium was 8.4, magnesium was 1.6, total bilirubin 5.6, AST and ALT slightly elevated. Alkaline phosphatase was extremely high at 2580. Total protein was 5.3. Albumin was 1.2. Her blood gases showed pH of 7.48, pCO2 of 32, pO2 of 73, bicarbonate 23, and oxygen saturation was 94% on FiO2 of 50%. ASSESSMENT AND PLAN: 1. [id number] hypoxic hypercapnic respiratory failure. 2. Metastatic colon cancer with worsening metastasis to the lung and liver. 3. History of Pneumocystis jiroveci pneumonia. 4. History of Clostridium difficile colitis. 5. Peripheral neuropathy. 6. History of deep vein thrombosis. PLAN: The plan is to discontinue all her anti-seizure medication. Continue with morphine, Ativan as well as atropine as well as oxygen and the plan is to consider hospice care for end-of-life care. SINCERE PANTOJA MD DR: CLYDE/ru JOB#: [id number] / [id number]
--- NOTE | 2019-01-07 11:46 | NUR ---
SS following for discharge planning. SS reviewed pt chart. Pt is from home and was on services with Palliative Care and had oxygen services with [employer] at home. SS discussed with Palliative Care RN and request for inpatient hospice with [facility], ; fax [phone], was made. SS phoned and faxed referral to [facility]. SS spoke with Noel from [employer] and contract is being sent to social service director. SS will continue to follow.
--- NOTE | 2019-01-07 11:48 | NUR ---
IP: patient has MRSA and ESBL hx, requires contact precautions.
[2019-01-07] MEDS: ENOXAPARIN 40 MG/0.4 ML SYRINGE. SQ SCH (12:47)
[2019-01-07] MEDS ORDERED: SENNOSIDES 8.6 MG TABLET PO PRN (14:45)
[2019-01-07] MEDS ORDERED: SENNOSIDES 8.6 MG TABLET PO SCH (15:00)
[2019-01-09] MEDS ORDERED: fentaNYL 12MCG/HR PATCH 1 PATCH PATCH.TD72 TD SCH (09:00)
== END 2019-01-07 15:40 | disposition hospice, inpatient (51) | DRG 871 ==
LOC: 1 WEST ICU 10:05
PROVIDERS: ADMIT Internal Medicine; ATTEND Internal Medicine
DX: A41.9 Sepsis, unspecified organism (principal); E43 Unspecified severe protein-calorie malnutrition; J96.21 Acute and chronic respiratory failure with hypoxia; J96.22 Acute and chronic respiratory failure with hypercapnia; C18.9 Malignant neoplasm of colon, unspecified; C78.00 Secondary malignant neoplasm of unspecified lung; C78.7 Secondary malignant neoplasm of liver and intrahepatic bile duct; E87.1 Hypo-osmolality and hyponatremia; E83.42 Hypomagnesemia; E87.6 Hypokalemia; G62.9 Polyneuropathy, unspecified; H91.90 Unspecified hearing loss, unspecified ear; J44.9 Chronic obstructive pulmonary disease, unspecified; J98.01 Acute bronchospasm; K21.9 Gastro-esophageal reflux disease without esophagitis; Z82.49 Family history of ischemic heart disease and other diseases of the circulatory system; F41.9 Anxiety disorder, unspecified; M10.9 Gout, unspecified; M19.90 Unspecified osteoarthritis, unspecified site; R94.5 Abnormal results of liver function studies; Z51.5 Encounter for palliative care; Z68.22 Body mass index [BMI] 22.0-22.9, adult; Z85.038 Personal history of other malignant neoplasm of large intestine; Z85.51 Personal history of malignant neoplasm of bladder; Z86.19 Personal history of other infectious and parasitic diseases; Z86.718 Personal history of other venous thrombosis and embolism; Z87.01 Personal history of pneumonia (recurrent); Z87.891 Personal history of nicotine dependence; Z90.49 Acquired absence of other specified parts of digestive tract
CPT/HCPCS: 36415; 36600; 80053; 82805; 83605; 83735; 85025; 85610; 87040; 87205; 94640; 94660; 94760; J1650; J2020; J2060; J2185; J2270; J2920; J3480; J7030; J7040; J7620; G0378